=== PATIENT | male | born 1945 | race African-American/Black ===

== ENCOUNTER 2016-08-09 08:12 | Inpatient (IN) | payer OTHER ==
[2016-08-09 09:11] VITALS: BMI 24.3
--- NOTE | 2016-08-09 11:50 | HP ---
CIWA Score - CIWA Score Nausea/Vomitin Muscle Tremors: 3 Anxiety: 3 Agitation: 3 Paroxysmal Sweats: 2 Orientation: 0-Oriented Tacttile Disturbances: 2-Mild Itch/Numbness/Burn Auditory Disturbances: 2-Mild Harshness/Frighten Visual Disturbances: 2-Mild Sensitivity Headache: 2-Mild CIWA-Ar Total Score: 22 Admission ROS BHS - HPI Chief Complaint: i need help to stop drinking alcohol and cocaine Allergies/Adverse Reactions: Allergies Allergy/AdvReac Type Severity Reaction Status Date / Time shellfish derived Allergy Mild Rash Verified 08/09/16 09:30 tomato Allergy Mild Rash Verified 08/09/16 09:30 iodine Allergy Rash Verified 08/09/16 09:30 History of Present Illness: this 70 years old male with alcohol,cocaine dependence,seeking detox,last detox [facility] 09/09/15 to 09/13/15 several admissions in the past longest period of sobriety 6 and half years Exam Limitations: No Limitations - Ebola screening Have you traveled outside of the country in the last 21 days: No Have you had contact with anyone from an Ebola affected area: No Have you been sick,other than usual withdrawal symptoms: No - Review of Systems Constitutional: Malaise, Night Sweats, Changes in sleep, Weakness, Unintentional Wgt. Loss EENT: reports: Nose Congestion Respiratory: reports: No Symptoms reported Cardiac: reports: No Symptoms Reported GI: reports: Diarrhea, Nausea, Vomiting, Abdominal cramping : reports: No Symptoms Reported Musculoskeletal: reports: Back Pain, Muscle Pain Integumentary: reports: Dryness Neuro: reports: Headache, Tremors Endocrine: reports: No Symptoms Reported Hematology: reports: No Symptoms Reported Psychiatric: reports: No Sypmtoms Reported, Judgement Intact, Mood/Affect Appropiate, Orientated x3 Patient History - Patient Medical History Hx Anemia: No Hx Asthma: No Hx Chronic Obstructive Pulmonary Disease (COPD): No Hx Cancer: No Hx Cardiac Disorders: No Hx Congestive Heart Failure: No Hx Hypertension: No Hx Hypercholesterolemia: No Hx Pacemaker: No HX Cerebrovascular Accident: No Hx Seizures: No Hx Dementia: No Hx Diabetes: No Hx Gastrointestinal Disorders: Yes (acid reflux) Hx Liver Disease: No Hx Genitourinary Disorders: No Hx Sexually Transmitted Disorders: No Hx Renal Disease (ESRD): No Hx Thyroid Disease: No Hx Human Immunodeficiency Virus (HIV): No (NEGATIVE HX last 2016 negative) Hx Hepatitis C: No Hx Depression: No Hx Suicide Attempt: No Hx Bipolar Disorder: No Hx Schizophrenia: No Other Medical History: no suicidal,no homicidal - Patient Surgical History Past Surgical History: Yes Hx Neurologic Surgery: No Hx Cataract Extraction: No Hx Cardiac Surgery: No Hx Lung Surgery: No Hx Breast Surgery: No Hx Breast Biopsy: No Hx Abdominal Surgery: No (PANCREATIC PSEUDOCYST 2002) Hx Appendectomy: No Hx Cholecystectomy: No Hx Genitourinary Surgery: No Hx Section: No Hx Orthopedic Surgery: No Anesthesia Reaction: No - PPD History Previous Implant?: Yes Documented Results: Positive w/o proof Results: CXR(-) 12/19/14 PPD to be Administered?: No - Smoking Cessation Smoking history: Current every day smoker Have you smoked in the past 12 months: Yes Aproximately how many cigarettes per day: 10 Hx Chewing Tobacco Use: No Initiated information on smoking cessation: Yes 'Breaking Loose' booklet given: 08/09/16 - Substance & Tx. History Hx Alcohol Use: Yes Hx Substance Use: Yes Substance Use Type: Alcohol, Cocaine Hx Substance Use Treatment: Yes ([facility] 09/09/15 to 09/13/15) - Substances Abused Cocaine Route: Injection Frequency: Daily Amount used: $150 Age of first use: 16 Date of Last Use: 08/08/16 Alcohol-vodka/beer Route: Oral Frequency: Daily Amount used: 1 1/2 pts./1-6 pk. Age of first use: 15 Date of Last Use: 08/08/16 Family Disease History - Family Disease History Family Disease History: Diabetes: Father (ALCOHOL,), Other: Father Admission Physical Exam [facility] - Vital Signs Vital Signs: Vital Signs - 24 hr 08/09/16 09:08 Temperature 96.7 F L Pulse Rate 70 Respiratory 18 Rate Blood Pressure 132/77 - Physical General Appearance: Yes: Moderate Distress, Tremorous, Anxious HEENTM: Yes: Hearing grossly Normal, Normal ENT Inspection, Normocephalic Respiratory: Yes: Lungs Clear, Normal Breath Sounds, No Respiratory Distress Neck: Yes: Within Normal Limits Breast: Yes: Within Normal Limits Cardiology: Yes: Within Normal Limits, Regular Rhythm, Regular Rate, S1, S2 Abdominal: Yes: Within Normal Limits, Normal Bowel Sounds, Non Tender, Flat, Soft, Surgical Scar Genitourinary: Yes: Within Normal Limits Back: Yes: Muscle Spasm Musculoskeletal: Yes: Back pain Extremities: Yes: Within Normal Limits, Tremors Neurological: Yes: bumper and painter II-XII NML intact, Alert, Motor Strength 5/5 Integumentary: Yes: Dry Lymphatic: Yes: Within Normal Limits - Diagnostic (1) Alcohol dependence with uncomplicated withdrawal Current Visit: No Status: Chronic (2) Chronic alcoholic pancreatitis Current Visit: No Status: Chronic (3) Cocaine dependence Current Visit: No Status: Chronic Qualifiers: Substance use status: uncomplicated Qualified Code(s): F14.20 - Cocaine dependence, uncomplicated (4) Nicotine dependence Current Visit: No Status: Chronic Qualifiers: Nicotine product type: cigarettes Substance use status: uncomplicated Qualified Code(s): F17.210 - Nicotine dependence, cigarettes, uncomplicated (5) Pseudocyst of pancreas Current Visit: Yes Status: Acute Cleared for Admission [facility] - Detox or Rehab [facility] Level of Care: Medically Managed Detox Regimen/Protocol: Librium S Breath Alcohol Content Breath Alcohol Content: 0 Urine Drug Screen - Results Drug Screen Negative: No Urine Drug Screen Results: GURDEEP-Cocaine, BZO-Benzodiazepines
[2016-08-09] MEDS ORDERED: MENTHOL/PHENOL 1 EACH UD MM PRN (12:01)
[2016-08-09] MEDS ORDERED: P-EPHED 60MG/TRIPROLIDI 2.5MG TABLET PO PRN (12:01)
[2016-08-09] MEDS ORDERED: MAG HYDROX/AL HYDROX/SIMETH 30 ML UNIT-DOSE CUP PO PRN (12:01)
[2016-08-09] MEDS ORDERED: ACETAMINOPHEN 325 MG TABLET (FP) PO PRN (12:01)
[2016-08-09] MEDS ORDERED: guaiFENesin/D-METHORPHAN HB 10 ML UNIT-DOSE CUPS PO PRN (12:01)
[2016-08-09] MEDS ORDERED: MAGNESIUM HYDROX 2400MG/30ML ORAL SUSPENSION 30 ML CUP PO PRN (12:01)
[2016-08-09] MEDS ORDERED: MAGNESIUM CITRATE 300 ML BOTTLE PO PRN (12:01)
[2016-08-09] MEDS ORDERED: IBUPROFEN 400 MG TABLET (FP) PO PRN (12:01)
[2016-08-09] MEDS ORDERED: hydrOXYzine PAMOATE 50 MG CAPSULE (FP) PO PRN (12:01)
[2016-08-09] MEDS ORDERED: LOPERAMIDE HCL 2 MG CAPSULE PO PRN (12:01)
[2016-08-09] MEDS ORDERED: chlordiazePOXIDE HCL 25 MG CAPSULE PO PRN (12:01)
[2016-08-09] MEDS ORDERED: chlordiazePOXIDE HCL 25 MG CAPSULE PO ONE (12:26)
[2016-08-09] MEDS: NICOTINE 21 MG/24 HOURS TOPICAL PATCH TD SCH (13:06)
[2016-08-09 14:37] LABS: HIV 1 & 2 AB NEGATIVE; HIV 1 AGp24 NEGATIVE
[2016-08-09] MEDS: chlordiazePOXIDE HCL 25 MG CAPSULE PO SCH ×2 (17:34→22:48)
[2016-08-09 18:25] LABS: URINE APPEARANCE CLEAR; URINE BILIRUBIN NEGATIVE (NEGATIVE); URINE COLOR LTYELLOW; URINE GLUCOSE (UA) NEGATIVE (NEGATIVE); URINE KETONE NEGATIVE (NEGATIVE); URINE LEUK ESTERASE NEGATIVE (NEGATIVE); URINE NITRITE NEGATIVE (NEGATIVE); URINE PROTEIN NEGATIVE (NEGATIVE); URINE UROBILINOGEN NEGATIVE E.U./dl (0.2-1.0)
[2016-08-09 18:27] LABS: URINE BLOOD 1+ (NEGATIVE)
[2016-08-09 18:32] LABS: URINE RBC 1 /hpf (0-3); URINE WBC 1 /hpf (3-5)
[2016-08-09] MEDS: THIAMINE HCL 100 MG TABLET (FP) PO SCH (22:48)
[2016-08-09] MEDS: diphenhydrAMINE HCL 50 MG CAPSULE PO PRN (22:48)
[2016-08-10] MEDS: chlordiazePOXIDE HCL 25 MG CAPSULE PO SCH ×4 (05:59→22:20)
[2016-08-10 10:17] LABS: MCH 32.1 pg (25.7-33.7); MCHC 33.1 g/dl (32.0-35.9); MEAN CELL VOLUME 96.9 fl (80-96); MEAN PLT VOLUME 9.7 fl (7.5-11.1); PLATELET COUNT 103 K/MM3 (134-434); RDW 15.5 % (11.9-15.9); WHITE BLOOD COUNT 2.9 K/mm3 (4.0-10.0)
[2016-08-10 11:03] LABS: ALBUMIN 3.1 g/dl (3.4-5.0); ALK PHOS 69 U/L (45-117); ANION GAP 7 (8-16); BILIRUBIN,TOTAL 0.5 mg/dL (0.2-1.0); CALCIUM 8.6 mg/dL (8.5-10.1); CO2 30 mmol/L (21-32); CREATININE 1.4 mg/dL (0.7-1.3); GLUCOSE,RANDOM 107 mg/dL (74-106); SGOT/AST 22 U/L (15-37); SGPT/ALT 19 U/L (12-78); TOT PROT 6.9 g/dl (6.4-8.2)
[2016-08-10] MEDS: PRENATAL VITAMINS W/ FOLIC ACID TABLET (FP) PO SCH ×2 (11:26→15:22)
[2016-08-10] MEDS: NICOTINE 21 MG/24 HOURS TOPICAL PATCH TD SCH ×2 (11:26→15:21)
[2016-08-10] MEDS: PANTOPRAZOLE 40 MG TABLET (FP) PO SCH ×2 (11:27→15:21)
--- NOTE | 2016-08-10 12:59 | PN ---
S CIWA - CIWA Score Nausea/Vomitin Muscle Tremors: 3 Anxiety: 3 Agitation: 3 Paroxysmal Sweats: 1-Minimal Palms Moist Orientation: 0-Oriented Tacttile Disturbances: 1-Very Mild Itch/Numbness Auditory Disturbances: 1-Very Mild Visual Disturbances: 1-Very Mild Sensitivity Headache: 2-Mild CIWA-Ar Total Score: 18 S Progress Note (SOAP) Subjective: ALERT,IRRITABLE,ANXIOUS,INTERRUPTED SLEEP,TREMOR,PAIN IN THE BODY Objective: 08/10/16 12:56 Vital Signs Temperature 97.7 F 08/10/16 09:37 Pulse Rate 78 08/10/16 09:37 Respiratory Rate 16 08/10/16 09:37 Blood Pressure 142/65 08/10/16 09:37 O2 Sat by Pulse Oximetry (%) EKG NSR,INVERTED T IN 3,AVF NO CHEST PAIN,NO SOB,NO DIZZINESS 08/10/16 12:58 Laboratory Results - last 24 hr 08/09/16 08/09/16 08/10/16 11:40 14:00 06:00 WBC 2.9 L D RBC 4.06 Hgb 13.0 Hct 39.4 MCV 96.9 H MCHC 33.1 RDW 15.5 Plt Count 103 L MPV 9.7 D Sodium Potassium Chloride Carbon Dioxide Anion Gap BUN Creatinine Creat Clearance w eGFR Random Glucose Calcium Total Bilirubin AST ALT Alkaline Phosphatase Total Protein Albumin Urine Color Ltyellow Urine Appearance Clear Urine pH 5.0 Ur Specific [place] 1.015 Urine Protein Negative Urine Glucose (UA) Negative Urine Ketones Negative Urine Blood 1+ H Urine Nitrite Negative Urine Bilirubin Negative Urine Urobilinogen Negative Ur Leukocyte Esterase Negative Urine RBC 1 Urine WBC 1 Ur Epithelial Cells Rare RPR Titer HIV 1&2 Antibody Screen Negative HIV P24 Antigen Negative 08/10/16 08/10/16 06:00 06:00 WBC RBC Hgb Hct MCV MCHC RDW Plt Count MPV Sodium 141 Potassium 4.1 Chloride 104 Carbon Dioxide 30 Anion Gap 7 L BUN 13 Creatinine 1.4 H Creat Clearance w eGFR 50.10 Random Glucose 107 H Calcium 8.6 Total Bilirubin 0.5 D AST 22 ALT 19 Alkaline Phosphatase 69 D Total Protein 6.9 D Albumin 3.1 L Urine Color Urine Appearance Urine pH Ur Specific [place] Urine Protein Urine Glucose (UA) Urine Ketones Urine Blood Urine Nitrite Urine Bilirubin Urine Urobilinogen Ur Leukocyte Esterase Urine RBC Urine WBC Ur Epithelial Cells RPR Titer Nonreactive HIV 1&2 Antibody Screen HIV P24 Antigen Assessment: 08/10/16 12:58 WITHDRAWAL SYMPTOM Plan: CONTINUE DETOX,REPEAT CBC,CMP IN AM
--- NOTE | 2016-08-10 15:50 | EKG ---
Test Reason : Blood Pressure : / mmHG Vent. Rate : 064 BPM Atrial Rate : 064 BPM P-R Int : 164 ms QRS Dur : 086 ms QT Int : 402 ms P-R-T Axes : 033 065 040 degrees QTc Int : 414 ms NORMAL SINUS RHYTHM NONSPECIFIC T WAVE ABNORMALITY ABNORMAL ECG NO PREVIOUS ECGS AVAILABLE Confirmed by TYLER CACERES, TODD ([id number]) on 08/10/2016 3:50:03 PM Referred By: Niru Burgos Confirmed By:TODD SCOTT MD
[2016-08-10] MEDS: THIAMINE HCL 100 MG TABLET (FP) PO SCH (22:20)
[2016-08-10] MEDS: diphenhydrAMINE HCL 50 MG CAPSULE PO PRN (22:20)
[2016-08-11] MEDS: chlordiazePOXIDE HCL 25 MG CAPSULE PO SCH ×2 (06:12→10:58)
[2016-08-11] MEDS: PRENATAL VITAMINS W/ FOLIC ACID TABLET (FP) PO SCH (10:58)
[2016-08-11] MEDS: NICOTINE 21 MG/24 HOURS TOPICAL PATCH TD SCH (10:58)
[2016-08-11] MEDS: PANTOPRAZOLE 40 MG TABLET (FP) PO SCH (10:58)
--- NOTE | 2016-08-11 11:32 | PN ---
S CIWA - CIWA Score Nausea/Vomitin Muscle Tremors: 3 Anxiety: 3 Agitation: 2 Paroxysmal Sweats: 1-Minimal Palms Moist Orientation: 0-Oriented Tacttile Disturbances: 1-Very Mild Itch/Numbness Auditory Disturbances: 1-Very Mild Visual Disturbances: 1-Very Mild Sensitivity Headache: 2-Mild CIWA-Ar Total Score: 17 BHS Progress Note (SOAP) Subjective: ALERT,IRRITABLE,ANXIOUS,INTERRUPTED SLEEP,TREMOR Objective: 08/11/16 11:28 Vital Signs Temperature 98.1 F 08/11/16 10:00 Pulse Rate 76 08/11/16 10:00 Respiratory Rate 20 08/11/16 10:00 Blood Pressure 125/64 08/11/16 10:00 O2 Sat by Pulse Oximetry (%) Vital Signs Temperature 98.1 F 08/11/16 10:00 Pulse Rate 76 08/11/16 10:00 Respiratory Rate 20 08/11/16 10:00 Blood Pressure 125/64 08/11/16 10:00 O2 Sat by Pulse Oximetry (%) Laboratory Last Values WBC 2.9 K/mm3 (4.0-10.0) L D 08/10/16 06:00 RBC 4.06 M/mm3 (4.00-5.60) 08/10/16 06:00 Hgb 13.0 GM/dL (11.7-16.9) 08/10/16 06:00 Hct 39.4 % (35.4-49) 08/10/16 06:00 MCV 96.9 fl (80-96) H 08/10/16 06:00 MCHC 33.1 g/dl (32.0-35.9) 08/10/16 06:00 RDW 15.5 % (11.9-15.9) 08/10/16 06:00 Plt Count 103 K/MM3 (134-434) L 08/10/16 06:00 MPV 9.7 fl (7.5-11.1) D 08/10/16 06:00 Sodium 141 mmol/L (136-145) 08/10/16 06:00 Potassium 4.1 mmol/L (3.5-5.1) 08/10/16 06:00 Chloride 104 mmol/L (98-107) 08/10/16 06:00 Carbon Dioxide 30 mmol/L (21-32) 08/10/16 06:00 Anion Gap 7 (8-16) L 08/10/16 06:00 BUN 13 mg/dL (7-18) 08/10/16 06:00 Creatinine 1.4 mg/dL (0.7-1.3) H 08/10/16 06:00 Creat Clearance w eGFR 50.10 (>60) 08/10/16 06:00 Random Glucose 107 mg/dL (74-106) H 08/10/16 06:00 Calcium 8.6 mg/dL (8.5-10.1) 08/10/16 06:00 Total Bilirubin 0.5 mg/dL (0.2-1.0) D 08/10/16 06:00 AST 22 U/L (15-37) 08/10/16 06:00 ALT 19 U/L (12-78) 08/10/16 06:00 Alkaline Phosphatase 69 U/L (45-117) D 08/10/16 06:00 Total Protein 6.9 g/dl (6.4-8.2) D 08/10/16 06:00 Albumin 3.1 g/dl (3.4-5.0) L 08/10/16 06:00 Urine Color Ltyellow 08/09/16 14:00 Urine Appearance Clear 08/09/16 14:00 Urine pH 5.0 (5.0-8.0) 08/09/16 14:00 Ur Specific [place] 1.015 (1.005-1.025) 08/09/16 14:00 Urine Protein Negative (NEGATIVE) 08/09/16 14:00 Urine Glucose (UA) Negative (NEGATIVE) 08/09/16 14:00 Urine Ketones Negative (NEGATIVE) 08/09/16 14:00 Urine Blood 1+ (NEGATIVE) H 08/09/16 14:00 Urine Nitrite Negative (NEGATIVE) 08/09/16 14:00 Urine Bilirubin Negative (NEGATIVE) 08/09/16 14:00 Urine Urobilinogen Negative E.U./dl (0.2-1.0) 08/09/16 14:00 Ur Leukocyte Esterase Negative (NEGATIVE) 08/09/16 14:00 Urine RBC 1 /hpf (0-3) 08/09/16 14:00 Urine WBC 1 /hpf (3-5) 08/09/16 14:00 Ur Epithelial Cells Rare /hpf (FEW) 08/09/16 14:00 RPR Titer Nonreactive (NONREACTIVE) 08/10/16 06:00 HIV 1&2 Antibody Screen Negative 08/09/16 11:40 HIV P24 Antigen Negative 08/09/16 11:40 Assessment: 08/11/16 11:30 WITHDRAWAL SYMPTOM 08/11/16 11:31 Plan: CONTINUE DETOX
[2016-08-11] MEDS: chlordiazePOXIDE 5 MG CAPSULE PO SCH ×2 (17:29→22:05)
[2016-08-11] MEDS: diphenhydrAMINE HCL 50 MG CAPSULE PO PRN (22:04)
[2016-08-11] MEDS: THIAMINE HCL 100 MG TABLET (FP) PO SCH (22:04)
[2016-08-12] MEDS: chlordiazePOXIDE 5 MG CAPSULE PO SCH ×2 (05:54→10:49)
[2016-08-12 10:39] LABS: MCH 31.2 pg (25.7-33.7); MCHC 32.1 g/dl (32.0-35.9); MEAN CELL VOLUME 97.5 fl (80-96); MEAN PLT VOLUME 8.8 fl (7.5-11.1); PLATELET COUNT 97 K/MM3 (134-434); RDW 15.8 % (11.9-15.9); WHITE BLOOD COUNT 2.2 K/mm3 (4.0-10.0)
[2016-08-12] MEDS: PRENATAL VITAMINS W/ FOLIC ACID TABLET (FP) PO SCH (10:49)
[2016-08-12] MEDS: PANTOPRAZOLE 40 MG TABLET (FP) PO SCH (10:49)
[2016-08-12] MEDS: NICOTINE 21 MG/24 HOURS TOPICAL PATCH TD SCH (10:49)
--- NOTE | 2016-08-12 11:02 | PN ---
S Progress Note (SOAP) Subjective: ALERT,IRRITABLE,ANXIOUS,INTERRUPTED SLEEP Objective: 08/12/16 11:00 Vital Signs Temperature 97.3 F L 08/12/16 10:15 Pulse Rate 79 08/12/16 10:15 Respiratory Rate 16 08/12/16 10:15 Blood Pressure 137/73 08/12/16 10:15 O2 Sat by Pulse Oximetry (%) Laboratory Results - last 24 hr 08/12/16 08:00 WBC 2.2 L RBC 3.68 L Hgb 11.5 L D Hct 35.9 MCV 97.5 H MCHC 32.1 RDW 15.8 Plt Count 97 L MPV 8.8 Assessment: 08/12/16 11:01 WITHDRAWAL SYMPTOM Plan: CONTINUE DETOX,LEUKOPENIA,CONTINUE MONITORING
[2016-08-12] MEDS: chlordiazePOXIDE HCL 10 MG CAPSULE PO SCH ×2 (17:50→22:17)
[2016-08-12] MEDS: diphenhydrAMINE HCL 50 MG CAPSULE PO PRN (22:17)
[2016-08-12] MEDS: THIAMINE HCL 100 MG TABLET (FP) PO SCH (22:17)
[2016-08-13] MEDS: chlordiazePOXIDE HCL 10 MG CAPSULE PO SCH ×2 (05:22→10:33)
[2016-08-13] MEDS: PRENATAL VITAMINS W/ FOLIC ACID TABLET (FP) PO SCH (09:38)
[2016-08-13] MEDS: PANTOPRAZOLE 40 MG TABLET (FP) PO SCH (09:38)
[2016-08-13] MEDS: NICOTINE 21 MG/24 HOURS TOPICAL PATCH TD SCH (11:13)
--- NOTE | 2016-08-13 11:27 | DS ---
[facility] Detox Discharge Summary Admission Date: 08/09/16 Discharge Date: 08/13/16 - History Present History: Alcohol Dependence, Cocaine Dependence Additional Comments: ADVISED PATIENT TO FOLLOW-UP WITH [facility] / REHAB MEDICAL PROVIDER AFTER DISCHARGE FROM [facility]. Pertinent Past History: Chronic Alcoholic Pancreatitis, Pseudocyst of Pancreas, GERD. - Physical Exam Results Vital Signs: Vital Signs Temperature 97.3 F L 08/13/16 05:57 Pulse Rate 75 08/13/16 05:57 Respiratory Rate 18 08/13/16 05:57 Blood Pressure 137/74 08/13/16 05:57 O2 Sat by Pulse Oximetry (%) Pertinent Admission Physical Exam Findings: WITHDRAWAL SYMPTOMS. Laboratory Tests 08/09/16 08/09/16 08/10/16 11:40 14:00 06:00 WBC 2.9 L D RBC 4.06 Hgb 13.0 Hct 39.4 MCV 96.9 H MCHC 33.1 RDW 15.5 Plt Count 103 L MPV 9.7 D Sodium Potassium Chloride Carbon Dioxide Anion Gap BUN Creatinine Creat Clearance w eGFR Random Glucose Calcium Total Bilirubin AST ALT Alkaline Phosphatase Total Protein Albumin Urine Color Ltyellow Urine Appearance Clear Urine pH 5.0 Ur Specific [place] 1.015 Urine Protein Negative Urine Glucose (UA) Negative Urine Ketones Negative Urine Blood 1+ H Urine Nitrite Negative Urine Bilirubin Negative Urine Urobilinogen Negative Ur Leukocyte Esterase Negative Urine RBC 1 Urine WBC 1 Ur Epithelial Cells Rare RPR Titer HIV 1&2 Antibody Screen Negative HIV P24 Antigen Negative 08/10/16 08/10/16 08/12/16 06:00 06:00 08:00 WBC 2.2 L RBC 3.68 L Hgb 11.5 L D Hct 35.9 MCV 97.5 H MCHC 32.1 RDW 15.8 Plt Count 97 L MPV 8.8 Sodium 141 Potassium 4.1 Chloride 104 Carbon Dioxide 30 Anion Gap 7 L BUN 13 Creatinine 1.4 H Creat Clearance w eGFR 50.10 Random Glucose 107 H Calcium 8.6 Total Bilirubin 0.5 D AST 22 ALT 19 Alkaline Phosphatase 69 D Total Protein 6.9 D Albumin 3.1 L Urine Color Urine Appearance Urine pH Ur Specific [place] Urine Protein Urine Glucose (UA) Urine Ketones Urine Blood Urine Nitrite Urine Bilirubin Urine Urobilinogen Ur Leukocyte Esterase Urine RBC Urine WBC Ur Epithelial Cells RPR Titer Nonreactive HIV 1&2 Antibody Screen HIV P24 Antigen LABS NOTED. - Treatment Hospital Course: Detox Protocol Followed, Detoxed Safely, Responded well, Discharged Condition Good, Rehab Referral Accepted Patient has Accepted a Rehab Referral to: [facility]. - Medication Discharge Medications: Ambulatory Orders NK [No Known Home Medication] 08/09/16 - Diagnosis (1) Pseudocyst of pancreas Current Visit: Yes Status: Acute (2) Alcohol dependence with uncomplicated withdrawal Current Visit: Yes Status: Acute (3) Chronic alcoholic pancreatitis Current Visit: Yes Status: Chronic (4) Cocaine dependence, uncomplicated Current Visit: Yes Status: Acute (5) Nicotine dependence Current Visit: Yes Status: Chronic Qualifiers: Nicotine product type: cigarettes Substance use status: uncomplicated Qualified Code(s): F17.210 - Nicotine dependence, cigarettes, uncomplicated - AMA Did Patient Leave Against Medical Advice: No
[2016-08-13 12:44] VITALS: BP 113/73; PULSE 78; TEMP 98.3
--- NOTE | 2016-08-13 17:27 | PN ---
[facility] Progress Note Note: PATIENT WAS TRANSFERRED TO [address] [place] [address] FOR CONTINUING OF CARE IN REHAB,SEEN BY COUNSELOR ON THE UNIT,EXPRESSED HIMSELF THAT HE DID NOT WANT TO CONTINUE TREATMENT AND WOULD LIKE TO LEAVE,ALL EFFORTS CARRIED OUT BY MY SELF AND COUNSELOR WITH NO AVAIL, [facility] ACCOUNTING CLERK INFORMED.PATIENT AGREED TO GO TO [facility] FOR CONTINUING OF CARE UPON DISCHARGE, PATIENT SIGNED RELEASE AMA,[employer] NOTIFIED BY NURSE
--- NOTE | 2016-08-15 13:36 | PN ---
S Progress Note Note: patient signed AMA prior to be seen for admission, please see medical staff notes.
== END 2016-08-13 16:55 | disposition left against medical advice (07) | DRG 894 ==
LOC: YASAS 08:12 → Y6N 11:46 → Y5N 08-13 11:39
PROVIDERS: ADMIT Internal Medicine; ATTEND Internal Medicine
PROC: HZ2ZZZZ Detoxification Services for Substance Abuse Treatment (ICD-10-PCS; principal; 2016-08-09)
PROC: HZ42ZZZ Group Counseling for Substance Abuse Treatment, Cognitive-Behavioral (ICD-10-PCS; 2016-08-13)
DX: F14.20 Cocaine dependence, uncomplicated (principal); K86.0 Alcohol-induced chronic pancreatitis; K86.3 Pseudocyst of pancreas; F17.210 Nicotine dependence, cigarettes, uncomplicated; K21.9 Gastro-esophageal reflux disease without esophagitis; D72.819 Decreased white blood cell count, unspecified
CPT/HCPCS: 36415; 71020-TC; 80053; 81003; 81015; 85027; 86593; 87389; 93005; 93010

== ENCOUNTER 2017-03-28 11:22 | Inpatient (IN) | payer OTHER ==
[2017-03-28 13:34] VITALS: BMI 26.6
--- NOTE | 2017-03-28 14:14 | HP ---
CIWA Score - CIWA Score Nausea/Vomitin-Mild Nausea/No Vomiting Muscle Tremors: 4-Moderate,w/Arms Extend Anxiety: 4-Mod. Anxious/Guarded Agitation: 4-Moderately Restless Paroxysmal Sweats: 2 Orientation: 0-Oriented Tacttile Disturbances: 1-Very Mild Itch/Numbness Auditory Disturbances: 0-None Visual Disturbances: 0-None Headache: 2-Mild CIWA-Ar Total Score: 18 Admission ROS S - HPI Chief Complaint: withdrawal sx Allergies/Adverse Reactions: Allergies Allergy/AdvReac Type Severity Reaction Status Date / Time shellfish derived Allergy Mild Rash Verified 01/29/17 20:26 tomato Allergy Mild Rash Verified 01/29/17 20:26 iodine Allergy Rash Verified 01/29/17 20:26 History of Present Illness: 71 years old male with long history of alcohol nicotine dependence has chronic pancreatitis treated with creon 24.000 unit tid ac positive ppd has depression is admitted to detox Exam Limitations: No Limitations - Ebola screening Have you traveled outside of the country in the last 21 days: No Have you had contact with anyone from an Ebola affected area: No Have you been sick,other than usual withdrawal symptoms: No Do you have a fever: No - Review of Systems Constitutional: Changes in sleep, Weight Stable EENT: reports: Dental Problems (multiple teeth missing) Respiratory: reports: No Symptoms reported Cardiac: reports: No Symptoms Reported GI: reports: Nausea, Poor Fluid Intake, Indigestion, Abdominal cramping : reports: No Symptoms Reported Musculoskeletal: reports: No Symptoms Reported Integumentary: reports: No Symptoms Reported Neuro: reports: Tremors Endocrine: reports: No Symptoms Reported Hematology: reports: No Symptoms Reported Psychiatric: reports: Judgement Intact, Orientated x3, Anxious, Depressed Other Systems: Reviewed and Negative Patient History - Patient Medical History Hx Anemia: No Hx Asthma: No Hx Chronic Obstructive Pulmonary Disease (COPD): No Hx Cancer: No Hx Cardiac Disorders: No Hx Congestive Heart Failure: No Hx Hypertension: No Hx Hypercholesterolemia: No Hx Pacemaker: No HX Cerebrovascular Accident: No Hx Seizures: No Hx Dementia: No Hx Diabetes: No Hx Gastrointestinal Disorders: Yes (acid reflux) Hx Liver Disease: No Hx Genitourinary Disorders: No Hx Sexually Transmitted Disorders: No Hx Renal Disease (ESRD): No Hx Thyroid Disease: No Hx Human Immunodeficiency Virus (HIV): No Hx Hepatitis C: No Hx Depression: Yes Hx Suicide Attempt: No Hx Bipolar Disorder: No Hx Schizophrenia: No - Patient Surgical History Past Surgical History: Yes Hx Neurologic Surgery: No Hx Cataract Extraction: No Hx Cardiac Surgery: No Hx Lung Surgery: No Hx Breast Surgery: No Hx Breast Biopsy: No Hx Abdominal Surgery: No (PANCREATIC PSEUDOCYST 2002) Hx Appendectomy: No Hx Cholecystectomy: No Hx Genitourinary Surgery: No Hx Orthopedic Surgery: No - PPD History Previous Implant?: Yes Documented Results: Positive w/o proof Implanted On Prior R Admission?: No Results: CXR(-) 01/2017 PPD to be Administered?: No - Smoking Cessation Smoking history: Current every day smoker Have you smoked in the past 12 months: Yes Aproximately how many cigarettes per day: 10 Cigars Per Day: 0 Hx Chewing Tobacco Use: No Initiated information on smoking cessation: Yes 'Breaking Loose' booklet given: 03/28/17 - Substance & Tx. History Hx Alcohol Use: Yes Hx Substance Use: Yes Substance Use Type: Alcohol, Cocaine Hx Substance Use Treatment: Yes (01/2017 [facility] - Substances Abused Alcohol Route: Oral Frequency: Daily Amount used: 2.5 pint vodka Age of first use: 14 Date of Last Use: 03/27/17 Cocaine Route: Inhalation Frequency: Daily Amount used: 7 G Age of first use: 15 Date of Last Use: 03/27/17 Family Disease History - Family Disease History Family Disease History: Diabetes: Father (ALCOHOL,), Other: Father Admission Physical Exam BHS - Vital Signs Vital Signs: Vital Signs - 24 hr 03/28/17 13:33 Temperature 97.9 F Pulse Rate 70 Respiratory 20 Rate Blood Pressure 141/81 - Physical General Appearance: Yes: Appropriately Dressed, Moderate Distress, Tremorous, Irritable, Sweating, Anxious HEENTM: Yes: Hearing grossly Normal, Normal ENT Inspection, Normocephalic, Normal Voice, Other (multiple teeth missing) Respiratory: Yes: Chest Non-Tender, Lungs Clear, Normal Breath Sounds, No Respiratory Distress, No Accessory Muscle Use Neck: Yes: Supple, Trachea in good position Breast: Yes: Breasts Symetrical Cardiology: Yes: Regular Rhythm, Regular Rate, S1, S2 Abdominal: Yes: Non Tender, Soft, Increased Bowel Sounds Genitourinary: Yes: Within Normal Limits Back: Yes: Normal Inspection Musculoskeletal: Yes: full range of Motion, Gait Steady Extremities: Yes: Normal Inspection, Normal Range of Motion, Non-Tender, Tremors Neurological: Yes: Alert, Motor Strength 5/5, Normal Response, Depressed Affect Integumentary: Yes: Warm Lymphatic: Yes: Within Normal Limits - Diagnostic (1) Alcohol dependence with uncomplicated withdrawal Current Visit: Yes Status: Acute (2) GERD (gastroesophageal reflux disease) Current Visit: Yes Status: Chronic Qualifiers: Esophagitis presence: without esophagitis Qualified Code(s): K21.9 - Gastro -esophageal reflux disease without esophagitis (3) Nicotine dependence Current Visit: Yes Status: Acute Qualifiers: Nicotine product type: cigarettes Substance use status: in withdrawal Qualified Code(s): F17.213 - Nicotine dependence, cigarettes, with withdrawal (4) Positive PPD, treated Current Visit: Yes Status: Acute (5) Leukopenia Current Visit: No Status: Chronic Qualifiers: Leukopenia type: unspecified Qualified Code(s): D72.819 - Decreased white blood cell count, unspecified Cleared for Admission [facility] - Detox or Rehab [facility] Level of Care: Medically Managed Detox Regimen/Protocol: Librium [facility] Breath Alcohol Content Breath Alcohol Content: 0 Urine Drug Screen - Results Drug Screen Negative: No Urine Drug Screen Results: GURDEEP-Cocaine
[2017-03-28] MEDS ORDERED: guaiFENesin/D-METHORPHAN HB 10 ML UNIT-DOSE CUPS PO PRN (14:18)
[2017-03-28] MEDS ORDERED: MAGNESIUM HYDROX 2400MG/30ML ORAL SUSPENSION 30 ML CUP PO PRN (14:18)
[2017-03-28] MEDS ORDERED: P-EPHED 60MG/TRIPROLIDI 2.5MG TABLET PO PRN (14:18)
[2017-03-28] MEDS ORDERED: IBUPROFEN 400 MG TABLET (FP) PO PRN (14:18)
[2017-03-28] MEDS ORDERED: MAGNESIUM CITRATE 300 ML BOTTLE PO PRN (14:18)
[2017-03-28] MEDS ORDERED: ACETAMINOPHEN 325 MG TABLET (FP) PO PRN (14:18)
[2017-03-28] MEDS ORDERED: NICOTINE POLACRILEX 2 MG GUM BUC PRN (14:18)
[2017-03-28] MEDS ORDERED: chlordiazePOXIDE HCL 25 MG CAPSULE PO PRN (14:18)
[2017-03-28] MEDS ORDERED: LOPERAMIDE HCL 2 MG CAPSULE PO PRN (14:18)
[2017-03-28] MEDS ORDERED: MENTHOL/PHENOL 1 EACH UD MM PRN (14:18)
[2017-03-28] MEDS ORDERED: MAG HYDROX/AL HYDROX/SIMETH 30 ML UNIT-DOSE CUP PO PRN (14:18)
[2017-03-28] MEDS ORDERED: PATIENT'S OWN MEDICATION (NON-FORMULARY) (Lipase/Protease/Amylase [Creon Dr 24,000 Units C PO PRN (14:28)
[2017-03-28] MEDS: LIPASE/PROTEASE/AMYLASE 6,000 UNIT CAPSULE PO SCH (22:30)
[2017-03-28] MEDS: THIAMINE HCL 100 MG TABLET (FP) PO SCH (22:30)
[2017-03-28] MEDS: RANITIDINE HCL 150 MG TABLET (FP) PO SCH (22:30)
[2017-03-28] MEDS: chlordiazePOXIDE HCL 25 MG CAPSULE PO SCH (22:56)
[2017-03-28 23:09] LABS: URINE APPEARANCE TURBID; URINE BILIRUBIN NEGATIVE (NEGATIVE); URINE BLOOD 2+ (NEGATIVE); URINE COLOR RED; URINE GLUCOSE (UA) NEGATIVE (NEGATIVE); URINE KETONE NEGATIVE (NEGATIVE); URINE LEUK ESTERASE NEGATIVE (NEGATIVE); URINE NITRITE NEGATIVE (NEGATIVE); URINE PROTEIN NEGATIVE (NEGATIVE); URINE UROBILINOGEN NEGATIVE mg/dL (0.2-1.0)
[2017-03-28 23:16] LABS: EPI CELLS RARE /HPF (FEW)
[2017-03-29] MEDS: chlordiazePOXIDE HCL 25 MG CAPSULE PO SCH ×5 (05:16→22:29)
[2017-03-29] MEDS: LIPASE/PROTEASE/AMYLASE 6,000 UNIT CAPSULE PO SCH (07:11)
[2017-03-29 10:22] LABS: HEMATOCRIT 36.6 % (35.4-49); HEMOGLOBIN 11.8 GM/dL (11.7-16.9); MCH 31.1 pg (25.7-33.7); MCHC 32.3 g/dl (32.0-35.9); MEAN CELL VOLUME 96.4 fl (80-96); MEAN PLT VOLUME 9.4 fl (7.5-11.1); PLATELET COUNT 129 K/MM3 (134-434); RBC 3.79 M/mm3 (4.00-5.60); RDW 15.7 % (11.9-15.9); WHITE BLOOD COUNT 2.3 K/mm3 (4.0-10.0)
[2017-03-29 10:25] LABS: CHLORIDE 103 mmol/L (98-107); SODIUM 138 mmol/L (136-145)
[2017-03-29 10:37] LABS: ALBUMIN 3.3 g/dl (3.4-5.0); ALK PHOS 62 U/L (45-117); ANION GAP 8 (8-16); BILIRUBIN,TOTAL 0.6 mg/dL (0.2-1.0); BLOOD UREA NITROGEN 18 mg/dL (7-18); CO2 27 mmol/L (21-32); CREATININE 1.4 mg/dL (0.7-1.3); GLUCOSE,RANDOM 107 mg/dL (74-106); SGOT/AST 22 U/L (15-37); SGPT/ALT 19 U/L (12-78); TOT PROT 6.6 g/dl (6.4-8.2)
[2017-03-29] MEDS: PRENATAL VITAMINS W/ FOLIC ACID TABLET (FP) PO SCH (10:44)
[2017-03-29] MEDS: NICOTINE 14 MG/24 HOURS TOPICAL PATCH TD SCH (10:45)
[2017-03-29] MEDS: RANITIDINE HCL 150 MG TABLET (FP) PO SCH ×2 (10:45→22:29)
--- NOTE | 2017-03-29 12:15 | EKG ---
Test Reason : Blood Pressure : / mmHG Vent. Rate : 067 BPM Atrial Rate : 067 BPM P-R Int : 166 ms QRS Dur : 088 ms QT Int : 408 ms P-R-T Axes : 068 -05 -01 degrees QTc Int : 431 ms NORMAL SINUS RHYTHM NONSPECIFIC ST AND T WAVE ABNORMALITY ABNORMAL ECG WHEN COMPARED WITH ECG OF 29-JAN-2017 22:45, INVERTED T WAVES HAVE REPLACED NONSPECIFIC T WAVE ABNORMALITY IN INFERIOR LEADS Confirmed by TYLER CACERES, TODD ([id number]) on 03/29/2017 12:14:37 PM Referred By: Confirmed By:TODD SCOTT MD
--- NOTE | 2017-03-29 12:19 | PN ---
[facility] CIWA - CIWA Score Nausea/Vomitin-No Nausea/No Vomiting Muscle Tremors: 3 Anxiety: 5 Agitation: 4-Moderately Restless Paroxysmal Sweats: No Perspiration Orientation: 0-Oriented Tacttile Disturbances: 3-Moderate Itch/Numb/Burn Auditory Disturbances: 2-Mild Harshness/Frighten Visual Disturbances: 0-None Headache: 0-None Present CIWA-Ar Total Score: 17 BHS Progress Note (SOAP) Subjective: Tremors, Interrupted sleep, Anxious, Stomach Cramping. Objective: PT. A & O X 3, OBSERVED AMBULATING ON UNIT. NO ACUTE DISTRESS. 03/29/17 12:15 Vital Signs Temperature 98.0 F 03/29/17 09:19 Pulse Rate 81 03/29/17 09:19 Respiratory Rate 18 03/29/17 09:19 Blood Pressure 146/81 03/29/17 09:19 O2 Sat by Pulse Oximetry (%) Laboratory Tests 03/28/17 03/29/17 03/29/17 23:00 06:00 06:00 WBC 2.3 L RBC 3.79 L Hgb 11.8 Hct 36.6 MCV 96.4 H MCH 31.1 MCHC 32.3 RDW 15.7 Plt Count 129 L MPV 9.4 Sodium 138 Potassium 4.0 Chloride 103 Carbon Dioxide 27 Anion Gap 8 BUN 18 Creatinine 1.4 H Creat Clearance w eGFR 49.96 Random Glucose 107 H Calcium 8.0 L Total Bilirubin 0.6 AST 22 D ALT 19 D Alkaline Phosphatase 62 D Total Protein 6.6 Albumin 3.3 L D Urine Color Red Urine Appearance Turbid Urine pH 5.0 D Ur Specific [place] 1.023 Urine Protein Negative Urine Glucose (UA) Negative Urine Ketones Negative Urine Blood 2+ H Urine Nitrite Negative Urine Bilirubin Negative Urine Urobilinogen Negative Ur Leukocyte Esterase Negative Urine WBC (Auto) 1 Urine RBC (Auto) 6 Ur Epithelial Cells Rare LABS NOTED. RPR RESULT PENDING. 03/29/17 12:18 Assessment: 03/29/17 12:15 WITHDRAWAL SYMPTOMS. Plan: CONTINUE DETOX. D/C MAGNESIUM-CONTAIN MEDS. AND IBUPROFEN FOR ABNORMAL RENAL LAB VALUES. REPEAT UA FOR ADMISSION ABNORMALITIES. PRN FLEXERIL FOR BODY ACHES / MUSCLE SPASMS. INCREASE DAILY PO FLUID INTAKE.
--- NOTE | 2017-03-29 12:46 | CONSULT ---
[facility] Psychiatric Consult - Data Date of interview: 03/29/17 Admission source: [facility] Identifying data: Pt. 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 This is one of multiple admissions for patient. Pt. admitted to for alcohol and cocaine dependence. Substance Abuse History: Following information confirmed with Mr. Baxter: Smoking Cessation. Smoking history: Current every day smoker. Have you smoked in the past 12 months: Yes. Aproximately how many cigarettes per day: 10. Cigars Per Day: 0. Hx Chewing Tobacco Use: No. Initiated information on smoking cessation: Yes. 'Breaking Loose' booklet given: 03/28/17. - Substance & Tx. History. Hx Alcohol Use: Yes. Hx Substance Use: Yes. Substance Use Type : Alcohol, Cocaine. Hx Substance Use Treatment: Yes (01/2017 [facility]). - Substances Abused. Alcohol. Route: Oral. Frequency: Daily. Amount used: 2.5 pint vodka. Age of first use: 14. Date of Last Use: 03/27/17. Cocaine. Route: Inhalation. Frequency: Daily. Amount used: 7 G. Age of first use: 15. Date of Last Use: 03/27/17 Medical History: acid reflux. Psychiatric History: Pt. denies h/o psychiatric hospitalizations, suicide attempts, and outpatient care. Physical/Sexual Abuse/Trauma History: Denies. Mental Status Exam - Mental Status Exam Alert and Oriented to: Time, Place, Person Cognitive Function: Good Patient Appearance: Well Groomed Mood: Euthymic Affect: Mood Congruent Patient Behavior: Cooperative Speech Pattern: Appropriate Voice Loudness: Normal Thought Process: Goal Oriented Thought Disorder: Not Present Hallucinations: Denies Suicidal Ideation: Denies Homicidal Ideation: Denies Insight/Judgement: Poor Sleep: Poorly Appetite: Fair Muscle strength/Tone: Normal Gait/Station: Normal Psychiatric Findings - Problem List ([place] 1, 2,3) (1) Alcohol dependence with uncomplicated withdrawal Current Visit: Yes Status: Acute (2) Nicotine dependence Current Visit: Yes Status: Chronic Qualifiers: Nicotine product type: cigarettes Substance use status: in withdrawal Qualified Code(s): F17.213 - Nicotine dependence, cigarettes, with withdrawal (3) Insomnia Current Visit: Yes Status: Acute - Initial Treatment Plan Initial Treatment Plan: Psychoeducation provided. Detoxification provided. Ambien 5mg qhs prn ordered. Benefits and side effects discussed (sleep walking) . Verbal consent given. Will continue to monitor.
[2017-03-29] MEDS: ZOLPIDEM TARTRATE 5 MG TABLET PO PRN (22:28)
[2017-03-29] MEDS: THIAMINE HCL 100 MG TABLET (FP) PO SCH (22:29)
[2017-03-30] MEDS: chlordiazePOXIDE HCL 25 MG CAPSULE PO SCH ×3 (05:17→17:01)
[2017-03-30] MEDS: PRENATAL VITAMINS W/ FOLIC ACID TABLET (FP) PO SCH (10:28)
[2017-03-30] MEDS: RANITIDINE HCL 150 MG TABLET (FP) PO SCH ×2 (10:29→22:54)
[2017-03-30] MEDS: NICOTINE 14 MG/24 HOURS TOPICAL PATCH TD SCH (10:30)
--- NOTE | 2017-03-30 12:14 | PN ---
[facility] CIWA - CIWA Score Nausea/Vomitin-No Nausea/No Vomiting Muscle Tremors: 2 Anxiety: 3 Agitation: 4-Moderately Restless Paroxysmal Sweats: 3 Orientation: 0-Oriented Tacttile Disturbances: 3-Moderate Itch/Numb/Burn Auditory Disturbances: 0-None Visual Disturbances: 2-Mild Sensitivity Headache: 0-None Present CIWA-Ar Total Score: 17 BHS Progress Note (SOAP) Subjective: Body Aches, Anxious, Interrupted Sleep, Sweating. Objective: PT. A & O X 3, OBSERVED AMBULATING ON UNIT. NO ACUTE DISTRESS. 03/30/17 12:13 Vital Signs Temperature 97.3 F L 03/30/17 09:39 Pulse Rate 79 03/30/17 09:39 Respiratory Rate 18 03/30/17 09:39 Blood Pressure 139/83 03/30/17 09:39 O2 Sat by Pulse Oximetry (%) Laboratory Tests 03/28/17 03/29/17 03/29/17 23:00 06:00 06:00 WBC 2.3 L RBC 3.79 L Hgb 11.8 Hct 36.6 MCV 96.4 H MCH 31.1 MCHC 32.3 RDW 15.7 Plt Count 129 L MPV 9.4 Sodium 138 Potassium 4.0 Chloride 103 Carbon Dioxide 27 Anion Gap 8 BUN 18 Creatinine 1.4 H Creat Clearance w eGFR 49.96 Random Glucose 107 H Calcium 8.0 L Total Bilirubin 0.6 AST 22 D ALT 19 D Alkaline Phosphatase 62 D Total Protein 6.6 Albumin 3.3 L D Urine Color Red Urine Appearance Turbid Urine pH 5.0 D Ur Specific [place] 1.023 Urine Protein Negative Urine Glucose (UA) Negative Urine Ketones Negative Urine Blood 2+ H Urine Nitrite Negative Urine Bilirubin Negative Urine Urobilinogen Negative Ur Leukocyte Esterase Negative Urine WBC (Auto) 1 Urine RBC (Auto) 6 Ur Epithelial Cells Rare RPR Titer 03/29/17 06:00 WBC RBC Hgb Hct MCV MCH MCHC RDW Plt Count MPV Sodium Potassium Chloride Carbon Dioxide Anion Gap BUN Creatinine Creat Clearance w eGFR Random Glucose Calcium Total Bilirubin AST ALT Alkaline Phosphatase Total Protein Albumin Urine Color Urine Appearance Urine pH Ur Specific [place] Urine Protein Urine Glucose (UA) Urine Ketones Urine Blood Urine Nitrite Urine Bilirubin Urine Urobilinogen Ur Leukocyte Esterase Urine WBC (Auto) Urine RBC (Auto) Ur Epithelial Cells RPR Titer Nonreactive LABS NOTED. Assessment: 03/30/17 12:13 WITHDRAWAL SYMPTOMS. Plan: CONTINUE DETOX. INCREASE DAILY PO FLUID INTAKE.
[2017-03-30] MEDS: ZOLPIDEM TARTRATE 5 MG TABLET PO PRN (22:27)
[2017-03-30] MEDS: THIAMINE HCL 100 MG TABLET (FP) PO SCH (22:54)
[2017-03-30] MEDS: chlordiazePOXIDE 5 MG CAPSULE PO SCH (22:54)
[2017-03-30 23:05] LABS: URINE APPEARANCE CLEAR; URINE BILIRUBIN NEGATIVE (NEGATIVE); URINE BLOOD NEGATIVE (NEGATIVE); URINE COLOR LTYELLOW; URINE GLUCOSE (UA) NEGATIVE (NEGATIVE); URINE KETONE NEGATIVE (NEGATIVE); URINE LEUK ESTERASE NEGATIVE (NEGATIVE); URINE NITRITE NEGATIVE (NEGATIVE); URINE PROTEIN NEGATIVE (NEGATIVE); URINE UROBILINOGEN NEGATIVE mg/dL (0.2-1.0)
[2017-03-31] MEDS: chlordiazePOXIDE 5 MG CAPSULE PO SCH ×3 (06:07→17:29)
[2017-03-31] MEDS: NICOTINE 14 MG/24 HOURS TOPICAL PATCH TD SCH (10:32)
[2017-03-31] MEDS: PRENATAL VITAMINS W/ FOLIC ACID TABLET (FP) PO SCH (10:33)
[2017-03-31] MEDS: RANITIDINE HCL 150 MG TABLET (FP) PO SCH ×2 (10:34→22:17)
--- NOTE | 2017-03-31 13:40 | PN ---
BHS Progress Note (SOAP) Subjective: Anxious, restless, irritable Objective: 03/31/17 13:36 Last Vital Signs Temp Pulse Resp BP Pulse Ox 97.0 F L 79 18 146/84 03/31/17 13:17 03/31/17 13:17 03/31/17 13:17 03/31/17 13:17 Laboratory Tests 03/28/17 03/29/17 03/29/17 23:00 06:00 06:00 WBC 2.3 L RBC 3.79 L Hgb 11.8 Hct 36.6 MCV 96.4 H MCH 31.1 MCHC 32.3 RDW 15.7 Plt Count 129 L MPV 9.4 Sodium 138 Potassium 4.0 Chloride 103 Carbon Dioxide 27 Anion Gap 8 BUN 18 Creatinine 1.4 H Creat Clearance w eGFR 49.96 Random Glucose 107 H Calcium 8.0 L Total Bilirubin 0.6 AST 22 D ALT 19 D Alkaline Phosphatase 62 D Total Protein 6.6 Albumin 3.3 L D Urine Color Red Urine Appearance Turbid Urine pH 5.0 D Ur Specific [place] 1.023 Urine Protein Negative Urine Glucose (UA) Negative Urine Ketones Negative Urine Blood 2+ H Urine Nitrite Negative Urine Bilirubin Negative Urine Urobilinogen Negative Ur Leukocyte Esterase Negative Urine WBC (Auto) 1 Urine RBC (Auto) 6 Ur Epithelial Cells Rare RPR Titer 03/29/17 03/30/17 06:00 17:00 WBC RBC Hgb Hct MCV MCH MCHC RDW Plt Count MPV Sodium Potassium Chloride Carbon Dioxide Anion Gap BUN Creatinine Creat Clearance w eGFR Random Glucose Calcium Total Bilirubin AST ALT Alkaline Phosphatase Total Protein Albumin Urine Color Ltyellow Urine Appearance Clear Urine pH 6.0 Ur Specific [place] 1.019 Urine Protein Negative Urine Glucose (UA) Negative Urine Ketones Negative Urine Blood Negative Urine Nitrite Negative Urine Bilirubin Negative Urine Urobilinogen Negative Ur Leukocyte Esterase Negative Urine WBC (Auto) Urine RBC (Auto) Ur Epithelial Cells RPR Titer Nonreactive Labs noted: serum cr 1.4, GFR 49.96 Assessment: 03/31/17 13:39 Withdrawal symptoms Noted with CODY and mild thrombocytopenia Plan: Continue detox CODY:encouraged PO hydration (water), repeat BMP Mild thrombocytopenia: stable, monitor for bruising
[2017-03-31] MEDS: THIAMINE HCL 100 MG TABLET (FP) PO SCH (22:17)
[2017-03-31] MEDS: ZOLPIDEM TARTRATE 5 MG TABLET PO PRN (22:17)
[2017-03-31] MEDS: chlordiazePOXIDE HCL 10 MG CAPSULE PO SCH (22:17)
[2017-03-31] MEDS: CYCLOBENZAPRINE HCL 10 MG TABLET (FP) PO PRN (23:39)
[2017-04-01] MEDS: chlordiazePOXIDE HCL 10 MG CAPSULE PO SCH ×3 (05:46→16:44)
[2017-04-01] MEDS: NICOTINE 14 MG/24 HOURS TOPICAL PATCH TD SCH (10:04)
[2017-04-01] MEDS: RANITIDINE HCL 150 MG TABLET (FP) PO SCH ×2 (10:04→21:19)
[2017-04-01] MEDS: PRENATAL VITAMINS W/ FOLIC ACID TABLET (FP) PO SCH (10:04)
--- NOTE | 2017-04-01 11:22 | PN ---
BHS Progress Note (SOAP) Subjective: shakes sleep disturbance sweats Objective: 04/01/17 11:18 no acute distress noted A & O x 3 Vital Signs Temperature 97.5 F L 04/01/17 09:14 Pulse Rate 85 04/01/17 09:14 Respiratory Rate 18 04/01/17 09:14 Blood Pressure 128/74 04/01/17 09:14 O2 Sat by Pulse Oximetry (%) Pending rehab bed Assessment: 04/01/17 11:18 Vital Signs Temperature 97.5 F L 04/01/17 09:14 Pulse Rate 85 04/01/17 09:14 Respiratory Rate 18 04/01/17 09:14 Blood Pressure 128/74 04/01/17 09:14 O2 Sat by Pulse Oximetry (%) Plan: continue detox D/c for tomorrow
--- NOTE | 2017-04-01 11:45 | DS ---
[facility] Detox Discharge Summary Admission Date: 03/28/17 Discharge Date: 04/01/17 - History Additional Comments: Pt received a bed on Rehab floor Pertinent Past History: GERD Depression - Physical Exam Results Vital Signs: Vital Signs Temperature 97.5 F L 04/01/17 09:14 Pulse Rate 85 04/01/17 09:14 Respiratory Rate 18 04/01/17 09:14 Blood Pressure 128/74 04/01/17 09:14 O2 Sat by Pulse Oximetry (%) Pertinent Admission Physical Exam Findings: withdrawal sx - Treatment Hospital Course: Detox Protocol Followed, Detoxed Safely, Responded well, Discharged Condition Good, Rehab Referral Accepted [facility] - Medication Discharge Medications: Ambulatory Orders Lipase/Protease/Amylase [Creon Dr 24,000 Units Capsule] 1 each PO TID 03/28/17 Ranitidine HCl [Zantac] 150 mg PO BID 03/28/17 - Diagnosis (1) Alcohol dependence with uncomplicated withdrawal Current Visit: Yes Status: Acute (2) Nicotine dependence Current Visit: Yes Status: Chronic Qualifiers: Nicotine product type: cigarettes Substance use status: in withdrawal Qualified Code(s): F17.213 - Nicotine dependence, cigarettes, with withdrawal (3) Depression Current Visit: Yes Status: Chronic (4) GERD (gastroesophageal reflux disease) Current Visit: Yes Status: Chronic Qualifiers: Esophagitis presence: without esophagitis Qualified Code(s): K21.9 - Gastro -esophageal reflux disease without esophagitis - AMA Did Patient Leave Against Medical Advice: No
[2017-04-01] MEDS: THIAMINE HCL 100 MG TABLET (FP) PO SCH (21:18)
[2017-04-01] MEDS: CYCLOBENZAPRINE HCL 10 MG TABLET (FP) PO PRN (21:20)
[2017-04-02] MEDS: NICOTINE 14 MG/24 HOURS TOPICAL PATCH TD SCH (10:15)
[2017-04-02] MEDS: RANITIDINE HCL 150 MG TABLET (FP) PO SCH ×2 (10:15→21:42)
[2017-04-02] MEDS: PRENATAL VITAMINS W/ FOLIC ACID TABLET (FP) PO SCH (10:15)
--- NOTE | 2017-04-02 11:43 | HP ---
Psychiatrist Admission - Data Date of interview: 04/02/17 Identifying data: This is one of the several 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 Medical History: Acid reflux, smokes cigarettes 10 a day. Psychiatric History: Patient denies, reports he has insomnia and was given ambien while in detox. with a good response. Physical/Sexual Abuse/Trauma History: Denies history of sexual, physical and verbal abuse. Vital Signs: Vital Signs - 24 hr 04/01/17 04/02/17 04/02/17 14:29 00:30 03:30 Temperature 98.3 F Pulse Rate 96 H Respiratory 18 18 18 Rate Blood Pressure 132/67 04/02/17 06:48 Temperature 97.9 F Pulse Rate 83 Respiratory 18 Rate Blood Pressure 139/70 Allergies/Adverse Reactions: Allergies Allergy/AdvReac Type Severity Reaction Status Date / Time shellfish derived Allergy Mild Rash Verified 03/28/17 15:28 tomato Allergy Mild Rash Verified 03/28/17 15:28 iodine Allergy Rash Verified 03/28/17 15:28 - Substance Abuse/Tx History Hx Alcohol Use: Yes Hx Substance Use: Yes Substance Use Type: Alcohol (1-2 pints of vodka daily), Cocaine (7 gr daily) Hx Substance Use Treatment: Yes (several [facility]) Mental Status Exam - Mental Status Exam Alert and Oriented to: Time, Place, Person Cognitive Function: Good Patient Appearance: Well Groomed Mood: Hopeful Affect: Appropriate, Mood Congruent Patient Behavior: Appropriate, Cooperative Speech Pattern: Clear, Appropriate Voice Loudness: Normal Thought Process: Intact, Goal Oriented Thought Disorder: Not Present Hallucinations: Denies Suicidal Ideation: Denies Homicidal Ideation: Denies Insight/Judgement: Fair Sleep: Poorly, Difficulty falling asleep Appetite: Fair Muscle strength/Tone: Normal Gait/Station: Normal Psychiatric Findings - Problem List ([place] 1, 2,3) (1) Alcohol dependence Current Visit: Yes Status: Acute (2) Cocaine dependence Current Visit: Yes Status: Acute (3) Nicotine dependence Current Visit: Yes Status: Chronic Qualifiers: Nicotine product type: cigarettes Substance use status: in withdrawal Qualified Code(s): F17.213 - Nicotine dependence, cigarettes, with withdrawal (4) Cocaine-induced sleep disorder Current Visit: No Status: Acute - Initial Treatment Plan Initial Treatment Plan: Will add Belsomra 10 mg po hs, side-effects and benefits discussed, mponitor progress as needed.
[2017-04-02] MEDS: THIAMINE HCL 100 MG TABLET (FP) PO SCH (21:15)
[2017-04-02] MEDS: SUVOREXANT 10 MG TABLET PO SCH (21:17)
[2017-04-02] MEDS: CYCLOBENZAPRINE HCL 10 MG TABLET (FP) PO PRN (21:17)
[2017-04-03] MEDS: CYCLOBENZAPRINE HCL 10 MG TABLET (FP) PO PRN ×3 (07:25→21:15)
[2017-04-03] MEDS: NICOTINE 14 MG/24 HOURS TOPICAL PATCH TD SCH (09:48)
[2017-04-03] MEDS: RANITIDINE HCL 150 MG TABLET (FP) PO SCH ×2 (09:48→21:14)
[2017-04-03] MEDS: PRENATAL VITAMINS W/ FOLIC ACID TABLET (FP) PO SCH (09:48)
[2017-04-03] MEDS: SUVOREXANT 10 MG TABLET PO SCH (21:14)
[2017-04-03] MEDS: THIAMINE HCL 100 MG TABLET (FP) PO SCH (21:14)
[2017-04-04] MEDS: RANITIDINE HCL 150 MG TABLET (FP) PO SCH ×2 (10:22→21:21)
[2017-04-04] MEDS: PRENATAL VITAMINS W/ FOLIC ACID TABLET (FP) PO SCH (10:22)
[2017-04-04] MEDS: NICOTINE 14 MG/24 HOURS TOPICAL PATCH TD SCH (10:22)
[2017-04-04] MEDS: CYCLOBENZAPRINE HCL 10 MG TABLET (FP) PO PRN ×2 (10:24→21:21)
--- NOTE | 2017-04-04 11:54 | PN ---
S Progress Note (SOAP) Subjective: [facility] HAS APT ON SUNDAY TO FOLLOW UP WITH pcp WOULD LIKE TO BE DISCHARGED ON THAT DAY,. Objective: 04/04/17 11:53 Vital Signs - 24 hr 04/04/17 04/04/17 04/04/17 00:30 03:30 06:52 Temperature 98.0 F Pulse Rate 71 Respiratory 18 18 18 Rate Blood Pressure 118/69 Laboratory Tests 03/28/17 03/29/17 03/29/17 23:00 06:00 06:00 WBC 2.3 L RBC 3.79 L Hgb 11.8 Hct 36.6 MCV 96.4 H MCH 31.1 MCHC 32.3 RDW 15.7 Plt Count 129 L MPV 9.4 Sodium 138 Potassium 4.0 Chloride 103 Carbon Dioxide 27 Anion Gap 8 BUN 18 Creatinine 1.4 H Creat Clearance w eGFR 49.96 Random Glucose 107 H Calcium 8.0 L Total Bilirubin 0.6 AST 22 D ALT 19 D Alkaline Phosphatase 62 D Total Protein 6.6 Albumin 3.3 L D Urine Color Red Urine Appearance Turbid Urine pH 5.0 D Ur Specific [place] 1.023 Urine Protein Negative Urine Glucose (UA) Negative Urine Ketones Negative Urine Blood 2+ H Urine Nitrite Negative Urine Bilirubin Negative Urine Urobilinogen Negative Ur Leukocyte Esterase Negative Urine WBC (Auto) 1 Urine RBC (Auto) 6 Ur Epithelial Cells Rare RPR Titer 03/29/17 03/30/17 06:00 17:00 WBC RBC Hgb Hct MCV MCH MCHC RDW Plt Count MPV Sodium Potassium Chloride Carbon Dioxide Anion Gap BUN Creatinine Creat Clearance w eGFR Random Glucose Calcium Total Bilirubin AST ALT Alkaline Phosphatase Total Protein Albumin Urine Color Ltyellow Urine Appearance Clear Urine pH 6.0 Ur Specific [place] 1.019 Urine Protein Negative Urine Glucose (UA) Negative Urine Ketones Negative Urine Blood Negative Urine Nitrite Negative Urine Bilirubin Negative Urine Urobilinogen Negative Ur Leukocyte Esterase Negative Urine WBC (Auto) Urine RBC (Auto) Ur Epithelial Cells RPR Titer Nonreactive Assessment: 04/04/17 11:53 REQUESTING D/C ON SUNDAY MOOSE APPT , WILL DISCUSS WITH COUNSELOR FOR D/ C MED ENTERED.
[2017-04-04] MEDS: THIAMINE HCL 100 MG TABLET (FP) PO SCH (21:21)
[2017-04-04] MEDS: SUVOREXANT 10 MG TABLET PO SCH (21:21)
[2017-04-05] MEDS: RANITIDINE HCL 150 MG TABLET (FP) PO SCH ×2 (10:11→21:23)
[2017-04-05] MEDS: PRENATAL VITAMINS W/ FOLIC ACID TABLET (FP) PO SCH (10:11)
[2017-04-05] MEDS: NICOTINE 14 MG/24 HOURS TOPICAL PATCH TD SCH (10:12)
[2017-04-05] MEDS: CYCLOBENZAPRINE HCL 10 MG TABLET (FP) PO PRN ×2 (10:12→21:24)
[2017-04-05] MEDS: THIAMINE HCL 100 MG TABLET (FP) PO SCH (21:23)
[2017-04-05] MEDS: SUVOREXANT 10 MG TABLET PO SCH (21:23)
[2017-04-06 06:44] VITALS: BP 137/77; PULSE 80; TEMP 97.5
[2017-04-06] MEDS: PRENATAL VITAMINS W/ FOLIC ACID TABLET (FP) PO SCH (09:18)
[2017-04-06] MEDS: NICOTINE 14 MG/24 HOURS TOPICAL PATCH TD SCH (09:18)
[2017-04-06] MEDS: RANITIDINE HCL 150 MG TABLET (FP) PO SCH (09:18)
--- NOTE | 2017-04-06 10:36 | PN ---
Psychiatric Progress Note Vital Signs: Vital Signs Period Temp Pulse Resp BP Sys/Ruano Pulse Ox Last 24 Hr 97.5 F 80 16-18 137/77 Date of Session: 04/06/17 Chief Complaint:: discharge visit HPI: Patient is addressing alcohol, cocaine, nicotine dependence comorbid cocaine induced sleep disorder. ROS: Acid reflux medically managed. Current Side Effect: No Lab tests ordered: No Lab tests reviewed: Yes Provider note:: Patient requested to be discharged today states he has a PCP appointment he needs to follow. He was encouraged to continue maintain abstinence and utilize all supports to prevent relapses. Patient is stable for discharge. Total face to face time:: 10 Mental Status Exam - Mental Status Exam Alert and Oriented to: Time, Place, Person Cognitive Function: Grossly Intact Patient Appearance: Well Groomed Mood: Hopeful Affect: Mood Congruent Patient Behavior: Appropriate, Cooperative Speech Pattern: Clear Voice Loudness: Normal Thought Process: Intact Thought Disorder: Not Present Hallucinations: Denies Suicidal Ideation: Denies Homicidal Ideation: Denies Insight/Judgement: Fair Sleep: Fair Appetite: Fair Muscle strength/Tone: Normal Gait/Station: Normal Psychiatric Treatment Plan - Problem List (3) Nicotine dependence Qualifiers: Nicotine product type: cigarettes Substance use status: in withdrawal Qualified Code(s): F17.213 - Nicotine dependence, cigarettes, with withdrawal
== END 2017-04-06 09:35 | disposition home or self-care (01) | DRG 895 ==
LOC: YASAS 11:22 → Y3N 16:17 → Y5N 04-01 13:59
PROVIDERS: ADMIT Internal Medicine; ATTEND Psychiatry & Neurology Psychiatry
PROC: HZ2ZZZZ Detoxification Services for Substance Abuse Treatment (ICD-10-PCS; principal; 2017-03-28)
PROC: HZ42ZZZ Group Counseling for Substance Abuse Treatment, Cognitive-Behavioral (ICD-10-PCS; 2017-03-28)
DX: F19.20 Other psychoactive substance dependence, uncomplicated (principal); F14.20 Cocaine dependence, uncomplicated; F10.20 Alcohol dependence, uncomplicated; F17.210 Nicotine dependence, cigarettes, uncomplicated; F32.9 Major depressive disorder, single episode, unspecified; G47.00 Insomnia, unspecified; D72.819 Decreased white blood cell count, unspecified; R76.11 Nonspecific reaction to tuberculin skin test without active tuberculosis
CPT/HCPCS: 36415; 80053; 81003; 81015; 85027; 86593; 93005; 93010

== ENCOUNTER 2017-12-08 10:05 | Inpatient (IN) | payer OTHER ==
[2017-12-08 10:59] VITALS: BMI 25.2
--- NOTE | 2017-12-08 11:28 | HP ---
CIWA Score - CIWA Score Nausea/Vomitin Muscle Tremors: 1-None Visible, but [place] Anxiety: 4-Mod. Anxious/Guarded Agitation: 1-Slight > Activity Paroxysmal Sweats: 1-Minimal Palms Moist Orientation: 0-Oriented Tacttile Disturbances: 0-None Auditory Disturbances: 0-None Visual Disturbances: 1-Very Mild Sensitivity Headache: 2-Mild CIWA-Ar Total Score: 12 Admission ROS BHS - HPI Chief Complaint: I need help, I can't stop, I know when the ceiling is cracking and it's time to get help Allergies/Adverse Reactions: Allergies Allergy/AdvReac Type Severity Reaction Status Date / Time shellfish derived Allergy Mild Rash Verified 12/08/17 10:55 tomato Allergy Mild Rash Verified 12/08/17 10:55 iodine Allergy Rash Verified 12/08/17 10:55 History of Present Illness: 72 yo gentleman here for detox from alcohol - also using cocaine. No seizures, does have black outs. Was in [facility] ED last night and got librium to help the shakes but they had no beds so he was brought here ( urine tox + bzo). Patient with chronic alcohol induced pancreatitis. [place] noted to be on percocet 10 q4h gets monthly, last time 12/05/17) but urine tox negative, states she only takes it when/if he needs it for leg pain due to arthritis. Exam Limitations: Clinical Condition - Ebola screening Have you traveled outside of the country in the last 21 days: No (N) Have you had contact with anyone from an Ebola affected area: No Have you been sick,other than usual withdrawal symptoms: No Do you have a fever: No - Review of Systems Constitutional: Loss of Appetite, Malaise, Changes in sleep EENT: reports: Blurred Vision Respiratory: reports: No Symptoms reported Cardiac: reports: No Symptoms Reported GI: reports: Poor Appetite, Indigestion, Abdominal cramping : reports: Frequency Musculoskeletal: reports: Joint Pain, Other (left leg pain) Integumentary: reports: Dryness Neuro: reports: Headache, Tremors (feel shakey inside) Endocrine: reports: No Symptoms Reported Hematology: reports: No Symptoms Reported Psychiatric: reports: Judgement Intact, Mood/Affect Appropiate, Orientated x3, Anxious, other (irritable) Patient History - Patient Medical History Hx Anemia: No Hx Asthma: No Hx Chronic Obstructive Pulmonary Disease (COPD): No Hx Cancer: No Hx Cardiac Disorders: No Hx Congestive Heart Failure: No Hx Hypertension: No Hx Hypercholesterolemia: No Hx Pacemaker: No HX Cerebrovascular Accident: No Hx Seizures: No Hx Dementia: No Hx Diabetes: No Hx Gastrointestinal Disorders: Yes (Hx of GERD,pseudocyst of pancrease, pancreatitis) Hx Liver Disease: No Hx Genitourinary Disorders: No Hx Sexually Transmitted Disorders: No Hx Renal Disease (ESRD): No Hx Thyroid Disease: No Hx Human Immunodeficiency Virus (HIV): No (last 05/06) Hx Hepatitis C: No Hx Depression: No Hx Suicide Attempt: No Hx Bipolar Disorder: No Hx Schizophrenia: No Other Medical History: arthritis - Patient Surgical History Past Surgical History: Yes Hx Neurologic Surgery: No Hx Cataract Extraction: No Hx Cardiac Surgery: No Hx Lung Surgery: No Hx Breast Surgery: No Hx Breast Biopsy: No Hx Abdominal Surgery: Yes (internal bleeding, PANCREATIC PSEUDOCYST 2002) Hx Appendectomy: No Hx Cholecystectomy: No Hx Genitourinary Surgery: No Hx Section: No Hx Orthopedic Surgery: No Anesthesia Reaction: No - PPD History Previous Implant?: Yes (took INH x 6 months about 1998) Documented Results: Positive w/o proof Results: CXR(-)01/30/17 PPD to be Administered?: No - Reproductive History Patient is a Female of Child Bearing Age (11 -55 yrs old): No (male) - Smoking Cessation Smoking history: Current every day smoker Have you smoked in the past 12 months: Yes Aproximately how many cigarettes per day: 20 Cigars Per Day: 0 Hx Chewing Tobacco Use: No Initiated information on smoking cessation: Yes 'Breaking Loose' booklet given: 12/08/17 (give on floor) - Substance & Tx. History Hx Alcohol Use: Yes Hx Substance Use: Yes Substance Use Type: Alcohol, Cocaine Hx Substance Use Treatment: Yes (detox, rehab) - Substances Abused Alcohol Route: Oral Frequency: Daily Amount used: 2 PINTS OF HENNESEY; four 24 oz beers Age of first use: 14 Date of Last Use: 12/08/17 Cocaine Route: Inhalation Frequency: 3-6 times per week Amount used: 3 GRAMS Age of first use: 14 Date of Last Use: 12/07/17 Family Disease History - Family Disease History Family Disease History: Diabetes: Father (ALCOHOL,), Other: Father, Mother (Alive, age 95), Sister (three - living, healthy), Son (one - healthy), Daughter (two - healthy) Admission Physical Exam [facility] - Vital Signs Vital Signs: Vital Signs - 24 hr 12/08/17 10:51 Temperature 97.2 F L Pulse Rate 83 Respiratory 20 Rate Blood Pressure 126/73 - Physical General Appearance: Yes: Nourished, Appropriately Dressed, Moderate Distress, Tremorous (states feels shakey inside), Other (missing many teeth) HEENTM: Yes: EOMI, Hearing grossly Normal, Normocephalic, Normal Voice, Pharynx Normal Respiratory: Yes: Normal Breath Sounds, No Respiratory Distress Neck: Yes: No masses,lesions,Nodules, Supple Breast: Yes: Breast Exam Deferred Cardiology: Yes: Regular Rhythm, Regular Rate Abdominal: Yes: Soft, Surgical Scar Genitourinary: Yes: Frequency Back: Yes: Normal Inspection Musculoskeletal: Yes: full range of Motion, Gait Steady, Other (states left knee /leg pain - normal in appearance - no swelling, no erythema) Extremities: Yes: Normal Inspection, Non-Tender Neurological: Yes: Fully Oriented, Alert, Normal Mood/Affect, Normal Response Integumentary: Yes: Normal Color, Dry, Warm Lymphatic: Yes: Within Normal Limits - Diagnostic (1) Alcohol dependence with uncomplicated withdrawal Current Visit: Yes Status: Acute (2) Chronic alcoholic pancreatitis Current Visit: Yes Status: Suspected (3) Cocaine dependence, uncomplicated Current Visit: No Status: Acute (4) GERD (gastroesophageal reflux disease) Current Visit: No Status: Chronic Qualifiers: Esophagitis presence: without esophagitis Qualified Code(s): K21.9 - Gastro -esophageal reflux disease without esophagitis (5) Nicotine dependence Current Visit: No Status: Chronic Qualifiers: Nicotine product type: cigarettes Substance use status: in withdrawal Qualified Code(s): F17.213 - Nicotine dependence, cigarettes, with withdrawal (6) Leukopenia Current Visit: Yes Status: Chronic Qualifiers: Leukopenia type: unspecified Qualified Code(s): D72.819 - Decreased white blood cell count, unspecified Cleared for Admission BHS - Detox or Rehab S Level of Care: Medically Managed Detox Regimen/Protocol: Librium S Breath Alcohol Content Breath Alcohol Content: 0 Urine Drug Screen - Results Drug Screen Negative: No Urine Drug Screen Results: GURDEEP-Cocaine, BZO-Benzodiazepines
[2017-12-08] MEDS ORDERED: MAG HYDROX/AL HYDROX/SIMETH 30 ML UNIT-DOSE CUP PO PRN (11:37)
[2017-12-08] MEDS ORDERED: MAGNESIUM HYDROX 2400MG/30ML ORAL SUSPENSION 30 ML CUP PO PRN (11:37)
[2017-12-08] MEDS ORDERED: LOPERAMIDE HCL 2 MG CAPSULE PO PRN (11:37)
[2017-12-08] MEDS ORDERED: MENTHOL/PHENOL 1 EACH UD MM PRN (11:37)
[2017-12-08] MEDS ORDERED: P-EPHED 60MG/TRIPROLIDI 2.5MG TABLET PO PRN (11:37)
[2017-12-08] MEDS ORDERED: guaiFENesin/D-METHORPHAN HB 10 ML UNIT-DOSE CUPS PO PRN (11:37)
[2017-12-08] MEDS ORDERED: ACETAMINOPHEN 325 MG TABLET (FP) PO PRN (11:37)
[2017-12-08] MEDS ORDERED: IBUPROFEN 400 MG TABLET (FP) PO PRN (11:37)
[2017-12-08] MEDS ORDERED: MAGNESIUM CITRATE 300 ML BOTTLE PO PRN (11:37)
[2017-12-08] MEDS ORDERED: chlordiazePOXIDE HCL 25 MG CAPSULE PO PRN (11:37)
[2017-12-08] MEDS: NICOTINE 21 MG/24 HOURS TOPICAL PATCH TD SCH (13:42)
[2017-12-08] MEDS: METHYL SALICYLATE/MENTHOL OINT 30 GM TUBE TP SCH ×2 (13:43→22:31)
[2017-12-08] MEDS: chlordiazePOXIDE HCL 25 MG CAPSULE PO SCH ×2 (17:46→22:31)
[2017-12-08 17:54] LABS: URINE APPEARANCE TURBID; URINE BILIRUBIN NEGATIVE (<2.0 mg/dL); URINE GLUCOSE (UA) NEGATIVE (NEGATIVE); URINE KETONE NEGATIVE (NEGATIVE); URINE LEUK ESTERASE NEGATIVE (NEGATIVE); URINE NITRITE NEGATIVE (NEGATIVE); URINE PROTEIN NEGATIVE (NEGATIVE)
[2017-12-08 17:57] LABS: URINE COLOR YELLOW
[2017-12-08 18:01] LABS: CALCIUM OXALATE CRYSTALS RARE /hpf (NONE SEEN); URINE BACTERIA MANY /hpf (NONE SEEN); URINE MUCUS RARE; YEAST MODERATE
--- NOTE | 2017-12-08 18:08 | EKG ---
Test Reason : Blood Pressure : / mmHG Vent. Rate : 074 BPM Atrial Rate : 074 BPM P-R Int : 150 ms QRS Dur : 074 ms QT Int : 370 ms P-R-T Axes : 073 -24 011 degrees QTc Int : 410 ms NORMAL SINUS RHYTHM POSSIBLE LEFT ATRIAL ENLARGEMENT NONSPECIFIC T WAVE ABNORMALITY ABNORMAL ECG WHEN COMPARED WITH ECG OF 29-SEP-2017 19:23, NO SIGNIFICANT CHANGE WAS FOUND Confirmed by TODD SCOTT MD ([id number]) on 12/08/2017 6:08:35 PM Referred By: Confirmed By:TODD SCOTT MD
[2017-12-08] MEDS: THIAMINE HCL 100 MG TABLET (FP) PO SCH (22:31)
[2017-12-08] MEDS: MELATONIN 5 MG TABLETS PO PRN (22:31)
[2017-12-09] MEDS: chlordiazePOXIDE HCL 25 MG CAPSULE PO SCH ×4 (05:53→22:09)
--- NOTE | 2017-12-09 06:55 | CONSULT ---
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 Refer to addiction counselor's summary for further information Medical History: Significant for GERD, arthritis, PPD+, chronic alcoholic pancreatitis and history of surgery for pseudocyst of the pancreas in 2002. 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 He reports that he received psychiatric treatment for depression when he was around [age] years old. He has no recollection of medication he was prescibed but claims he took it for a year. Denies any further psychiatric contact since. Denies psychiatric hospitalization or suicidal attempt. At present, reports feeling depressed, anxious and sleeping poorly Physical/Sexual Abuse/Trauma History: Denies history of emotional, physical or sexual abuse as well as DV relationship Additional Comment: Reports history of multiple previous arrests including 3 felony convictions. Denies being on parole/probation currently Mental Status Exam - Mental Status Exam Alert and Oriented to: Time, Place, Person Cognitive Function: Fair Patient Appearance: Well Groomed Mood: Depressed, Anxious Affect: Appropriate Patient Behavior: Cooperative Speech Pattern: Clear Voice Loudness: Normal Thought Process: Intact, Goal Oriented Hallucinations: Denies Suicidal Ideation: Denies Homicidal Ideation: Denies Insight/Judgement: Fair Sleep: Poorly Appetite: Poor Muscle strength/Tone: Normal Gait/Station: Normal Psychiatric Findings - Problem List ([place] 1, 2,3) (1) Substance induced mood disorder Current Visit: Yes Status: Acute (2) Substance-induced sleep disorder Current Visit: Yes Status: Acute (3) Alcohol dependence with uncomplicated withdrawal Current Visit: Yes Status: Acute (4) Cocaine dependence, uncomplicated Current Visit: No Status: Acute (5) Nicotine dependence Current Visit: Yes Status: Chronic (6) Chronic alcoholic pancreatitis Current Visit: Yes Status: Suspected (7) GERD (gastroesophageal reflux disease) Current Visit: No Status: Chronic Qualifiers: Esophagitis presence: without esophagitis Qualified Code(s): K21.9 - Gastro -esophageal reflux disease without esophagitis (8) Pseudocyst of pancreas Current Visit: No Status: Chronic - Initial Treatment Plan Initial Treatment Plan: 1) Start Ambien 10 mg po HS prn for insomnia. 2) Continue inpatient detoxification
[2017-12-09 09:57] LABS: HEMATOCRIT 35.3 % (35.4-49); HEMOGLOBIN 11.6 GM/dL (11.7-16.9); MCH 31.6 pg (25.7-33.7); MCHC 32.8 g/dl (32.0-35.9); MEAN CELL VOLUME 96.4 fl (80-96); MEAN PLT VOLUME 9.3 fl (7.5-11.1); PLATELET COUNT 127 K/MM3 (134-434); RBC 3.66 M/mm3 (4.00-5.60); RDW 16.1 % (11.9-15.9)
[2017-12-09 10:20] LABS: ALBUMIN 2.6 g/dl (3.4-5.0); ALK PHOS 54 U/L (45-117); ANION GAP 9 MMOL/L (8-16); BILIRUBIN,TOTAL 0.4 mg/dL (0.2-1); BLOOD UREA NITROGEN 14 mg/dL (7-18); CALCIUM 7.8 mg/dL (8.5-10.1); CHLORIDE 106 mmol/L (98-107); CO2 26 mmol/L (21-32); CREATININE 1.3 mg/dL (0.55-1.3); GLUCOSE,RANDOM 115 mg/dL (74-106); POTASSIUM 3.8 mmol/L (3.5-5.1); SGOT/AST 20 U/L (15-37); SGPT/ALT 15 U/L (13-61); SODIUM 141 mmol/L (136-145); TOT PROT 6.2 g/dl (6.4-8.2)
[2017-12-09] MEDS: METHYL SALICYLATE/MENTHOL OINT 30 GM TUBE TP SCH ×2 (10:22→22:09)
[2017-12-09] MEDS: PRENATAL VITAMINS W/ FOLIC ACID TABLET (FP) PO SCH (10:22)
[2017-12-09] MEDS: NICOTINE 21 MG/24 HOURS TOPICAL PATCH TD SCH (10:24)
[2017-12-09 10:47] LABS: WHITE BLOOD COUNT 1.8 K/mm3 (4.0-10.0)
--- NOTE | 2017-12-09 15:37 | PN ---
[facility] CIWA - CIWA Score Nausea/Vomitin Muscle Tremors: 4-Moderate,w/Arms Extend Anxiety: 4-Mod. Anxious/Guarded Agitation: 4-Moderately Restless Paroxysmal Sweats: 3 Orientation: 0-Oriented Tacttile Disturbances: 0-None Auditory Disturbances: 0-None Visual Disturbances: 0-None Headache: 0-None Present CIWA-Ar Total Score: 18 [facility] Progress Note (SOAP) Subjective: Anxious, restless, sweating, interrupted sleep Objective: 12/09/17 15:31 Last Vital Signs Temp Pulse Resp BP Pulse Ox 97 F L 80 20 115/75 12/09/17 14:21 12/09/17 14:21 12/09/17 14:21 12/09/17 14:21 Laboratory Tests 12/08/17 12/09/17 12/09/17 15:53 07:30 07:30 WBC 1.8 L* RBC 3.66 L Hgb 11.6 L Hct 35.3 L MCV 96.4 H MCH 31.6 MCHC 32.8 RDW 16.1 H Plt Count 127 L MPV 9.3 D Sodium 141 Potassium 3.8 Chloride 106 Carbon Dioxide 26 Anion Gap 9 BUN 14 Creatinine 1.3 Creat Clearance w eGFR 54.26 Random Glucose 115 H Calcium 7.8 L Total Bilirubin 0.4 AST 20 ALT 15 Alkaline Phosphatase 54 Total Protein 6.2 L Albumin 2.6 L Urine Color Yellow Urine Appearance Turbid Urine pH 5.0 Ur Specific [place] 1.030 Urine Protein Negative Urine Glucose (UA) Negative Urine Ketones Negative Urine Blood 1+ H Urine Nitrite Negative Urine Bilirubin Negative Urine Urobilinogen 2.0 Ur Leukocyte Esterase Negative Urine WBC (Auto) 90 Urine RBC (Auto) None Calcium Oxalate Crystal Rare Urine Bacteria Many Urine Mucus Rare Urine Yeast Moderate RPR Titer 12/09/17 07:30 WBC RBC Hgb Hct MCV MCH MCHC RDW Plt Count MPV Sodium Potassium Chloride Carbon Dioxide Anion Gap BUN Creatinine Creat Clearance w eGFR Random Glucose Calcium Total Bilirubin AST ALT Alkaline Phosphatase Total Protein Albumin Urine Color Urine Appearance Urine pH Ur Specific [place] Urine Protein Urine Glucose (UA) Urine Ketones Urine Blood Urine Nitrite Urine Bilirubin Urine Urobilinogen Ur Leukocyte Esterase Urine WBC (Auto) Urine RBC (Auto) Calcium Oxalate Crystal Urine Bacteria Urine Mucus Urine Yeast RPR Titer Nonreactive Labs reviewed: wbc 1.8, GFR 54.26, Ca 7.8, abnormal UA Assessment: 12/09/17 15:36 Withdrawal symptoms Noted with prerenal azotemia, pancytopenia, hypocalcemia and abnormal UA Plan: Continue detox Prerenal azotemia: encouraged PO water intake Pancytopenia: encourage good hand washing with soap and water, repeat CBC, follow up with your PCP or Blood Bank Technician for management Hypocalcemia: give calcium 1000mg PO daily, repeat serum calcium level in AM Abnormal UA: encouraged PO water intake, repeat UA
[2017-12-09] MEDS ORDERED: CALCIUM (OYSTER SHELL) 500 MG TABLET (FP) PO ONE (16:00)
[2017-12-09] MEDS: THIAMINE HCL 100 MG TABLET (FP) PO SCH (22:09)
[2017-12-09] MEDS: ZOLPIDEM TARTRATE 5 MG TABLET PO PRN (22:11)
[2017-12-10] MEDS: chlordiazePOXIDE HCL 25 MG CAPSULE PO SCH ×2 (05:43→10:30)
[2017-12-10] MEDS: NICOTINE 21 MG/24 HOURS TOPICAL PATCH TD SCH (10:30)
[2017-12-10] MEDS: PRENATAL VITAMINS W/ FOLIC ACID TABLET (FP) PO SCH (10:30)
[2017-12-10] MEDS: METHYL SALICYLATE/MENTHOL OINT 30 GM TUBE TP SCH ×2 (10:31→22:03)
--- NOTE | 2017-12-10 13:57 | PN ---
[facility] CIWA - CIWA Score Nausea/Vomitin Muscle Tremors: 3 Anxiety: 2 Agitation: 2 Paroxysmal Sweats: 3 Orientation: 0-Oriented Tacttile Disturbances: 0-None Auditory Disturbances: 1-Very Mild Visual Disturbances: 1-Very Mild Sensitivity Headache: 0-None Present CIWA-Ar Total Score: 14 [facility] Progress Note (SOAP) Subjective: Anxious sweats Objective: 12/10/17 14:06 A & O x 3 Ambulating freely on unit in no distress Laboratory Last Values WBC 1.8 K/mm3 (4.0-10.0) L* 12/09/17 07:30 RBC 3.66 M/mm3 (4.00-5.60) L 12/09/17 07:30 Hgb 11.6 GM/dL (11.7-16.9) L 12/09/17 07:30 Hct 35.3 % (35.4-49) L 12/09/17 07:30 MCV 96.4 fl (80-96) H 12/09/17 07:30 MCH 31.6 pg (25.7-33.7) 12/09/17 07:30 MCHC 32.8 g/dl (32.0-35.9) 12/09/17 07:30 RDW 16.1 % (11.9-15.9) H 12/09/17 07:30 Plt Count 127 K/MM3 (134-434) L 12/09/17 07:30 MPV 9.3 fl (7.5-11.1) D 12/09/17 07:30 Sodium 141 mmol/L (136-145) 12/09/17 07:30 Potassium 3.8 mmol/L (3.5-5.1) 12/09/17 07:30 Chloride 106 mmol/L (98-107) 12/09/17 07:30 Carbon Dioxide 26 mmol/L (21-32) 12/09/17 07:30 Anion Gap 9 MMOL/L (8-16) 12/09/17 07:30 BUN 14 mg/dL (7-18) 12/09/17 07:30 Creatinine 1.3 mg/dL (0.55-1.3) 12/09/17 07:30 Creat Clearance w eGFR 54.26 (>60) 12/09/17 07:30 Random Glucose 115 mg/dL (74-106) H 12/09/17 07:30 Calcium 7.8 mg/dL (8.5-10.1) L 12/09/17 07:30 Total Bilirubin 0.4 mg/dL (0.2-1) 12/09/17 07:30 AST 20 U/L (15-37) 12/09/17 07:30 ALT 15 U/L (13-61) 12/09/17 07:30 Alkaline Phosphatase 54 U/L (45-117) 12/09/17 07:30 Total Protein 6.2 g/dl (6.4-8.2) L 12/09/17 07:30 Albumin 2.6 g/dl (3.4-5.0) L 12/09/17 07:30 Urine Color Yellow 12/08/17 15:53 Urine Appearance Turbid 12/08/17 15:53 Urine pH 5.0 (5.0-8.0) 12/08/17 15:53 Ur Specific [place] 1.030 (1.010-1.035) 12/08/17 15:53 Urine Protein Negative (NEGATIVE) 12/08/17 15:53 Urine Glucose (UA) Negative (NEGATIVE) 12/08/17 15:53 Urine Ketones Negative (NEGATIVE) 12/08/17 15:53 Urine Blood 1+ (NEGATIVE) H 12/08/17 15:53 Urine Nitrite Negative (NEGATIVE) 12/08/17 15:53 Urine Bilirubin Negative (<2.0 mg/dL) 12/08/17 15:53 Urine Urobilinogen 2.0 mg/dL (0.2-1.0) 12/08/17 15:53 Ur Leukocyte Esterase Negative (NEGATIVE) 12/08/17 15:53 Urine WBC (Auto) 90 /hpf (3-5) 12/08/17 15:53 Urine RBC (Auto) None /hpf (0-3) 12/08/17 15:53 Calcium Oxalate Crystal Rare /hpf (NONE SEEN) 12/08/17 15:53 Urine Bacteria Many /hpf (NONE SEEN) 12/08/17 15:53 Urine Mucus Rare 12/08/17 15:53 Urine Yeast Moderate 12/08/17 15:53 RPR Titer Nonreactive (NONREACTIVE) 12/09/17 07:30 Re abnormal lab results, pt refused repeat CBC as ordered states "my white blood count is always low, will always be low, I ain't doing s..t" When compared with previous visits, pt's WBC, Hgb/Hct and UA were abnormal. Assessment: 12/10/17 14:16 withdrawal sx Pancytopenia Abnormal urinalysis Plan: Continue detox Continue increased hydration To follow up with PCP upon discharge To wash hands frequently wear mask on unit if tolerable
[2017-12-10] MEDS: chlordiazePOXIDE 5 MG CAPSULE PO SCH ×2 (17:09→22:03)
[2017-12-10] MEDS: THIAMINE HCL 100 MG TABLET (FP) PO SCH (22:03)
[2017-12-10] MEDS: ZOLPIDEM TARTRATE 5 MG TABLET PO PRN (22:03)
[2017-12-11] MEDS: chlordiazePOXIDE 5 MG CAPSULE PO SCH ×2 (05:31→10:41)
[2017-12-11] MEDS: PRENATAL VITAMINS W/ FOLIC ACID TABLET (FP) PO SCH (10:41)
[2017-12-11] MEDS: METHYL SALICYLATE/MENTHOL OINT 30 GM TUBE TP SCH ×2 (10:41→22:05)
[2017-12-11] MEDS: NICOTINE 21 MG/24 HOURS TOPICAL PATCH TD SCH (10:41)
--- NOTE | 2017-12-11 12:53 | PN ---
[facility] Progress Note (SOAP) Subjective: Anxious, sweating, agitation, restless. Patient decided to leave AMA and was loud on the unit then changed his mind and decided to complete detox. Objective: 12/11/17 12:49 Last Vital Signs Temp Pulse Resp BP Pulse Ox 97.5 F L 71 16 129/82 12/11/17 09:41 12/11/17 09:41 12/11/17 09:41 12/11/17 09:41 Laboratory Tests 12/08/17 12/09/17 12/09/17 15:53 07:30 07:30 WBC 1.8 L* RBC 3.66 L Hgb 11.6 L Hct 35.3 L MCV 96.4 H MCH 31.6 MCHC 32.8 RDW 16.1 H Plt Count 127 L MPV 9.3 D Sodium 141 Potassium 3.8 Chloride 106 Carbon Dioxide 26 Anion Gap 9 BUN 14 Creatinine 1.3 Creat Clearance w eGFR 54.26 Random Glucose 115 H Calcium 7.8 L Total Bilirubin 0.4 AST 20 ALT 15 Alkaline Phosphatase 54 Total Protein 6.2 L Albumin 2.6 L Urine Color Yellow Urine Appearance Turbid Urine pH 5.0 Ur Specific [place] 1.030 Urine Protein Negative Urine Glucose (UA) Negative Urine Ketones Negative Urine Blood 1+ H Urine Nitrite Negative Urine Bilirubin Negative Urine Urobilinogen 2.0 Ur Leukocyte Esterase Negative Urine WBC (Auto) 90 Urine RBC (Auto) None Calcium Oxalate Crystal Rare Urine Bacteria Many Urine Mucus Rare Urine Yeast Moderate RPR Titer 12/09/17 07:30 WBC RBC Hgb Hct MCV MCH MCHC RDW Plt Count MPV Sodium Potassium Chloride Carbon Dioxide Anion Gap BUN Creatinine Creat Clearance w eGFR Random Glucose Calcium Total Bilirubin AST ALT Alkaline Phosphatase Total Protein Albumin Urine Color Urine Appearance Urine pH Ur Specific [place] Urine Protein Urine Glucose (UA) Urine Ketones Urine Blood Urine Nitrite Urine Bilirubin Urine Urobilinogen Ur Leukocyte Esterase Urine WBC (Auto) Urine RBC (Auto) Calcium Oxalate Crystal Urine Bacteria Urine Mucus Urine Yeast RPR Titer Nonreactive Labs reviewed: serum calcium 7.8, pancytopenia, GFR 54.26, UA: yeast, 1+ blood Assessment: 12/11/17 12:52 Withdrawal symptoms Noted with hypocalcemia, pancytopenia, azotemia, abnormal UA (microscopic hematuria and yeast) Plan: Continue detox Hypocalcemia: supplemented, patient refused repeated lab Pancytopenia: stable, patient refused repeated CBC, instructed to follow up with his PCP Azotemia: encouraged PO water intake Abnormal UA: (microscopic hematuria and yeast), repeated UA ordered (patient didn't provide urine sample), encouraged PO water intake, diflucan 150mg PO x 1 dose
[2017-12-11] MEDS ORDERED: FLUCONAZOLE 50 MG TABLET PO ONE (14:00)
[2017-12-11] MEDS: chlordiazePOXIDE HCL 10 MG CAPSULE PO SCH ×2 (17:29→22:05)
[2017-12-11 19:20] LABS: URINE APPEARANCE CLEAR; URINE BILIRUBIN NEGATIVE (<2.0 mg/dL); URINE COLOR LTYELLOW; URINE GLUCOSE (UA) NEGATIVE (NEGATIVE); URINE KETONE NEGATIVE (NEGATIVE); URINE LEUK ESTERASE NEGATIVE (NEGATIVE); URINE NITRITE NEGATIVE (NEGATIVE); URINE PROTEIN NEGATIVE (NEGATIVE); URINE UROBILINOGEN NEGATIVE mg/dL (0.2-1.0)
[2017-12-11] MEDS: THIAMINE HCL 100 MG TABLET (FP) PO SCH (22:05)
[2017-12-11] MEDS: ZOLPIDEM TARTRATE 5 MG TABLET PO PRN (22:05)
[2017-12-12] MEDS: chlordiazePOXIDE HCL 10 MG CAPSULE PO SCH ×2 (05:26→10:41)
[2017-12-12] MEDS: PRENATAL VITAMINS W/ FOLIC ACID TABLET (FP) PO SCH (10:40)
[2017-12-12] MEDS: METHYL SALICYLATE/MENTHOL OINT 30 GM TUBE TP SCH ×2 (10:41→21:21)
[2017-12-12] MEDS: NICOTINE 21 MG/24 HOURS TOPICAL PATCH TD SCH (10:42)
[2017-12-12] MEDS: THIAMINE HCL 100 MG TABLET (FP) PO SCH (21:21)
[2017-12-12] MEDS: ZOLPIDEM TARTRATE 5 MG TABLET PO PRN (21:23)
--- NOTE | 2017-12-13 09:34 | HP ---
Psychiatrist Admission - Data Date of interview: 12/13/17 Admission source: 3N Identifying data: This is one of the several [facility] admissions for this 72 year old Black male, father of three, unemployed on SSI, domiciled. Medical History: Significant for GERD, arthritis, PPD+, chronic alcoholic pancreatitis and history of surgery for pseudocyst of the pancreas in 2002. 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 Historical narrative has not changed. He reports that he receives psychiatric treatment for depression when he was around [age] years old. He has no recollection of medication that he was prescibed but claims he took it for a year. Denies any further psychiatric contact since. Denies psychiatric hospitalization or suicidal attempt. At present, reports feeling better but still sleeping poorly despite taking Zolpidem 5 mg po HS Physical/Sexual Abuse/Trauma History: Denies history of emotional, physical or sexual abuse as well as DV relationship Additional Comment: Reports history of multiple previous arrests including 3 felony convictions. Denies being on parole/probation currently Vital Signs: Vital Signs - 24 hr 12/12/17 12/13/17 12/13/17 10:43 00:30 03:30 Temperature 97.4 F L Pulse Rate 76 Respiratory 20 16 16 Rate Blood Pressure 130/74 12/13/17 07:09 Temperature 98 F Pulse Rate 71 Respiratory 18 Rate Blood Pressure 146/82 Allergies/Adverse Reactions: Allergies Allergy/AdvReac Type Severity Reaction Status Date / Time shellfish derived Allergy Mild Rash Verified 12/08/17 10:55 tomato Allergy Mild Rash Verified 12/08/17 10:55 iodine Allergy Rash Verified 12/08/17 10:55 Date of last physical exam: 12/07/17 Concur with the findings of this exam: Yes - Substance Abuse/Tx History Hx Alcohol Use: Yes Hx Substance Use: Yes Substance Use Type: Alcohol (Started drinking alcohol at age 14, consumes 2 pints of blanche & 4x 24oz of beer daily. Last drank on 12/08/17), Cocaine ( Started using cocaine at age 14, consumes 3 gram 3-6 times weekly. Last used on 12/07/17) Hx Substance Use Treatment: Yes (5 previous inpt detox & 7 inpt rehab @ [facility]) Mental Status Exam - Mental Status Exam Alert and Oriented to: Time, Place, Person Cognitive Function: Fair Patient Appearance: Well Groomed Mood: Hopeful, Euthymic Patient Behavior: Cooperative Speech Pattern: Clear Voice Loudness: Normal Thought Process: Intact, Goal Oriented Hallucinations: Denies Suicidal Ideation: Denies Homicidal Ideation: Denies Insight/Judgement: Fair Sleep: Poorly Appetite: Fair Muscle strength/Tone: Normal Gait/Station: Normal Psychiatric Findings - Problem List ([place] 1, 2,3) (1) Substance induced mood disorder Current Visit: Yes Status: Acute (2) Substance-induced sleep disorder Current Visit: Yes Status: Acute (3) Alcohol dependence with uncomplicated withdrawal Current Visit: Yes Status: Acute (4) Cocaine dependence, uncomplicated Current Visit: Yes Status: Chronic (5) Nicotine dependence Current Visit: Yes Status: Chronic (6) Chronic alcoholic pancreatitis Current Visit: Yes Status: Suspected (7) GERD (gastroesophageal reflux disease) Current Visit: Yes Status: Chronic Qualifiers: Esophagitis presence: without esophagitis Qualified Code(s): K21.9 - Gastro -esophageal reflux disease without esophagitis (8) Pseudocyst of pancreas Current Visit: No Status: Chronic - Initial Treatment Plan Initial Treatment Plan: 1) Discontinue Ambien as currently ordered. 2) Start Ambien 10 mg po HS prn for insomnia. 3) Monitor progress
[2017-12-13] MEDS: NICOTINE 21 MG/24 HOURS TOPICAL PATCH TD SCH (10:26)
[2017-12-13] MEDS: METHYL SALICYLATE/MENTHOL OINT 30 GM TUBE TP SCH ×2 (10:26→21:12)
[2017-12-13] MEDS: PRENATAL VITAMINS W/ FOLIC ACID TABLET (FP) PO SCH (10:27)
[2017-12-13] MEDS: LIPASE/PROTEASE/AMYLASE 6,000 UNIT CAPSULE PO SCH (16:30)
[2017-12-13] MEDS ORDERED: PT OWN MED DRAWER 7, Y5N ONE (16:48)
[2017-12-13] MEDS: THIAMINE HCL 100 MG TABLET (FP) PO SCH (21:12)
[2017-12-13] MEDS ORDERED: ZOLPIDEM TARTRATE 5 MG TABLET PO PRN (22:00)
[2017-12-13] MEDS: MELATONIN 5 MG TABLETS PO PRN (22:08)
[2017-12-14] MEDS: LIPASE/PROTEASE/AMYLASE 6,000 UNIT CAPSULE PO SCH ×3 (06:02→16:30)
[2017-12-14] MEDS: PRENATAL VITAMINS W/ FOLIC ACID TABLET (FP) PO SCH (10:23)
[2017-12-14] MEDS: METHYL SALICYLATE/MENTHOL OINT 30 GM TUBE TP SCH ×2 (10:23→21:08)
[2017-12-14] MEDS: NICOTINE 21 MG/24 HOURS TOPICAL PATCH TD SCH (10:23)
[2017-12-14] MEDS: ZOLPIDEM TARTRATE 5 MG TABLET PO PRN (21:07)
[2017-12-15] MEDS: LIPASE/PROTEASE/AMYLASE 6,000 UNIT CAPSULE PO SCH ×3 (06:16→16:39)
[2017-12-15] MEDS: NICOTINE 21 MG/24 HOURS TOPICAL PATCH TD SCH (10:40)
[2017-12-15] MEDS: PRENATAL VITAMINS W/ FOLIC ACID TABLET (FP) PO SCH (10:40)
[2017-12-15] MEDS: METHYL SALICYLATE/MENTHOL OINT 30 GM TUBE TP SCH ×2 (10:41→21:27)
[2017-12-15] MEDS: ZOLPIDEM TARTRATE 5 MG TABLET PO PRN (21:27)
[2017-12-16] MEDS: LIPASE/PROTEASE/AMYLASE 6,000 UNIT CAPSULE PO SCH ×3 (06:28→16:45)
[2017-12-16] MEDS: NICOTINE 21 MG/24 HOURS TOPICAL PATCH TD SCH (10:09)
[2017-12-16] MEDS: PRENATAL VITAMINS W/ FOLIC ACID TABLET (FP) PO SCH (10:09)
[2017-12-16] MEDS: METHYL SALICYLATE/MENTHOL OINT 30 GM TUBE TP SCH ×2 (10:09→21:05)
[2017-12-16] MEDS: MELATONIN 5 MG TABLETS PO PRN (21:04)
[2017-12-17] MEDS: LIPASE/PROTEASE/AMYLASE 6,000 UNIT CAPSULE PO SCH ×3 (06:24→16:20)
[2017-12-17] MEDS: PRENATAL VITAMINS W/ FOLIC ACID TABLET (FP) PO SCH (10:13)
[2017-12-17] MEDS: NICOTINE 21 MG/24 HOURS TOPICAL PATCH TD SCH (10:13)
[2017-12-17] MEDS: METHYL SALICYLATE/MENTHOL OINT 30 GM TUBE TP SCH ×2 (10:14→22:13)
[2017-12-17] MEDS ORDERED: PT OWN MED DRAWER 7, Y5N ONE ×2 (16:19→19:45)
[2017-12-17] MEDS: MELATONIN 5 MG TABLETS PO PRN (21:30)
[2017-12-17] MEDS: hydrOXYzine PAMOATE 25 MG CAPSULE (FP) PO PRN (21:32)
[2017-12-18] MEDS: LIPASE/PROTEASE/AMYLASE 6,000 UNIT CAPSULE PO SCH ×3 (07:33→16:40)
[2017-12-18] MEDS: PRENATAL VITAMINS W/ FOLIC ACID TABLET (FP) PO SCH (10:12)
[2017-12-18] MEDS: NICOTINE 21 MG/24 HOURS TOPICAL PATCH TD SCH (10:12)
[2017-12-18] MEDS: METHYL SALICYLATE/MENTHOL OINT 30 GM TUBE TP SCH ×2 (10:12→21:03)
[2017-12-18] MEDS ORDERED: PT OWN MED DRAWER 7, Y5N ONE (16:33)
[2017-12-18] MEDS: MELATONIN 5 MG TABLETS PO PRN (21:02)
[2017-12-18] MEDS: hydrOXYzine PAMOATE 25 MG CAPSULE (FP) PO PRN (21:03)
[2017-12-19] MEDS ORDERED: PT OWN MED DRAWER 7, Y5N ONE (04:08)
[2017-12-19] MEDS: LIPASE/PROTEASE/AMYLASE 6,000 UNIT CAPSULE PO SCH ×3 (07:03→15:49)
[2017-12-19] MEDS: METHYL SALICYLATE/MENTHOL OINT 30 GM TUBE TP SCH ×2 (10:17→21:13)
[2017-12-19] MEDS: PRENATAL VITAMINS W/ FOLIC ACID TABLET (FP) PO SCH (10:19)
[2017-12-19] MEDS: NICOTINE 21 MG/24 HOURS TOPICAL PATCH TD SCH (10:19)
[2017-12-19] MEDS: MELATONIN 5 MG TABLETS PO PRN (21:14)
[2017-12-19] MEDS: hydrOXYzine PAMOATE 25 MG CAPSULE (FP) PO PRN (21:15)
[2017-12-20] MEDS: LIPASE/PROTEASE/AMYLASE 6,000 UNIT CAPSULE PO SCH ×3 (07:11→16:30)
[2017-12-20] MEDS ORDERED: PT OWN MED DRAWER 7, Y5N ONE (08:37)
[2017-12-20] MEDS: METHYL SALICYLATE/MENTHOL OINT 30 GM TUBE TP SCH ×2 (10:29→21:41)
[2017-12-20] MEDS: PRENATAL VITAMINS W/ FOLIC ACID TABLET (FP) PO SCH (10:29)
[2017-12-20] MEDS: NICOTINE 21 MG/24 HOURS TOPICAL PATCH TD SCH (10:29)
--- NOTE | 2017-12-20 11:55 | PN ---
Psychiatric Progress Note Vital Signs: Vital Signs Period Temp Pulse Resp BP Sys/Ruano Pulse Ox Last 24 Hr 98 F 73 18-18 140/85 Date of Session: 12/20/17 Chief Complaint:: Discharge Note HPI: Patient addressing Alcohol and Cocaine Dependence comorbd with Nicotine Dependence, Substance-Induced Mood Disorder and Substance-Induced Sleep Disorder ROS: GERD, Chronic alcoholic pancreatitis, Pseudocyst of pancreas Current Medications: Active Medications Generic Name Dose Route Start Last Admin Trade Name Freq PRN Reason Stop Dose Admin Acetaminophen 650 mg 12/08/17 11:37 Tylenol - PO Q4H PRN FEVER Al Hydroxide/Mg Hydroxide 30 ml 12/08/17 11:37 Mylanta Oral Suspension - PO Q6H PRN DYSPEPSIA Eucalyptus/Menthol/Phenol/Sorbitol 1 each 12/08/17 11:37 Cepastat Lozenge - MM Q4H PRN SORE THROAT Guaifenesin 10 ml 12/08/17 11:37 Robitussin Dm - PO Q6H PRN COUGH Hydroxyzine Pamoate 25 mg 12/08/17 11:37 12/19/17 21:15 Vistaril - PO 25 mg Q4H PRN Administration AGITATION Ibuprofen 400 mg 12/08/17 11:37 Motrin - PO Q6H PRN PAIN LEVEL 4-6 Loperamide HCl 4 mg 12/08/17 11:37 Imodium - PO Q6H PRN DIARRHEA Magnesium Citrate 300 ml 12/08/17 11:37 Citroma - PO Q48H PRN CONSTIPATION Magnesium Hydroxide 30 ml 12/08/17 11:37 Milk Of Magnesia - PO DAILY PRN CONSTIPATION Melatonin 5 mg 12/08/17 22:00 12/19/17 21:14 Melatonin PO 5 mg HS PRN Administration INSOMNIA Methyl Salicylate 1 applic 12/08/17 11:45 12/20/17 10:29 Yeison-Salgado - TP Not Given BID HARLEY Nicotine 21 mg 12/08/17 11:45 12/20/17 10:29 Nicoderm Patch - TD Not Given DAILY HARLEY Pancrelipase 4 cap 12/13/17 16:30 12/20/17 10:29 Mariana Harmon 6,000 Units Capsule PO Not Given TIDAC HARLEY Multivit/Folic Acid/Iron 1 tab 12/09/17 10:00 12/20/17 10:29 Vitamins (Sjr) - PO Not Given DAILY HARLEY Pseudoephedrine/Triprolidine 1 combo 12/08/17 11:37 Actifed - PO TID PRN NASAL CONGESTION Current Side Effect: No Lab tests ordered: Yes Lab tests reviewed: Yes Provider note:: Patient will complete this program on 12/21/17. He has met his treatment goals but he has refused formal referral. However he was provided with a list of AA meetings in his neighborhood. Told pattern chart writer that from his participation in this program, he has learned the value of making meetings and have a sponsor. He is stable for discharge on 12/21/17 Total face to face time:: 35 Mental Status Exam - Mental Status Exam Alert and Oriented to: Time, Place, Person Cognitive Function: Fair Patient Appearance: Well Groomed Mood: Hopeful, Euthymic Affect: Appropriate Patient Behavior: Cooperative Speech Pattern: Clear Voice Loudness: Normal Thought Process: Intact Hallucinations: Denies Suicidal Ideation: Denies Homicidal Ideation: Denies Insight/Judgement: Fair Sleep: Fair Appetite: Good Muscle strength/Tone: Normal Gait/Station: Normal Psychiatric Treatment Plan - Problem List (1) Substance induced mood disorder Current Visit: Yes (2) Substance-induced sleep disorder Current Visit: Yes (3) Alcohol dependence with uncomplicated withdrawal Current Visit: Yes (4) Cocaine dependence, uncomplicated Current Visit: Yes (5) Nicotine dependence Current Visit: Yes (6) Chronic alcoholic pancreatitis Current Visit: Yes (7) GERD (gastroesophageal reflux disease) Current Visit: Yes Qualifiers: Esophagitis presence: without esophagitis Qualified Code(s): K21.9 - Gastro -esophageal reflux disease without esophagitis (8) Pseudocyst of pancreas Current Visit: No Initial treatment plan: Patient will be discharged tomorrow and will be addressing his issues in attending AA meetings as he has refused formal referral
[2017-12-20] MEDS: hydrOXYzine PAMOATE 25 MG CAPSULE (FP) PO PRN (21:40)
[2017-12-20] MEDS: MELATONIN 5 MG TABLETS PO PRN (21:40)
[2017-12-21] MEDS: hydrOXYzine PAMOATE 25 MG CAPSULE (FP) PO PRN (02:35)
[2017-12-21 07:02] VITALS: BP 129/68; PULSE 75; TEMP 97.9
[2017-12-21] MEDS: LIPASE/PROTEASE/AMYLASE 6,000 UNIT CAPSULE PO SCH (07:02)
[2017-12-21] MEDS: NICOTINE 21 MG/24 HOURS TOPICAL PATCH TD SCH (07:57)
== END 2017-12-21 08:00 | disposition home or self-care (01) | DRG 895 ==
LOC: YASAS 10:05 → Y3N 12:26 → UNDODISIN 12-12 11:16 → Y3W 12-12 11:47
PROVIDERS: ADMIT Psychiatry & Neurology Psychiatry; ATTEND Psychiatry & Neurology Psychiatry
PROC: HZ42ZZZ Group Counseling for Substance Abuse Treatment, Cognitive-Behavioral (ICD-10-PCS; principal; 2017-12-08)
DX: F10.20 Alcohol dependence, uncomplicated (principal); F19.282 Other psychoactive substance dependence with psychoactive substance-induced sleep disorder; D61.818 Other pancytopenia; K86.0 Alcohol-induced chronic pancreatitis; K86.3 Pseudocyst of pancreas; F14.10 Cocaine abuse, uncomplicated; F17.210 Nicotine dependence, cigarettes, uncomplicated; F19.24 Other psychoactive substance dependence with psychoactive substance-induced mood disorder; D72.819 Decreased white blood cell count, unspecified; K21.9 Gastro-esophageal reflux disease without esophagitis; E83.51 Hypocalcemia; R76.11 Nonspecific reaction to tuberculin skin test without active tuberculosis; M12.9 Arthropathy, unspecified; R82.90 Unspecified abnormal findings in urine; Z91.013 Allergy to seafood; Z88.8 Allergy status to other drugs, medicaments and biological substances
CPT/HCPCS: 36415; 80053; 81003; 81015; 85027; 86593; 93005; 93010

== ENCOUNTER 2018-02-03 10:36 | Inpatient (IN) | payer OTHER ==
[2018-02-03 11:28] VITALS: BMI 25.2
--- NOTE | 2018-02-03 13:08 | HP ---
CIWA Score Nausea/Vomitin Muscle Tremors: 3 Anxiety: 2 Agitation: 3 Paroxysmal Sweats: 2 Orientation: 0-Oriented Tacttile Disturbances: 0-None Auditory Disturbances: 0-None Visual Disturbances: 0-None Headache: 1-Very Mild CIWA-Ar Total Score: 13 - Admission Criteria OASAS Guidelines: Admission for Medically Managed Detox: Requires at least one of the followin. CIWA greater than 12 2. Seizures within the past 24 hours 3. Delirium tremens within the past 24 hours 4. Hallucinations within the past 24 hours 5. Acute intervention needed for co occurring medical disorder 6. Acute intervention needed for co occurring psychiatric disorder 7. Severe withdrawal that cannot be handled at a lower level of care (continued vomiting, continued diarrhea, abnormal vital signs) requiring intravenous medication and/or fluids 8. Patient presents the following: CIWA greater than 12 Admission Criteria Met: Admission criteria met Admission [facility] Chief Complaint: "I am an alcoholic. I want to do detox and rehab this time" Allergies/Adverse Reactions: Allergies Allergy/AdvReac Type Severity Reaction Status Date / Time shellfish derived Allergy Mild Rash Verified 02/03/18 11:53 tomato Allergy Mild Rash Verified 02/03/18 11:53 iodine Allergy Rash Verified 02/03/18 11:53 History of Present Illness: 72 y/o man with alcohol and cocaine addiction presents for detox. Pt is known to this proga, last here 12/08 - 12/21/17. Hx of Pancreatitis, acid reflux Denies alcohol related seizures nor blackouts Denies past nor current SI/HI Exam Limitations: No Limitations - Ebola screening Have you traveled outside of the country in the last 21 days: No Have you had contact with anyone from an Ebola affected area: No Have you been sick,other than usual withdrawal symptoms: No Do you have a fever: No - Review of Systems Constitutional: Changes in sleep, Unintentional Wgt. Loss EENT: reports: Dental Problems (missing teeth) Respiratory: reports: No Symptoms reported Cardiac: reports: Chest Pain GI: reports: Nausea, Poor Appetite : reports: Burning Musculoskeletal: reports: Back Pain, Joint Pain, Joint Stiffness (Chronic - bilateral shoulders) Integumentary: reports: No Symptoms Reported Neuro: reports: No Symptoms reported Endocrine: reports: No Symptoms Reported Hematology: reports: No Symptoms Reported Psychiatric: reports: Mood/Affect Appropiate, Orientated x3, Agitated Other Systems: Reviewed and Negative Patient History - Patient Medical History Hx Anemia: No Hx Asthma: No Hx Chronic Obstructive Pulmonary Disease (COPD): No Hx Cancer: No Hx Cardiac Disorders: No Hx Congestive Heart Failure: No Hx Hypertension: No Hx Hypercholesterolemia: No Hx Pacemaker: No HX Cerebrovascular Accident: No Hx Seizures: No Hx Dementia: No Hx Diabetes: No Hx Gastrointestinal Disorders: Yes (Hx of GERD,pseudocyst of pancrease, pancreatitis) Hx Liver Disease: No Hx Genitourinary Disorders: No Hx Sexually Transmitted Disorders: No Hx Renal Disease (ESRD): No Hx Thyroid Disease: No Hx Human Immunodeficiency Virus (HIV): No (last 05/06) Hx Hepatitis C: No Hx Depression: No Hx Suicide Attempt: No Hx Bipolar Disorder: No Hx Schizophrenia: No - Patient Surgical History Past Surgical History: Yes Hx Neurologic Surgery: No Hx Cataract Extraction: No Hx Cardiac Surgery: No Hx Lung Surgery: No Hx Breast Surgery: No Hx Breast Biopsy: No Hx Abdominal Surgery: Yes (internal bleeding, PANCREATIC PSEUDOCYST 2002) Hx Appendectomy: No Hx Cholecystectomy: No Hx Genitourinary Surgery: No Hx Section: No Hx Orthopedic Surgery: No Anesthesia Reaction: No - PPD History Documented Results: Positive w/proof Results: CXR(-)01/30/17 PPD to be Administered?: No - Reproductive History Patient is a Female of Child Bearing Age (11 -55 yrs old): No - Smoking Cessation Smoking history: Current every day smoker Have you smoked in the past 12 months: Yes Aproximately how many cigarettes per day: 20 Cigars Per Day: 0 Hx Chewing Tobacco Use: No Initiated information on smoking cessation: Yes 'Breaking Loose' booklet given: 02/03/18 - Substance & Tx. History Hx Alcohol Use: Yes Hx Substance Use: Yes Substance Use Type: Alcohol, Cocaine Hx Substance Use Treatment: Yes - Substances Abused Alcohol Route: Oral Frequency: Daily Amount used: 2 QUARTS OF VODKA Age of first use: 14 Date of Last Use: 02/03/18 Cocaine Route: Inhalation Frequency: Daily Amount used: 3-6 GRAMS Age of first use: 14 Date of Last Use: 02/03/18 Family Disease History - Family Disease History Family Disease History: Diabetes: Father (ALCOHOL,), Other: Father, Mother (Alive, age 95), Sister (three - living, healthy), Son (one - healthy), Daughter (two - healthy) Admission Physical Exam [facility] - Vital Signs Vital Signs: Vital Signs - 24 hr 02/03/18 11:25 Temperature 98 F Pulse Rate 85 Respiratory 18 Rate Blood Pressure 134/75 - Physical General Appearance: Yes: Mild Distress, Anxious HEENTM: Yes: Hearing grossly Normal, Normal ENT Inspection, Other (missing teeth ) Respiratory: Yes: Lungs Clear, Normal Breath Sounds, No Respiratory Distress, No Accessory Muscle Use Neck: Yes: No masses,lesions,Nodules, Trachea in good position Breast: Yes: Breast Exam Deferred Cardiology: Yes: Within Normal Limits Abdominal: Yes: Non Tender, Surgical Scar (healed, vertical), Other (wrinkles) Genitourinary: Yes: Burning, Hesitency Back: Yes: Normal Inspection Musculoskeletal: Yes: full range of Motion, Gait Steady Extremities: Yes: Normal Capillary Refill, Normal Inspection, Normal Range of Motion Neurological: Yes: Within Normal Limits, Fully Oriented, Alert Integumentary: Yes: Normal Color, Dry, Warm Lymphatic: Yes: Within Normal Limits - Diagnostic (1) Alcohol dependence with uncomplicated withdrawal Current Visit: Yes Status: Acute (2) Substance induced mood disorder Current Visit: Yes Status: Chronic (3) Substance-induced sleep disorder Current Visit: Yes Status: Chronic (4) Cocaine dependence, uncomplicated Current Visit: Yes Status: Chronic (5) GERD (gastroesophageal reflux disease) Current Visit: Yes Status: Chronic Qualifiers: Esophagitis presence: without esophagitis Qualified Code(s): K21.9 - Gastro -esophageal reflux disease without esophagitis (6) Nicotine dependence Current Visit: Yes Status: Chronic (7) PPD positive Current Visit: Yes Status: Chronic (8) Pseudocyst of pancreas Current Visit: Yes Status: Chronic (9) Chronic alcoholic pancreatitis Current Visit: Yes Status: Chronic Cleared for Admission S - Detox or Rehab [facility] Level of Care: Medically Managed Detox Regimen/Protocol: Valium S Breath Alcohol Content Breath Alcohol Content: 0 Urine Drug Screen - Results Drug Screen Negative: No Urine Drug Screen Results: GURDEEP-Cocaine, OXY-Oxycodone
[2018-02-03] MEDS ORDERED: IBUPROFEN 400 MG TABLET (FP) PO PRN (14:11)
[2018-02-03] MEDS ORDERED: MENTHOL/PHENOL 1 EACH UD MM PRN (14:11)
[2018-02-03] MEDS ORDERED: diazePAM 5 MG TABLET PO ONE (14:11)
[2018-02-03] MEDS ORDERED: MAGNESIUM HYDROX 2400MG/30ML ORAL SUSPENSION 30 ML CUP PO PRN (14:11)
[2018-02-03] MEDS ORDERED: ACETAMINOPHEN 325 MG TABLET (FP) PO PRN (14:11)
[2018-02-03] MEDS ORDERED: MAG HYDROX/AL HYDROX/SIMETH 30 ML UNIT-DOSE CUP PO PRN (14:11)
[2018-02-03] MEDS ORDERED: MAGNESIUM CITRATE 300 ML BOTTLE PO PRN (14:11)
[2018-02-03] MEDS ORDERED: LOPERAMIDE HCL 2 MG CAPSULE PO PRN (14:11)
[2018-02-03] MEDS ORDERED: NICOTINE POLACRILEX 2 MG GUM BC PRN (14:11)
[2018-02-03] MEDS ORDERED: P-EPHED 60MG/TRIPROLIDI 2.5MG TABLET PO PRN (14:11)
[2018-02-03] MEDS ORDERED: guaiFENesin/D-METHORPHAN HB 10 ML UNIT-DOSE CUPS PO PRN (14:11)
[2018-02-03] MEDS: NICOTINE 14 MG/24 HOURS TOPICAL PATCH TD SCH (14:55)
[2018-02-03] MEDS: THIAMINE HCL 100 MG TABLET (FP) PO SCH (21:56)
[2018-02-03] MEDS: PANTOPRAZOLE 20 MG TABLET (FP) PO SCH (21:56)
[2018-02-03] MEDS: diazePAM 5 MG TABLET PO PRN (21:56)
[2018-02-03] MEDS ORDERED: MELATONIN 5 MG TABLETS PO PRN (22:00)
[2018-02-03] MEDS: diazePAM 5 MG TABLET PO SCH (23:10)
[2018-02-04] MEDS: diazePAM 5 MG TABLET PO SCH ×3 (05:58→22:31)
--- NOTE | 2018-02-04 09:48 | PN ---
S CIWA - CIWA Score Nausea/Vomitin-No Nausea/No Vomiting Muscle Tremors: 4-Moderate,w/Arms Extend Anxiety: 3 Agitation: 3 Paroxysmal Sweats: 3 Orientation: 0-Oriented Tacttile Disturbances: 0-None Auditory Disturbances: 0-None Visual Disturbances: 0-None Headache: 0-None Present CIWA-Ar Total Score: 13 B[facility] Progress Note (SOAP) Subjective: feet pain sweats interrupted sleep agitation dry itchy feet Objective: 02/04/18 09:47 Vital Signs Temperature 98.1 F 02/04/18 09:00 Pulse Rate 91 H 02/04/18 09:00 Respiratory Rate 18 02/04/18 09:00 Blood Pressure 114/61 02/04/18 09:00 O2 Sat by Pulse Oximetry (%) labs pending aaox3 ambulating no acute distress Assessment: 02/04/18 09:48 withdrawal sx Plan: continue detox increase fluids motrin/tylenol prn tinactin cream
[2018-02-04] MEDS: PRENATAL VITAMINS W/ FOLIC ACID TABLET (FP) PO SCH (10:15)
[2018-02-04] MEDS: TOLNAFTATE 1% CREAM 15 GM TUBE TP SCH ×2 (10:15→22:32)
[2018-02-04] MEDS: PANTOPRAZOLE 20 MG TABLET (FP) PO SCH ×2 (10:20→22:31)
[2018-02-04 10:30] LABS: ALBUMIN 2.9 g/dl (3.4-5.0); ALK PHOS 52 U/L (45-117); ANION GAP 9 MMOL/L (8-16); BILIRUBIN,TOTAL 0.5 mg/dL (0.2-1); BLOOD UREA NITROGEN 19 mg/dL (7-18); CALCIUM 8.2 mg/dL (8.5-10.1); CHLORIDE 106 mmol/L (98-107); CO2 23 mmol/L (21-32); CREATININE 1.6 mg/dL (0.55-1.3); GLUCOSE,RANDOM 131 mg/dL (74-106); POTASSIUM 3.9 mmol/L (3.5-5.1); SGOT/AST 23 U/L (15-37); SGPT/ALT 16 U/L (13-61); SODIUM 138 mmol/L (136-145); TOT PROT 6.8 g/dl (6.4-8.2)
[2018-02-04] MEDS: NICOTINE 14 MG/24 HOURS TOPICAL PATCH TD SCH (10:30)
[2018-02-04 12:03] LABS: HEMATOCRIT 36.7 % (35.4-49); HEMOGLOBIN 12.4 GM/dL (11.7-16.9); MCH 32.6 pg (25.7-33.7); MCHC 33.8 g/dl (32.0-35.9); MEAN CELL VOLUME 96.5 fl (80-96); MEAN PLT VOLUME 9.6 fl (7.5-11.1); PLATELET COUNT 121 K/MM3 (134-434); RDW 16.2 % (11.9-15.9); WHITE BLOOD COUNT 2.1 K/mm3 (4.0-10.0)
[2018-02-04] MEDS: THIAMINE HCL 100 MG TABLET (FP) PO SCH (22:31)
--- NOTE | 2018-02-05 09:50 | PN ---
[facility] CIWA - CIWA Score Nausea/Vomitin-No Nausea/No Vomiting Muscle Tremors: 3 Anxiety: 3 Agitation: 3 Paroxysmal Sweats: 3 Orientation: 0-Oriented Tacttile Disturbances: 0-None Auditory Disturbances: 0-None Visual Disturbances: 0-None Headache: 0-None Present CIWA-Ar Total Score: 12 S Progress Note (SOAP) Subjective: sweats agitation interrupted sleep I need to see psych Objective: 02/05/18 09:49 Vital Signs Temperature 97.9 F 02/05/18 09:17 Pulse Rate 85 02/05/18 09:17 Respiratory Rate 16 02/05/18 09:17 Blood Pressure 147/79 02/05/18 09:17 O2 Sat by Pulse Oximetry (%) Laboratory Tests 02/04/18 02/04/18 02/04/18 07:00 07:00 07:00 WBC 2.1 L RBC 3.80 L Hgb 12.4 Hct 36.7 MCV 96.5 H MCH 32.6 MCHC 33.8 RDW 16.2 H Plt Count 121 L MPV 9.6 Sodium 138 Potassium 3.9 Chloride 106 Carbon Dioxide 23 Anion Gap 9 BUN 19 H Creatinine 1.6 H Creat Clearance w eGFR 42.70 Random Glucose 131 H Calcium 8.2 L Total Bilirubin 0.5 AST 23 ALT 16 Alkaline Phosphatase 52 Total Protein 6.8 Albumin 2.9 L RPR Titer Nonreactive aaox3 ambulating no acute distress Assessment: 02/05/18 09:49 withdrawal sx Plan: continue detox increase fluids psych ordered
[2018-02-05] MEDS: PRENATAL VITAMINS W/ FOLIC ACID TABLET (FP) PO SCH (10:05)
[2018-02-05] MEDS: PANTOPRAZOLE 20 MG TABLET (FP) PO SCH (10:05)
[2018-02-05] MEDS: TOLNAFTATE 1% CREAM 15 GM TUBE TP SCH ×2 (10:05→23:20)
[2018-02-05] MEDS: diazePAM 5 MG TABLET PO SCH ×2 (10:05→22:03)
[2018-02-05] MEDS: NICOTINE 14 MG/24 HOURS TOPICAL PATCH TD SCH (10:06)
[2018-02-05] MEDS: diazePAM 5 MG TABLET PO PRN (14:33)
--- NOTE | 2018-02-05 15:55 | CONSULT ---
[facility] Psychiatric Consult - Data Date of interview: 02/05/18 Admission source: [facility] Identifying data: This is one of multiple admissions to [facility] for this 72 y/ o AA male seeking detoxification treatment, on , for alcohol and cocaine dependence. Patient is , a father of three, domiciled, unemployed and supported on SSI benefits. Substance Abuse History: Confirmed by the patient in this session. Details in current [facility] report : Smoking history: Current every day smoker. Have you smoked in the past 12 months: Yes. Aproximately how many cigarettes per day: 20. Cigars Per Day: 0. Hx Chewing Tobacco Use: No. Initiated information on smoking cessation: Yes. 'Breaking Loose' booklet given: 02/03/18. - Substance & Tx. History. Hx Alcohol Use: Yes. Hx Substance Use: Yes. Substance Use Type : Alcohol, Cocaine. Hx Substance Use Treatment: Yes. - Substances Abused. Alcohol. Route: Oral. Frequency: Daily. Amount used: 2 QUARTS OF VODKA. Age of first use: 14. Date of Last Use: 02/03/18. Cocaine. Route: Inhalation. Frequency: Daily. Amount used: 3-6 GRAMS. Age of first use: 14. Date of Last Use: 02/03/18 Medical History: GERD and history of abdominal surgery for a pancreatic pseudocyst (2002). Psychiatric History: Patient denies history of psychiatric hospitalizations or suicide attempts. No prior experience with OPD care as per self-report. Not on psychotropic medications with the exception of zolpidem (insomnia) and opioid analgesics. Physical/Sexual Abuse/Trauma History: Patient denies. Additional Comment: Urine Drug Screen Results: GURDEEP-Cocaine, OXY-Oxycodone. Noted. Mental Status Exam - Mental Status Exam Alert and Oriented to: Time, Place, Person Cognitive Function: Good Patient Appearance: Well Groomed (several missing teeth) Mood: Hopeful, Euthymic Affect: Appropriate, Normal Range Patient Behavior: Talkative, Cooperative Speech Pattern: Clear, Appropriate Voice Loudness: Normal Thought Process: Intact, Goal Oriented Thought Disorder: Not Present Hallucinations: Denies Suicidal Ideation: Denies Homicidal Ideation: Denies Insight/Judgement: Poor Sleep: Poorly, Difficulty falling asleep Appetite: Fair Muscle strength/Tone: Normal Gait/Station: Normal Psychiatric Findings - Problem List ([place] 1, 2,3) (1) Alcohol dependence with uncomplicated withdrawal Current Visit: Yes Status: Acute (2) Cocaine dependence, uncomplicated Current Visit: Yes Status: Chronic (3) Nicotine dependence Current Visit: Yes Status: Chronic (4) Insomnia Current Visit: Yes Status: Chronic - Initial Treatment Plan Initial Treatment Plan: Psychoeducation. Detoxification in progress. Sleep hygiene. Remeron 7.5 mg po hs. Side effects/benefits discussed with the patient. Mr Baxter is in agreement with this plan of care. Observation.
[2018-02-05] MEDS: MIRTAZAPINE 15 MG TABLET (FP) PO SCH (22:03)
[2018-02-05] MEDS: THIAMINE HCL 100 MG TABLET (FP) PO SCH (22:03)
[2018-02-06] MEDS: diazePAM 5 MG TABLET PO SCH ×2 (10:14→22:10)
[2018-02-06] MEDS: TOLNAFTATE 1% CREAM 15 GM TUBE TP SCH ×2 (10:14→22:11)
[2018-02-06] MEDS: PANTOPRAZOLE 40 MG TABLET (FP) PO SCH (10:14)
[2018-02-06] MEDS: PRENATAL VITAMINS W/ FOLIC ACID TABLET (FP) PO SCH (10:14)
[2018-02-06] MEDS: NICOTINE 14 MG/24 HOURS TOPICAL PATCH TD SCH (10:14)
--- NOTE | 2018-02-06 11:40 | PN ---
[facility] Progress Note (SOAP) Subjective: I'm feeling better Objective: 02/06/18 11:38 Vital Signs Temperature 97.9 F 02/06/18 09:06 Pulse Rate 76 02/06/18 09:06 Respiratory Rate 18 02/06/18 09:06 Blood Pressure 141/76 02/06/18 09:06 O2 Sat by Pulse Oximetry (%) Laboratory Tests 02/04/18 02/04/18 02/04/18 07:00 07:00 07:00 WBC 2.1 L RBC 3.80 L Hgb 12.4 Hct 36.7 MCV 96.5 H MCH 32.6 MCHC 33.8 RDW 16.2 H Plt Count 121 L MPV 9.6 Sodium 138 Potassium 3.9 Chloride 106 Carbon Dioxide 23 Anion Gap 9 BUN 19 H Creatinine 1.6 H Creat Clearance w eGFR 42.70 Random Glucose 131 H Calcium 8.2 L Total Bilirubin 0.5 AST 23 ALT 16 Alkaline Phosphatase 52 Total Protein 6.8 Albumin 2.9 L RPR Titer Nonreactive 02/06/18 11:40 pt aox3 in nad lying in bed Assessment: 02/06/18 11:41 withdrawal sx;s neutropenia Plan: cont. detox increase fluids d/c in am
[2018-02-06] MEDS: THIAMINE HCL 100 MG TABLET (FP) PO SCH (22:11)
[2018-02-06] MEDS: MIRTAZAPINE 15 MG TABLET (FP) PO SCH (22:11)
--- NOTE | 2018-02-07 08:28 | DS ---
[facility] Detox Discharge Summary Admission Date: 02/03/18 Discharge Date: 02/07/18 - History Present History: Alcohol Dependence, Cocaine Dependence - Physical Exam Results Vital Signs: Vital Signs Temperature 97.2 F L 02/07/18 06:09 Pulse Rate 69 02/07/18 06:09 Respiratory Rate 18 02/07/18 06:09 Blood Pressure 124/68 02/07/18 06:09 O2 Sat by Pulse Oximetry (%) - Treatment Hospital Course: Detox Protocol Followed, Detoxed Safely, Responded well, Discharged Condition Good, Rehab Referral Accepted - Medication Discharge Medications: Ambulatory Orders Oxycodone HCl/Acetaminophen [Percocet 10-325 mg Tablet] 1 each PO Q4H 12/08/17 Lipase/Protease/Amylase [Mariana Harmon 24,000 Units Capsule] 1 cap PO TID #90 capsule. 02/06/18 Omeprazole Magnesium [Prilosec Otc] 20 mg PO TID #60 tablet. 02/06/18 - Diagnosis (1) Alcohol dependence with uncomplicated withdrawal Current Visit: Yes Status: Chronic (2) Chronic alcoholic pancreatitis Current Visit: Yes Status: Chronic (3) Cocaine dependence, uncomplicated Current Visit: Yes Status: Chronic (4) GERD (gastroesophageal reflux disease) Current Visit: Yes Status: Chronic Qualifiers: Esophagitis presence: without esophagitis Qualified Code(s): K21.9 - Gastro -esophageal reflux disease without esophagitis (5) Insomnia Current Visit: Yes Status: Chronic (6) Nicotine dependence Current Visit: Yes Status: Chronic Qualifiers: Nicotine product type: cigarettes Substance use status: uncomplicated Qualified Code(s): F17.210 - Nicotine dependence, cigarettes, uncomplicated (7) PPD positive Current Visit: Yes Status: Chronic (8) Pseudocyst of pancreas Current Visit: Yes Status: Chronic (9) Substance induced mood disorder Current Visit: Yes Status: Chronic (10) Substance-induced sleep disorder Current Visit: Yes Status: Chronic (11) Abnormal finding on urinalysis Current Visit: No Status: Acute (12) Acute kidney injury Current Visit: No Status: Acute (13) Cocaine-induced sleep disorder Current Visit: No Status: Acute (14) Hypocalcemia Current Visit: No Status: Acute (15) Pancytopenia Current Visit: No Status: Acute (16) Substance induced mood disorder Current Visit: No Status: Acute (17) Substance-induced sleep disorder Current Visit: No Status: Acute (18) Thrombocytopenia Current Visit: No Status: Acute (19) Arthritis Current Visit: No Status: Chronic (20) Cocaine-induced mood disorder Current Visit: No Status: Chronic (21) Depression Current Visit: No Status: Chronic - AMA Did Patient Leave Against Medical Advice: No (referred to [facility])
[2018-02-07 09:13] VITALS: BP 133/66; PULSE 78; TEMP 97.5
[2018-02-07] MEDS: PANTOPRAZOLE 40 MG TABLET (FP) PO SCH (09:14)
[2018-02-07] MEDS: PRENATAL VITAMINS W/ FOLIC ACID TABLET (FP) PO SCH (09:15)
[2018-02-07] MEDS ORDERED: diazePAM 5 MG TABLET PO SCH (10:00)
== END 2018-02-07 11:37 | disposition other institution (70) | DRG 897 ==
LOC: YASAS 10:36 → Y6N 13:52
PROC: HZ2ZZZZ Detoxification Services for Substance Abuse Treatment (ICD-10-PCS; principal; 2018-02-03)
DX: F10.230 Alcohol dependence with withdrawal, uncomplicated (principal); F14.282 Cocaine dependence with cocaine-induced sleep disorder; F19.282 Other psychoactive substance dependence with psychoactive substance-induced sleep disorder; K86.0 Alcohol-induced chronic pancreatitis; K86.3 Pseudocyst of pancreas; N17.9 Acute kidney failure, unspecified; D61.818 Other pancytopenia; F14.24 Cocaine dependence with cocaine-induced mood disorder; F17.210 Nicotine dependence, cigarettes, uncomplicated; F19.24 Other psychoactive substance dependence with psychoactive substance-induced mood disorder; F32.9 Major depressive disorder, single episode, unspecified; K21.9 Gastro-esophageal reflux disease without esophagitis; G47.00 Insomnia, unspecified; R76.11 Nonspecific reaction to tuberculin skin test without active tuberculosis; R82.90 Unspecified abnormal findings in urine; E83.51 Hypocalcemia; D69.6 Thrombocytopenia, unspecified; D72.819 Decreased white blood cell count, unspecified; D70.9 Neutropenia, unspecified; M19.90 Unspecified osteoarthritis, unspecified site; Z91.013 Allergy to seafood
CPT/HCPCS: 36415; 80053; 85027; 86593

== ENCOUNTER 2018-02-07 13:41 | Inpatient (IN) | payer OTHER ==
[2018-02-07 14:21] VITALS: BMI 27.5
[2018-02-07] MEDS ORDERED: IBUPROFEN 400 MG TABLET (FP) PO PRN (17:11)
[2018-02-07] MEDS ORDERED: MAGNESIUM CITRATE 300 ML BOTTLE PO PRN (17:11)
[2018-02-07] MEDS ORDERED: P-EPHED 60MG/TRIPROLIDI 2.5MG TABLET PO PRN (17:11)
[2018-02-07] MEDS ORDERED: MENTHOL/PHENOL 1 EACH UD MM PRN (17:11)
[2018-02-07] MEDS ORDERED: MAGNESIUM HYDROX 2400MG/30ML ORAL SUSPENSION 30 ML CUP PO PRN (17:11)
[2018-02-07] MEDS ORDERED: MAG HYDROX/AL HYDROX/SIMETH 30 ML UNIT-DOSE CUP PO PRN (17:11)
[2018-02-07] MEDS ORDERED: guaiFENesin/D-METHORPHAN HB 10 ML UNIT-DOSE CUPS PO PRN (17:11)
[2018-02-07] MEDS ORDERED: NICOTINE POLACRILEX 4 MG GUM BUC PRN (17:11)
[2018-02-07] MEDS ORDERED: ACETAMINOPHEN 325 MG TABLET (FP) PO PRN (17:11)
[2018-02-07] MEDS ORDERED: LOPERAMIDE HCL 2 MG CAPSULE PO PRN (17:11)
--- NOTE | 2018-02-07 17:11 | HP ---
[facility] Rehab Assess/Revision - Admission History Admitted to Rehab from: [address] - Vital signs Vital Signs: Vital Signs Period Temp Pulse Resp BP Sys/Ruano Pulse Ox Last 24 Hr 81 F 81 20 132/74 - Findings Detox History & Physical reviewed: Yes Concur with findings: Yes Inpatient Rehab Admission - Initial Determination Are CD services needed?: Yes Free of communicable disease: Yes Not in need of hospitalization: Yes - Rehab Admission Criteria Previous failed treatment: Yes Comorbidities: Yes Lacks judgement: Yes
[2018-02-07] MEDS: MELATONIN 5 MG TABLETS PO PRN (21:09)
[2018-02-07] MEDS: hydrOXYzine PAMOATE 50 MG CAPSULE (FP) PO PRN (21:10)
[2018-02-07] MEDS: THIAMINE HCL 100 MG TABLET (FP) PO SCH (21:10)
[2018-02-07 23:11] LABS: URINE APPEARANCE CLEAR; URINE BILIRUBIN NEGATIVE (<2.0 mg/dL); URINE COLOR LTYELLOW; URINE GLUCOSE (UA) NEGATIVE (NEGATIVE); URINE KETONE NEGATIVE (NEGATIVE); URINE LEUK ESTERASE NEGATIVE (NEGATIVE); URINE NITRITE NEGATIVE (NEGATIVE); URINE PROTEIN NEGATIVE (NEGATIVE); URINE UROBILINOGEN NEGATIVE mg/dL (0.2-1.0)
[2018-02-08] MEDS: PANTOPRAZOLE 40 MG TABLET (FP) PO SCH (10:00)
[2018-02-08] MEDS: PRENATAL VITAMINS W/ FOLIC ACID TABLET (FP) PO SCH (10:00)
[2018-02-08] MEDS: NICOTINE 21 MG/24 HOURS TOPICAL PATCH TD SCH (10:01)
--- NOTE | 2018-02-08 11:06 | HP ---
Psychiatrist Admission - Data Date of interview: 02/08/18 Admission source: [address] [place] [address] Identifying data: This is one of the multiple admissions to [address] [place] [address] inpatient rehsbilitation fro this 72 yo AA father of 3 grown children,resides alone,supporting himself by working. Medical History: Chronic pancreatitis. Psychiatric History: Reports sleeping difficulties on and off.patient reports good response on remeron in the past.No psychiatric hospitalizations,no suicidal attempts reported. Physical/Sexual Abuse/Trauma History: not willing to discuss Vital Signs: Vital Signs - 24 hr 02/07/18 02/08/18 02/08/18 14:18 00:30 03:30 Temperature 81 F L Pulse Rate 81 Respiratory 20 18 18 Rate Blood Pressure 132/74 02/08/18 06:53 Temperature 97.9 F Pulse Rate 82 Respiratory 18 Rate Blood Pressure 138/76 Allergies/Adverse Reactions: Allergies Allergy/AdvReac Type Severity Reaction Status Date / Time shellfish derived Allergy Mild Rash Verified 02/07/18 16:52 tomato Allergy Mild Rash Verified 02/07/18 16:52 iodine Allergy Rash Verified 02/07/18 16:52 Concur with the findings of this exam: Yes - Substance Abuse/Tx History Hx Alcohol Use: Yes (reports drinking since 14 yo,2 pints of [place] daily) Hx Substance Use: Yes (cocaine/crack since 14 yo,4-6 g daily) Substance Use Type: Alcohol, Cocaine Hx Substance Use Treatment: Yes (multiple detox/rehabs ) Mental Status Exam - Mental Status Exam Alert and Oriented to: Time, Place, Person Cognitive Function: Grossly Intact Patient Appearance: Unkempt Mood: Euthymic Affect: Mood Congruent, Normal Range Patient Behavior: Cooperative Speech Pattern: Clear Voice Loudness: Normal Thought Process: Goal Oriented Thought Disorder: Not Present Hallucinations: Denies Suicidal Ideation: Denies Homicidal Ideation: Denies Insight/Judgement: Fair Sleep: Difficulty falling asleep Appetite: Good Muscle strength/Tone: Normal Gait/Station: Normal Psychiatric Findings - Problem List ([place] 1, 2,3) (1) Cocaine-induced sleep disorder Status: Chronic (2) Substance induced mood disorder Status: Chronic (3) Alcohol dependence Status: Chronic Qualifiers: Substance use status: uncomplicated Qualified Code(s): F10.20 - Alcohol dependence, uncomplicated (4) GERD (gastroesophageal reflux disease) Status: Chronic Qualifiers: Esophagitis presence: without esophagitis Qualified Code(s): K21.9 - Gastro -esophageal reflux disease without esophagitis (5) Nicotine dependence Status: Chronic Qualifiers: Nicotine product type: cigarettes Substance use status: uncomplicated Qualified Code(s): F17.210 - Nicotine dependence, cigarettes, uncomplicated (6) Pseudocyst of pancreas Status: Chronic (7) Cocaine dependence Status: Chronic Qualifiers: Complication of substance-induced condition: uncomplicated - Initial Treatment Plan Initial Treatment Plan: Remeron 30 mg po hs. will monitor progress.
[2018-02-08] MEDS: MIRTAZAPINE 30 MG TABLET (FP) PO SCH (21:02)
[2018-02-08] MEDS: THIAMINE HCL 100 MG TABLET (FP) PO SCH (21:03)
[2018-02-09] MEDS: PRENATAL VITAMINS W/ FOLIC ACID TABLET (FP) PO SCH (09:34)
[2018-02-09] MEDS: PANTOPRAZOLE 40 MG TABLET (FP) PO SCH (09:34)
[2018-02-09] MEDS: NICOTINE 21 MG/24 HOURS TOPICAL PATCH TD SCH (09:34)
[2018-02-09] MEDS: THIAMINE HCL 100 MG TABLET (FP) PO SCH (21:00)
[2018-02-09] MEDS: MIRTAZAPINE 30 MG TABLET (FP) PO SCH (21:00)
[2018-02-10] MEDS: PANTOPRAZOLE 40 MG TABLET (FP) PO SCH (09:37)
[2018-02-10] MEDS: NICOTINE 21 MG/24 HOURS TOPICAL PATCH TD SCH (09:37)
[2018-02-10] MEDS: PRENATAL VITAMINS W/ FOLIC ACID TABLET (FP) PO SCH (09:37)
[2018-02-10] MEDS: MIRTAZAPINE 30 MG TABLET (FP) PO SCH (21:02)
[2018-02-10] MEDS: THIAMINE HCL 100 MG TABLET (FP) PO SCH (21:02)
[2018-02-10] MEDS: hydrOXYzine PAMOATE 50 MG CAPSULE (FP) PO PRN (23:38)
[2018-02-11] MEDS: NICOTINE 21 MG/24 HOURS TOPICAL PATCH TD SCH (10:20)
[2018-02-11] MEDS: PANTOPRAZOLE 40 MG TABLET (FP) PO SCH (10:20)
[2018-02-11] MEDS: PRENATAL VITAMINS W/ FOLIC ACID TABLET (FP) PO SCH (10:20)
[2018-02-11] MEDS: hydrOXYzine PAMOATE 50 MG CAPSULE (FP) PO PRN (21:05)
[2018-02-11] MEDS: MIRTAZAPINE 30 MG TABLET (FP) PO SCH (21:05)
[2018-02-11] MEDS: MELATONIN 5 MG TABLETS PO PRN (21:05)
[2018-02-11] MEDS: THIAMINE HCL 100 MG TABLET (FP) PO SCH (21:05)
[2018-02-12] MEDS: PRENATAL VITAMINS W/ FOLIC ACID TABLET (FP) PO SCH (09:47)
[2018-02-12] MEDS: PANTOPRAZOLE 40 MG TABLET (FP) PO SCH (09:48)
[2018-02-12] MEDS: NICOTINE 21 MG/24 HOURS TOPICAL PATCH TD SCH (09:48)
[2018-02-12] MEDS: MIRTAZAPINE 30 MG TABLET (FP) PO SCH (21:02)
[2018-02-12] MEDS: MELATONIN 5 MG TABLETS PO PRN (21:02)
[2018-02-12] MEDS: hydrOXYzine PAMOATE 50 MG CAPSULE (FP) PO PRN (21:02)
[2018-02-12] MEDS: THIAMINE HCL 100 MG TABLET (FP) PO SCH (21:03)
--- NOTE | 2018-02-13 08:59 | PN ---
[facility] Progress Note (SOAP) Subjective: My throat hurt on the left side . Objective: 02/13/18 08:52 Vital Signs Temperature 98.4 F 02/13/18 06:33 Pulse Rate 87 02/13/18 06:33 Respiratory Rate 18 02/13/18 06:33 Blood Pressure 130/89 02/13/18 06:33 O2 Sat by Pulse Oximetry (%) Laboratory Last Values Urine Color Ltyellow 02/07/18 23:00 Urine Appearance Clear 02/07/18 23:00 Urine pH 6.0 (5.0-8.0) 02/07/18 23:00 Ur Specific [place] 1.013 (1.010-1.035) 02/07/18 23:00 Urine Protein Negative (NEGATIVE) 02/07/18 23:00 Urine Glucose (UA) Negative (NEGATIVE) 02/07/18 23:00 Urine Ketones Negative (NEGATIVE) 02/07/18 23:00 Urine Blood Negative (NEGATIVE) 02/07/18 23:00 Urine Nitrite Negative (NEGATIVE) 02/07/18 23:00 Urine Bilirubin Negative (<2.0 mg/dL) 02/07/18 23:00 Urine Urobilinogen Negative mg/dL (0.2-1.0) 02/07/18 23:00 Ur Leukocyte Esterase Negative (NEGATIVE) 02/07/18 23:00 02/04/18- wbc 2.1 gen- pt aox3 in nad ambulating skin clear heent- mild erythema w/o exudate neck - + tenderness left neck by jaw lungs clear to a/p 02/13/18 08:59 Assessment: 02/13/18 09:00 pharyngitis leucopenia 02/13/18 09:00 Plan: increase fluids amoxicillin 500mg tid x 10 d viscous lidocaine qid
[2018-02-13] MEDS ORDERED: LIDOCAINE VISCOUS 2% ORAL/TOP 20 ML UNIT-DOSE CUP MM PRN (09:06)
[2018-02-13] MEDS: PRENATAL VITAMINS W/ FOLIC ACID TABLET (FP) PO SCH (10:15)
[2018-02-13] MEDS: PANTOPRAZOLE 40 MG TABLET (FP) PO SCH (10:15)
[2018-02-13] MEDS: NICOTINE 21 MG/24 HOURS TOPICAL PATCH TD SCH (10:15)
[2018-02-13] MEDS: AMOXICILLIN 500 MG CAPSULE (FP) PO SCH ×2 (13:24→21:05)
[2018-02-13] MEDS: MIRTAZAPINE 30 MG TABLET (FP) PO SCH (21:05)
[2018-02-13] MEDS: MELATONIN 5 MG TABLETS PO PRN (21:05)
[2018-02-13] MEDS: THIAMINE HCL 100 MG TABLET (FP) PO SCH (21:05)
[2018-02-13] MEDS: hydrOXYzine PAMOATE 50 MG CAPSULE (FP) PO PRN (21:05)
[2018-02-14] MEDS: AMOXICILLIN 500 MG CAPSULE (FP) PO SCH ×3 (07:01→21:04)
[2018-02-14] MEDS: PANTOPRAZOLE 40 MG TABLET (FP) PO SCH (09:57)
[2018-02-14] MEDS: PRENATAL VITAMINS W/ FOLIC ACID TABLET (FP) PO SCH (09:57)
[2018-02-14] MEDS: NICOTINE 21 MG/24 HOURS TOPICAL PATCH TD SCH (09:58)
[2018-02-14] MEDS: MIRTAZAPINE 30 MG TABLET (FP) PO SCH (21:04)
[2018-02-14] MEDS: THIAMINE HCL 100 MG TABLET (FP) PO SCH (21:04)
[2018-02-14] MEDS: MELATONIN 5 MG TABLETS PO PRN (21:04)
[2018-02-14] MEDS: hydrOXYzine PAMOATE 50 MG CAPSULE (FP) PO PRN (21:04)
[2018-02-15] MEDS: AMOXICILLIN 500 MG CAPSULE (FP) PO SCH ×3 (06:03→21:04)
[2018-02-15] MEDS: NICOTINE 21 MG/24 HOURS TOPICAL PATCH TD SCH (09:43)
[2018-02-15] MEDS: PRENATAL VITAMINS W/ FOLIC ACID TABLET (FP) PO SCH (09:43)
[2018-02-15] MEDS: PANTOPRAZOLE 40 MG TABLET (FP) PO SCH (09:43)
--- NOTE | 2018-02-15 11:25 | PN ---
[facility] Progress Note Note: Patient reports sleeping poorly despite taking Remeron 30 mg po HS. Requests to be prescribed something stronger. Belsomra 10 mg po HS prn for insomnia will be added to patient regimen
[2018-02-15] MEDS: THIAMINE HCL 100 MG TABLET (FP) PO SCH (21:04)
[2018-02-15] MEDS: MIRTAZAPINE 30 MG TABLET (FP) PO SCH (21:04)
[2018-02-15] MEDS: MELATONIN 5 MG TABLETS PO PRN (21:06)
[2018-02-15] MEDS: SUVOREXANT 10 MG TABLET PO PRN (21:06)
[2018-02-15] MEDS: hydrOXYzine PAMOATE 50 MG CAPSULE (FP) PO PRN (21:07)
[2018-02-16] MEDS: AMOXICILLIN 500 MG CAPSULE (FP) PO SCH ×3 (06:01→21:03)
[2018-02-16] MEDS: PRENATAL VITAMINS W/ FOLIC ACID TABLET (FP) PO SCH (09:29)
[2018-02-16] MEDS: PANTOPRAZOLE 40 MG TABLET (FP) PO SCH (09:29)
[2018-02-16] MEDS: NICOTINE 21 MG/24 HOURS TOPICAL PATCH TD SCH (09:29)
[2018-02-16] MEDS: SUVOREXANT 10 MG TABLET PO PRN (21:03)
[2018-02-16] MEDS: MIRTAZAPINE 30 MG TABLET (FP) PO SCH (21:03)
[2018-02-16] MEDS: hydrOXYzine PAMOATE 50 MG CAPSULE (FP) PO PRN (21:03)
[2018-02-16] MEDS: THIAMINE HCL 100 MG TABLET (FP) PO SCH (21:04)
[2018-02-16] MEDS: MELATONIN 5 MG TABLETS PO PRN (21:04)
[2018-02-17] MEDS: AMOXICILLIN 500 MG CAPSULE (FP) PO SCH ×3 (06:06→21:00)
[2018-02-17] MEDS: PANTOPRAZOLE 40 MG TABLET (FP) PO SCH (09:30)
[2018-02-17] MEDS: PRENATAL VITAMINS W/ FOLIC ACID TABLET (FP) PO SCH (09:30)
[2018-02-17] MEDS: NICOTINE 21 MG/24 HOURS TOPICAL PATCH TD SCH (09:31)
[2018-02-17] MEDS: SUVOREXANT 10 MG TABLET PO PRN (21:00)
[2018-02-17] MEDS: hydrOXYzine PAMOATE 50 MG CAPSULE (FP) PO PRN (21:00)
[2018-02-17] MEDS: MIRTAZAPINE 30 MG TABLET (FP) PO SCH (21:00)
[2018-02-17] MEDS: MELATONIN 5 MG TABLETS PO PRN (21:00)
[2018-02-17] MEDS: THIAMINE HCL 100 MG TABLET (FP) PO SCH (21:01)
[2018-02-18] MEDS: AMOXICILLIN 500 MG CAPSULE (FP) PO SCH ×3 (05:53→21:06)
[2018-02-18] MEDS: PRENATAL VITAMINS W/ FOLIC ACID TABLET (FP) PO SCH (09:42)
[2018-02-18] MEDS: PANTOPRAZOLE 40 MG TABLET (FP) PO SCH (09:42)
[2018-02-18] MEDS: NICOTINE 21 MG/24 HOURS TOPICAL PATCH TD SCH (09:42)
[2018-02-18] MEDS: hydrOXYzine PAMOATE 50 MG CAPSULE (FP) PO PRN (21:06)
[2018-02-18] MEDS: MIRTAZAPINE 30 MG TABLET (FP) PO SCH (21:07)
[2018-02-18] MEDS: SUVOREXANT 10 MG TABLET PO PRN (21:08)
[2018-02-18] MEDS: THIAMINE HCL 100 MG TABLET (FP) PO SCH (21:09)
[2018-02-19] MEDS: AMOXICILLIN 500 MG CAPSULE (FP) PO SCH ×3 (06:11→21:03)
[2018-02-19] MEDS: NICOTINE 21 MG/24 HOURS TOPICAL PATCH TD SCH (09:31)
[2018-02-19] MEDS: PRENATAL VITAMINS W/ FOLIC ACID TABLET (FP) PO SCH (09:31)
[2018-02-19] MEDS: PANTOPRAZOLE 40 MG TABLET (FP) PO SCH (09:31)
[2018-02-19] MEDS: MELATONIN 5 MG TABLETS PO PRN (21:03)
[2018-02-19] MEDS: MIRTAZAPINE 30 MG TABLET (FP) PO SCH (21:03)
[2018-02-19] MEDS: hydrOXYzine PAMOATE 50 MG CAPSULE (FP) PO PRN (21:03)
[2018-02-19] MEDS: THIAMINE HCL 100 MG TABLET (FP) PO SCH (21:04)
[2018-02-20] MEDS: AMOXICILLIN 500 MG CAPSULE (FP) PO SCH (06:03)
[2018-02-20] MEDS: PRENATAL VITAMINS W/ FOLIC ACID TABLET (FP) PO SCH (09:57)
[2018-02-20] MEDS: NICOTINE 21 MG/24 HOURS TOPICAL PATCH TD SCH (09:57)
[2018-02-20] MEDS: PANTOPRAZOLE 40 MG TABLET (FP) PO SCH (09:57)
[2018-02-20] MEDS: hydrOXYzine PAMOATE 50 MG CAPSULE (FP) PO PRN (21:21)
[2018-02-20] MEDS: MIRTAZAPINE 30 MG TABLET (FP) PO SCH (21:21)
[2018-02-20] MEDS: MELATONIN 5 MG TABLETS PO PRN (21:21)
[2018-02-20] MEDS: THIAMINE HCL 100 MG TABLET (FP) PO SCH (21:23)
[2018-02-21 06:59] VITALS: BP 144/87; PULSE 80; TEMP 98.4
[2018-02-21] MEDS: PANTOPRAZOLE 40 MG TABLET (FP) PO SCH (09:45)
[2018-02-21] MEDS: NICOTINE 21 MG/24 HOURS TOPICAL PATCH TD SCH (09:46)
[2018-02-21] MEDS: PRENATAL VITAMINS W/ FOLIC ACID TABLET (FP) PO SCH (09:46)
--- NOTE | 2018-02-21 10:39 | PN ---
Psychiatric Progress Note Vital Signs: Vital Signs Period Temp Pulse Resp BP Sys/Ruano Pulse Ox Last 24 Hr 98.4 F 80 18-18 144/87 Date of Session: 02/21/18 Chief Complaint:: Discharge Note HPI: Patient addressing Alcohol and Cocaine Dependence comorbid with Nicotine Dependence, Substance-Induced Mood Disorder and Substance-Induced Sleep Disorder Current Medications: Active Medications Generic Name Dose Route Start Last Admin Trade Name Freq PRN Reason Stop Dose Admin Acetaminophen 650 mg 02/07/18 17:11 Tylenol - PO Q4H PRN FEVER Al Hydroxide/Mg Hydroxide 30 ml 02/07/18 17:11 Mylanta Oral Suspension - PO Q6H PRN DYSPEPSIA Eucalyptus/Menthol/Phenol/Sorbitol 1 each 02/07/18 17:11 Cepastat Lozenge - MM Q4H PRN SORE THROAT Guaifenesin 10 ml 02/07/18 17:11 Robitussin Dm - PO Q6H PRN COUGH Hydroxyzine Pamoate 50 mg 02/07/18 17:11 02/20/18 21:21 Vistaril - PO 50 mg Q4H PRN Administration AGITATION Ibuprofen 400 mg 02/07/18 17:11 Motrin - PO Q6H PRN Pain level 4-6 Lidocaine HCl 20 ml 02/13/18 09:06 Xylocaine 2% Viscous Oral - MM Q6HPO PRN ORAL PAIN/MOUTH SORES Loperamide HCl 4 mg 02/07/18 17:11 Imodium - PO Q6H PRN DIARRHEA Magnesium Citrate 300 ml 02/07/18 17:11 Citroma - PO Q48H PRN CONSTIPATION Magnesium Hydroxide 30 ml 02/07/18 17:11 Milk Of Magnesia - PO DAILY PRN CONSTIPATION Melatonin 5 mg 02/07/18 22:00 02/20/18 21:21 Melatonin PO 5 mg HS PRN Administration INSOMNIA Mirtazapine 30 mg 02/08/18 22:00 02/20/18 21:21 Remeron - PO 30 mg HS HARLEY Administration Nicotine 21 mg 02/08/18 10:00 02/21/18 09:46 Nicoderm Patch - TD Not Given DAILY HARLEY Nicotine Polacrilex 4 mg 02/07/18 17:11 Nicorette Gum - BUC Q2H PRN NICOTINE REPLACEMENT RX Pantoprazole Sodium 40 mg 02/08/18 10:00 02/21/18 09:45 Protonix - PO 40 mg DAILY HARLEY Administration Multivit/Folic Acid/Iron 1 tab 02/08/18 10:00 02/21/18 09:46 Vitamins (Sjr) - PO Not Given DAILY HARLEY Pseudoephedrine/Triprolidine 1 combo 02/07/18 17:11 Actifed - PO TID PRN NASAL CONGESTION Suvorexant 10 mg 02/21/18 22:00 Belsomra PO 02/24/18 21:59 HS PRN INSOMNIA Thiamine HCl 100 mg 02/07/18 22:00 02/20/18 21:23 Vitamin B1 - PO Not Given HS HARLEY Current Side Effect: No Lab tests ordered: Yes Lab tests reviewed: Yes Provider note:: Patient has completed this program on today. He has met his treatment goals and will continue to address his issues in attending AA/NA. Told ghost writer that from his participation in this program, he has learned the importance of making meetings and get a sponsor. He responded well to Remeron 30 mg po HS. Script for 30 days supply of that medication is electronically transmitted to [facility] at [address] [place] [address]. He is stable for diischarge today Total face to face time:: 35 Mental Status Exam - Mental Status Exam Alert and Oriented to: Time, Place, Person Cognitive Function: Fair Patient Appearance: Well Groomed Mood: Hopeful, Euthymic Affect: Appropriate Patient Behavior: Cooperative Speech Pattern: Clear Voice Loudness: Normal Thought Process: Intact, Goal Oriented Thought Disorder: Not Present Hallucinations: Denies Suicidal Ideation: Denies Homicidal Ideation: Denies Insight/Judgement: Fair Sleep: Fair Appetite: Fair Muscle strength/Tone: Normal Gait/Station: Normal Psychiatric Treatment Plan - Problem List (1) Alcohol dependence Current Visit: Yes Qualifiers: Substance use status: uncomplicated Qualified Code(s): F10.20 - Alcohol dependence, uncomplicated (2) Cocaine dependence Current Visit: Yes Qualifiers: Complication of substance-induced condition: uncomplicated (3) Nicotine dependence Current Visit: Yes Qualifiers: Nicotine product type: cigarettes Substance use status: uncomplicated Qualified Code(s): F17.210 - Nicotine dependence, cigarettes, uncomplicated (4) Substance induced mood disorder Current Visit: Yes (5) Substance-induced sleep disorder Current Visit: No (6) GERD (gastroesophageal reflux disease) Current Visit: Yes Qualifiers: Esophagitis presence: without esophagitis Qualified Code(s): K21.9 - Gastro -esophageal reflux disease without esophagitis (7) Pseudocyst of pancreas Current Visit: Yes (8) PPD positive Current Visit: No Initial treatment plan: Patient is discharged today and will be addressing his issues by attending AA/NA as he refused formal referral to outpatient or inpatient treatment
[2018-02-21] MEDS ORDERED: SUVOREXANT 10 MG TABLET PO PRN (22:00)
== END 2018-02-21 11:00 | disposition home or self-care (01) | DRG 895 ==
LOC: YASAS 13:41 → Y5N 16:30
PROVIDERS: ADMIT Psychiatry & Neurology Psychiatry; ATTEND Psychiatry & Neurology Psychiatry
PROC: HZ42ZZZ Group Counseling for Substance Abuse Treatment, Cognitive-Behavioral (ICD-10-PCS; principal; 2018-02-07)
DX: F10.20 Alcohol dependence, uncomplicated (principal); F14.20 Cocaine dependence, uncomplicated; F19.282 Other psychoactive substance dependence with psychoactive substance-induced sleep disorder; K86.3 Pseudocyst of pancreas; F17.210 Nicotine dependence, cigarettes, uncomplicated; F19.24 Other psychoactive substance dependence with psychoactive substance-induced mood disorder; K21.9 Gastro-esophageal reflux disease without esophagitis; R76.11 Nonspecific reaction to tuberculin skin test without active tuberculosis; J02.9 Acute pharyngitis, unspecified; D72.819 Decreased white blood cell count, unspecified; Z91.013 Allergy to seafood
CPT/HCPCS: 36415; 71046-TC-FY; 80053; 81003; 85027; 86593

== ENCOUNTER 2018-08-07 09:05 | Inpatient (IN) | payer OTHER ==
[2018-08-07 10:40] VITALS: BMI 25.1
--- NOTE | 2018-08-07 11:34 | HP ---
CIWA Score Nausea/Vomitin Muscle Tremors: 2 Anxiety: 2 Agitation: 2 Paroxysmal Sweats: 1-Minimal Palms Moist Orientation: 0-Oriented Tacttile Disturbances: 1-Very Mild Itch/Numbness Auditory Disturbances: 1-Very Mild Visual Disturbances: 0-None Headache: 2-Mild CIWA-Ar Total Score: 13 - Admission Criteria OASAS Guidelines: Admission for Medically Managed Detox: Requires at least one of the followin. CIWA greater than 12 2. Seizures within the past 24 hours 3. Delirium tremens within the past 24 hours 4. Hallucinations within the past 24 hours 5. Acute intervention needed for co occurring medical disorder 6. Acute intervention needed for co occurring psychiatric disorder 7. Severe withdrawal that cannot be handled at a lower level of care (continued vomiting, continued diarrhea, abnormal vital signs) requiring intravenous medication and/or fluids 8. Admission ROS S - HPI Chief Complaint: i am here for alcohol and cocaine detox,need help to stop Allergies/Adverse Reactions: Allergies Allergy/AdvReac Type Severity Reaction Status Date / Time shellfish derived Allergy Mild Rash Verified 02/07/18 16:52 tomato Allergy Mild Rash Verified 02/07/18 16:52 iodine Allergy Rash Verified 02/07/18 16:52 History of Present Illness: this 72 years old male with alcohol and cocaine dependence,seeking detox, withdrawal symptom, multiple admissions in detox,but keep relapsing,last detox 06/07 in [facility] nicotine dependence 1 pack/day,would like nicotine patch weight loss longest sobriety 6 and half years fail out patient program gerd history of pancreatitis ,surgery of pancrease 9 years ago Exam Limitations: No Limitations - Ebola screening Have you traveled outside of the country in the last 21 days: No (N) Have you had contact with anyone from an Ebola affected area: No Do you have a fever: No - Review of Systems Constitutional: Loss of Appetite, Malaise, Night Sweats, Changes in sleep, Weakness, Unintentional Wgt. Loss EENT: reports: Nose Congestion Respiratory: reports: No Symptoms reported Cardiac: reports: No Symptoms Reported GI: reports: Nausea, Poor Appetite, Abdominal cramping : reports: No Symptoms Reported Musculoskeletal: reports: Back Pain, Muscle Pain Integumentary: reports: Dryness Endocrine: reports: No Symptoms Reported Hematology: reports: No Symptoms Reported Psychiatric: reports: No Sypmtoms Reported, Judgement Intact, Mood/Affect Appropiate, Orientated x3, other (insomnia) Other Systems: Reviewed and Negative Patient History - Patient Medical History Hx Anemia: No Hx Asthma: No Hx Chronic Obstructive Pulmonary Disease (COPD): No Hx Cancer: No Hx Cardiac Disorders: No Hx Congestive Heart Failure: No Hx Hypertension: No Hx Hypercholesterolemia: No Hx Pacemaker: No HX Cerebrovascular Accident: No Hx Seizures: No Hx Dementia: No Hx Diabetes: No Hx Gastrointestinal Disorders: Yes (gerd,pancreatitis,pseudocyst of pancreatitis ) Hx Liver Disease: No Hx Genitourinary Disorders: No Hx Sexually Transmitted Disorders: No Hx Renal Disease (ESRD): No Hx Thyroid Disease: No Hx Human Immunodeficiency Virus (HIV): No (last 04/09 negative) Hx Hepatitis C: No Hx Depression: Yes Hx Suicide Attempt: No Hx Bipolar Disorder: No Hx Schizophrenia: No Other Medical History: no suicidal,no homicidal,insomnia - Patient Surgical History Past Surgical History: Yes Hx Neurologic Surgery: No Hx Cataract Extraction: No Hx Cardiac Surgery: No Hx Lung Surgery: No Hx Breast Surgery: No Hx Breast Biopsy: No Hx Abdominal Surgery: Yes (internal bleeding, PANCREATIC PSEUDOCYST 2002) Hx Appendectomy: No Hx Cholecystectomy: No Hx Genitourinary Surgery: No Hx Section: No Hx Orthopedic Surgery: No Anesthesia Reaction: No - PPD History Documented Results: Positive w/proof Results: CXR(-)02/18/18 PPD to be Administered?: No - Smoking Cessation Smoking history: Current every day smoker Have you smoked in the past 12 months: Yes Aproximately how many cigarettes per day: 20 Cigars Per Day: 0 Hx Chewing Tobacco Use: No Initiated information on smoking cessation: Yes 'Breaking Loose' booklet given: 08/07/18 - Substance & Tx. History Hx Alcohol Use: Yes Hx Substance Use: No Substance Use Type: Cocaine Hx Substance Use Treatment: Yes ([facility] in 05/28) - Substances abused Alcohol Substance route: Oral Frequency: Daily Amount used: 2 pints of Gosia/vodka per day Age of first use: 15 Date of last use: 08/06/18 Cocaine Substance route: Inhalation Frequency: Daily Amount used: 150$ Age of first use: 16 Date of last use: 08/06/18 Family Disease History - Family Disease History Family Disease History: Diabetes: Father (ALCOHOL,), Other: Father, Mother (Alive, age 95), Sister (three - living, healthy), Son (one - healthy), Daughter (two - healthy) Admission Physical Exam [facility] - Vital Signs Vital Signs: Vital Signs - 24 hr 08/07/18 10:35 Temperature 97.8 F Pulse Rate 75 Respiratory 20 Rate Blood Pressure 153/83 - Physical General Appearance: Yes: Moderate Distress, Tremorous, Irritable, Sweating, Anxious HEENTM: Yes: Normal ENT Inspection, LEO, Pharynx Normal Respiratory: Yes: Lungs Clear, Normal Breath Sounds, No Respiratory Distress Neck: Yes: Within Normal Limits, Supple, Trachea in good position Breast: Yes: Within Normal Limits Cardiology: Yes: Within Normal Limits, Regular Rhythm, Regular Rate, S1, S2 Abdominal: Yes: Within Normal Limits, Normal Bowel Sounds, Non Tender, Soft, Surgical Scar Genitourinary: Yes: Within Normal Limits Back: Yes: Muscle Spasm Musculoskeletal: Yes: full range of Motion, Back pain, Muscle Pain Extremities: Yes: Within Normal Limits, Normal Range of Motion, Tremors Neurological: Yes: 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 II-XII NML intact, Fully Oriented, Alert, Motor Strength 5/5 Integumentary: Yes: Dry Lymphatic: Yes: Within Normal Limits - Diagnostic (1) Alcohol dependence with uncomplicated withdrawal Current Visit: Yes Status: Chronic (2) Arthritis Current Visit: No Status: Chronic (3) Chronic alcoholic pancreatitis Current Visit: No Status: Chronic (4) Cocaine dependence Current Visit: Yes Status: Chronic Qualifiers: Complication of substance-induced condition: uncomplicated (5) GERD (gastroesophageal reflux disease) Current Visit: No Status: Chronic Qualifiers: Esophagitis presence: without esophagitis Qualified Code(s): K21.9 - Gastro -esophageal reflux disease without esophagitis (6) PPD positive Current Visit: No Status: Chronic (7) Pseudocyst of pancreas Current Visit: No Status: Chronic (8) Calcaneal spur, right foot Current Visit: Yes Status: Acute (9) Weight loss Current Visit: Yes Status: Acute Cleared for Admission [facility] - Detox or Rehab [facility] Level of Care: [facility] Rehab Admission - Rehab Decision to Admit Inpatient rehab admission?: No
[2018-08-07] MEDS ORDERED: ACETAMINOPHEN 325 MG TABLET (FP) PO PRN ×2 (11:50)
[2018-08-07] MEDS ORDERED: MAGNESIUM HYDROX 2400MG/30ML ORAL SUSPENSION 30 ML CUP PO PRN (11:50)
[2018-08-07] MEDS ORDERED: MAG HYDROX/AL HYDROX/SIMETH 30 ML UNIT-DOSE CUP PO PRN (11:50)
[2018-08-07] MEDS ORDERED: BISMUTH SUBSALICYLATE 262 MG/15 ML BTL PO PRN (11:50)
[2018-08-07] MEDS ORDERED: hydrOXYzine PAMOATE 25 MG CAPSULE (FP) PO PRN (11:50)
[2018-08-07] MEDS ORDERED: MENTHOL/PHENOL 1 EACH UD MM PRN (11:50)
[2018-08-07] MEDS ORDERED: LORazepam 1 MG TABLET PO PRN (11:50)
[2018-08-07] MEDS ORDERED: IBUPROFEN 400 MG TABLET (FP) PO PRN (11:50)
[2018-08-07] MEDS ORDERED: MAGNESIUM CITRATE 300 ML BOTTLE PO PRN (11:50)
[2018-08-07] MEDS: LIPASE/PROTEASE/AMYLASE 6,000 UNIT CAPSULE PO SCH ×2 (15:04→17:20)
[2018-08-07] MEDS: NICOTINE 21 MG/24 HOURS TOPICAL PATCH TD SCH (15:04)
[2018-08-07 15:18] LABS: MCH 32.2 pg (25.7-33.7); MCHC 32.6 g/dl (32.0-35.9); MEAN CELL VOLUME 98.7 fl (80-96); MEAN PLT VOLUME 9.3 fl (7.5-11.1); PLATELET COUNT 117 K/MM3 (134-434); RBC 4.05 M/mm3 (4.00-5.60); RDW 15.8 % (11.9-15.9); WHITE BLOOD COUNT 2.7 K/mm3 (4.0-10.0)
[2018-08-07 15:54] LABS: ALBUMIN 3.2 g/dl (3.4-5.0); BILIRUBIN,TOTAL 0.5 mg/dL (0.2-1); BLOOD UREA NITROGEN 15.8 mg/dL (7-18); CALCIUM 8.6 mg/dL (8.5-10.1); CREATININE 1.4 mg/dL (0.55-1.3); POTASSIUM 4.3 mmol/L (3.5-5.1); TOT PROT 7.4 g/dl (6.4-8.2)
--- NOTE | 2018-08-07 16:25 | CONSULT ---
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 This is one of multiple admissions for patient. Patient admitted to for alcohol and cocaine dependence. Substance Abuse History: - Smoking Cessation. Smoking history: Current every day smoker. Have you smoked in the past 12 months: Yes. Aproximately how many cigarettes per day: 20. Cigars Per Day: 0. Hx Chewing Tobacco Use: No. Initiated information on smoking cessation: Yes. 'Breaking Loose' booklet given : 08/07/18. - Substance & Tx. History. Hx Alcohol Use: Yes. Hx Substance Use : No. Substance Use Type: Cocaine. Hx Substance Use Treatment: Yes ([facility] in 05/28). - Substances abused. Alcohol. Substance route: Oral. Frequency: Daily. Amount used: 2 pints of Gosia/vodka per day. Age of first use: 15. Date of last use: 08/06/18. Cocaine. Substance route: Inhalation. Frequency: Daily. Amount used: 150$. Age of first use: 16. Date of last use: 08/06/18 Medical History: gerd,pancreatitis,pseudocyst of pancreatitis Psychiatric History: Patient denies h/o psychiatric hospitalizaton, outpatient care, and suicide attempt. As per Dr. Weldon's note on 12/13/17, patient reported receiving psychiatric treatment at 5-6 years of age to address depression. At present, patient reports stable mood but is experiencing difficulty sleeping. Physical/Sexual Abuse/Trauma History: denies. Mental Status Exam - Mental Status Exam Alert and Oriented to: Time, Place, Person Cognitive Function: Good Patient Appearance: Well Groomed Mood: Euthymic Affect: Appropriate Patient Behavior: Cooperative Speech Pattern: Appropriate Voice Loudness: Normal Thought Process: Goal Oriented Thought Disorder: Not Present Hallucinations: Denies Suicidal Ideation: Denies Homicidal Ideation: Denies Insight/Judgement: Poor Sleep: Poorly Appetite: Fair Muscle strength/Tone: Normal Gait/Station: Normal Psychiatric Findings - Problem List ([place] 1, 2,3) (1) Substance-induced sleep disorder Current Visit: Yes Status: Acute (2) Alcohol dependence with uncomplicated withdrawal Current Visit: Yes Status: Chronic (3) Cocaine dependence Current Visit: Yes Status: Chronic Qualifiers: Complication of substance-induced condition: uncomplicated - Initial Treatment Plan Initial Treatment Plan: Psychoeducation provided. Detoxification in progress. Will order Seroquel 50mg HS. Patient reports favorable effects from accepting seroquel for insomnia. Benefits and side effects discussed. Verbal consent given.
[2018-08-07] MEDS: LORazepam 2 MG TABLET PO SCH ×2 (17:19→22:07)
[2018-08-07 19:36] LABS: EPI CELLS 0.5 /HPF (0-5/HPF); HYALINE CASTS 2 /lpf (0-8); PH,URINE 5.5 (5.0-8.0); URINE APPEARANCE TURBID; URINE BACTERIA 1.9 /hpf (NEGATIVE); URINE BILIRUBIN NEGATIVE (NEGATIVE); URINE COLOR YELLOW; URINE GLUCOSE (UA) NEGATIVE (NEGATIVE); URINE KETONE NEGATIVE (NEGATIVE); URINE LEUK ESTERASE NEGATIVE (NEGATIVE); URINE NITRITE NEGATIVE (NEGATIVE); URINE PROTEIN NEGATIVE (NEGATIVE); URINE RBC 3 /hpf (0-4); URINE WBC 0 /hpf (0-5)
[2018-08-07] MEDS: THIAMINE HCL 100 MG TABLET (FP) PO SCH (21:37)
[2018-08-07] MEDS: QUEtiapine FUMARATE 50 MG TABLET PO SCH (21:37)
[2018-08-08] MEDS: LORazepam 2 MG TABLET PO SCH ×2 (05:42→10:24)
[2018-08-08] MEDS: LIPASE/PROTEASE/AMYLASE 6,000 UNIT CAPSULE PO SCH ×3 (07:24→17:12)
[2018-08-08] MEDS: PRENATAL VITAMINS W/ FOLIC ACID TABLET (FP) PO SCH (10:24)
[2018-08-08] MEDS: NICOTINE 21 MG/24 HOURS TOPICAL PATCH TD SCH (10:25)
--- NOTE | 2018-08-08 15:23 | PN ---
[facility] CIWA - CIWA Score Nausea/Vomitin-No Nausea/No Vomiting Muscle Tremors: 3 Anxiety: 3 Agitation: 4-Moderately Restless Paroxysmal Sweats: No Perspiration Orientation: 0-Oriented Tacttile Disturbances: 2-Mild Itch/Numbness/Burn Auditory Disturbances: 1-Very Mild Visual Disturbances: 3-Moderate Sensitivity Headache: 0-None Present CIWA-Ar Total Score: 16 BHS Progress Note (SOAP) Subjective: Tremors, Anxious, Restless, Interrupted sleep. Objective: PATIENT A & O X 3, OBSERVED AMBULATING ON UNIT UNASSISTED. IN NO ACUTE DISTRESS. 08/08/18 15:28 Vital Signs Temperature 98.5 F 08/08/18 13:54 Pulse Rate 77 08/08/18 13:54 Respiratory Rate 18 08/08/18 13:54 Blood Pressure 136/78 08/08/18 13:54 O2 Sat by Pulse Oximetry (%) Laboratory Tests 08/07/18 08/07/18 08/07/18 12:05 12:05 12:05 WBC 2.7 L RBC 4.05 Hgb 13.0 Hct 40.0 MCV 98.7 H MCH 32.2 MCHC 32.6 RDW 15.8 Plt Count 117 L MPV 9.3 Sodium 141 Potassium 4.3 Chloride 105 Carbon Dioxide 30 Anion Gap 6 L BUN 15.8 Creatinine 1.4 H Est GFR (CKD-EPI)AfAm 57.76 Est GFR (CKD-EPI)NonAf 49.84 Random Glucose 86 Calcium 8.6 Total Bilirubin 0.5 AST 24 ALT 17 Alkaline Phosphatase 69 Total Protein 7.4 Albumin 3.2 L Urine Color Urine Appearance Urine pH Ur Specific [place] Urine Protein Urine Glucose (UA) Urine Ketones Urine Blood Urine Nitrite Urine Bilirubin Urine Urobilinogen Ur Leukocyte Esterase Urine WBC (Auto) Urine RBC (Auto) Urine Casts (Auto) U Epithel Cells (Auto) Urine Crystals (Auto) Urine Bacteria (Auto) RPR Titer Nonreactive 08/07/18 15:45 WBC RBC Hgb Hct MCV MCH MCHC RDW Plt Count MPV Sodium Potassium Chloride Carbon Dioxide Anion Gap BUN Creatinine Est GFR (CKD-EPI)AfAm Est GFR (CKD-EPI)NonAf Random Glucose Calcium Total Bilirubin AST ALT Alkaline Phosphatase Total Protein Albumin Urine Color Yellow Urine Appearance Turbid Urine pH 5.5 Ur Specific [place] 1.025 Urine Protein Negative Urine Glucose (UA) Negative Urine Ketones Negative Urine Blood 1+ H Urine Nitrite Negative Urine Bilirubin Negative Urine Urobilinogen 1.0 Ur Leukocyte Esterase Negative Urine WBC (Auto) 0 Urine RBC (Auto) 3 Urine Casts (Auto) 2 U Epithel Cells (Auto) 0.5 Urine Crystals (Auto) See comment Urine Bacteria (Auto) 1.9 RPR Titer LABS NOTED. PATIENT HAS HAD LOW WBC AND PLATELET LEVELS ON SEVERAL PREVIOUS ADMISSIONS. ELEVATED BLOOD PRESSURE. (NO HISTORY OF HYPERTENSION REPORTED BY PATIENT ON DETOX ADMISSION. 08/08/18 15:30 Assessment: 08/08/18 15:30 WITHDRAWAL SYMPTOMS. LEUKOPENIA. THROMBOCYTOPENIA. ELEVATED BLOOD PRESSURE. ELEVATED CREATININE LEVEL. 08/08/18 15:31 Plan: CONTINUE DETOX. INCREASE DAILY PO WATER INTAKE. CONTINUE TO MONITOR BLOOD PRESSURE.
[2018-08-08] MEDS: LORazepam 1 MG TABLET PO SCH ×2 (17:12→22:17)
[2018-08-08] MEDS: QUEtiapine FUMARATE 50 MG TABLET PO SCH (21:48)
[2018-08-08] MEDS: THIAMINE HCL 100 MG TABLET (FP) PO SCH (21:48)
[2018-08-09] MEDS: LORazepam 1 MG TABLET PO SCH ×2 (06:24→10:40)
[2018-08-09] MEDS: LIPASE/PROTEASE/AMYLASE 6,000 UNIT CAPSULE PO SCH ×3 (08:28→16:45)
[2018-08-09] MEDS ORDERED: ONDANSETRON *ODT* 4 MG TABLET SL PRN (09:59)
[2018-08-09] MEDS: NICOTINE 21 MG/24 HOURS TOPICAL PATCH TD SCH (10:40)
[2018-08-09] MEDS: PRENATAL VITAMINS W/ FOLIC ACID TABLET (FP) PO SCH (10:40)
--- NOTE | 2018-08-09 13:20 | PN ---
S CIWA - CIWA Score Nausea/Vomitin Muscle Tremors: 3 Anxiety: 2 Agitation: 1-Slight > Activity Paroxysmal Sweats: 3 Orientation: 0-Oriented Tacttile Disturbances: 0-None Auditory Disturbances: 0-None Visual Disturbances: 1-Very Mild Sensitivity Headache: 0-None Present CIWA-Ar Total Score: 15 BHS Progress Note (SOAP) Subjective: Tremors, Sweating, Vomiting (X 1 earlier today), Anxious. Objective: PATIENT A & O X 3, OBSERVED AMBULATING ON UNIT UNASSISTED. IN NO ACUTE DISTRESS. 08/09/18 13:22 Vital Signs Temperature 97.6 F 08/09/18 09:34 Pulse Rate 89 08/09/18 09:34 Respiratory Rate 20 08/09/18 09:34 Blood Pressure 149/75 08/09/18 09:34 O2 Sat by Pulse Oximetry (%) Laboratory Tests 08/07/18 08/07/18 08/07/18 12:05 12:05 12:05 WBC 2.7 L RBC 4.05 Hgb 13.0 Hct 40.0 MCV 98.7 H MCH 32.2 MCHC 32.6 RDW 15.8 Plt Count 117 L MPV 9.3 Sodium 141 Potassium 4.3 Chloride 105 Carbon Dioxide 30 Anion Gap 6 L BUN 15.8 Creatinine 1.4 H Est GFR (CKD-EPI)AfAm 57.76 Est GFR (CKD-EPI)NonAf 49.84 Random Glucose 86 Calcium 8.6 Total Bilirubin 0.5 AST 24 ALT 17 Alkaline Phosphatase 69 Total Protein 7.4 Albumin 3.2 L Urine Color Urine Appearance Urine pH Ur Specific [place] Urine Protein Urine Glucose (UA) Urine Ketones Urine Blood Urine Nitrite Urine Bilirubin Urine Urobilinogen Ur Leukocyte Esterase Urine WBC (Auto) Urine RBC (Auto) Urine Casts (Auto) U Epithel Cells (Auto) Urine Crystals (Auto) Urine Bacteria (Auto) RPR Titer Nonreactive 08/07/18 15:45 WBC RBC Hgb Hct MCV MCH MCHC RDW Plt Count MPV Sodium Potassium Chloride Carbon Dioxide Anion Gap BUN Creatinine Est GFR (CKD-EPI)AfAm Est GFR (CKD-EPI)NonAf Random Glucose Calcium Total Bilirubin AST ALT Alkaline Phosphatase Total Protein Albumin Urine Color Yellow Urine Appearance Turbid Urine pH 5.5 Ur Specific [place] 1.025 Urine Protein Negative Urine Glucose (UA) Negative Urine Ketones Negative Urine Blood 1+ H Urine Nitrite Negative Urine Bilirubin Negative Urine Urobilinogen 1.0 Ur Leukocyte Esterase Negative Urine WBC (Auto) 0 Urine RBC (Auto) 3 Urine Casts (Auto) 2 U Epithel Cells (Auto) 0.5 Urine Crystals (Auto) See comment Urine Bacteria (Auto) 1.9 RPR Titer LABS NOTED. PATIENT HAS HAD LOW WBC AND PLATELET LEVELS AND ELEVATED CREATININE LEVELS ON PREVIOUS ADMISSIONS. 08/09/18 13:29 Assessment: 08/09/18 13:24 WITHDRAWAL SYMPTOMS. LEUKOPENIA. THROMBOCYTOPENIA. ELEVATED CREATININE LEVEL. ELEVATED BLOOD PRESSURE READING (INTERMITTENT). PATIENT DENEIS HISTORY OF HYPERTENSION ON DETOX ADMISSION ASSESSMENT. 08/09/18 13:27 Plan: WITHDRAWAL SYMPTOMS. CONTINUE TO MONITOR BLOOD PRESSURE.
[2018-08-09] MEDS ORDERED: LORazepam 0.5 MG TABLET PO PRN (17:00)
[2018-08-09] MEDS: METHOCARBAMOL 500 MG TABLET PO PRN (17:43)
[2018-08-09] MEDS: LORazepam 0.5 MG TABLET PO SCH ×2 (17:43→22:01)
[2018-08-09] MEDS: THIAMINE HCL 100 MG TABLET (FP) PO SCH (21:58)
[2018-08-09] MEDS: QUEtiapine FUMARATE 50 MG TABLET PO SCH (21:58)
[2018-08-10] MEDS: LORazepam 0.5 MG TABLET PO SCH ×3 (05:57→18:24)
[2018-08-10] MEDS: LIPASE/PROTEASE/AMYLASE 6,000 UNIT CAPSULE PO SCH ×3 (07:24→16:45)
[2018-08-10] MEDS: NICOTINE 21 MG/24 HOURS TOPICAL PATCH TD SCH (10:21)
[2018-08-10] MEDS: PRENATAL VITAMINS W/ FOLIC ACID TABLET (FP) PO SCH (10:21)
--- NOTE | 2018-08-10 10:47 | PN ---
S CIWA - CIWA Score Nausea/Vomitin-No Nausea/No Vomiting Muscle Tremors: 2 Anxiety: 3 Agitation: 0-Normal Activity Paroxysmal Sweats: 3 Orientation: 0-Oriented Tacttile Disturbances: 0-None Auditory Disturbances: 0-None Visual Disturbances: 0-None Headache: 2-Mild CIWA-Ar Total Score: 10 S Progress Note (SOAP) Subjective: c/o headache, sweats, and anxiety. Objective: 08/10/18 10:46 Vital Signs 08/10/18 08/10/18 08/10/18 03:30 06:36 09:53 Temperature 97.9 F 97.9 F Pulse Rate 90 74 Respiratory 18 16 18 Rate Blood Pressure 129/71 141/86 Lab Results WBC 2.7 K/mm3 (4.0-10.0) L 08/07/18 12:05 RBC 4.05 M/mm3 (4.00-5.60) 08/07/18 12:05 Hgb 13.0 GM/dL (11.7-16.9) 08/07/18 12:05 Hct 40.0 % (35.4-49) 08/07/18 12:05 MCV 98.7 fl (80-96) H 08/07/18 12:05 MCHC 32.6 g/dl (32.0-35.9) 08/07/18 12:05 RDW 15.8 % (11.9-15.9) 08/07/18 12:05 Plt Count 117 K/MM3 (134-434) L 08/07/18 12:05 Sodium 141 mmol/L (136-145) 08/07/18 12:05 Potassium 4.3 mmol/L (3.5-5.1) 08/07/18 12:05 Chloride 105 mmol/L (98-107) 08/07/18 12:05 Carbon Dioxide 30 mmol/L (21-32) 08/07/18 12:05 Anion Gap 6 MMOL/L (8-16) L 08/07/18 12:05 BUN 15.8 mg/dL (7-18) 08/07/18 12:05 Creatinine 1.4 mg/dL (0.55-1.3) H 08/07/18 12:05 Random Glucose 86 mg/dL (74-106) 08/07/18 12:05 Calcium 8.6 mg/dL (8.5-10.1) 08/07/18 12:05 Labs noted. Assessment: 08/10/18 10:47 AOX3, in no acute distress. Full rom, ambulates in the unit. withdrawal signs Plan: continue detox.
[2018-08-10] MEDS: METHOCARBAMOL 500 MG TABLET PO PRN ×2 (12:29→21:19)
--- NOTE | 2018-08-10 14:49 | DS ---
[facility] Detox Discharge Summary Admission Date: 08/07/18 Discharge Date: 08/10/18 - History Present History: Alcohol Dependence, Cocaine Dependence Additional Comments: Pt is discharged to [facility] for continued management. Pt is alert and oriented x3 and in no respiratory distress. Pertinent Past History: H/O alcohol and cocaine use disorder. - Physical Exam Results Vital Signs: Vital Signs Temperature 97.4 F L 08/10/18 14:03 Pulse Rate 74 08/10/18 14:03 Respiratory Rate 18 08/10/18 14:03 Blood Pressure 153/76 08/10/18 14:03 O2 Sat by Pulse Oximetry (%) Lab Results WBC 2.7 K/mm3 (4.0-10.0) L 08/07/18 12:05 RBC 4.05 M/mm3 (4.00-5.60) 08/07/18 12:05 Hgb 13.0 GM/dL (11.7-16.9) 08/07/18 12:05 Hct 40.0 % (35.4-49) 08/07/18 12:05 MCV 98.7 fl (80-96) H 08/07/18 12:05 MCHC 32.6 g/dl (32.0-35.9) 08/07/18 12:05 RDW 15.8 % (11.9-15.9) 08/07/18 12:05 Plt Count 117 K/MM3 (134-434) L 08/07/18 12:05 Sodium 141 mmol/L (136-145) 08/07/18 12:05 Potassium 4.3 mmol/L (3.5-5.1) 08/07/18 12:05 Chloride 105 mmol/L (98-107) 08/07/18 12:05 Carbon Dioxide 30 mmol/L (21-32) 08/07/18 12:05 Anion Gap 6 MMOL/L (8-16) L 08/07/18 12:05 BUN 15.8 mg/dL (7-18) 08/07/18 12:05 Creatinine 1.4 mg/dL (0.55-1.3) H 08/07/18 12:05 Random Glucose 86 mg/dL (74-106) 08/07/18 12:05 Calcium 8.6 mg/dL (8.5-10.1) 08/07/18 12:05 Labs noted. Pertinent Admission Physical Exam Findings: withdrawal symptoms. - Treatment Hospital Course: Detox Protocol Followed, Detoxed Safely, Responded well, Discharged Condition Good, Rehab Referral Accepted Patient has Accepted a Rehab Referral to: the [facility] - Medication Discharge Medications: Ambulatory Orders Mirtazapine [Remeron -] 15 mg PO DAILY 02/07/18 Mirtazapine [Remeron -] 30 mg PO HS #30 tablet 02/21/18 - Diagnosis (1) Alcohol dependence with uncomplicated withdrawal Current Visit: Yes Status: Chronic (2) Cocaine dependence Current Visit: Yes Status: Chronic Qualifiers: Complication of substance-induced condition: uncomplicated (3) Acute kidney injury Current Visit: No Status: Acute (4) Hypocalcemia Current Visit: No Status: Acute (5) Arthritis Current Visit: No Status: Chronic (6) Chronic alcoholic pancreatitis Current Visit: No Status: Chronic (7) Cocaine dependence, uncomplicated Current Visit: No Status: Chronic (8) GERD (gastroesophageal reflux disease) Current Visit: No Status: Chronic Qualifiers: Esophagitis presence: without esophagitis Qualified Code(s): K21.9 - Gastro -esophageal reflux disease without esophagitis (9) Nicotine dependence Current Visit: No Status: Chronic Qualifiers: Nicotine product type: cigarettes Substance use status: uncomplicated Qualified Code(s): F17.210 - Nicotine dependence, cigarettes, uncomplicated - AMA Did Patient Leave Against Medical Advice: No
--- NOTE | 2018-08-10 18:08 | HP ---
[facility] Rehab Assess/Revision - Admission History Admitted to Rehab from: [facility] Date of Admission to Rehab: 08/10/18 - Vital signs Vital Signs: Vital Signs Period Temp Pulse Resp BP Sys/Ruano Pulse Ox Last 24 Hr 97.4 F-98.9 F 74-96 16-20 122-153/68-88 - Findings Detox History & Physical reviewed: Yes Concur with findings: Yes Comments/Additional Findings: tnansfer to rehab for further level of care Inpatient Rehab Admission - Rehab Decision to Admit Inpatient rehab admission?: Yes - Initial Determination Are CD services needed?: Yes Free of communicable disease: Yes Not in need of hospitalization: Yes - Rehab Admission Criteria Previous failed treatment: Yes Poor recovery environment: Yes Comorbidities: Yes Lacks judgement: No Patient is meeting Inpatient Rehab admission criteria:: Yes
[2018-08-10] MEDS: QUEtiapine FUMARATE 50 MG TABLET PO SCH (21:18)
[2018-08-10] MEDS: THIAMINE HCL 100 MG TABLET (FP) PO SCH (21:18)
[2018-08-10] MEDS: MELATONIN 5 MG TABLETS PO PRN (21:18)
[2018-08-10] MEDS: MIRTAZAPINE 30 MG TABLET (FP) PO SCH (21:19)
[2018-08-11] MEDS: LIPASE/PROTEASE/AMYLASE 6,000 UNIT CAPSULE PO SCH ×3 (07:30→16:40)
[2018-08-11] MEDS ORDERED: MIRTAZAPINE 15 MG TABLET (FP) PO SCH ×2 (10:00)
[2018-08-11] MEDS: PRENATAL VITAMINS W/ FOLIC ACID TABLET (FP) PO SCH (10:12)
[2018-08-11] MEDS: NICOTINE 21 MG/24 HOURS TOPICAL PATCH TD SCH (10:12)
[2018-08-11] MEDS: QUEtiapine FUMARATE 50 MG TABLET PO SCH (21:12)
[2018-08-11] MEDS: MIRTAZAPINE 30 MG TABLET (FP) PO SCH (21:12)
[2018-08-11] MEDS: THIAMINE HCL 100 MG TABLET (FP) PO SCH (21:13)
[2018-08-11] MEDS: MELATONIN 5 MG TABLETS PO PRN (21:13)
[2018-08-11] MEDS: METHOCARBAMOL 500 MG TABLET PO PRN (21:13)
[2018-08-12] MEDS: LIPASE/PROTEASE/AMYLASE 6,000 UNIT CAPSULE PO SCH ×4 (07:33→16:59)
[2018-08-12] MEDS: PRENATAL VITAMINS W/ FOLIC ACID TABLET (FP) PO SCH (10:07)
[2018-08-12] MEDS: NICOTINE 21 MG/24 HOURS TOPICAL PATCH TD SCH (10:07)
[2018-08-12] MEDS: MELATONIN 5 MG TABLETS PO PRN (21:10)
[2018-08-12] MEDS: THIAMINE HCL 100 MG TABLET (FP) PO SCH (21:10)
[2018-08-12] MEDS: MIRTAZAPINE 30 MG TABLET (FP) PO SCH (21:10)
[2018-08-12] MEDS: QUEtiapine FUMARATE 50 MG TABLET PO SCH (21:10)
[2018-08-13] MEDS: LIPASE/PROTEASE/AMYLASE 6,000 UNIT CAPSULE PO SCH ×3 (07:26→15:47)
[2018-08-13] MEDS: PRENATAL VITAMINS W/ FOLIC ACID TABLET (FP) PO SCH (10:00)
[2018-08-13] MEDS: NICOTINE 21 MG/24 HOURS TOPICAL PATCH TD SCH (10:00)
[2018-08-13] MEDS: MIRTAZAPINE 30 MG TABLET (FP) PO SCH (21:15)
[2018-08-13] MEDS: QUEtiapine FUMARATE 50 MG TABLET PO SCH (21:15)
[2018-08-13] MEDS: THIAMINE HCL 100 MG TABLET (FP) PO SCH (21:15)
[2018-08-13] MEDS: MELATONIN 5 MG TABLETS PO PRN (21:15)
[2018-08-14] MEDS: LIPASE/PROTEASE/AMYLASE 6,000 UNIT CAPSULE PO SCH ×3 (07:43→15:21)
[2018-08-14] MEDS: NICOTINE 21 MG/24 HOURS TOPICAL PATCH TD SCH (09:34)
[2018-08-14] MEDS: PRENATAL VITAMINS W/ FOLIC ACID TABLET (FP) PO SCH (09:34)
[2018-08-14] MEDS: MIRTAZAPINE 30 MG TABLET (FP) PO SCH (21:11)
[2018-08-14] MEDS: QUEtiapine FUMARATE 50 MG TABLET PO SCH (21:11)
[2018-08-14] MEDS: MELATONIN 5 MG TABLETS PO PRN (21:11)
[2018-08-14] MEDS: THIAMINE HCL 100 MG TABLET (FP) PO SCH (21:12)
[2018-08-15] MEDS: LIPASE/PROTEASE/AMYLASE 6,000 UNIT CAPSULE PO SCH ×3 (06:43→16:42)
[2018-08-15] MEDS: PRENATAL VITAMINS W/ FOLIC ACID TABLET (FP) PO SCH (10:15)
[2018-08-15] MEDS: NICOTINE 21 MG/24 HOURS TOPICAL PATCH TD SCH (10:15)
[2018-08-15] MEDS: MIRTAZAPINE 30 MG TABLET (FP) PO SCH (21:17)
[2018-08-15] MEDS: MELATONIN 5 MG TABLETS PO PRN (21:17)
[2018-08-15] MEDS: QUEtiapine FUMARATE 50 MG TABLET PO SCH (21:17)
[2018-08-15] MEDS: THIAMINE HCL 100 MG TABLET (FP) PO SCH (21:18)
[2018-08-16] MEDS: LIPASE/PROTEASE/AMYLASE 6,000 UNIT CAPSULE PO SCH ×3 (07:05→15:39)
[2018-08-16] MEDS: PRENATAL VITAMINS W/ FOLIC ACID TABLET (FP) PO SCH (09:33)
[2018-08-16] MEDS: NICOTINE 21 MG/24 HOURS TOPICAL PATCH TD SCH (09:33)
--- NOTE | 2018-08-16 12:39 | PN ---
[facility] Progress Note Note: Patient reports sleeping poorly despite taking Seroquel 50 mg, Remeron 30 mg and Melatonin 10 mg at bedtime. Requests that Seroquel dosage be increase to 100 m/hs.
[2018-08-16] MEDS: MELATONIN 5 MG TABLETS PO PRN (21:19)
[2018-08-16] MEDS: MIRTAZAPINE 30 MG TABLET (FP) PO SCH (21:19)
[2018-08-16] MEDS: QUEtiapine FUMARATE 100 MG TABLET (FP) PO SCH (21:19)
[2018-08-16] MEDS: THIAMINE HCL 100 MG TABLET (FP) PO SCH (21:20)
[2018-08-17] MEDS: LIPASE/PROTEASE/AMYLASE 6,000 UNIT CAPSULE PO SCH ×3 (07:42→15:53)
[2018-08-17] MEDS: PRENATAL VITAMINS W/ FOLIC ACID TABLET (FP) PO SCH (09:47)
[2018-08-17] MEDS: NICOTINE 21 MG/24 HOURS TOPICAL PATCH TD SCH (09:47)
[2018-08-17] MEDS: MIRTAZAPINE 30 MG TABLET (FP) PO SCH (21:18)
[2018-08-17] MEDS: MELATONIN 5 MG TABLETS PO PRN (21:18)
[2018-08-17] MEDS: QUEtiapine FUMARATE 100 MG TABLET (FP) PO SCH (21:18)
[2018-08-17] MEDS: THIAMINE HCL 100 MG TABLET (FP) PO SCH (21:19)
[2018-08-18] MEDS: LIPASE/PROTEASE/AMYLASE 6,000 UNIT CAPSULE PO SCH ×3 (07:47→15:49)
[2018-08-18] MEDS: PRENATAL VITAMINS W/ FOLIC ACID TABLET (FP) PO SCH (09:57)
[2018-08-18] MEDS: NICOTINE 21 MG/24 HOURS TOPICAL PATCH TD SCH (09:57)
[2018-08-18] MEDS: MELATONIN 5 MG TABLETS PO PRN (21:10)
[2018-08-18] MEDS: QUEtiapine FUMARATE 100 MG TABLET (FP) PO SCH (21:10)
[2018-08-18] MEDS: MIRTAZAPINE 30 MG TABLET (FP) PO SCH (21:10)
[2018-08-18] MEDS: THIAMINE HCL 100 MG TABLET (FP) PO SCH (21:11)
[2018-08-19] MEDS: LIPASE/PROTEASE/AMYLASE 6,000 UNIT CAPSULE PO SCH ×3 (06:39→15:51)
[2018-08-19] MEDS: NICOTINE 21 MG/24 HOURS TOPICAL PATCH TD SCH (10:08)
[2018-08-19] MEDS: PRENATAL VITAMINS W/ FOLIC ACID TABLET (FP) PO SCH (10:08)
[2018-08-19] MEDS: MIRTAZAPINE 30 MG TABLET (FP) PO SCH (21:25)
[2018-08-19] MEDS: MELATONIN 5 MG TABLETS PO PRN (21:25)
[2018-08-19] MEDS: QUEtiapine FUMARATE 100 MG TABLET (FP) PO SCH (21:25)
[2018-08-19] MEDS: THIAMINE HCL 100 MG TABLET (FP) PO SCH (21:26)
[2018-08-20 06:49] VITALS: BP 141/73; PULSE 98; TEMP 97.9
[2018-08-20] MEDS: LIPASE/PROTEASE/AMYLASE 6,000 UNIT CAPSULE PO SCH ×2 (07:06→11:50)
[2018-08-20] MEDS: PRENATAL VITAMINS W/ FOLIC ACID TABLET (FP) PO SCH (10:07)
[2018-08-20] MEDS: NICOTINE 21 MG/24 HOURS TOPICAL PATCH TD SCH (10:07)
--- NOTE | 2018-08-20 10:09 | PN ---
Psychiatric Progress Note Vital Signs: Vital Signs Period Temp Pulse Resp BP Sys/Ruano Pulse Ox Last 24 Hr 97.9 F 98 18-18 141/73 Date of Session: 08/20/18 Chief Complaint:: " i'm not sleeping." HPI: Patient continues to report poor sleep. State he is sleeping 2-3 hours per night. ROS: Patient coheret, alert and oriented X3. Current Medications: Active Medications Generic Name Dose Route Start Last Admin Trade Name Freq PRN Reason Stop Dose Admin Acetaminophen 650 mg 08/07/18 11:50 Tylenol - PO Q6H PRN PAIN LEVEL 4 - 6 Acetaminophen 650 mg 08/07/18 11:50 Tylenol - PO Q6H PRN FEVER Al Hydroxide/Mg Hydroxide 30 ml 08/07/18 11:50 08/16/18 16:32 Mylanta Oral Suspension - PO 30 ml Q6H PRN Administration DYSPEPSIA Bismuth Subsalicylate 30 ml 08/07/18 11:50 08/16/18 19:41 Pepto-Bismol Liquid - PO 30 ml Q1H PRN Administration DIARRHEA Ibuprofen 400 mg 08/07/18 11:50 Motrin - PO Q6H PRN PAIN LEVEL 1 - 3 Magnesium Citrate 300 ml 08/07/18 11:50 Citroma - PO Q48H PRN CONSTIPATION Magnesium Hydroxide 30 ml 08/07/18 11:50 Milk Of Magnesia - PO PRN PRN CONSTIPATION Melatonin 10 mg 08/15/18 11:06 08/19/18 21:25 Melatonin PO 10 mg HS PRN Administration INSOMNIA Mirtazapine 30 mg 08/10/18 22:00 08/19/18 21:25 Remeron - PO 30 mg HS HARLEY Administration Nicotine 21 mg 08/07/18 12:00 08/20/18 10:07 Nicoderm Patch - TD 21 mg DAILY HARLEY Administration Ondansetron HCl 4 mg 08/09/18 09:59 08/09/18 10:41 Zofran Odt - SL 4 mg Q6H PRN Administration NAUSEA AND/OR VOMITING Pancrelipase 1 cap 08/13/18 11:00 08/20/18 07:06 Mariana Harmon 6,000 Units Capsule PO 1 cap TID@0700,1100,1600 HARLEY Administration Multivit/Folic Acid/Iron 1 tab 08/08/18 10:00 08/20/18 10:07 Vitamins (Sjr) - PO 1 tab DAILY HARLEY Administration Quetiapine Fumarate 100 mg 08/16/18 22:00 08/19/18 21:25 Seroquel - PO 100 mg HS HARLEY Administration Thiamine HCl 100 mg 08/07/18 22:00 08/19/18 21:26 Vitamin B1 - PO Not Given HS HARLEY Medication(s) Change(s): Yes. Current Side Effect: No Lab tests ordered: No Lab tests reviewed: Yes Provider note:: Patient contines to report poor sleep despite accepting seroquel 100mg + Remeron 30mg + Melatonin 10mg. Will order trazodone 50mg HS. Benefits and side effects discussed. Verbal consent given. Patient educated on the importance of proper sleep hygiene. Patient satisified and receptive to feedback. Total face to face time:: 25 Mental Status Exam - Mental Status Exam Alert and Oriented to: Time, Place, Person Cognitive Function: Good Patient Appearance: Well Groomed Mood: Euthymic Affect: Appropriate Patient Behavior: Cooperative Speech Pattern: Appropriate Voice Loudness: Normal Thought Process: Goal Oriented Thought Disorder: Not Present Hallucinations: Denies Suicidal Ideation: Denies Homicidal Ideation: Denies Insight/Judgement: Poor Sleep: Poorly Appetite: Fair Muscle strength/Tone: Normal Gait/Station: Normal Psychiatric Treatment Plan - Problem List (1) Substance-induced sleep disorder Current Visit: Yes (2) Alcohol dependence with uncomplicated withdrawal Current Visit: Yes (3) Cocaine dependence Current Visit: Yes Qualifiers: Complication of substance-induced condition: uncomplicated
--- NOTE | 2018-08-20 11:38 | PN ---
[facility] Progress Note (SOAP) Subjective: PT REQUESTS EARLY DISCHARGE TODAY TO FOLLOW UP WITH HIS ELDERLY MOTHER. PT HAS BEEN REFERRED TO [facility] [place] [facility] [place] [id number] [place] [address]. PT REPORTS HE HAS PCP DR. SERGEY HUNTER ON [address] [place], [place] FOR MEDICAL MANAGEMENT. REPORTS HE HAS OWN [facility] AT HOME. OOB AMBULATING WITH STEADY GAIT. ALERT O X 3. DENIES S/H/I. Objective: 08/20/18 11:38 Vital Signs - 24 hr 08/20/18 08/20/18 08/20/18 00:30 03:30 06:48 Temperature 97.9 F Pulse Rate 98 H Respiratory 18 18 18 Rate Blood Pressure 141/73 Laboratory Tests 08/07/18 08/07/18 08/07/18 12:05 12:05 12:05 WBC 2.7 L RBC 4.05 Hgb 13.0 Hct 40.0 MCV 98.7 H MCH 32.2 MCHC 32.6 RDW 15.8 Plt Count 117 L MPV 9.3 Sodium 141 Potassium 4.3 Chloride 105 Carbon Dioxide 30 Anion Gap 6 L BUN 15.8 Creatinine 1.4 H Est GFR (CKD-EPI)AfAm 57.76 Est GFR (CKD-EPI)NonAf 49.84 Random Glucose 86 Calcium 8.6 Total Bilirubin 0.5 AST 24 ALT 17 Alkaline Phosphatase 69 Total Protein 7.4 Albumin 3.2 L Urine Color Urine Appearance Urine pH Ur Specific [place] Urine Protein Urine Glucose (UA) Urine Ketones Urine Blood Urine Nitrite Urine Bilirubin Urine Urobilinogen Ur Leukocyte Esterase Urine WBC (Auto) Urine RBC (Auto) Urine Casts (Auto) U Epithel Cells (Auto) Urine Crystals (Auto) Urine Bacteria (Auto) RPR Titer Nonreactive 08/07/18 15:45 WBC RBC Hgb Hct MCV MCH MCHC RDW Plt Count MPV Sodium Potassium Chloride Carbon Dioxide Anion Gap BUN Creatinine Est GFR (CKD-EPI)AfAm Est GFR (CKD-EPI)NonAf Random Glucose Calcium Total Bilirubin AST ALT Alkaline Phosphatase Total Protein Albumin Urine Color Yellow Urine Appearance Turbid Urine pH 5.5 Ur Specific [place] 1.025 Urine Protein Negative Urine Glucose (UA) Negative Urine Ketones Negative Urine Blood 1+ H Urine Nitrite Negative Urine Bilirubin Negative Urine Urobilinogen 1.0 Ur Leukocyte Esterase Negative Urine WBC (Auto) 0 Urine RBC (Auto) 3 Urine Casts (Auto) 2 U Epithel Cells (Auto) 0.5 Urine Crystals (Auto) See comment Urine Bacteria (Auto) 1.9 RPR Titer Home Medications Medication Instructions Recorded Mirtazapine [Remeron -] 15 mg PO DAILY 02/07/18 Lipase/Protease/Amylase [Mariana Dr 1 cap PO TID 08/20/18 24,000 Units Capsule] Mirtazapine [Remeron -] 30 mg PO HS #30 tablet 08/20/18 Quetiapine Fumarate [Seroquel] 100 mg PO HS #30 tablet 08/20/18 traZODone HCL [Desyrel -] 50 mg PO HS #30 tablet 08/20/18 Assessment: 08/20/18 11:39 NAD MEDICALLY STABLE DX:[facility]C DEP. COCAINE DEP. CHRONIC NICOTINE DEP. GERD ARTHRITIS HX PSEUDOCYST PANCREASE Plan: D/C TODAY FOLLOW UP WITH CD AFTERCARE RECOMMENDATION. FOLLOW UP WITH PCP ABOVE WITHIN 1-2 WEEKS AFTER DISCHARGE.
--- NOTE | 2018-08-20 11:41 | PN ---
[facility] Progress Note Note: Patient is discharged today. Scripts for 30 days supply of medications(Trazdone 50 mg/hs, Remeron 30 mg/hs, Seroquel 100 mg/hs) are electronically transmitted to [facility] Pharmacy at [address] [place] [address]
[2018-08-20] MEDS ORDERED: traZODone HCL 50 MG TABLET (FP) PO SCH (22:00)
== END 2018-08-20 12:05 | disposition home or self-care (01) | DRG 895 ==
LOC: YASAS 09:05 → Y3N 11:37 → Y5N 08-10 18:07
PROVIDERS: ADMIT Surgery; ATTEND Neuromusculoskeletal Medicine & OMM
PROC: HZ2ZZZZ Detoxification Services for Substance Abuse Treatment (ICD-10-PCS; principal; 2018-08-07)
PROC: HZ42ZZZ Group Counseling for Substance Abuse Treatment, Cognitive-Behavioral (ICD-10-PCS; 2018-08-10)
DX: F10.230 Alcohol dependence with withdrawal, uncomplicated (principal); F14.20 Cocaine dependence, uncomplicated; F19.282 Other psychoactive substance dependence with psychoactive substance-induced sleep disorder; K86.3 Pseudocyst of pancreas; K86.0 Alcohol-induced chronic pancreatitis; N17.9 Acute kidney failure, unspecified; F17.210 Nicotine dependence, cigarettes, uncomplicated; K21.9 Gastro-esophageal reflux disease without esophagitis; M19.90 Unspecified osteoarthritis, unspecified site; E83.51 Hypocalcemia; D69.6 Thrombocytopenia, unspecified; R79.89 Other specified abnormal findings of blood chemistry; R63.4 Abnormal weight loss; R03.0 Elevated blood-pressure reading, without diagnosis of hypertension; R76.11 Nonspecific reaction to tuberculin skin test without active tuberculosis; Z91.013 Allergy to seafood
CPT/HCPCS: 36415; 80053; 81003; 85027; 86593; Q0162

== ENCOUNTER 2018-09-25 08:49 | Inpatient (IN) | payer OTHER ==
[2018-09-25 09:16] VITALS: BMI 26.9
--- NOTE | 2018-09-25 09:56 | HP ---
CIWA Score Nausea/Vomitin-Mild Nausea/No Vomiting Muscle Tremors: None Anxiety: 1-Mildly Anxious Agitation: 0-Normal Activity Paroxysmal Sweats: No Perspiration Orientation: 0-Oriented Tacttile Disturbances: 0-None Auditory Disturbances: 0-None Visual Disturbances: 0-None Headache: 1-Very Mild (does not meet criteria for detox.) CIWA-Ar Total Score: 3 - Admission Criteria OASAS Guidelines: Admission for Medically Managed Detox: Requires at least one of the followin. CIWA greater than 12 2. Seizures within the past 24 hours 3. Delirium tremens within the past 24 hours 4. Hallucinations within the past 24 hours 5. Acute intervention needed for co occurring medical disorder 6. Acute intervention needed for co occurring psychiatric disorder 7. Severe withdrawal that cannot be handled at a lower level of care (continued vomiting, continued diarrhea, abnormal vital signs) requiring intravenous medication and/or fluids 8. Admission ROS [facility] Chief Complaint: "I want to be admitted because I relapsed" Allergies/Adverse Reactions: Allergies Allergy/AdvReac Type Severity Reaction Status Date / Time shellfish derived Allergy Mild Rash Verified 09/25/18 09:09 tomato Allergy Mild Rash Verified 09/25/18 09:09 iodine Allergy Rash Verified 09/25/18 09:09 History of Present Illness: Patient is a 72 year old black male with history of alcohol dependence. He was last here in 07/2018 for detox and then his mother got very sick at the end of August and when he went down to [place], he relapsed and started drinking heavily again and using other drugs like cocaine. Patient has a history of blackout from alcohol binging. Patient is drinking 1 pint of vodka almost ever 3 days, last drink early this morning. Started drinking at the age of 15 Patient has a blackout a few days ago. Patient smokes 1/2-1 ppd, started smoking at age of 15 Patient started using cocaine use at 18 years of age, last used yesterday. PMHx: Pseudocyst in pancreas removed, Insomnia. Psurgical Hx: Removal of pseudocyst 10 year ago Exam Limitations: No Limitations - Ebola screening Have you traveled outside of the country in the last 21 days: No Have you had contact with anyone from an Ebola affected area: No Have you been sick,other than usual withdrawal symptoms: No Do you have a fever: No - Review of Systems Constitutional: Chills, Weakness EENT: reports: No Symptoms Reported Respiratory: reports: No Symptoms reported Cardiac: reports: No Symptoms Reported GI: reports: Nausea : reports: Burning Musculoskeletal: reports: No Symptoms Reported Integumentary: reports: No Symptoms Reported Neuro: reports: No Symptoms reported Endocrine: reports: No Symptoms Reported Hematology: reports: No Symptoms Reported Psychiatric: reports: Judgement Intact, Mood/Affect Appropiate, Orientated x3 Other Systems: Reviewed and Negative Patient History - Patient Medical History Hx Anemia: No Hx Asthma: No Hx Chronic Obstructive Pulmonary Disease (COPD): No Hx Cancer: No Hx Cardiac Disorders: No Hx Congestive Heart Failure: No Hx Hypertension: No Hx Hypercholesterolemia: No Hx Pacemaker: No HX Cerebrovascular Accident: No Hx Seizures: No Hx Dementia: No Hx Diabetes: No Hx Gastrointestinal Disorders: Yes (gerd,pancreatitis,pseudocyst of pancreatitis ) Hx Liver Disease: No Hx Genitourinary Disorders: No Hx Sexually Transmitted Disorders: No Hx Renal Disease (ESRD): No Hx Thyroid Disease: No Hx Human Immunodeficiency Virus (HIV): No (last 04/09 negative) Hx Hepatitis C: No Hx Depression: Yes Hx Suicide Attempt: No Hx Bipolar Disorder: No Hx Schizophrenia: No - Patient Surgical History Past Surgical History: Yes Hx Neurologic Surgery: No Hx Cataract Extraction: No Hx Cardiac Surgery: No Hx Lung Surgery: No Hx Breast Surgery: No Hx Breast Biopsy: No Hx Abdominal Surgery: Yes (internal bleeding, PANCREATIC PSEUDOCYST 2002) Hx Appendectomy: No Hx Cholecystectomy: No Hx Genitourinary Surgery: No Hx Section: No Hx Orthopedic Surgery: No Anesthesia Reaction: No - PPD History Previous Implant?: No (+ PPD) Implanted On Prior [facility] Admission?: No Date: 02/15/18 Results: CXR(-)02/18/18 PPD to be Administered?: No - Smoking Cessation Smoking history: Current every day smoker Have you smoked in the past 12 months: Yes Aproximately how many cigarettes per day: 20 Cigars Per Day: 0 Hx Chewing Tobacco Use: No Initiated information on smoking cessation: Yes 'Breaking Loose' booklet given: 09/25/18 - Substances abused Alcohol Substance route: Oral Frequency: 3-6 times per week Amount used: 1 pint vodka & 6 cans of beers Age of first use: 15 Date of last use: 09/24/18 Cocaine Substance route: Inhalation Frequency: Daily Amount used: 3-6grams Age of first use: 16 Date of last use: 09/24/18 Family Disease History - Family Disease History Family Disease History: Diabetes: Father (ALCOHOL,), Other: Father, Mother (Alive, age 95), Sister (three - living, healthy), Son (one - healthy), Daughter (two - healthy) Admission Physical Exam [facility] - Vital Signs Vital Signs: Vital Signs - 24 hr 09/25/18 09:11 Temperature 97.4 F L Pulse Rate 81 Respiratory 18 Rate Blood Pressure 169/82 - Physical General Appearance: Yes: Within Normal Limits, No Apparent Distress, Nourished HEENTM: Yes: EOMI, Hearing grossly Normal, Normal ENT Inspection, Normocephalic , LEO, Pharynx Normal Respiratory: Yes: Chest Non-Tender, Lungs Clear, Normal Breath Sounds, No Respiratory Distress, No Accessory Muscle Use Neck: Yes: No masses,lesions,Nodules, Trachea in good position Breast: Yes: Within Normal Limits Cardiology: Yes: Regular Rhythm, Regular Rate, S1, S2 Abdominal: Yes: Normal Bowel Sounds, Flat, Surgical Scar Genitourinary: Yes: Within Normal Limits Back: Yes: Normal Inspection Musculoskeletal: Yes: full range of Motion, Gait Steady Extremities: Yes: Within Normal Limits, Normal Capillary Refill, Normal Inspection, Normal Range of Motion, Non-Tender Neurological: Yes: masticator II-XII NML intact, Fully Oriented, Alert, Motor Strength 5/5, Normal Mood/Affect, Normal Response Integumentary: Yes: Within Normal Limits, Normal Color, Dry, Warm Lymphatic: Yes: Within Normal Limits - Diagnostic (1) Alcohol dependence Current Visit: Yes Status: Chronic Qualifiers: Substance use status: uncomplicated Qualified Code(s): F10.20 - Alcohol dependence, uncomplicated (2) Cocaine dependence Current Visit: Yes Status: Chronic Qualifiers: Complication of substance-induced condition: uncomplicated (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 Cleared for Admission [facility] - Detox or Rehab [facility] Level of Care: Medically Managed Screened but not Admitted - Documentation of Visit Screened but not Admitted: No Breathalyzer - Breathalyzer Breathalyzer: 0 Urine Drug Screen - Test Device Lot number: [id number] Expiration date: 06/18/20 - Control Is test valid?: Yes - Results Drug screen NEGATIVE: No Urine drug screen results: GURDEEP-Cocaine Inpatient Rehab Admission - Rehab Decision to Admit Inpatient rehab admission?: Yes - Initial Determination Are CD services needed?: Yes Free of communicable disease: Yes Not in need of hospitalization: Yes - Rehab Admission Criteria Previous failed treatment: Yes Poor recovery environment: Yes Comorbidities: Yes Lacks judgement: Yes Patient is meeting Inpatient Rehab admission criteria:: Yes (patient relapsed due to mother's illness)
[2018-09-25] MEDS ORDERED: IBUPROFEN 400 MG TABLET (FP) PO PRN (10:04)
[2018-09-25] MEDS ORDERED: LOPERAMIDE HCL 2 MG CAPSULE PO PRN (10:04)
[2018-09-25] MEDS ORDERED: MAGNESIUM HYDROX 2400MG/30ML ORAL SUSPENSION 30 ML CUP PO PRN (10:04)
[2018-09-25] MEDS ORDERED: ACETAMINOPHEN 325 MG TABLET (FP) PO PRN (10:04)
[2018-09-25] MEDS ORDERED: guaiFENesin 200 MG/10 ML 10 ML UNIT-DOSE CUPS PO PRN (10:04)
[2018-09-25] MEDS ORDERED: MAGNESIUM CITRATE 300 ML BOTTLE PO PRN (10:04)
[2018-09-25] MEDS ORDERED: MENTHOL/PHENOL 1 EACH UD MM PRN (10:04)
[2018-09-25] MEDS ORDERED: P-EPHED 60MG/TRIPROLIDI 2.5MG TABLET PO PRN (10:04)
[2018-09-25] MEDS: NICOTINE 14 MG/24 HOURS TOPICAL PATCH TD SCH (11:39)
[2018-09-25 12:52] LABS: HEMATOCRIT 36.7 % (35.4-49); HEMOGLOBIN 12.1 GM/dL (11.7-16.9); MCH 32.2 pg (25.7-33.7); MEAN CELL VOLUME 97.5 fl (80-96); MEAN PLT VOLUME 8.7 fl (7.5-11.1); PLATELET COUNT 133 K/MM3 (134-434); RBC 3.76 M/mm3 (4.00-5.60); RDW 15.5 % (11.9-15.9)
[2018-09-25 13:01] LABS: ALBUMIN 3.1 g/dl (3.4-5.0); BILIRUBIN,TOTAL 1.3 mg/dL (0.2-1); BLOOD UREA NITROGEN 15.3 mg/dL (7-18); CALCIUM 8.5 mg/dL (8.5-10.1); CREATININE 1.4 mg/dL (0.55-1.3); POTASSIUM 3.9 mmol/L (3.5-5.1); TOT PROT 7.2 g/dl (6.4-8.2)
[2018-09-25 16:12] LABS: EPI CELLS 0.5 /HPF (0-5/HPF); HYALINE CASTS 0 /lpf (0-8); URINE APPEARANCE CLEAR; URINE BACTERIA 3.5 /hpf (NEGATIVE); URINE BILIRUBIN NEGATIVE (NEGATIVE); URINE COLOR YELLOW; URINE GLUCOSE (UA) NEGATIVE (NEGATIVE); URINE KETONE TRACE (NEGATIVE); URINE LEUK ESTERASE NEGATIVE (NEGATIVE); URINE NITRITE NEGATIVE (NEGATIVE); URINE PROTEIN NEGATIVE (NEGATIVE); URINE RBC 3 /hpf (0-4); URINE UROBILINOGEN 0.2 mg/dL (0.2-1.0); URINE WBC 0 /hpf (0-5)
[2018-09-25] MEDS: QUEtiapine FUMARATE 100 MG TABLET (FP) PO SCH (21:14)
[2018-09-25] MEDS: THIAMINE HCL 100 MG TABLET (FP) PO SCH (21:14)
[2018-09-25] MEDS ORDERED: MELATONIN 5 MG TABLETS PO PRN (22:00)
[2018-09-26] MEDS: NICOTINE 14 MG/24 HOURS TOPICAL PATCH TD SCH (09:58)
[2018-09-26] MEDS: PRENATAL VITAMINS W/ FOLIC ACID TABLET (FP) PO SCH (09:58)
--- NOTE | 2018-09-26 14:05 | CONSULT ---
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 Refer to addiction counselor's summary for further information Medical History: Significant for GERD, arthritis, PPD+, chronic alcoholic pancreatitis and history of surgery for pseudocyst of the pancreas in 2002. Smokes cigarettes 1 ppd daily Psychiatric History: Patient is known well known to bid writer from previous admission in this facility. He reports that he received psychiatric treatment for depression when he was around 5 or 6 years old. He has no recollection of medication he was prescibed but claims he took it for a year. Denies any further psychiatric treatment since, except receiving medication for insomnia during admission to substance abuse inpatient. Denies psychiatric hospitalization or suicidal attempt. At present, reports sleeping poorly Physical/Sexual Abuse/Trauma History: Denies history of emotional, physical or sexual abuse as well as DV relationship Additional Comment: Reports history of multiple previous arrests including 3 felony convictions. Denies being on parole/probation currently Mental Status Exam - Mental Status Exam Alert and Oriented to: Time, Place, Person Cognitive Function: Fair Patient Appearance: Well Groomed Mood: Hopeful, Euthymic Patient Behavior: Cooperative Speech Pattern: Clear Voice Loudness: Normal Thought Process: Intact, Goal Oriented Thought Disorder: Not Present Hallucinations: Denies Suicidal Ideation: Denies Homicidal Ideation: Denies Insight/Judgement: Fair Sleep: Poorly Appetite: Good Muscle strength/Tone: Normal Gait/Station: Normal Psychiatric Findings - Problem List ([place] 1, 2,3) (1) Alcohol-induced sleep disorder Current Visit: Yes Status: Acute (2) Alcohol dependence Current Visit: Yes Status: Acute Qualifiers: Substance use status: uncomplicated Qualified Code(s): F10.20 - Alcohol dependence, uncomplicated (3) Cocaine dependence Current Visit: Yes Status: Acute Qualifiers: Complication of substance-induced condition: uncomplicated (4) Nicotine dependence Current Visit: No Status: Chronic Qualifiers: Nicotine product type: cigarettes Substance use status: uncomplicated Qualified Code(s): F17.210 - Nicotine dependence, cigarettes, uncomplicated (5) Insomnia Current Visit: No Status: Chronic (6) PPD positive Current Visit: No Status: Chronic (7) Pseudocyst of pancreas Current Visit: No Status: Resolved - Initial Treatment Plan Initial Treatment Plan: 1) Continue Seroquel 100 mg po HS and Melatonin 10 mg po HS prn for insomnia. 2) Continue inpatient rehabilitation
[2018-09-26] MEDS: MAG HYDROX/AL HYDROX/SIMETH 30 ML UNIT-DOSE CUP PO PRN (20:50)
[2018-09-26] MEDS: THIAMINE HCL 100 MG TABLET (FP) PO SCH (21:14)
[2018-09-26] MEDS: QUEtiapine FUMARATE 100 MG TABLET (FP) PO SCH (21:14)
[2018-09-26] MEDS: MELATONIN 5 MG TABLETS PO PRN (21:16)
[2018-09-27] MEDS: NICOTINE 14 MG/24 HOURS TOPICAL PATCH TD SCH (10:34)
[2018-09-27] MEDS: PRENATAL VITAMINS W/ FOLIC ACID TABLET (FP) PO SCH (10:34)
[2018-09-27] MEDS: MAG HYDROX/AL HYDROX/SIMETH 30 ML UNIT-DOSE CUP PO PRN (20:40)
[2018-09-27] MEDS: THIAMINE HCL 100 MG TABLET (FP) PO SCH (21:17)
[2018-09-27] MEDS: QUEtiapine FUMARATE 100 MG TABLET (FP) PO SCH (21:17)
[2018-09-27] MEDS: MELATONIN 5 MG TABLETS PO PRN (21:17)
[2018-09-28] MEDS: NICOTINE 14 MG/24 HOURS TOPICAL PATCH TD SCH (09:59)
[2018-09-28] MEDS: PRENATAL VITAMINS W/ FOLIC ACID TABLET (FP) PO SCH (09:59)
[2018-09-28] MEDS: THIAMINE HCL 100 MG TABLET (FP) PO SCH (22:01)
[2018-09-28] MEDS: MELATONIN 5 MG TABLETS PO PRN (22:01)
[2018-09-28] MEDS: QUEtiapine FUMARATE 100 MG TABLET (FP) PO SCH (22:01)
[2018-09-29] MEDS: PRENATAL VITAMINS W/ FOLIC ACID TABLET (FP) PO SCH (10:47)
[2018-09-29] MEDS: NICOTINE 14 MG/24 HOURS TOPICAL PATCH TD SCH (10:47)
[2018-09-29] MEDS: MELATONIN 5 MG TABLETS PO PRN (21:06)
[2018-09-29] MEDS: THIAMINE HCL 100 MG TABLET (FP) PO SCH (21:06)
[2018-09-29] MEDS: QUEtiapine FUMARATE 100 MG TABLET (FP) PO SCH (21:06)
[2018-09-30] MEDS: NICOTINE 14 MG/24 HOURS TOPICAL PATCH TD SCH (10:34)
[2018-09-30] MEDS: PRENATAL VITAMINS W/ FOLIC ACID TABLET (FP) PO SCH (10:34)
[2018-09-30] MEDS: QUEtiapine FUMARATE 100 MG TABLET (FP) PO SCH (21:54)
[2018-09-30] MEDS: THIAMINE HCL 100 MG TABLET (FP) PO SCH (21:54)
[2018-09-30] MEDS: MELATONIN 5 MG TABLETS PO PRN (21:54)
[2018-10-01] MEDS: PRENATAL VITAMINS W/ FOLIC ACID TABLET (FP) PO SCH (10:29)
[2018-10-01] MEDS: NICOTINE 14 MG/24 HOURS TOPICAL PATCH TD SCH (10:34)
[2018-10-01] MEDS: MELATONIN 5 MG TABLETS PO PRN (21:16)
[2018-10-01] MEDS: THIAMINE HCL 100 MG TABLET (FP) PO SCH (21:17)
[2018-10-01] MEDS: QUEtiapine FUMARATE 100 MG TABLET (FP) PO SCH (21:17)
[2018-10-02] MEDS: PRENATAL VITAMINS W/ FOLIC ACID TABLET (FP) PO SCH (09:36)
[2018-10-02] MEDS: NICOTINE 14 MG/24 HOURS TOPICAL PATCH TD SCH (09:37)
[2018-10-02] MEDS: MELATONIN 5 MG TABLETS PO PRN (21:14)
[2018-10-02] MEDS: THIAMINE HCL 100 MG TABLET (FP) PO SCH (21:14)
[2018-10-02] MEDS: QUEtiapine FUMARATE 100 MG TABLET (FP) PO SCH (21:14)
[2018-10-03 06:45] VITALS: TEMP 97.8
[2018-10-03] MEDS: NICOTINE 14 MG/24 HOURS TOPICAL PATCH TD SCH (09:54)
[2018-10-03] MEDS: PRENATAL VITAMINS W/ FOLIC ACID TABLET (FP) PO SCH (09:54)
--- NOTE | 2018-10-03 14:57 | PN ---
[facility] Progress Note (SOAP) Subjective: Pt is a 72 y/o male admitted to rehab for kennedy,completed treatment and discharging tomorrow. Pt met with counselor while here in rehab but pt reports he is going to 12 steps meetings. Pt refused aftercare stating "I have a sponsor , I've gone to treatment all over the country. Not going to any of those residential programs and outpatient programs anymore. Done those. I go to rooms now". Pt reports he has a long time primary care provider, Dr. Rasheed Gore at [facility] on 06/03 [place], [place]. Pt denies s/h/i. Objective: 10/03/18 15:05 Vital Signs - 24 hr 10/03/18 10/03/18 03:30 06:44 Temperature 97.8 F Pulse Rate 69 Respiratory 18 18 Rate Blood Pressure 113/67 Laboratory Tests 09/25/18 09/25/18 09/25/18 07:00 10:00 10:00 WBC 3.0 L RBC 3.76 L Hgb 12.1 Hct 36.7 MCV 97.5 H MCH 32.2 MCHC 33.0 RDW 15.5 Plt Count 133 L MPV 8.7 Sodium 141 Potassium 3.9 Chloride 105 Carbon Dioxide 30 Anion Gap 6 L BUN 15.3 Creatinine 1.4 H Est GFR (CKD-EPI)AfAm 57.76 Est GFR (CKD-EPI)NonAf 49.84 POC Glucometer Random Glucose 132 H Hemoglobin A1c % Calcium 8.5 Total Bilirubin 1.3 H AST 28 ALT 24 Alkaline Phosphatase 63 Total Protein 7.2 Albumin 3.1 L Urine Color Urine Appearance Urine pH Ur Specific [place] Urine Protein Urine Glucose (UA) Urine Ketones Urine Blood Urine Nitrite Urine Bilirubin Urine Urobilinogen Ur Leukocyte Esterase Urine WBC (Auto) Urine RBC (Auto) Urine Casts (Auto) U Epithel Cells (Auto) Urine Bacteria (Auto) RPR Titer HIV 1&2 Ag/Ab, 4th Gen Non reactive HIV 1&2 Antibody Screen HIV P24 Antigen 09/25/18 09/25/18 09/25/18 10:00 10:00 13:00 WBC RBC Hgb Hct MCV MCH MCHC RDW Plt Count MPV Sodium Potassium Chloride Carbon Dioxide Anion Gap BUN Creatinine Est GFR (CKD-EPI)AfAm Est GFR (CKD-EPI)NonAf POC Glucometer Random Glucose Hemoglobin A1c % Calcium Total Bilirubin AST ALT Alkaline Phosphatase Total Protein Albumin Urine Color Yellow Urine Appearance Clear Urine pH 5.0 Ur Specific [place] 1.034 Urine Protein Negative Urine Glucose (UA) Negative Urine Ketones Trace H Urine Blood 2+ H Urine Nitrite Negative Urine Bilirubin Negative Urine Urobilinogen 0.2 Ur Leukocyte Esterase Negative Urine WBC (Auto) 0 Urine RBC (Auto) 3 Urine Casts (Auto) 0 U Epithel Cells (Auto) 0.5 Urine Bacteria (Auto) 3.5 RPR Titer Nonreactive HIV 1&2 Ag/Ab, 4th Gen HIV 1&2 Antibody Screen Cancelled HIV P24 Antigen Cancelled 10/01/18 10/02/18 10/02/18 06:37 05:49 08:42 WBC RBC Hgb Hct MCV MCH MCHC RDW Plt Count MPV Sodium Potassium Chloride Carbon Dioxide Anion Gap BUN Creatinine Est GFR (CKD-EPI)AfAm Est GFR (CKD-EPI)NonAf POC Glucometer 113 96 Random Glucose Hemoglobin A1c % 5.9 Calcium Total Bilirubin AST ALT Alkaline Phosphatase Total Protein Albumin Urine Color Urine Appearance Urine pH Ur Specific [place] Urine Protein Urine Glucose (UA) Urine Ketones Urine Blood Urine Nitrite Urine Bilirubin Urine Urobilinogen Ur Leukocyte Esterase Urine WBC (Auto) Urine RBC (Auto) Urine Casts (Auto) U Epithel Cells (Auto) Urine Bacteria (Auto) RPR Titer HIV 1&2 Ag/Ab, 4th Gen HIV 1&2 Antibody Screen HIV P24 Antigen 10/03/18 06:58 WBC RBC Hgb Hct MCV MCH MCHC RDW Plt Count MPV Sodium Potassium Chloride Carbon Dioxide Anion Gap BUN Creatinine Est GFR (CKD-EPI)AfAm Est GFR (CKD-EPI)NonAf POC Glucometer 154 Random Glucose Hemoglobin A1c % Calcium Total Bilirubin AST ALT Alkaline Phosphatase Total Protein Albumin Urine Color Urine Appearance Urine pH Ur Specific [place] Urine Protein Urine Glucose (UA) Urine Ketones Urine Blood Urine Nitrite Urine Bilirubin Urine Urobilinogen Ur Leukocyte Esterase Urine WBC (Auto) Urine RBC (Auto) Urine Casts (Auto) U Epithel Cells (Auto) Urine Bacteria (Auto) RPR Titer HIV 1&2 Ag/Ab, 4th Gen HIV 1&2 Antibody Screen HIV P24 Antigen Home Medications Medication Instructions Recorded Mirtazapine [Remeron -] 15 mg PO DAILY 02/07/18 Lipase/Protease/Amylase [Creon Dr 1 cap PO TID PRN 08/20/18 24,000 Units Capsule] Mirtazapine [Remeron -] 30 mg PO HS #30 tablet 08/20/18 Quetiapine Fumarate [Seroquel] 100 mg PO HS #30 tablet 08/20/18 traZODone HCL [Desyrel -] 50 mg PO HS #30 tablet 08/20/18 General:Alert o x 3. appropriate presentation. Cardiac:s1 s2, rrr Lungs:cta,tyrone. Abdomen:soft,+bs, nt,nd Extremities/Skin:wnl Assessment: 10/03/18 14:58 Medically stable [facility] Inpatient Services Medical - Diagnosis (1) Alcohol dependence Qualifiers: Substance use status: uncomplicated Qualified Code(s): F10.20 - Alcohol dependence, uncomplicated Current Visit: Yes Status: Chronic (2) Cocaine dependence Qualifiers: Complication of substance-induced condition: uncomplicated Current Visit: Yes Status: Chronic (3) Arthritis Current Visit: No Status: Chronic (4) GERD (gastroesophageal reflux disease) Qualifiers: Esophagitis presence: without esophagitis Qualified Code(s): K21.9 - Gastro -esophageal reflux disease without esophagitis Current Visit: No Status: Chronic (5) Nicotine dependence Qualifiers: Nicotine product type: cigarettes Substance use status: uncomplicated Qualified Code(s): F17.210 - Nicotine dependence, cigarettes, uncomplicated Current Visit: Yes Status: Chronic Initialized on 10/03/18 14:57 - END OF NOTE Plan: D/C pt tomorrow Encouraged to Follow up with CD aftercare Follow up with Primary Care provider within 1-2 weeks after discharge.
[2018-10-03] MEDS: THIAMINE HCL 100 MG TABLET (FP) PO SCH (21:36)
[2018-10-03] MEDS: QUEtiapine FUMARATE 100 MG TABLET (FP) PO SCH (21:36)
[2018-10-03] MEDS: MELATONIN 5 MG TABLETS PO PRN (21:36)
--- NOTE | 2018-10-04 06:13 | PN ---
S Progress Note Note: Patient is scheduled for discharge today. Script for 30 days of Seroquel 100 mg/ hs is electronically transmitted to [facility] Pharm[facility] at [address] [place] [address]
[2018-10-04 07:24] VITALS: BP 156/84; PULSE 74
== END 2018-10-04 07:00 | disposition home or self-care (01) | DRG 895 ==
LOC: YASAS 08:49 → Y3W 10:25
PROVIDERS: ADMIT Neuromusculoskeletal Medicine & OMM; ATTEND Neuromusculoskeletal Medicine & OMM
PROC: HZ42ZZZ Group Counseling for Substance Abuse Treatment, Cognitive-Behavioral (ICD-10-PCS; principal; 2018-09-25)
DX: F19.20 Other psychoactive substance dependence, uncomplicated (principal); F14.20 Cocaine dependence, uncomplicated; F10.20 Alcohol dependence, uncomplicated; F10.282 Alcohol dependence with alcohol-induced sleep disorder; F17.210 Nicotine dependence, cigarettes, uncomplicated; M19.90 Unspecified osteoarthritis, unspecified site; K21.9 Gastro-esophageal reflux disease without esophagitis; G47.00 Insomnia, unspecified; R76.11 Nonspecific reaction to tuberculin skin test without active tuberculosis; Z91.013 Allergy to seafood
CPT/HCPCS: 36415; 80053; 81003; 82962; 83036; 85027; 86593; 87389

== ENCOUNTER 2018-11-15 08:25 | Inpatient (IN) | payer OTHER ==
[2018-11-15 08:50] VITALS: BMI 26.6
--- NOTE | 2018-11-15 09:23 | HP ---
CIWA Score Nausea/Vomitin-No Nausea/No Vomiting Muscle Tremors: 1-None Visible, but [place] Anxiety: 1-Mildly Anxious Agitation: 1-Slight > Activity Paroxysmal Sweats: No Perspiration Orientation: 0-Oriented Tacttile Disturbances: 0-None Auditory Disturbances: 0-None Visual Disturbances: 0-None Headache: 0-None Present CIWA-Ar Total Score: 3 - Admission Criteria OASAS Guidelines: Admission for Medically Managed Detox: Requires at least one of the followin. CIWA greater than 12 2. Seizures within the past 24 hours 3. Delirium tremens within the past 24 hours 4. Hallucinations within the past 24 hours 5. Acute intervention needed for co occurring medical disorder 6. Acute intervention needed for co occurring psychiatric disorder 7. Severe withdrawal that cannot be handled at a lower level of care (continued vomiting, continued diarrhea, abnormal vital signs) requiring intravenous medication and/or fluids 8. Admission ROS S - [facility] Chief Complaint: ki am here for rehab from alcohol and cocaine Allergies/Adverse Reactions: Allergies Allergy/AdvReac Type Severity Reaction Status Date / Time shellfish derived Allergy Mild Rash Verified 11/15/18 08:43 tomato Allergy Mild Rash Verified 11/15/18 08:43 iodine Allergy Rash Verified 11/15/18 08:43 History of Present Illness: this 73 years old male with alcohol and cocaine dependence,multiple admissions in detox,and rehab,but keep relapsin,last rehab [facility] 09/25/18 to 10/04/18 denied seizure denied syncope nicotine dependence 1 pack/day weight loss pseudocyst of pancrease surgery,no med longest period of sobriety 6 and a half year gerd plan for out patient,aa meeting after rehab history of depression Exam Limitations: No Limitations - Ebola screening Have you traveled outside of the country in the last 21 days: No Have you had contact with anyone from an Ebola affected area: No Do you have a fever: No - Review of Systems Constitutional: No Symptoms Reported EENT: reports: No Symptoms Reported Respiratory: reports: No Symptoms reported Cardiac: reports: No Symptoms Reported GI: reports: No Symptoms Reported, Other (history of pseudocyst of pancrease) : reports: No Symptoms Reported Musculoskeletal: reports: No Symptoms Reported Integumentary: reports: No Symptoms Reported Neuro: reports: No Symptoms reported Endocrine: reports: No Symptoms Reported Hematology: reports: No Symptoms Reported Psychiatric: reports: No Sypmtoms Reported, Judgement Intact, Mood/Affect Appropiate, Orientated x3 Other Systems: Reviewed and Negative Patient History - Patient Medical History Hx Anemia: No Hx Asthma: No Hx Chronic Obstructive Pulmonary Disease (COPD): No Hx Cancer: No Hx Cardiac Disorders: No Hx Congestive Heart Failure: No Hx Hypertension: No Hx Hypercholesterolemia: No Hx Pacemaker: No HX Cerebrovascular Accident: No Hx Seizures: No Hx Dementia: No Hx Diabetes: No Hx Gastrointestinal Disorders: Yes (gerd,pseudocyst pof pancrease) Hx Liver Disease: No Hx Genitourinary Disorders: No Hx Sexually Transmitted Disorders: No Hx Renal Disease (ESRD): No Hx Thyroid Disease: No Hx Human Immunodeficiency Virus (HIV): No (last 04/09 negative) Hx Hepatitis C: No Hx Depression: No Hx Suicide Attempt: No Hx Bipolar Disorder: No Hx Schizophrenia: No Other Medical History: no suicidal,no homicidal - Patient Surgical History Past Surgical History: Yes Hx Neurologic Surgery: No Hx Cataract Extraction: No Hx Cardiac Surgery: No Hx Lung Surgery: No Hx Breast Surgery: No Hx Breast Biopsy: No Hx Abdominal Surgery: Yes (internal bleeding, PANCREATIC PSEUDOCYST 2002) Hx Appendectomy: No Hx Cholecystectomy: No Hx Genitourinary Surgery: No Hx Section: No Hx Orthopedic Surgery: No Anesthesia Reaction: No - PPD History Previous Implant?: Yes Documented Results: Positive w/proof Implanted On Prior R Admission?: No Date: 02/15/18 Results: CXR(-)02/18/18 PPD to be Administered?: No - Smoking Cessation Smoking history: Current every day smoker Have you smoked in the past 12 months: Yes Aproximately how many cigarettes per day: 20 Cigars Per Day: 0 Hx Chewing Tobacco Use: No Initiated information on smoking cessation: Yes 'Breaking Loose' booklet given: 11/15/18 - Substance & Tx. History Hx Alcohol Use: Yes Hx Substance Use: Yes Substance Use Type: Alcohol, Cocaine Hx Substance Use Treatment: Yes ([facility] rehab 09/25/18 to 10/04/18) - Substances abused Alcohol Substance route: Oral Frequency: 3-6 times per week Amount used: 1- 1/2pint vodka & 6 cans of beers Age of first use: 15 Date of last use: 11/14/18 Cocaine Substance route: Inhalation Frequency: Daily Amount used: 3-6grams Age of first use: 16 Date of last use: 11/14/18 Admission Physical Exam [facility] - Vital Signs Vital Signs: Vital Signs - 24 hr 11/15/18 08:42 Temperature 97.3 F L Pulse Rate 76 Respiratory 20 Rate Blood Pressure 170/83 - Physical General Appearance: Yes: No Apparent Distress HEENTM: Yes: Normal ENT Inspection, LEO, Pharynx Normal, Other (no teeth) Respiratory: Yes: Lungs Clear, Normal Breath Sounds, No Respiratory Distress Neck: Yes: Within Normal Limits, Supple, Trachea in good position Breast: Yes: Within Normal Limits Cardiology: Yes: Within Normal Limits, Regular Rhythm, Regular Rate, S1, S2 Abdominal: Yes: Within Normal Limits, Normal Bowel Sounds, Non Tender, Soft, Surgical Scar (s/p surgery for pseudocystr of pancrease) Genitourinary: Yes: Within Normal Limits Back: Yes: Within Normal Limits Musculoskeletal: Yes: Within Normal Limits Extremities: Yes: Within Normal Limits, Normal Capillary Refill, Normal Inspection, Normal Range of Motion Neurological: Yes: neonatal pediatric nurse II-XII NML intact, Fully Oriented, Alert, Motor Strength 5/5 Integumentary: Yes: Within Normal Limits Lymphatic: Yes: Within Normal Limits - Diagnostic (1) Weight loss Current Visit: No Status: Acute (2) Alcohol dependence Current Visit: No Status: Chronic Qualifiers: (3) Cocaine dependence Current Visit: No Status: Chronic (4) GERD (gastroesophageal reflux disease) Current Visit: No Status: Chronic Qualifiers: (5) Nicotine dependence Current Visit: No Status: Chronic Qualifiers: (6) PPD positive Current Visit: No Status: Chronic (7) Pseudocyst of pancreas Current Visit: No Status: Resolved (8) Depression Current Visit: Yes Status: Acute Cleared for Admission [facility] - Detox or Rehab Claeared for Rehab Admission: Yes Breathalyzer - Breathalyzer Breathalyzer: 0 Urine Drug Screen - Test Device Lot number: [id number] Expiration date: 06/18/20 - Control Is test valid?: Yes - Results Drug screen NEGATIVE: No Urine drug screen results: GURDEEP-Cocaine Inpatient Rehab Admission - Rehab Decision to Admit Inpatient rehab admission?: Yes - Initial Determination Are CD services needed?: Yes Free of communicable disease: Yes Not in need of hospitalization: Yes - Rehab Admission Criteria Previous failed treatment: Yes Poor recovery environment: Yes Comorbidities: Yes Lacks judgement: No Patient is meeting Inpatient Rehab admission criteria:: Yes
[2018-11-15] MEDS ORDERED: MAGNESIUM HYDROX 2400MG/30ML ORAL SUSPENSION 30 ML CUP PO PRN (09:32)
[2018-11-15] MEDS ORDERED: LOPERAMIDE HCL 2 MG CAPSULE PO PRN (09:32)
[2018-11-15] MEDS ORDERED: MAG HYDROX/AL HYDROX/SIMETH 30 ML UNIT-DOSE CUP PO PRN (09:32)
[2018-11-15] MEDS ORDERED: MENTHOL/PHENOL 1 EACH UD MM PRN (09:32)
[2018-11-15] MEDS ORDERED: hydrOXYzine PAMOATE 50 MG CAPSULE (FP) PO PRN (09:32)
[2018-11-15] MEDS ORDERED: guaiFENesin 200 MG/10 ML 10 ML UNIT-DOSE CUPS PO PRN (09:32)
[2018-11-15] MEDS ORDERED: MAGNESIUM CITRATE 300 ML BOTTLE PO PRN (09:32)
[2018-11-15] MEDS ORDERED: P-EPHED 60MG/TRIPROLIDI 2.5MG TABLET PO PRN (09:32)
[2018-11-15] MEDS ORDERED: ACETAMINOPHEN 325 MG TABLET (FP) PO PRN (09:32)
[2018-11-15] MEDS ORDERED: IBUPROFEN 400 MG TABLET (FP) PO PRN (09:32)
[2018-11-15] MEDS ORDERED: PT OWN MED DRAWER 7, Y5N ONE (10:36)
[2018-11-15] MEDS: PRENATAL VITAMINS W/ FOLIC ACID TABLET (FP) PO SCH (11:44)
[2018-11-15] MEDS: NICOTINE 21 MG/24 HOURS TOPICAL PATCH TD SCH (11:44)
[2018-11-15] MEDS: PANTOPRAZOLE 40 MG TABLET (FP) PO SCH (11:44)
[2018-11-15 12:11] LABS: HEMATOCRIT 37.1 % (35.4-49); HEMOGLOBIN 12.1 GM/dL (11.7-16.9); MCH 31.9 pg (25.7-33.7); MCHC 32.7 g/dl (32.0-35.9); MEAN CELL VOLUME 97.7 fl (80-96); PLATELET COUNT 135 K/MM3 (134-434); RDW 16.6 % (11.9-15.9); WHITE BLOOD COUNT 3.2 K/mm3 (4.0-10.0)
[2018-11-15 12:22] LABS: ALBUMIN 3.2 g/dl (3.4-5.0); BILIRUBIN,TOTAL 0.4 mg/dL (0.2-1); BLOOD UREA NITROGEN 17.9 mg/dL (7-18); CALCIUM 8.6 mg/dL (8.5-10.1); CREATININE 1.3 mg/dL (0.55-1.3); POTASSIUM 4.1 mmol/L (3.5-5.1); TOT PROT 7.3 g/dl (6.4-8.2)
--- NOTE | 2018-11-15 13:58 | CONSULT ---
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 Refer to addiction counselor's summary for further information Medical History: Significant for GERD, arthritis, PPD+, history of chronic alcoholic pancreatitis, surgery for pseudocyst of the pancreas in 2002 and removal of calcaneal spur right foot. Smokes cigarettes 1 ppd daily Psychiatric History: Patient is known well known to specification writer from previous admission in this facility. Historical narrative remains consistent. He reports that he received psychiatric treatment for depression when he was around [age] years old. He has no recollection of medication he was prescibed but claims he took it for a year. Denies any further psychiatric treatment since, except receiving medication for insomnia during admission to substance abuse inpatient. During his most recent admission to this facility, he was seen by specification writer on 09/26/18 and he was prescribed Seroquel 100 mg/hs and Melatonin 10 mg/ hs. Denies psychiatric hospitalization or suicidal attempt. At present, reports feeling mildly depressed and sleeping poorly. Requests to be ordered Seroquel and Remeron for insomnia Physical/Sexual Abuse/Trauma History: Denies history of emotional, physical or sexual abuse as well as DV relationship Additional Comment: Reports history of multiple previous arrests including 3 felony convictions. Denies being on parole/probation currently Mental Status Exam - Mental Status Exam Alert and Oriented to: Time, Place, Person Cognitive Function: Fair Patient Appearance: Well Groomed Mood: Depressed Affect: Appropriate Patient Behavior: Cooperative Speech Pattern: Clear Voice Loudness: Normal Thought Process: Intact, Goal Oriented Thought Disorder: Not Present Hallucinations: Denies Suicidal Ideation: Denies Homicidal Ideation: Denies Insight/Judgement: Fair Sleep: Poorly Appetite: Good Muscle strength/Tone: Rigidity Gait/Station: Normal Psychiatric Findings - Problem List ([place] 1, 2,3) (1) Substance induced mood disorder Current Visit: Yes Status: Acute (2) Substance-induced sleep disorder Current Visit: No Status: Acute (3) Alcohol dependence Current Visit: No Status: Acute Qualifiers: (4) Cocaine dependence Current Visit: No Status: Acute (5) Nicotine dependence Current Visit: No Status: Chronic Qualifiers: (6) Arthritis Current Visit: No Status: Chronic (7) GERD (gastroesophageal reflux disease) Current Visit: No Status: Chronic Qualifiers: (8) Pseudocyst of pancreas Current Visit: No Status: Resolved (9) Calcaneal spur, right foot Current Visit: No Status: Resolved - Initial Treatment Plan Initial Treatment Plan: 1) Start Seroquel 100 mg po HS and Remeron 30 mg po HS. 2) Continue inpatient rehabilitation
[2018-11-15 18:38] LABS: PH,URINE 5.5 (5.0-8.0); URINE APPEARANCE CLEAR; URINE BILIRUBIN NEGATIVE (NEGATIVE); URINE COLOR YELLOW; URINE GLUCOSE (UA) NEGATIVE (NEGATIVE); URINE KETONE NEGATIVE (NEGATIVE); URINE NITRITE NEGATIVE (NEGATIVE); URINE PROTEIN NEGATIVE (NEGATIVE)
[2018-11-15 18:39] LABS: EPI CELLS 0.4 /HPF (0-5/HPF)
[2018-11-15 18:45] LABS: HYALINE CASTS 0 /lpf (0-8); URINE BACTERIA 0.5 /hpf (NEGATIVE); URINE LEUK ESTERASE NEGATIVE (NEGATIVE); URINE RBC 3 /hpf (0-4); URINE UROBILINOGEN 0.2 mg/dL (0.2-1.0); URINE WBC 0 /hpf (0-5)
[2018-11-15] MEDS: THIAMINE HCL 100 MG TABLET (FP) PO SCH (21:01)
[2018-11-15] MEDS: MIRTAZAPINE 30 MG TABLET (FP) PO SCH (21:02)
[2018-11-15] MEDS: QUEtiapine FUMARATE 100 MG TABLET (FP) PO SCH (21:02)
[2018-11-15] MEDS: MELATONIN 5 MG TABLETS PO PRN (21:02)
[2018-11-16] MEDS: PRENATAL VITAMINS W/ FOLIC ACID TABLET (FP) PO SCH (09:54)
[2018-11-16] MEDS: PANTOPRAZOLE 40 MG TABLET (FP) PO SCH (09:54)
[2018-11-16] MEDS: NICOTINE 21 MG/24 HOURS TOPICAL PATCH TD SCH (09:54)
[2018-11-16] MEDS: THIAMINE HCL 100 MG TABLET (FP) PO SCH (21:49)
[2018-11-16] MEDS: QUEtiapine FUMARATE 100 MG TABLET (FP) PO SCH (21:49)
[2018-11-16] MEDS: MIRTAZAPINE 30 MG TABLET (FP) PO SCH (21:49)
[2018-11-16] MEDS: MELATONIN 5 MG TABLETS PO PRN (21:50)
[2018-11-17] MEDS: PANTOPRAZOLE 40 MG TABLET (FP) PO SCH (09:59)
[2018-11-17] MEDS: PRENATAL VITAMINS W/ FOLIC ACID TABLET (FP) PO SCH (09:59)
[2018-11-17] MEDS: NICOTINE 21 MG/24 HOURS TOPICAL PATCH TD SCH (09:59)
[2018-11-17] MEDS: QUEtiapine FUMARATE 100 MG TABLET (FP) PO SCH (21:10)
[2018-11-17] MEDS: THIAMINE HCL 100 MG TABLET (FP) PO SCH (21:10)
[2018-11-17] MEDS: MIRTAZAPINE 30 MG TABLET (FP) PO SCH (21:10)
[2018-11-17] MEDS: MELATONIN 5 MG TABLETS PO PRN (21:10)
[2018-11-18] MEDS ORDERED: SIMETHICONE 80 MG TAB.CHEW (FP) PO PRN (08:14)
--- NOTE | 2018-11-18 08:17 | PN ---
S Progress Note Note: Patient c/o indigestion and "gas". States Protonix not helping to relieve symptoms all day. ROS: denies abdominal pain, N/V/D and constipation PE alert and oriented x 3 skin warm and dry +perrla,eoms intact bl GI NT, ND Ext full rom, amb ad sachi A/P Indigestion Will order simethicone 80mg every 4 hr prn continue protonix as ordered monitor clinically
[2018-11-18] MEDS: NICOTINE 21 MG/24 HOURS TOPICAL PATCH TD SCH (10:03)
[2018-11-18] MEDS: PRENATAL VITAMINS W/ FOLIC ACID TABLET (FP) PO SCH (10:03)
[2018-11-18] MEDS: PANTOPRAZOLE 40 MG TABLET (FP) PO SCH (10:03)
[2018-11-18] MEDS: MELATONIN 5 MG TABLETS PO PRN (21:36)
[2018-11-18] MEDS: THIAMINE HCL 100 MG TABLET (FP) PO SCH (21:36)
[2018-11-18] MEDS: MIRTAZAPINE 30 MG TABLET (FP) PO SCH (21:36)
[2018-11-18] MEDS: QUEtiapine FUMARATE 100 MG TABLET (FP) PO SCH (21:36)
[2018-11-19] MEDS: PANTOPRAZOLE 40 MG TABLET (FP) PO SCH (09:59)
[2018-11-19] MEDS: PRENATAL VITAMINS W/ FOLIC ACID TABLET (FP) PO SCH (09:59)
[2018-11-19] MEDS: NICOTINE 21 MG/24 HOURS TOPICAL PATCH TD SCH (10:00)
[2018-11-19] MEDS: MIRTAZAPINE 30 MG TABLET (FP) PO SCH (21:00)
[2018-11-19] MEDS: QUEtiapine FUMARATE 100 MG TABLET (FP) PO SCH (21:00)
[2018-11-19] MEDS: MELATONIN 5 MG TABLETS PO PRN (21:00)
[2018-11-19] MEDS: THIAMINE HCL 100 MG TABLET (FP) PO SCH (21:00)
[2018-11-20] MEDS: NICOTINE 21 MG/24 HOURS TOPICAL PATCH TD SCH (10:12)
[2018-11-20] MEDS: PRENATAL VITAMINS W/ FOLIC ACID TABLET (FP) PO SCH (10:12)
[2018-11-20] MEDS: PANTOPRAZOLE 40 MG TABLET (FP) PO SCH (10:12)
[2018-11-20] MEDS: THIAMINE HCL 100 MG TABLET (FP) PO SCH (21:33)
[2018-11-20] MEDS: MELATONIN 5 MG TABLETS PO PRN (21:33)
[2018-11-20] MEDS: MIRTAZAPINE 30 MG TABLET (FP) PO SCH (21:33)
[2018-11-20] MEDS: QUEtiapine FUMARATE 100 MG TABLET (FP) PO SCH (21:34)
[2018-11-21] MEDS: PRENATAL VITAMINS W/ FOLIC ACID TABLET (FP) PO SCH (10:03)
[2018-11-21] MEDS: NICOTINE 21 MG/24 HOURS TOPICAL PATCH TD SCH (10:03)
[2018-11-21] MEDS: PANTOPRAZOLE 40 MG TABLET (FP) PO SCH (10:03)
--- NOTE | 2018-11-21 10:18 | PN ---
[facility] Progress Note Note: Pt states he takes pancreatic enzymes due to pancreatic surgery in the past from pseudocyst. Ordered enzymes with each meal.
[2018-11-21] MEDS ORDERED: PT OWN MED DRAWER 7, Y5N ONE (11:25)
[2018-11-21] MEDS: LIPASE/PROTEASE/AMYLASE 36,000 UNIT CAPSULE PO SCH ×2 (12:58→17:40)
[2018-11-21] MEDS: MELATONIN 5 MG TABLETS PO PRN (21:01)
[2018-11-21] MEDS: QUEtiapine FUMARATE 100 MG TABLET (FP) PO SCH (21:01)
[2018-11-21] MEDS: MIRTAZAPINE 30 MG TABLET (FP) PO SCH (21:01)
[2018-11-21] MEDS: THIAMINE HCL 100 MG TABLET (FP) PO SCH (21:02)
[2018-11-22] MEDS: LIPASE/PROTEASE/AMYLASE 36,000 UNIT CAPSULE PO SCH ×3 (07:27→18:01)
--- NOTE | 2018-11-22 07:35 | PN ---
[facility] Progress Note Note: Patient continues to report sleeping poorly despite taking Seroquel 100 mg/hs, Remeron 30 mg/hs and Melatonin 5 mg/hs. Discussed increasing Melatonin dose to 10 mg/hs and he agreed to try it
[2018-11-22] MEDS: PANTOPRAZOLE 40 MG TABLET (FP) PO SCH (10:17)
[2018-11-22] MEDS: PRENATAL VITAMINS W/ FOLIC ACID TABLET (FP) PO SCH (10:17)
[2018-11-22] MEDS: NICOTINE 21 MG/24 HOURS TOPICAL PATCH TD SCH (10:17)
[2018-11-22] MEDS: THIAMINE HCL 100 MG TABLET (FP) PO SCH (21:36)
[2018-11-22] MEDS: MIRTAZAPINE 30 MG TABLET (FP) PO SCH (21:36)
[2018-11-22] MEDS: QUEtiapine FUMARATE 100 MG TABLET (FP) PO SCH (21:36)
[2018-11-22] MEDS: MELATONIN 5 MG TABLETS PO PRN (21:36)
[2018-11-23] MEDS: LIPASE/PROTEASE/AMYLASE 36,000 UNIT CAPSULE PO SCH ×3 (07:44→18:06)
[2018-11-23] MEDS: PRENATAL VITAMINS W/ FOLIC ACID TABLET (FP) PO SCH (09:55)
[2018-11-23] MEDS: PANTOPRAZOLE 40 MG TABLET (FP) PO SCH (09:55)
[2018-11-23] MEDS: NICOTINE 21 MG/24 HOURS TOPICAL PATCH TD SCH (09:55)
[2018-11-23] MEDS: MIRTAZAPINE 30 MG TABLET (FP) PO SCH (21:00)
[2018-11-23] MEDS: QUEtiapine FUMARATE 100 MG TABLET (FP) PO SCH (21:00)
[2018-11-23] MEDS: MELATONIN 5 MG TABLETS PO PRN (21:00)
[2018-11-23] MEDS: THIAMINE HCL 100 MG TABLET (FP) PO SCH (21:00)
[2018-11-24] MEDS: LIPASE/PROTEASE/AMYLASE 36,000 UNIT CAPSULE PO SCH ×3 (07:03→16:52)
[2018-11-24] MEDS: PRENATAL VITAMINS W/ FOLIC ACID TABLET (FP) PO SCH (09:13)
[2018-11-24] MEDS: NICOTINE 21 MG/24 HOURS TOPICAL PATCH TD SCH (09:13)
[2018-11-24] MEDS: PANTOPRAZOLE 40 MG TABLET (FP) PO SCH (09:13)
[2018-11-24] MEDS: MELATONIN 5 MG TABLETS PO PRN (21:28)
[2018-11-24] MEDS: THIAMINE HCL 100 MG TABLET (FP) PO SCH (21:28)
[2018-11-24] MEDS: QUEtiapine FUMARATE 100 MG TABLET (FP) PO SCH (21:29)
[2018-11-24] MEDS: MIRTAZAPINE 30 MG TABLET (FP) PO SCH (21:29)
[2018-11-25] MEDS: LIPASE/PROTEASE/AMYLASE 36,000 UNIT CAPSULE PO SCH ×3 (07:02→17:30)
[2018-11-25] MEDS: PRENATAL VITAMINS W/ FOLIC ACID TABLET (FP) PO SCH (10:13)
[2018-11-25] MEDS: NICOTINE 21 MG/24 HOURS TOPICAL PATCH TD SCH (10:13)
[2018-11-25] MEDS: PANTOPRAZOLE 40 MG TABLET (FP) PO SCH (10:13)
[2018-11-25] MEDS: QUEtiapine FUMARATE 100 MG TABLET (FP) PO SCH (20:59)
[2018-11-25] MEDS: MIRTAZAPINE 30 MG TABLET (FP) PO SCH (20:59)
[2018-11-25] MEDS: THIAMINE HCL 100 MG TABLET (FP) PO SCH (20:59)
[2018-11-25] MEDS: MELATONIN 5 MG TABLETS PO PRN (21:00)
[2018-11-26] MEDS: LIPASE/PROTEASE/AMYLASE 36,000 UNIT CAPSULE PO SCH ×4 (07:32→16:41)
[2018-11-26] MEDS: PRENATAL VITAMINS W/ FOLIC ACID TABLET (FP) PO SCH (09:58)
[2018-11-26] MEDS: PANTOPRAZOLE 40 MG TABLET (FP) PO SCH (09:58)
[2018-11-26] MEDS: NICOTINE 21 MG/24 HOURS TOPICAL PATCH TD SCH (09:58)
[2018-11-26] MEDS: QUEtiapine FUMARATE 100 MG TABLET (FP) PO SCH (21:31)
[2018-11-26] MEDS: THIAMINE HCL 100 MG TABLET (FP) PO SCH (21:32)
[2018-11-26] MEDS: MELATONIN 5 MG TABLETS PO PRN (21:32)
[2018-11-26] MEDS: MIRTAZAPINE 30 MG TABLET (FP) PO SCH (21:32)
[2018-11-27] MEDS ORDERED: PT OWN MED DRAWER 7, Y5N ONE (05:54)
[2018-11-27] MEDS: LIPASE/PROTEASE/AMYLASE 36,000 UNIT CAPSULE PO SCH ×3 (07:37→17:35)
[2018-11-27] MEDS: PRENATAL VITAMINS W/ FOLIC ACID TABLET (FP) PO SCH (10:38)
[2018-11-27] MEDS: PANTOPRAZOLE 40 MG TABLET (FP) PO SCH (10:38)
[2018-11-27] MEDS: NICOTINE 21 MG/24 HOURS TOPICAL PATCH TD SCH (10:38)
--- NOTE | 2018-11-27 17:48 | PN ---
Psychiatric Progress Note Vital Signs: Vital Signs Period Temp Pulse Resp BP Sys/Ruano Pulse Ox Last 24 Hr 98.2 F 85 18-18 151/69 Date of Session: 11/27/18 Chief Complaint:: " I'm not sleeping." HPI: Patient admitted to [facility] for alcohol and cocaine dependence. Patient reports difficulty sleeping. ROS: Patient is coherent, alert + oriented x3. Current Medications: Active Medications Generic Name Dose Route Start Last Admin Trade Name Freq PRN Reason Stop Dose Admin Acetaminophen 650 mg 11/15/18 09:32 Tylenol - PO Q4H PRN FEVER Al Hydroxide/Mg Hydroxide 30 ml 11/15/18 09:32 11/16/18 13:58 Mylanta Oral Suspension - PO 30 ml Q6H PRN Administration DYSPEPSIA Eucalyptus/Menthol/Phenol/Sorbitol 1 each 11/15/18 09:32 Cepastat Lozenge - MM Q4H PRN SORE THROAT Guaifenesin 10 ml 11/15/18 09:32 Robitussin - PO Q6H PRN COUGH Hydroxyzine Pamoate 50 mg 11/15/18 09:32 Vistaril - PO Q4H PRN AGITATION Ibuprofen 400 mg 11/15/18 09:32 Motrin - PO Q6H PRN Pain level 4-6 Loperamide HCl 4 mg 11/15/18 09:32 Imodium - PO Q6H PRN DIARRHEA Magnesium Citrate 300 ml 11/15/18 09:32 Citroma - PO Q48H PRN CONSTIPATION Magnesium Hydroxide 30 ml 11/15/18 09:32 11/23/18 02:53 Milk Of Magnesia - PO 30 ml DAILY PRN Administration CONSTIPATION Melatonin 10 mg 11/22/18 07:32 11/26/18 21:32 Melatonin PO 10 mg HS PRN Administration INSOMNIA Mirtazapine 30 mg 11/15/18 22:00 11/26/18 21:32 Remeron - PO 30 mg HS HARLEY Administration Nicotine 21 mg 11/15/18 10:00 11/27/18 10:38 Nicoderm Patch - TD 21 mg DAILY HARLEY Administration Pancrelipase 1 cap 11/21/18 12:00 11/27/18 12:[address] 36,000 Units Capsule PO Not Given TIDCM HARLEY Pantoprazole Sodium 40 mg 11/15/18 10:00 11/27/18 10:38 Protonix - PO 40 mg DAILY HARLEY Administration Multivit/Folic Acid/Iron 1 tab 11/15/18 10:00 11/27/18 10:38 Vitamins (Sjr) - PO 1 tab DAILY HARLEY Administration Pseudoephedrine/Triprolidine 1 combo 11/15/18 09:32 Actifed - PO TID PRN NASAL CONGESTION Quetiapine Fumarate 100 mg 11/15/18 22:00 11/26/18 21:31 Seroquel - PO 100 mg HS HARLEY Administration Simethicone 80 mg 11/18/18 08:14 Mylicon - PO Q4H PRN INDIGESTION Thiamine HCl 100 mg 11/15/18 22:00 11/26/18 21:32 Vitamin B1 - PO 100 mg HS HARLEY Administration Medication(s) Change(s): Yes. Current Side Effect: No Lab tests ordered: No Lab tests reviewed: Yes Provider note:: Patient reports difficulty sleeping despite accepting seroquel 100mg + Remeron 30mg + Melatonin 10mg. Mr. Baxter reports awakening at 1-2 am and having difficulty returning to sleep. Will d/c melatonin 10mg and will order Belsomra 10mg HS. Patient also educated on the importance of proper sleep hygiene. Benefits and side effects discussed. Verbal consent given. Total face to face time:: 20 Mental Status Exam - Mental Status Exam Alert and Oriented to: Time, Place, Person Cognitive Function: Good Patient Appearance: Well Groomed Mood: Euthymic Affect: Mood Congruent Patient Behavior: Cooperative Speech Pattern: Appropriate Voice Loudness: Normal Thought Process: Goal Oriented Thought Disorder: Not Present Hallucinations: Denies Suicidal Ideation: Denies Homicidal Ideation: Denies Insight/Judgement: Poor Sleep: Poorly Appetite: Fair Muscle strength/Tone: Normal Gait/Station: Normal Psychiatric Treatment Plan - Problem List (1) Substance induced mood disorder Current Visit: No (2) Cocaine dependence Current Visit: Yes (3) Substance-induced sleep disorder Current Visit: Yes (4) Alcohol dependence Current Visit: Yes Qualifiers: (5) Substance-induced sleep disorder Current Visit: Yes
[2018-11-27] MEDS: MIRTAZAPINE 30 MG TABLET (FP) PO SCH (21:00)
[2018-11-27] MEDS: QUEtiapine FUMARATE 100 MG TABLET (FP) PO SCH (21:00)
[2018-11-27] MEDS: THIAMINE HCL 100 MG TABLET (FP) PO SCH (21:00)
[2018-11-27] MEDS: SUVOREXANT 10 MG TABLET PO PRN (21:01)
[2018-11-28] MEDS: LIPASE/PROTEASE/AMYLASE 36,000 UNIT CAPSULE PO SCH ×4 (07:47→18:09)
[2018-11-28] MEDS: PRENATAL VITAMINS W/ FOLIC ACID TABLET (FP) PO SCH (10:04)
[2018-11-28] MEDS: PANTOPRAZOLE 40 MG TABLET (FP) PO SCH (10:04)
[2018-11-28] MEDS: NICOTINE 21 MG/24 HOURS TOPICAL PATCH TD SCH (10:04)
[2018-11-28] MEDS ORDERED: PT OWN MED DRAWER 7, Y5N ONE ×3 (10:54→12:37)
[2018-11-28] MEDS: MIRTAZAPINE 30 MG TABLET (FP) PO SCH (21:21)
[2018-11-28] MEDS: THIAMINE HCL 100 MG TABLET (FP) PO SCH (21:21)
[2018-11-28] MEDS: QUEtiapine FUMARATE 100 MG TABLET (FP) PO SCH (21:22)
[2018-11-28] MEDS: SUVOREXANT 10 MG TABLET PO PRN (21:23)
[2018-11-29] MEDS: LIPASE/PROTEASE/AMYLASE 36,000 UNIT CAPSULE PO SCH ×3 (08:29→16:31)
[2018-11-29] MEDS: PRENATAL VITAMINS W/ FOLIC ACID TABLET (FP) PO SCH (10:04)
[2018-11-29] MEDS: NICOTINE 21 MG/24 HOURS TOPICAL PATCH TD SCH (10:04)
[2018-11-29] MEDS: PANTOPRAZOLE 40 MG TABLET (FP) PO SCH (10:04)
[2018-11-29] MEDS: QUEtiapine FUMARATE 100 MG TABLET (FP) PO SCH (21:05)
[2018-11-29] MEDS: MIRTAZAPINE 30 MG TABLET (FP) PO SCH (21:05)
[2018-11-29] MEDS: THIAMINE HCL 100 MG TABLET (FP) PO SCH (21:05)
[2018-11-29] MEDS: SUVOREXANT 10 MG TABLET PO PRN (21:06)
[2018-11-30] MEDS: LIPASE/PROTEASE/AMYLASE 36,000 UNIT CAPSULE PO SCH ×3 (08:51→16:30)
[2018-11-30] MEDS: NICOTINE 21 MG/24 HOURS TOPICAL PATCH TD SCH (10:04)
[2018-11-30] MEDS: PANTOPRAZOLE 40 MG TABLET (FP) PO SCH (10:04)
[2018-11-30] MEDS: PRENATAL VITAMINS W/ FOLIC ACID TABLET (FP) PO SCH (10:04)
[2018-11-30] MEDS: THIAMINE HCL 100 MG TABLET (FP) PO SCH (21:37)
[2018-11-30] MEDS: MIRTAZAPINE 30 MG TABLET (FP) PO SCH (21:37)
[2018-11-30] MEDS: QUEtiapine FUMARATE 100 MG TABLET (FP) PO SCH (21:37)
[2018-11-30] MEDS: SUVOREXANT 10 MG TABLET PO PRN (21:38)
[2018-12-01] MEDS: LIPASE/PROTEASE/AMYLASE 36,000 UNIT CAPSULE PO SCH ×3 (08:16→17:04)
[2018-12-01] MEDS: NICOTINE 21 MG/24 HOURS TOPICAL PATCH TD SCH (10:16)
[2018-12-01] MEDS: PANTOPRAZOLE 40 MG TABLET (FP) PO SCH (10:16)
[2018-12-01] MEDS: PRENATAL VITAMINS W/ FOLIC ACID TABLET (FP) PO SCH (10:16)
[2018-12-01] MEDS ORDERED: PT OWN MED DRAWER 7, Y5N ONE ×2 (16:52→17:17)
[2018-12-01] MEDS: THIAMINE HCL 100 MG TABLET (FP) PO SCH (21:05)
[2018-12-01] MEDS: QUEtiapine FUMARATE 100 MG TABLET (FP) PO SCH (21:05)
[2018-12-01] MEDS: MIRTAZAPINE 30 MG TABLET (FP) PO SCH (21:05)
[2018-12-01] MEDS: SUVOREXANT 10 MG TABLET PO PRN (21:06)
[2018-12-02] MEDS: LIPASE/PROTEASE/AMYLASE 36,000 UNIT CAPSULE PO SCH ×3 (07:46→18:09)
[2018-12-02] MEDS: PRENATAL VITAMINS W/ FOLIC ACID TABLET (FP) PO SCH (09:48)
[2018-12-02] MEDS: NICOTINE 21 MG/24 HOURS TOPICAL PATCH TD SCH (09:48)
[2018-12-02] MEDS: PANTOPRAZOLE 40 MG TABLET (FP) PO SCH (09:48)
[2018-12-02] MEDS: THIAMINE HCL 100 MG TABLET (FP) PO SCH (21:00)
[2018-12-02] MEDS: QUEtiapine FUMARATE 100 MG TABLET (FP) PO SCH (21:00)
[2018-12-02] MEDS: MIRTAZAPINE 30 MG TABLET (FP) PO SCH (21:00)
[2018-12-02] MEDS: SUVOREXANT 10 MG TABLET PO PRN (21:02)
[2018-12-03] MEDS ORDERED: PT OWN MED DRAWER 7, Y5N ONE (05:53)
[2018-12-03] MEDS: LIPASE/PROTEASE/AMYLASE 36,000 UNIT CAPSULE PO SCH ×3 (08:20→17:20)
[2018-12-03] MEDS: PRENATAL VITAMINS W/ FOLIC ACID TABLET (FP) PO SCH (09:51)
[2018-12-03] MEDS: PANTOPRAZOLE 40 MG TABLET (FP) PO SCH (09:52)
[2018-12-03] MEDS: NICOTINE 21 MG/24 HOURS TOPICAL PATCH TD SCH (09:52)
--- NOTE | 2018-12-03 10:47 | DS ---
[facility] Rehab Discharge Summary - [facility] Rehab Discharge Summary Admission Date: 11/15/18 Discharge Date: 12/04/18 - History Present History: Alcohol dependence, Cocaine dependence Pertinent Past History: this 73 years old male with alcohol and cocaine dependence,multiple admissions in detox,and rehab for relapses,last rehab [facility] 09/25/18 to 10/04/18 denied seizure denied syncope nicotine dependence 1 pack/day weight loss pseudocyst of pancrease surgery,no med longest period of sobriety 6 and a half year gerd history of depression - Discharge Physical Exam Vital Signs: Vital Signs Temperature 98.2 F 12/03/18 06:46 Pulse Rate 93 H 12/03/18 06:46 Respiratory Rate 20 12/03/18 06:46 Blood Pressure 138/74 12/03/18 06:46 O2 Sat by Pulse Oximetry (%) Pertinent Admission Physical Exam Findings: - Physical General Appearance: No Apparent Distress HEENTM: LEO, normocephalic, edentulous Respiratory: Lungs Clear, Neck:Supple, Trachea in good position Cardiology: Regular Rhythm & Rate, S1, S2 Abdominal: +Bowel Sounds, Non Tender, Soft, Musculoskeletal: Full ROM, Full weight bearing, steady gait Neurological: tooth clerk II-XII NML intact,Motor Strength 5/5 Integumentary: skin color consistent throughout trunk and extremities - Treatment Discharge Condition: Outpatient referral accepted (medically stable for discharge.Patient has not accepted a referral to aftercare. 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 Plans to see his sponsor today and attend a meeting.) Hospital Course: Patient attended meetings, was seen by psychiatric provider, was adherent to medication and treatment plan. He had no acute or urgent medical problems during his time in rehab. - Medication Discharge Medications: Ambulatory Orders Lipase/Protease/Amylase [Mariana Harmon 24,000 Units Capsule] 1 cap PO TID PRN Mirtazapine [Remeron -] 30 mg PO HS #30 tablet 08/20/18 traZODone HCL [Desyrel -] 50 mg PO HS #30 tablet 08/20/18 Quetiapine Fumarate [Seroquel] 100 mg PO HS #30 tablet 10/04/18 - Medication-Assisted Treatment (MAT) Medication-Assisted Treatment (MAT): No - Discharge Instructions Diet, activity, other medical instructions: Diet: as tolerated Activity: as tolerated Other medical instructions: Please continue with plan to attend AA meetings. Please see PCP within 2 weeks of discharge. - Diagnosis (1) Alcohol dependence Current Visit: Yes Status: Chronic Qualifiers: Substance use status: uncomplicated Qualified Code(s): F10.20 - Alcohol dependence, uncomplicated (2) Cocaine dependence Current Visit: Yes Status: Chronic Qualifiers: Substance use status: uncomplicated Qualified Code(s): F14.20 - Cocaine dependence, uncomplicated - Follow-up Referral Minutes to complete discharge: 20 - AMA Did Patient Leave Against Medical Advice: No Additional Comments: patient refused prescriptions for Creon. Stated he had a sufficient supply at home. Also refused psychiatric medications and stated that he only takes them when in rehab in order to sleep.
[2018-12-03] MEDS: QUEtiapine FUMARATE 100 MG TABLET (FP) PO SCH (21:51)
[2018-12-03] MEDS: SUVOREXANT 10 MG TABLET PO PRN (21:51)
[2018-12-03] MEDS: THIAMINE HCL 100 MG TABLET (FP) PO SCH (21:51)
[2018-12-03] MEDS: MIRTAZAPINE 30 MG TABLET (FP) PO SCH (21:51)
[2018-12-04 06:57] VITALS: BP 154/74; PULSE 87; TEMP 97.8
== END 2018-12-04 08:15 | disposition home or self-care (01) | DRG 895 ==
LOC: YASAS 08:25 → Y3W 09:24
PROVIDERS: ADMIT Neuromusculoskeletal Medicine & OMM; ATTEND Neuromusculoskeletal Medicine & OMM
PROC: HZ42ZZZ Group Counseling for Substance Abuse Treatment, Cognitive-Behavioral (ICD-10-PCS; principal; 2018-11-15)
DX: F10.20 Alcohol dependence, uncomplicated (principal); F14.20 Cocaine dependence, uncomplicated; F19.282 Other psychoactive substance dependence with psychoactive substance-induced sleep disorder; F17.210 Nicotine dependence, cigarettes, uncomplicated; F19.24 Other psychoactive substance dependence with psychoactive substance-induced mood disorder; F32.9 Major depressive disorder, single episode, unspecified; K21.9 Gastro-esophageal reflux disease without esophagitis; M19.90 Unspecified osteoarthritis, unspecified site; R63.4 Abnormal weight loss; R12 Heartburn; R76.11 Nonspecific reaction to tuberculin skin test without active tuberculosis; Z91.013 Allergy to seafood; Z91.018 Allergy to other foods; Z91.048 Other nonmedicinal substance allergy status
CPT/HCPCS: 36415; 80053; 81003; 85027; 86593

== ENCOUNTER 2018-12-25 10:04 | Inpatient (IN) | payer OTHER ==
[2018-12-25 10:33] VITALS: BMI 26.6
--- NOTE | 2018-12-25 11:40 | HP ---
CIWA Score Nausea/Vomitin Muscle Tremors: 2 Anxiety: 3 Agitation: 1-Slight > Activity Paroxysmal Sweats: 3 Orientation: 0-Oriented Tacttile Disturbances: 0-None Auditory Disturbances: 0-None Visual Disturbances: 1-Very Mild Sensitivity Headache: 2-Mild CIWA-Ar Total Score: 15 - Admission Criteria OASAS Guidelines: Admission for Medically Managed Detox: Requires at least one of the followin. CIWA greater than 12 2. Seizures within the past 24 hours 3. Delirium tremens within the past 24 hours 4. Hallucinations within the past 24 hours 5. Acute intervention needed for co occurring medical disorder 6. Acute intervention needed for co occurring psychiatric disorder 7. Severe withdrawal that cannot be handled at a lower level of care (continued vomiting, continued diarrhea, abnormal vital signs) requiring intravenous medication and/or fluids 8. Admitting History and Physical - Admission Chief Complaint: " I want to go to detox and then follow up with rehab." History of Present Illness: 73 year old black male with alcohol dependence with withdrawal and cocaine use disorder. He is drinking 2 pints per day, last drank this morning. He has withdrawal seizures one year ago. He wants to complete detox and follow up with rehab this time. He is using cocaine using 3-6 gm per daily. PMH: History of Pancreatitism GERD Psurg: None History Source: Patient Limitations to Obtaining History: No Limitations - Past Medical History Gastrointestinal: Yes: GERD, Pancreatitis - Smoking History Smoking history: Current every day smoker Have you smoked in the past 12 months: Yes Aproximately how many cigarettes per day: 20 - Alcohol/Substance Use Hx Alcohol Use: Yes Admission [facility] Allergies/Adverse Reactions: Allergies Allergy/AdvReac Type Severity Reaction Status Date / Time shellfish derived Allergy Mild Rash Verified 12/25/18 10:29 tomato Allergy Mild Rash Verified 12/25/18 10:29 iodine Allergy Rash Verified 12/25/18 10:29 Exam Limitations: No Limitations - Ebola screening Have you traveled outside of the country in the last 21 days: No Have you had contact with anyone from an Ebola affected area: No Have you been sick,other than usual withdrawal symptoms: No Do you have a fever: No - Review of Systems Constitutional: Chills, Diaphoresis EENT: reports: No Symptoms Reported Respiratory: reports: No Symptoms reported Cardiac: reports: No Symptoms Reported GI: reports: No Symptoms Reported : reports: No Symptoms Reported Musculoskeletal: reports: Back Pain, Muscle Pain Integumentary: reports: No Symptoms Reported Neuro: reports: Headache Endocrine: reports: No Symptoms Reported Hematology: reports: No Symptoms Reported Psychiatric: reports: Judgement Intact, Mood/Affect Appropiate, Orientated x3 Other Systems: Reviewed and Negative Patient History - Patient Medical History Hx Anemia: No Hx Asthma: No Hx Chronic Obstructive Pulmonary Disease (COPD): No Hx Cancer: No Hx Cardiac Disorders: No Hx Congestive Heart Failure: No Hx Hypertension: No Hx Hypercholesterolemia: No Hx Pacemaker: No HX Cerebrovascular Accident: No Hx Seizures: No Hx Dementia: No Hx Diabetes: No Hx Gastrointestinal Disorders: Yes (gerd,pseudocyst pof pancrease) Hx Liver Disease: No Hx Genitourinary Disorders: No Hx Sexually Transmitted Disorders: No Hx Renal Disease (ESRD): No Hx Thyroid Disease: No Hx Human Immunodeficiency Virus (HIV): No (last 04/09 negative) Hx Hepatitis C: No Hx Depression: No Hx Suicide Attempt: No Hx Bipolar Disorder: No Hx Schizophrenia: No - Patient Surgical History Past Surgical History: Yes Hx Neurologic Surgery: No Hx Cataract Extraction: No Hx Cardiac Surgery: No Hx Lung Surgery: No Hx Breast Surgery: No Hx Breast Biopsy: No Hx Abdominal Surgery: Yes (internal bleeding, PANCREATIC PSEUDOCYST 2002) Hx Appendectomy: No Hx Cholecystectomy: No Hx Genitourinary Surgery: No Hx Section: No Hx Orthopedic Surgery: No Anesthesia Reaction: No - PPD History Previous Implant?: No Documented Results: Positive w/proof Implanted On Prior R Admission?: No Date: 02/15/18 Results: CXR(-)02/18/18 PPD to be Administered?: No - Smoking Cessation Smoking history: Current every day smoker Have you smoked in the past 12 months: Yes Aproximately how many cigarettes per day: 20 Cigars Per Day: 0 Hx Chewing Tobacco Use: No Initiated information on smoking cessation: Yes 'Breaking Loose' booklet given: 12/25/18 - Substances abused Alcohol Substance route: Oral Frequency: 3-6 times per week Amount used: 1- 1/2pint vodka & 6 cans of beers Age of first use: 15 Date of last use: 12/25/18 Cocaine Substance route: Inhalation Frequency: Daily Amount used: 3-6grams Age of first use: 16 Date of last use: 12/24/18 Admission Physical Exam [facility] - Vital Signs Vital Signs: Vital Signs - 24 hr 12/25/18 10:28 Temperature 97.0 F L Pulse Rate 85 Respiratory 20 Rate Blood Pressure 129/78 - Physical General Appearance: Yes: Moderate Distress HEENTM: Yes: EOMI, Hearing grossly Normal, Normal ENT Inspection, Normocephalic , Normal Voice, LEO, Pharynx Normal, Tm's normal Respiratory: Yes: Chest Non-Tender, Lungs Clear, Normal Breath Sounds, No Respiratory Distress, No Accessory Muscle Use Neck: Yes: No masses,lesions,Nodules, Supple, Trachea in good position Breast: Yes: Within Normal Limits Cardiology: Yes: Regular Rhythm, Regular Rate, S1, S2 Abdominal: Yes: Increased Bowel Sounds Genitourinary: Yes: Within Normal Limits Back: Yes: Normal Inspection Musculoskeletal: Yes: full range of Motion, Gait Steady, Pelvis Stable Extremities: Yes: Normal Capillary Refill, Normal Inspection, Normal Range of Motion, Non-Tender Neurological: Yes: it support technician II-XII NML intact, Fully Oriented, Alert, Motor Strength 5/5, Normal Mood/Affect, Normal Response Integumentary: Yes: Normal Color, Warm Lymphatic: Yes: Within Normal Limits - Diagnostic (1) Alcohol-induced sleep disorder Current Visit: Yes Status: Acute (2) Alcohol dependence with uncomplicated withdrawal Current Visit: Yes Status: Chronic (3) Arthritis Current Visit: Yes Status: Chronic (4) Cocaine dependence, uncomplicated Current Visit: Yes Status: Chronic (5) GERD (gastroesophageal reflux disease) Current Visit: Yes Status: Chronic Qualifiers: (6) Insomnia Current Visit: Yes Status: Chronic (7) Nicotine dependence Current Visit: Yes Status: Chronic Qualifiers: Cleared for Admission [facility] - Detox or Rehab [facility] Level of Care: Medically Managed Detox Regimen/Protocol: Librium Claeared for Rehab Admission: No Screened but not Admitted - Documentation of Visit Screened but not Admitted: No Breathalyzer - Breathalyzer Breathalyzer: 0.024 Urine Drug Screen - Test Device Lot number: [id number] Expiration date: 08/18/20 - Control Is test valid?: Yes - Results Drug screen NEGATIVE: No Urine drug screen results: GURDEEP-Cocaine, BZO-Benzodiazepines Inpatient Rehab Admission - Rehab Decision to Admit Inpatient rehab admission?: No
[2018-12-25] MEDS ORDERED: METHOCARBAMOL 500 MG TABLET PO PRN (11:44)
[2018-12-25] MEDS ORDERED: IBUPROFEN 400 MG TABLET (FP) PO PRN (11:44)
[2018-12-25] MEDS ORDERED: BISMUTH SUBSALICYLATE 524 MG/30 ML UD PO PRN (11:44)
[2018-12-25] MEDS ORDERED: ACETAMINOPHEN 325 MG TABLET (FP) PO PRN ×2 (11:44)
[2018-12-25] MEDS ORDERED: MELATONIN 5 MG TABLETS PO PRN (11:44)
[2018-12-25] MEDS ORDERED: MAGNESIUM HYDROX 2400MG/30ML ORAL SUSPENSION 30 ML CUP PO PRN (11:44)
[2018-12-25] MEDS ORDERED: chlordiazePOXIDE HCL 10 MG CAPSULE PO PRN (11:44)
[2018-12-25] MEDS ORDERED: MAG HYDROX/AL HYDROX/SIMETH 30 ML UNIT-DOSE CUP PO PRN (11:44)
[2018-12-25] MEDS ORDERED: MAGNESIUM CITRATE 300 ML BOTTLE PO PRN (11:44)
[2018-12-25] MEDS ORDERED: MENTHOL/PHENOL 1 EACH UD MM PRN (11:44)
[2018-12-25] MEDS ORDERED: hydrOXYzine PAMOATE 25 MG CAPSULE (FP) PO PRN (11:44)
[2018-12-25] MEDS: chlordiazePOXIDE HCL 25 MG CAPSULE PO SCH ×2 (12:53→22:26)
[2018-12-25 15:44] LABS: HEMATOCRIT 38.9 % (35.4-49); HEMOGLOBIN 12.9 GM/dL (11.7-16.9); MCH 32.8 pg (25.7-33.7); MCHC 33.2 g/dl (32.0-35.9); MEAN CELL VOLUME 98.9 fl (80-96); MEAN PLT VOLUME 9.2 fl (7.5-11.1); PLATELET COUNT 124 K/MM3 (134-434); RBC 3.93 M/mm3 (4.00-5.60); RDW 16.9 % (11.9-15.9); WHITE BLOOD COUNT 2.8 K/mm3 (4.0-10.0)
[2018-12-25 16:01] LABS: ALBUMIN 3.3 g/dl (3.4-5.0); BILIRUBIN,TOTAL 0.3 mg/dL (0.2-1); BLOOD UREA NITROGEN 11.5 mg/dL (7-18); CALCIUM 9.2 mg/dL (8.5-10.1); CREATININE 1.5 mg/dL (0.55-1.3); TOT PROT 7.5 g/dl (6.4-8.2)
[2018-12-25] MEDS: MIRTAZAPINE 30 MG TABLET (FP) PO SCH (22:26)
[2018-12-25] MEDS: THIAMINE HCL 100 MG TABLET (FP) PO SCH (22:26)
[2018-12-25] MEDS: SUVOREXANT 10 MG TABLET PO PRN (22:27)
[2018-12-26] MEDS: chlordiazePOXIDE HCL 25 MG CAPSULE PO SCH ×3 (06:23→22:13)
[2018-12-26] MEDS: NICOTINE 14 MG/24 HOURS TOPICAL PATCH TD SCH (10:58)
[2018-12-26] MEDS: PRENATAL VITAMINS W/ FOLIC ACID TABLET (FP) PO SCH (10:58)
--- NOTE | 2018-12-26 11:06 | CONSULT ---
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 Refer to addiction counselor's summary for further information Medical History: Significant for GERD, arthritis, PPD+, history of chronic alcoholic pancreatitis, surgery for pseudocyst of the pancreas in 2002 and removal of calcaneal spur right foot. Smokes cigarettes 1 ppd daily Psychiatric History: Patient is known well known to medical writer from previous admission in this facility. Historical narrative remains consistent. He reports that he received psychiatric treatment for depression when he was around 5 or 6 years old. He has no recollection of medication he was prescibed but claims he took it for a year. Denies any further psychiatric treatment since, except receiving medication for insomnia during admission to substance abuse inpatient. During his most recent admission to this facility, he was seen by medical writer on 11/15/18 and he was prescribed Seroquel 100 mg/hs and Remeron 30 mg/ hs. Told medical writer that he has been off medications since discharge from this facility on 12/04/18. Denies psychiatric hospitalization or suicidal attempt. At present, reports feeling mildly depressed and sleeping poorly. Requests to be ordered Seroquel and Remeron for insomnia Physical/Sexual Abuse/Trauma History: Denies history of emotional, physical or sexual abuse as well as DV relationship Additional Comment: Reports history of multiple previous arrests including 3 felony convictions. Denies being on parole/probation currently Mental Status Exam - Mental Status Exam Alert and Oriented to: Time, Place, Person Cognitive Function: Fair Patient Appearance: Well Groomed Mood: Depressed Affect: Appropriate Speech Pattern: Clear Voice Loudness: Normal Thought Process: Intact, Goal Oriented Hallucinations: Denies Suicidal Ideation: Denies Homicidal Ideation: Denies Insight/Judgement: Poor Sleep: Poorly Appetite: Good Muscle strength/Tone: Normal Gait/Station: Normal Psychiatric Findings - Problem List ([place] 1, 2,3) (1) Substance induced mood disorder Current Visit: No Status: Acute (2) Substance-induced sleep disorder Current Visit: No Status: Acute (3) Alcohol dependence with uncomplicated withdrawal Current Visit: Yes Status: Acute (4) Cocaine dependence, uncomplicated Current Visit: Yes Status: Acute (5) Nicotine dependence Current Visit: Yes Status: Chronic Qualifiers: (6) Arthritis Current Visit: Yes Status: Chronic (7) GERD (gastroesophageal reflux disease) Current Visit: Yes Status: Chronic Qualifiers: (8) Chronic alcoholic pancreatitis Current Visit: No Status: Chronic (9) PPD positive Current Visit: No Status: Chronic (10) Pseudocyst of pancreas Current Visit: No Status: Resolved - Initial Treatment Plan Initial Treatment Plan: 1) Resume Seroquel 100 mg po HS and Remeron 30 mg po HS. 2) Continue inpatient detoxification
--- NOTE | 2018-12-26 11:15 | PN ---
[facility] CIWA - CIWA Score Nausea/Vomitin-Mild Nausea/No Vomiting Muscle Tremors: 2 Anxiety: 2 Agitation: 2 Paroxysmal Sweats: No Perspiration Orientation: 0-Oriented Tacttile Disturbances: 1-Very Mild Itch/Numbness Auditory Disturbances: 0-None Visual Disturbances: 0-None Headache: 1-Very Mild CIWA-Ar Total Score: 9 S Progress Note (SOAP) Subjective: alert,irritable,anxious,interrupted sleep,tremor Objective: 12/26/18 11:12 Vital Signs Temperature 98.1 F 12/26/18 10:24 Pulse Rate 77 12/26/18 10:24 Respiratory Rate 18 12/26/18 10:24 Blood Pressure 116/75 12/26/18 10:24 O2 Sat by Pulse Oximetry (%) 12/26/18 11:12 Laboratory Last Values WBC 2.8 K/mm3 (4.0-10.0) L 12/25/18 12:20 RBC 3.93 M/mm3 (4.00-5.60) L 12/25/18 12:20 Hgb 12.9 GM/dL (11.7-16.9) 12/25/18 12:20 Hct 38.9 % (35.4-49) 12/25/18 12:20 MCV 98.9 fl (80-96) H 12/25/18 12:20 MCH 32.8 pg (25.7-33.7) 12/25/18 12:20 MCHC 33.2 g/dl (32.0-35.9) 12/25/18 12:20 RDW 16.9 % (11.9-15.9) H 12/25/18 12:20 Plt Count 124 K/MM3 (134-434) L 12/25/18 12:20 MPV 9.2 fl (7.5-11.1) 12/25/18 12:20 Sodium 139 mmol/L (136-145) 12/25/18 12:20 Potassium 4.0 mmol/L (3.5-5.1) 12/25/18 12:20 Chloride 106 mmol/L (98-107) 12/25/18 12:20 Carbon Dioxide 29 mmol/L (21-32) 12/25/18 12:20 Anion Gap 5 MMOL/L (8-16) L 12/25/18 12:20 BUN 11.5 mg/dL (7-18) 12/25/18 12:20 Creatinine 1.5 mg/dL (0.55-1.3) H 12/25/18 12:20 Est GFR (CKD-EPI)AfAm 52.77 12/25/18 12:20 Est GFR (CKD-EPI)NonAf 45.53 12/25/18 12:20 Random Glucose 107 mg/dL (74-106) H 12/25/18 12:20 Calcium 9.2 mg/dL (8.5-10.1) 12/25/18 12:20 Total Bilirubin 0.3 mg/dL (0.2-1) 12/25/18 12:20 AST 22 U/L (15-37) 12/25/18 12:20 ALT 18 U/L (13-61) 12/25/18 12:20 Alkaline Phosphatase 64 U/L (45-117) 12/25/18 12:20 Total Protein 7.5 g/dl (6.4-8.2) 12/25/18 12:20 Albumin 3.3 g/dl (3.4-5.0) L 12/25/18 12:20 RPR Titer Nonreactive (NONREACTIVE) 12/25/18 12:20 Assessment: 12/26/18 11:14 withdrawal symptom Plan: continue detox,encourage oral fluid,poor appetite,ensure plus 120 mls po bid
[2018-12-26] MEDS: SUVOREXANT 10 MG TABLET PO PRN (22:12)
[2018-12-26] MEDS: QUEtiapine FUMARATE 100 MG TABLET (FP) PO SCH (22:12)
[2018-12-26] MEDS: MIRTAZAPINE 30 MG TABLET (FP) PO SCH (22:13)
[2018-12-26] MEDS: THIAMINE HCL 100 MG TABLET (FP) PO SCH (22:13)
[2018-12-27] MEDS: chlordiazePOXIDE 5 MG CAPSULE PO SCH ×3 (05:54→22:26)
[2018-12-27] MEDS: NICOTINE 14 MG/24 HOURS TOPICAL PATCH TD SCH (10:15)
[2018-12-27] MEDS: PRENATAL VITAMINS W/ FOLIC ACID TABLET (FP) PO SCH (10:15)
--- NOTE | 2018-12-27 13:40 | PN ---
S CIWA - CIWA Score Nausea/Vomitin-No Nausea/No Vomiting Muscle Tremors: 3 Anxiety: 2 Agitation: 2 Paroxysmal Sweats: 2 Orientation: 0-Oriented Tacttile Disturbances: 0-None Auditory Disturbances: 0-None Visual Disturbances: 0-None Headache: 0-None Present CIWA-Ar Total Score: 9 S Progress Note (SOAP) Subjective: irritable agitation sweats body aches Objective: 12/27/18 13:40 Vital Signs Temperature 98.2 F 12/26/18 21:13 Pulse Rate 99 H 12/26/18 21:13 Respiratory Rate 18 12/27/18 03:30 Blood Pressure 122/65 12/26/18 21:13 O2 Sat by Pulse Oximetry (%) Laboratory Tests 12/25/18 12/25/18 12/25/18 12:20 12:20 12:20 WBC 2.8 L RBC 3.93 L Hgb 12.9 Hct 38.9 MCV 98.9 H MCH 32.8 MCHC 33.2 RDW 16.9 H Plt Count 124 L MPV 9.2 Sodium 139 Potassium 4.0 Chloride 106 Carbon Dioxide 29 Anion Gap 5 L BUN 11.5 Creatinine 1.5 H Est GFR (CKD-EPI)AfAm 52.77 Est GFR (CKD-EPI)NonAf 45.53 Random Glucose 107 H Calcium 9.2 Total Bilirubin 0.3 AST 22 ALT 18 Alkaline Phosphatase 64 Total Protein 7.5 Albumin 3.3 L RPR Titer Nonreactive labs noted aaox3 ambulating no acute distress Assessment: 12/27/18 13:41 withdrawals sx Plan: continue detox increase fluids
[2018-12-27] MEDS: THIAMINE HCL 100 MG TABLET (FP) PO SCH (22:26)
[2018-12-27] MEDS: QUEtiapine FUMARATE 100 MG TABLET (FP) PO SCH (22:26)
[2018-12-27] MEDS: MIRTAZAPINE 30 MG TABLET (FP) PO SCH (22:26)
[2018-12-27] MEDS: SUVOREXANT 10 MG TABLET PO PRN (22:27)
[2018-12-28] MEDS ORDERED: chlordiazePOXIDE HCL 10 MG CAPSULE PO PRN
[2018-12-28] MEDS: chlordiazePOXIDE HCL 10 MG CAPSULE PO SCH ×3 (06:46→22:48)
[2018-12-28] MEDS: PRENATAL VITAMINS W/ FOLIC ACID TABLET (FP) PO SCH (11:04)
[2018-12-28] MEDS: NICOTINE 14 MG/24 HOURS TOPICAL PATCH TD SCH (11:05)
--- NOTE | 2018-12-28 12:21 | PN ---
S CIWA - CIWA Score Nausea/Vomitin-No Nausea/No Vomiting Muscle Tremors: 2 Anxiety: 1-Mildly Anxious Agitation: 1-Slight > Activity Paroxysmal Sweats: No Perspiration Orientation: 0-Oriented Tacttile Disturbances: 0-None Auditory Disturbances: 0-None Visual Disturbances: 0-None Headache: 0-None Present CIWA-Ar Total Score: 4 BHS Progress Note (SOAP) Subjective: feeling better little anxiety Objective: 12/28/18 12:20 Vital Signs Temperature 97.7 F 12/28/18 09:48 Pulse Rate 79 12/28/18 09:48 Respiratory Rate 16 12/28/18 09:48 Blood Pressure 135/66 12/28/18 09:48 O2 Sat by Pulse Oximetry (%) aaox3 ambulating no acute distress Assessment: 12/28/18 12:21 mild withdrawal sx Plan: continue detox increase fluids d/c in am
[2018-12-28] MEDS: THIAMINE HCL 100 MG TABLET (FP) PO SCH (22:48)
[2018-12-28] MEDS: QUEtiapine FUMARATE 100 MG TABLET (FP) PO SCH (22:48)
[2018-12-28] MEDS: MIRTAZAPINE 30 MG TABLET (FP) PO SCH (22:48)
[2018-12-29] MEDS ORDERED: chlordiazePOXIDE HCL 10 MG CAPSULE PO ONE (05:00)
[2018-12-29 09:46] VITALS: BP 150/71; PULSE 91; TEMP 98.1
--- NOTE | 2018-12-29 18:01 | DS ---
[facility] Detox Discharge Summary Admission Date: 12/25/18 Discharge Date: 12/29/18 - History Present History: Alcohol Dependence Additional Comments: Pt completed detox completely and discharged safely. Pt requesting inpatient rehab but no beds available. Pt instructed to call tomorrow to see if any bed available. Pt discharged in stable condition. Pt instructed to follow up with PCP within one week. Pertinent Past History: GERD Pancreatitis History of positive PPD - Physical Exam Results Vital Signs: Vital Signs Temperature 98.1 F 12/29/18 09:45 Pulse Rate 91 H 12/29/18 09:45 Respiratory Rate 16 12/29/18 09:45 Blood Pressure 150/71 12/29/18 09:45 O2 Sat by Pulse Oximetry (%) Elevated b/p: denies htn, could be r/t anxiety, follow up with PCP for monitoring Pertinent Admission Physical Exam Findings: Withdrawal sxs Laboratory Tests 12/25/18 12/25/18 12/25/18 12:20 12:20 12:20 WBC 2.8 L RBC 3.93 L Hgb 12.9 Hct 38.9 MCV 98.9 H MCH 32.8 MCHC 33.2 RDW 16.9 H Plt Count 124 L MPV 9.2 Sodium 139 Potassium 4.0 Chloride 106 Carbon Dioxide 29 Anion Gap 5 L BUN 11.5 Creatinine 1.5 H Est GFR (CKD-EPI)AfAm 52.77 Est GFR (CKD-EPI)NonAf 45.53 Random Glucose 107 H Calcium 9.2 Total Bilirubin 0.3 AST 22 ALT 18 Alkaline Phosphatase 64 Total Protein 7.5 Albumin 3.3 L RPR Titer Nonreactive Labs reviewed: plt 124, serum creat 1.5, GFR < 60 (CODY), encouraged PO water intake - Treatment Hospital Course: Detox Protocol Followed, Detoxed Safely, Responded well, Discharged Condition Good, Rehab Referral Accepted - Medication Discharge Medications: Ambulatory Orders Mirtazapine [Remeron -] 30 mg PO HS #30 tablet 08/20/18 traZODone HCL [Desyrel -] 50 mg PO HS #30 tablet 08/20/18 Quetiapine Fumarate [Seroquel] 100 mg PO HS #30 tablet 10/04/18 - Diagnosis (1) Withdrawal seizures Status: Chronic (2) Acute kidney injury Status: Acute (3) Alcohol dependence with uncomplicated withdrawal Status: Chronic (4) Thrombocytopenia Status: Acute (5) GERD (gastroesophageal reflux disease) Status: Chronic Qualifiers: (6) Nicotine dependence Status: Chronic Qualifiers: (7) PPD positive Status: Chronic (8) Pseudocyst of pancreas Status: Resolved (9) Elevated blood-pressure reading, without diagnosis of hypertension Status: Acute - AMA Did Patient Leave Against Medical Advice: No (Instructed to follow up with PCP within one week)
== END 2018-12-29 09:55 | disposition home or self-care (01) | DRG 897 ==
LOC: YASAS 10:04 → Y6N 12:21
PROVIDERS: ADMIT Allergy & Immunology; ATTEND Allergy & Immunology
PROC: HZ2ZZZZ Detoxification Services for Substance Abuse Treatment (ICD-10-PCS; principal; 2018-12-25)
DX: F10.230 Alcohol dependence with withdrawal, uncomplicated (principal); F14.20 Cocaine dependence, uncomplicated; G40.509 Epileptic seizures related to external causes, not intractable, without status epilepticus; N17.9 Acute kidney failure, unspecified; F17.210 Nicotine dependence, cigarettes, uncomplicated; F10.282 Alcohol dependence with alcohol-induced sleep disorder; F32.9 Major depressive disorder, single episode, unspecified; D69.6 Thrombocytopenia, unspecified; K21.9 Gastro-esophageal reflux disease without esophagitis; R03.0 Elevated blood-pressure reading, without diagnosis of hypertension; R76.11 Nonspecific reaction to tuberculin skin test without active tuberculosis; Z91.013 Allergy to seafood; Z88.8 Allergy status to other drugs, medicaments and biological substances
CPT/HCPCS: 36415; 80053; 85027; 86593

== ENCOUNTER 2019-01-17 12:02 | Inpatient (IN) | payer OTHER ==
[2019-01-17 12:42] VITALS: BMI 26.2
--- NOTE | 2019-01-17 13:08 | HP ---
CIWA Score Nausea/Vomitin-No Nausea/No Vomiting Muscle Tremors: 1-None Visible, but [place] Anxiety: 1-Mildly Anxious Agitation: 1-Slight > Activity Paroxysmal Sweats: No Perspiration Orientation: 0-Oriented Tacttile Disturbances: 0-None Auditory Disturbances: 0-None Visual Disturbances: 0-None Headache: 1-Very Mild CIWA-Ar Total Score: 4 - Admission Criteria OASAS Guidelines: Admission for Medically Managed Detox: Requires at least one of the followin. CIWA greater than 12 2. Seizures within the past 24 hours 3. Delirium tremens within the past 24 hours 4. Hallucinations within the past 24 hours 5. Acute intervention needed for co occurring medical disorder 6. Acute intervention needed for co occurring psychiatric disorder 7. Severe withdrawal that cannot be handled at a lower level of care (continued vomiting, continued diarrhea, abnormal vital signs) requiring intravenous medication and/or fluids 8. Admitting History and Physical - Admission Chief Complaint: i need help to go to rehab from cociane and alcohol History Source: Patient Limitations to Obtaining History: No Limitations - Past Medical History Gastrointestinal: Yes: GERD, Pancreatitis - Past Surgical History Additional Past Surgical History: surgery for pseudocyst of pancrease in 1998 - Smoking History Smoking history: Current every day smoker Have you smoked in the past 12 months: Yes Aproximately how many cigarettes per day: 20 - Alcohol/Substance Use Hx Alcohol Use: Yes History of Substance Use: reports: Cocaine - Social History Usual Living Arrangement: Yes: Alone History of Recent Travel: No Other Social History: emplyed,has own residence,nicotine dependence, Admission ROS S - HPI Chief Complaint: i need help to come in for rehab from alcohol,cocaine Allergies/Adverse Reactions: Allergies Allergy/AdvReac Type Severity Reaction Status Date / Time shellfish derived Allergy Mild Rash Verified 01/17/19 12:34 tomato Allergy Mild Rash Verified 01/17/19 12:34 iodine Allergy Rash Verified 01/17/19 12:34 History of Present Illness: this 73 years old male with alcohol, and cocaine dependence,seeking rehab, multiple admissions in detox and rehab no seizure no syncope nicotine dependence poor dental,only one lower tooth history of pancreatitis history of surgery for pseudocyst of pancrease in 1998 no significant period of sobriety nicotine dependence 20 cigarette/day poor appetite Exam Limitations: No Limitations - Ebola screening Have you traveled outside of the country in the last 21 days: No Have you had contact with anyone from an Ebola affected area: No Do you have a fever: No - Review of Systems Constitutional: No Symptoms Reported EENT: reports: Other (poor dental only one lower tooth) Respiratory: reports: No Symptoms reported Cardiac: reports: No Symptoms Reported GI: reports: Other (surgical scar in midline wtih scar left lower abdomen from previous surgery) : reports: No Symptoms Reported Musculoskeletal: reports: No Symptoms Reported Integumentary: reports: No Symptoms Reported Neuro: reports: No Symptoms reported Endocrine: reports: No Symptoms Reported Hematology: reports: No Symptoms Reported Psychiatric: reports: No Sypmtoms Reported Other Systems: Reviewed and Negative Patient History - Patient Medical History Hx Anemia: No Hx Asthma: No Hx Chronic Obstructive Pulmonary Disease (COPD): No Hx Cancer: No Hx Cardiac Disorders: No Hx Congestive Heart Failure: No Hx Hypertension: No Hx Hypercholesterolemia: No Hx Pacemaker: No HX Cerebrovascular Accident: No Hx Seizures: No Hx Dementia: No Hx Diabetes: No Hx Gastrointestinal Disorders: Yes (pancreatitis,psudocyst of pancrease) Hx Liver Disease: No Hx Genitourinary Disorders: No Hx Sexually Transmitted Disorders: No Hx Renal Disease (ESRD): No Hx Thyroid Disease: No Hx Human Immunodeficiency Virus (HIV): No (last 04/09 negative) Hx Hepatitis C: No Hx Depression: No Hx Suicide Attempt: No Hx Bipolar Disorder: No Hx Schizophrenia: No Other Medical History: no suicidal,no homicidal - Patient Surgical History Past Surgical History: Yes Hx Neurologic Surgery: No Hx Cataract Extraction: No Hx Cardiac Surgery: No Hx Lung Surgery: No Hx Breast Surgery: No Hx Breast Biopsy: No Hx Abdominal Surgery: Yes (pseudocyst of pancrease in 2008) Hx Appendectomy: No Hx Cholecystectomy: No Hx Genitourinary Surgery: No Hx Section: No Hx Orthopedic Surgery: No Anesthesia Reaction: No - PPD History Documented Results: Positive w/proof Implanted On Prior [facility] Admission?: No Date: 02/15/18 Results: CXR(-)02/18/18 PPD to be Administered?: No - Smoking Cessation Smoking history: Current every day smoker Have you smoked in the past 12 months: Yes Aproximately how many cigarettes per day: 20 Cigars Per Day: 0 Hx Chewing Tobacco Use: No Initiated information on smoking cessation: Yes 'Breaking Loose' booklet given: 01/17/19 - Substance & Tx. History Hx Alcohol Use: Yes Hx Substance Use: Yes Substance Use Type: Alcohol, Cocaine Hx Substance Use Treatment: Yes (alcohol,cocaine) - Substances abused Alcohol Substance route: Oral Frequency: 3-6 times per week Amount used: 1- 1/2pint vodka & 6 cans of beers Age of first use: 15 Date of last use: 01/10/19 Cocaine Substance route: Inhalation Frequency: Daily Amount used: 3-6grams Age of first use: 16 Date of last use: 01/10/19 Admission Physical Exam S - Vital Signs Vital Signs: Vital Signs - 24 hr 01/17/19 12:37 Temperature 98.4 F Pulse Rate 76 Respiratory 20 Rate Blood Pressure 118/77 - Physical General Appearance: Yes: Within Normal Limits HEENTM: Yes: Within Normal Limits, Normal ENT Inspection, LEO Respiratory: Yes: Within Normal Limits, Lungs Clear, Normal Breath Sounds Neck: Yes: Supple, Trachea in good position Breast: Yes: Within Normal Limits Cardiology: Yes: Within Normal Limits, Regular Rhythm, Regular Rate, S1, S2 Abdominal: Yes: Within Normal Limits, Normal Bowel Sounds, Non Tender, Soft, Surgical Scar (in midline and left lower abdomen) Genitourinary: Yes: Within Normal Limits Back: Yes: Within Normal Limits Musculoskeletal: Yes: Within Normal Limits Extremities: Yes: Within Normal Limits Neurological: Yes: 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 II-XII NML intact, Fully Oriented, Alert, Motor Strength 5/5 Integumentary: Yes: Within Normal Limits Lymphatic: Yes: Within Normal Limits - Diagnostic (1) Alcohol dependence Current Visit: Yes Status: Acute (2) Weight loss Current Visit: No Status: Acute (3) Cocaine dependence Current Visit: No Status: Chronic Qualifiers: Substance use status: uncomplicated Qualified Code(s): F14.20 - Cocaine dependence, uncomplicated (4) GERD (gastroesophageal reflux disease) Current Visit: No Status: Chronic Qualifiers: (5) Nicotine dependence Current Visit: No Status: Chronic Qualifiers: (6) PPD positive Current Visit: No Status: Chronic (7) History of pancreatitis Current Visit: Yes Status: Acute (8) Pseudocyst of pancreas Current Visit: No Status: Resolved Cleared for Admission [facility] - Detox or Rehab Claeared for Rehab Admission: Yes Breathalyzer - Breathalyzer Breathalyzer: 0.024 Urine Drug Screen - Test Device Lot number: [id number] Expiration date: 08/18/20 - Control Is test valid?: Yes - Results Drug screen NEGATIVE: No Urine drug screen results: GURDEEP-Cocaine, BZO-Benzodiazepines Inpatient Rehab Admission - Rehab Decision to Admit Inpatient rehab admission?: Yes - Initial Determination Are CD services needed?: Yes Free of communicable disease: Yes Not in need of hospitalization: Yes - Rehab Admission Criteria Previous failed treatment: Yes Poor recovery environment: Yes Comorbidities: Yes Lacks judgement: No Patient is meeting Inpatient Rehab admission criteria:: Yes
[2019-01-17] MEDS ORDERED: MENTHOL/PHENOL 1 EACH UD MM PRN (13:31)
[2019-01-17] MEDS ORDERED: ACETAMINOPHEN 325 MG TABLET (FP) PO PRN (13:31)
[2019-01-17] MEDS ORDERED: MAG HYDROX/AL HYDROX/SIMETH 30 ML UNIT-DOSE CUP PO PRN (13:31)
[2019-01-17] MEDS ORDERED: guaiFENesin 200 MG/10 ML 10 ML UNIT-DOSE CUPS PO PRN (13:31)
[2019-01-17] MEDS ORDERED: LOPERAMIDE HCL 2 MG CAPSULE PO PRN (13:31)
[2019-01-17] MEDS ORDERED: IBUPROFEN 400 MG TABLET (FP) PO PRN (13:31)
[2019-01-17] MEDS ORDERED: P-EPHED 60MG/TRIPROLIDI 2.5MG TABLET PO PRN (13:31)
[2019-01-17] MEDS ORDERED: MAGNESIUM HYDROX 2400MG/30ML ORAL SUSPENSION 30 ML CUP PO PRN (13:31)
[2019-01-17] MEDS ORDERED: MAGNESIUM CITRATE 300 ML BOTTLE PO PRN (13:31)
[2019-01-17 14:20] LABS: HEMATOCRIT 37.6 % (35.4-49); HEMOGLOBIN 12.3 GM/dL (11.7-16.9); MCH 32.2 pg (25.7-33.7); MCHC 32.6 g/dl (32.0-35.9); MEAN CELL VOLUME 98.6 fl (80-96); MEAN PLT VOLUME 8.7 fl (7.5-11.1); PLATELET COUNT 123 K/MM3 (134-434); RBC 3.81 M/mm3 (4.00-5.60); RDW 16.4 % (11.9-15.9); WHITE BLOOD COUNT 2.7 K/mm3 (4.0-10.0)
[2019-01-17 14:28] LABS: ALBUMIN 3.2 g/dl (3.4-5.0); BILIRUBIN,TOTAL 0.2 mg/dL (0.2-1); BLOOD UREA NITROGEN 15.9 mg/dL (7-18); CALCIUM 8.6 mg/dL (8.5-10.1); CREATININE 1.3 mg/dL (0.55-1.3); POTASSIUM 4.2 mmol/L (3.5-5.1); TOT PROT 7.3 g/dl (6.4-8.2)
[2019-01-17] MEDS: NICOTINE 21 MG/24 HOURS TOPICAL PATCH TD SCH (15:41)
[2019-01-17] MEDS ORDERED: METHOCARBAMOL 500 MG TABLET PO PRN (15:50)
[2019-01-17] MEDS: THIAMINE HCL 100 MG TABLET (FP) PO SCH (21:54)
[2019-01-17] MEDS: hydrOXYzine PAMOATE 50 MG CAPSULE (FP) PO PRN (21:54)
[2019-01-18] MEDS: PRENATAL VITAMINS W/ FOLIC ACID TABLET (FP) PO SCH (10:23)
[2019-01-18] MEDS: hydrOXYzine PAMOATE 50 MG CAPSULE (FP) PO PRN (10:24)
[2019-01-18] MEDS: NICOTINE 21 MG/24 HOURS TOPICAL PATCH TD SCH (10:25)
--- NOTE | 2019-01-18 14:59 | PN ---
[facility] Progress Note Note: Patient requested creon for pancreatitis. Verified with his pharmacy at [facility] located on [facility], phone number [phone]. Same confirmed with pharmacist.
[2019-01-18] MEDS: LIPASE/PROTEASE/AMYLASE 6,000 UNIT CAPSULE PO SCH (17:07)
[2019-01-18] MEDS ORDERED: LIPASE/PROTEASE/AMYLASE 36,000 UNIT CAPSULE PO SCH (17:30)
[2019-01-18] MEDS: THIAMINE HCL 100 MG TABLET (FP) PO SCH (21:49)
[2019-01-19] MEDS: hydrOXYzine PAMOATE 50 MG CAPSULE (FP) PO PRN (02:26)
[2019-01-19] MEDS: LIPASE/PROTEASE/AMYLASE 6,000 UNIT CAPSULE PO SCH ×3 (07:01→16:39)
--- NOTE | 2019-01-19 09:36 | CONSULT ---
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 This is one of multiple admissions for patient. Patient admitted to rehab for alcohol and cocaine dependence Substance Abuse History: - Smoking Cessation. Smoking history: Current every day smoker. Have you smoked in the past 12 months: Yes. Aproximately how many cigarettes per day: 20. Cigars Per Day: 0. Hx Chewing Tobacco Use: No. Initiated information on smoking cessation: Yes. 'Breaking Loose' booklet given : 01/17/19. - Substance & Tx. History. Hx Alcohol Use: Yes. Hx Substance Use : Yes. Substance Use Type: Alcohol, Cocaine. Hx Substance Use Treatment: Yes ( alcohol,cocaine). - Substances abused. Alcohol. Substance route: Oral. Frequency: 3-6 times per week. Amount used: 1- 1/2pint vodka & 6 cans of beers. Age of first use: 15. Date of last use: 01/10/19. Cocaine. Substance route: Inhalation. Frequency: Daily. Amount used: 3-6grams. Age of first use: 16. Date of last use: 01/10/19 Medical History: Significant for GERD, arthritis, PPD+, history of chronic alcoholic pancreatitis, surgery for pseudocyst of the pancreas in 2002 and removal of calcaneal spur right foot. Psychiatric History: Patient denies h/o psychiatric hospitalization, outpatient care, and suicide attempt. Patient's first psychiatric contact occured at 5-6 years of age to address depression although has no recollection of medications prescribed. Patient denies receiving psychiatric treatment since then, except receiving medication for insomnia when admitted to detox/rehab facilities. Patient has accepted seroquel, trazodone, remeron and belsomra for insomnia. At present, patient reports stable mood but is experiencing difficulty sleeping. Physical/Sexual Abuse/Trauma History: denies Mental Status Exam - Mental Status Exam Alert and Oriented to: Time, Place, Person Cognitive Function: Good Patient Appearance: Well Groomed Mood: Euthymic Affect: Mood Congruent Patient Behavior: Appropriate, Cooperative Speech Pattern: Appropriate Voice Loudness: Normal Thought Process: Goal Oriented Thought Disorder: Not Present Hallucinations: Denies Suicidal Ideation: Denies Homicidal Ideation: Denies Insight/Judgement: Poor Sleep: Poorly Appetite: Fair Muscle strength/Tone: Normal Gait/Station: Normal Psychiatric Findings - Problem List ([place] 1, 2,3) (1) Alcohol dependence Current Visit: Yes Status: Acute (2) Cocaine dependence, uncomplicated Current Visit: Yes Status: Acute (3) Substance-induced sleep disorder Current Visit: Yes Status: Acute - Initial Treatment Plan Initial Treatment Plan: Psychoeducation provided. Rehab in progress. Will order Seroquel 100mg + Belsomra 10mg HS (patient's request). Benefits and side effects discussed. Verbal consent given.
[2019-01-19] MEDS: PRENATAL VITAMINS W/ FOLIC ACID TABLET (FP) PO SCH (10:43)
[2019-01-19] MEDS: NICOTINE 21 MG/24 HOURS TOPICAL PATCH TD SCH (10:44)
[2019-01-19 13:15] LABS: URINE APPEARANCE CLEAR; URINE BILIRUBIN NEGATIVE (NEGATIVE); URINE COLOR YELLOW; URINE GLUCOSE (UA) NEGATIVE (NEGATIVE); URINE KETONE NEGATIVE (NEGATIVE); URINE LEUK ESTERASE NEGATIVE (NEGATIVE); URINE NITRITE NEGATIVE (NEGATIVE); URINE PROTEIN NEGATIVE (NEGATIVE); URINE UROBILINOGEN 0.2 mg/dL (0.2-1.0)
[2019-01-19] MEDS: QUEtiapine FUMARATE 100 MG TABLET (FP) PO SCH (21:42)
[2019-01-19] MEDS: SUVOREXANT 10 MG TABLET PO PRN (21:42)
[2019-01-19] MEDS: THIAMINE HCL 100 MG TABLET (FP) PO SCH (21:42)
[2019-01-20] MEDS: LIPASE/PROTEASE/AMYLASE 6,000 UNIT CAPSULE PO SCH ×3 (08:30→16:34)
[2019-01-20] MEDS: PRENATAL VITAMINS W/ FOLIC ACID TABLET (FP) PO SCH (10:31)
[2019-01-20] MEDS: NICOTINE 21 MG/24 HOURS TOPICAL PATCH TD SCH (10:31)
--- NOTE | 2019-01-20 11:10 | PN ---
[facility] Progress Note Note: Pt is a 73 y/o male with a hx of MANOHAR admitted to rehab and known to this facility with multiple admissions,last here on 12/25/18 to 12/29/[address] Pt has a hx of chronic Pancreatitis(on med),pseudo cyst of pancrease, GERD(takes Nexium or Prilosec), arthritis,seisures r/t withdrawal sx, and Depression. Pt reports he has a primary care provider, dr. Delmar Gaspar at [address] [place] [address]. Pt reports he has an appointment with his doctor on and wants to be discharged on that day. Requesting Protonix while in rehab. Laboratory Tests 01/17/19 01/17/19 01/18/19 13:25 13:25 10:20 WBC 2.7 L RBC 3.81 L Hgb 12.3 Hct 37.6 MCV 98.6 H MCH 32.2 MCHC 32.6 RDW 16.4 H Plt Count 123 L MPV 8.7 Sodium 137 Potassium 4.2 Chloride 105 Carbon Dioxide 28 Anion Gap 4 L BUN 15.9 Creatinine 1.3 Est GFR (CKD-EPI)AfAm 62.74 Est GFR (CKD-EPI)NonAf 54.13 Random Glucose 127 H Calcium 8.6 Total Bilirubin 0.2 AST 30 ALT 19 Alkaline Phosphatase 63 Total Protein 7.3 Albumin 3.2 L Urine Color Urine Appearance Urine pH Ur Specific [place] Urine Protein Urine Glucose (UA) Urine Ketones Urine Blood Urine Nitrite Urine Bilirubin Urine Urobilinogen Ur Leukocyte Esterase HIV 1&2 Antibody Screen Negative HIV P24 Antigen Negative 01/19/19 08:25 WBC RBC Hgb Hct MCV MCH MCHC RDW Plt Count MPV Sodium Potassium Chloride Carbon Dioxide Anion Gap BUN Creatinine Est GFR (CKD-EPI)AfAm Est GFR (CKD-EPI)NonAf Random Glucose Calcium Total Bilirubin AST ALT Alkaline Phosphatase Total Protein Albumin Urine Color Yellow Urine Appearance Clear Urine pH 6.0 Ur Specific [place] 1.015 Urine Protein Negative Urine Glucose (UA) Negative Urine Ketones Negative Urine Blood Negative Urine Nitrite Negative Urine Bilirubin Negative Urine Urobilinogen 0.2 Ur Leukocyte Esterase Negative HIV 1&2 Antibody Screen HIV P24 Antigen Labs noted A/P New pt to rehab Maintain safety Protonix 40 mg po daily Continue rehab treatment
[2019-01-20] MEDS: QUEtiapine FUMARATE 100 MG TABLET (FP) PO SCH (22:01)
[2019-01-20] MEDS: MELATONIN 5 MG TABLETS PO PRN (22:02)
[2019-01-20] MEDS: SUVOREXANT 10 MG TABLET PO PRN (22:02)
[2019-01-20] MEDS: THIAMINE HCL 100 MG TABLET (FP) PO SCH (22:03)
[2019-01-21] MEDS: LIPASE/PROTEASE/AMYLASE 6,000 UNIT CAPSULE PO SCH ×3 (07:27→16:45)
--- NOTE | 2019-01-21 09:57 | PN ---
S Progress Note Note: Patient reports sleeping poorly despite taking Seroquel 100 mg/hs and Belsomra 10 mg/hs prn. Requests that Seroquel dosage be increased to 150 mg/hs
[2019-01-21] MEDS: PANTOPRAZOLE 40 MG TABLET (FP) PO SCH (11:06)
[2019-01-21] MEDS: NICOTINE 21 MG/24 HOURS TOPICAL PATCH TD SCH (11:06)
[2019-01-21] MEDS: hydrOXYzine PAMOATE 50 MG CAPSULE (FP) PO PRN (11:06)
[2019-01-21] MEDS: PRENATAL VITAMINS W/ FOLIC ACID TABLET (FP) PO SCH (11:06)
[2019-01-21] MEDS: MELATONIN 5 MG TABLETS PO PRN (21:02)
[2019-01-21] MEDS: QUEtiapine FUMARATE 50 MG TABLET PO SCH (21:02)
[2019-01-21] MEDS: SUVOREXANT 10 MG TABLET PO PRN (21:03)
[2019-01-21] MEDS: THIAMINE HCL 100 MG TABLET (FP) PO SCH (21:04)
[2019-01-22] MEDS: LIPASE/PROTEASE/AMYLASE 6,000 UNIT CAPSULE PO SCH ×3 (07:33→16:54)
[2019-01-22] MEDS: PANTOPRAZOLE 40 MG TABLET (FP) PO SCH (11:20)
[2019-01-22] MEDS: NICOTINE 21 MG/24 HOURS TOPICAL PATCH TD SCH (11:20)
[2019-01-22] MEDS: PRENATAL VITAMINS W/ FOLIC ACID TABLET (FP) PO SCH (11:20)
[2019-01-22] MEDS: MELATONIN 5 MG TABLETS PO PRN (21:59)
[2019-01-22] MEDS: QUEtiapine FUMARATE 50 MG TABLET PO SCH (21:59)
[2019-01-22] MEDS: THIAMINE HCL 100 MG TABLET (FP) PO SCH (22:00)
[2019-01-22] MEDS: SUVOREXANT 10 MG TABLET PO PRN (22:01)
[2019-01-23] MEDS: LIPASE/PROTEASE/AMYLASE 6,000 UNIT CAPSULE PO SCH ×3 (07:38→16:41)
[2019-01-23] MEDS: NICOTINE 21 MG/24 HOURS TOPICAL PATCH TD SCH (10:53)
[2019-01-23] MEDS: PRENATAL VITAMINS W/ FOLIC ACID TABLET (FP) PO SCH (10:54)
[2019-01-23] MEDS: PANTOPRAZOLE 40 MG TABLET (FP) PO SCH (10:54)
[2019-01-23] MEDS: SUVOREXANT 10 MG TABLET PO PRN (22:07)
[2019-01-23] MEDS: QUEtiapine FUMARATE 50 MG TABLET PO SCH (22:08)
[2019-01-23] MEDS: MELATONIN 5 MG TABLETS PO PRN (22:08)
[2019-01-23] MEDS: THIAMINE HCL 100 MG TABLET (FP) PO SCH (22:09)
--- NOTE | 2019-01-24 06:15 | PN ---
S Progress Note Note: Patient is scheduled for discharge today. Script for 30 days supply of Seroquel 150 mg/hs is electronically transmitted to [facility] at [address] [place] [address]
[2019-01-24 07:17] VITALS: BP 163/83; PULSE 85; TEMP 97.7
[2019-01-24] MEDS: LIPASE/PROTEASE/AMYLASE 6,000 UNIT CAPSULE PO SCH (07:41)
--- NOTE | 2019-01-24 09:22 | DS ---
[facility] Rehab Discharge Summary - [facility] Rehab Discharge Summary Admission Date: 01/17/19 Discharge Date: 01/24/19 - History Present History: Alcohol dependence, Cocaine dependence Additional Comments: Pt is a 73 y/o male with a hx of MANOHAR admitted to rehab and discharging today to follow up at [facility] for CD aftercare treatment. Pt has a primary care provider, Dr. Flavio Das on [address] [place], [place]. Pertinent Past History: Chronic Pancreatitis Pseudo Cyst of Pancrease GERD Arthritis Seizures r/t withdrawal sx Depression - Discharge Physical Exam Vital Signs: Vital Signs Temperature 97.7 F 01/24/19 07:15 Pulse Rate 85 01/24/19 07:15 Respiratory Rate 18 01/24/19 07:15 Blood Pressure 163/83 01/24/19 07:15 O2 Sat by Pulse Oximetry (%) Alert o x 3 nad oob ambulating with steady gait cardiac:s1 s2 rrr lungs:cta,tyrone. abdomen:soft,+bs,nt,nd extremities/skin:no edema,full ROM/weight bearing,skin intact Pertinent Admission Physical Exam Findings: Laboratory Tests 01/17/19 01/17/19 01/17/19 13:25 13:25 13:25 WBC 2.7 L RBC 3.81 L Hgb 12.3 Hct 37.6 MCV 98.6 H MCH 32.2 MCHC 32.6 RDW 16.4 H Plt Count 123 L MPV 8.7 Sodium 137 Potassium 4.2 Chloride 105 Carbon Dioxide 28 Anion Gap 4 L BUN 15.9 Creatinine 1.3 Est GFR (CKD-EPI)AfAm 62.74 Est GFR (CKD-EPI)NonAf 54.13 Random Glucose 127 H Calcium 8.6 Total Bilirubin 0.2 AST 30 ALT 19 Alkaline Phosphatase 63 Total Protein 7.3 Albumin 3.2 L Urine Color Urine Appearance Urine pH Ur Specific [place] Urine Protein Urine Glucose (UA) Urine Ketones Urine Blood Urine Nitrite Urine Bilirubin Urine Urobilinogen Ur Leukocyte Esterase RPR Titer Nonreactive HIV 1&2 Antibody Screen HIV P24 Antigen 01/18/19 01/19/19 10:20 08:25 WBC RBC Hgb Hct MCV MCH MCHC RDW Plt Count MPV Sodium Potassium Chloride Carbon Dioxide Anion Gap BUN Creatinine Est GFR (CKD-EPI)AfAm Est GFR (CKD-EPI)NonAf Random Glucose Calcium Total Bilirubin AST ALT Alkaline Phosphatase Total Protein Albumin Urine Color Yellow Urine Appearance Clear Urine pH 6.0 Ur Specific [place] 1.015 Urine Protein Negative Urine Glucose (UA) Negative Urine Ketones Negative Urine Blood Negative Urine Nitrite Negative Urine Bilirubin Negative Urine Urobilinogen 0.2 Ur Leukocyte Esterase Negative RPR Titer HIV 1&2 Antibody Screen Negative HIV P24 Antigen Negative - Treatment Discharge Condition: Discharge condition good Hospital Course: Rehabilitated safely CD aftercare referral accepted - Medication Discharge Medications: Ambulatory Orders Mirtazapine [Remeron -] 30 mg PO HS #30 tablet 08/20/18 traZODone HCL [Desyrel -] 50 mg PO HS #30 tablet 08/20/18 Quetiapine Fumarate [Seroquel] 100 mg PO HS #30 tablet 10/04/18 Lipase/Protease/Amylase [Mariana Harmon 6,000 Units Capsule] 2 cap PO TIDCM #180 capsule. 01/24/19 Pantoprazole Sodium [Protonix -] 40 mg PO DAILY #15 tablet.ec 01/24/19 Quetiapine Fumarate [Seroquel -] 150 mg PO HS #90 tablet 01/24/19 - Medication-Assisted Treatment (MAT) Medication-Assisted Treatment (MAT): No - Discharge Instructions Diet, activity, other medical instructions: Diet:Regular Activity: oolb ad sachi Other medical instructions:follow up with CD aftercare as scheduled with Ramesh GRANDA. Follow up with your primary care provider Dr. Flavio Das within 1-2 weeks after discharged. - Diagnosis (1) Cocaine dependence, uncomplicated Status: Chronic (2) Arthritis Status: Chronic (3) Chronic alcoholic pancreatitis Status: Chronic (4) Cocaine dependence Status: Chronic Qualifiers: Substance use status: uncomplicated Qualified Code(s): F14.20 - Cocaine dependence, uncomplicated (5) GERD (gastroesophageal reflux disease) Status: Chronic Qualifiers: Esophagitis presence: esophagitis presence not specified Qualified Code(s) : K21.9 - Gastro-esophageal reflux disease without esophagitis (6) Nicotine dependence Status: Chronic Qualifiers: Nicotine product type: cigarettes Substance use status: uncomplicated Qualified Code(s): F17.210 - Nicotine dependence, cigarettes, uncomplicated (7) Withdrawal seizures Status: Suspected Qualifiers: Complication of substance-induced condition: with unspecified complication Qualified Code(s): F19.239 - Other psychoactive substance dependence with withdrawal, unspecified; R56.9 - Unspecified convulsions - Follow-up Referral Minutes to complete discharge: 20 - AMA Did Patient Leave Against Medical Advice: No
== END 2019-01-24 09:50 | disposition home or self-care (01) | DRG 895 ==
LOC: YASAS 12:02 → Y5N 13:28
PROVIDERS: ADMIT Neuromusculoskeletal Medicine & OMM; ATTEND Neuromusculoskeletal Medicine & OMM
PROC: HZ42ZZZ Group Counseling for Substance Abuse Treatment, Cognitive-Behavioral (ICD-10-PCS; principal; 2019-01-17)
DX: F14.20 Cocaine dependence, uncomplicated (principal); F19.282 Other psychoactive substance dependence with psychoactive substance-induced sleep disorder; G40.509 Epileptic seizures related to external causes, not intractable, without status epilepticus; K86.0 Alcohol-induced chronic pancreatitis; F17.210 Nicotine dependence, cigarettes, uncomplicated; F32.9 Major depressive disorder, single episode, unspecified; K21.9 Gastro-esophageal reflux disease without esophagitis; M12.9 Arthropathy, unspecified; R76.11 Nonspecific reaction to tuberculin skin test without active tuberculosis; Z87.19 Personal history of other diseases of the digestive system; Z91.018 Allergy to other foods; Z91.013 Allergy to seafood; Z91.048 Other nonmedicinal substance allergy status
CPT/HCPCS: 36415; 80053; 81003; 85027; 86593; 87389

== ENCOUNTER 2019-09-09 09:10 | Inpatient (IN) | payer OTHER ==
--- NOTE | 2019-09-09 09:25 | BHS.RME ---
Substance Use & Tx History - Substance Use History Alcohol Substance amount: 1-1.5 pints [place] or Vodka Frequency of use: Daily Substance route: Oral Date of Last Use: 09/09/19 (First drink age 15 y. No seizures or blackouts. 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) Cocaine- Powder Substance amount: 3-6 grams Frequency of use: More than 3 times per week Substance route: Inhalation (ex: sniffing or snorting) Date of Last Use: 09/09/19 (First use age 16 y) Nicotine Substance amount: 1-1.5 packs Frequency of use: Daily Substance route: Smoking Date of Last Use: 09/09/19 (First use age 16y) Physical/Psych/Mental Status - Behavior General Behavior: Increased activity (restlessness, agitation) Eye Contact: Normal - Cooperativeness Cooperativeness: Cooperative - Thinking Thought Processes: Tight Thought content: Future oriented - Physical Health Problems Is patient presently having any pain?: No Does patient presently have any injuries (include location): No Does patient currently have a fever: No CIWA Nausea/Vomitin-No Nausea/No Vomiting Muscle Tremors: 2 Anxiety: 4-Mod. Anxious/Guarded Agitation: 3 Paroxysmal Sweats: 3 Orientation: 0-Oriented Tacttile Disturbances: 0-None Auditory Disturbances: 0-None Visual Disturbances: 0-None Headache: 0-None Present CIWA-Ar Total Score: 12
[2019-09-09 09:58] VITALS: BMI 23.6
--- NOTE | 2019-09-09 10:13 | HP ---
CIWA Score Nausea/Vomitin-No Nausea/No Vomiting Muscle Tremors: 2 Anxiety: 4-Mod. Anxious/Guarded Agitation: 3 Paroxysmal Sweats: 3 Orientation: 0-Oriented Tacttile Disturbances: 0-None Auditory Disturbances: 0-None Visual Disturbances: 0-None Headache: 0-None Present CIWA-Ar Total Score: 12 - Admission Criteria OASAS Guidelines: Admission for Medically Managed Detox: Requires at least one of the followin. CIWA greater than 12 2. Seizures within the past 24 hours 3. Delirium tremens within the past 24 hours 4. Hallucinations within the past 24 hours 5. Acute intervention needed for co occurring medical disorder 6. Acute intervention needed for co occurring psychiatric disorder 7. Severe withdrawal that cannot be handled at a lower level of care (continued vomiting, continued diarrhea, abnormal vital signs) requiring intravenous medication and/or fluids 8. Admitting History and Physical - Admission Chief Complaint: Mr. Baxter is a 73 yo man who presents to [facility] stating he needs detox for alcohol and cocaine use. History of Present Illness: Mr. Baxter is a 73 yo man who presents to [facility] stating he needs detox for alcohol and cocaine use. He was last here between July 11 and July 16, 2019. PMH: no PSH: pancreatic pseudocyst Psych: none SoC: private house Legal: none Substance Use History Alcohol Substance amount: 1-1.5 pints Hen[place] or Vodka Frequency of use: Daily Substance route: Oral Date of Last Use: 09/09/19 (First drink age 15 y. No seizures or blackouts. 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) Cocaine- Powder Substance amount: 3-6 grams Frequency of use: More than 3 times per week Substance route: Inhalation (ex: sniffing or snorting) Date of Last Use: 09/09/19 (First use age 16 y) Nicotine Substance amount: 1-1.5 packs Frequency of use: Daily Substance route: Smoking Date of Last Use: 09/09/19 (First use age 16y) History Source: Patient Limitations to Obtaining History: No Limitations - Past Medical History Gastrointestinal: Yes: GERD, Pancreatitis, Other (psudocyst of pancrease) - Smoking History Smoking history: Current every day smoker Have you smoked in the past 12 months: Yes Aproximately how many cigarettes per day: 20 - Alcohol/Substance Use Hx Alcohol Use: Yes History of Substance Use: reports: Cocaine Date of Last Use: 07/12/19 - Social History 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 History of Recent Travel: No Admission [facility] Allergies/Adverse Reactions: Allergies Allergy/AdvReac Type Severity Reaction Status Date / Time shellfish derived Allergy Mild Rash Verified 09/09/19 09:52 tomato Allergy Mild Rash Verified 09/09/19 09:52 iodine Allergy Rash Verified 09/09/19 09:52 Exam Limitations: No Limitations - Ebola screening Have you traveled outside of the country in the last 21 days: No Have you had contact with anyone from an Ebola affected area: No Have you been sick,other than usual withdrawal symptoms: No - Review of Systems Constitutional: Unintentional Wgt. Loss (10 lb weight loss in the past one month) EENT: reports: No Symptoms Reported Respiratory: reports: No Symptoms reported Cardiac: reports: No Symptoms Reported GI: reports: Nausea : reports: No Symptoms Reported Musculoskeletal: reports: No Symptoms Reported Integumentary: reports: No Symptoms Reported Neuro: reports: No Symptoms reported Endocrine: reports: No Symptoms Reported Hematology: reports: No Symptoms Reported Psychiatric: reports: Anxious, Depressed (no SI) Patient History - Patient Medical History Hx Anemia: No Hx Asthma: No Hx Chronic Obstructive Pulmonary Disease (COPD): No Hx Cancer: No Hx Cardiac Disorders: No Hx Congestive Heart Failure: No Hx Hypertension: No Hx Hypercholesterolemia: No Hx Pacemaker: No HX Cerebrovascular Accident: No Hx Seizures: No Hx Dementia: No Hx Diabetes: No Hx Gastrointestinal Disorders: Yes (pancreatitis,psudocyst of pancrease) Hx Liver Disease: No Hx Genitourinary Disorders: No Hx Sexually Transmitted Disorders: No Hx Renal Disease (ESRD): No Hx Thyroid Disease: No Hx Human Immunodeficiency Virus (HIV): No (last 03/2019 negative) Hx Hepatitis C: No Hx Depression: No Hx Suicide Attempt: No Hx Bipolar Disorder: No Hx Schizophrenia: No - Patient Surgical History Past Surgical History: Yes Hx Neurologic Surgery: No Hx Cataract Extraction: No Hx Cardiac Surgery: No Hx Lung Surgery: No Hx Breast Surgery: No Hx Breast Biopsy: No Hx Abdominal Surgery: Yes (pseudocyst of pancrease in 2008) Hx Appendectomy: No Hx Cholecystectomy: No Hx Genitourinary Surgery: No Hx Section: No Hx Orthopedic Surgery: No Anesthesia Reaction: No - PPD History Date: 02/15/18 Results: CXR(-)02/18/18 - Smoking Cessation Smoking history: Current every day smoker Have you smoked in the past 12 months: Yes Aproximately how many cigarettes per day: 20 Cigars Per Day: 0 Hx Chewing Tobacco Use: No Initiated information on smoking cessation: Yes 'Breaking Loose' booklet given: 09/09/19 - Substances abused Alcohol Substance route: Oral Frequency: Daily Amount used: 5th of vodka Age of first use: 15 Date of last use: 09/09/19 Cocaine Substance route: Smoking Frequency: 3-6 times per week Amount used: 3-6 grams Age of first use: 15 Date of last use: 09/09/19 Admission Physical Exam [facility] - Vital Signs Vital Signs: Vital Signs - 24 hr 09/09/19 09:52 Temperature 97.6 F Pulse Rate 74 Respiratory 18 Rate Blood Pressure 146/80 - Physical General Appearance: Yes: Within Normal Limits, No Apparent Distress, Appropriately Dressed, Thin HEENTM: Yes: EOMI, Hearing grossly Normal, Normocephalic, Normal Voice Respiratory: Yes: Lungs Clear, Normal Breath Sounds, No Accessory Muscle Use Neck: Yes: Within Normal Limits, Supple Breast: Yes: Breast Exam Deferred Cardiology: Yes: Regular Rhythm, Regular Rate, S1, S2 Abdominal: Yes: Normal Bowel Sounds, Non Tender, Flat, Soft Back: Yes: Normal Inspection Extremities: Yes: Normal Inspection, Non-Tender Neurological: Yes: Alert, Normal Response Integumentary: Yes: Normal Color, Dry, Warm - Diagnostic (1) Alcohol dependence with uncomplicated withdrawal Current Visit: Yes Status: Acute (2) Cocaine dependence Current Visit: Yes Status: Acute Qualifiers: Substance use status: uncomplicated Qualified Code(s): F14.20 - Cocaine dependence, uncomplicated (3) Nicotine dependence Current Visit: Yes Status: Acute Qualifiers: Nicotine product type: cigarettes Substance use status: uncomplicated Qualified Code(s): F17.210 - Nicotine dependence, cigarettes, uncomplicated (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
[2019-09-09] MEDS ORDERED: ACETAMINOPHEN 325 MG TABLET (FP) PO PRN (10:21)
[2019-09-09] MEDS ORDERED: METHOCARBAMOL 500 MG TABLET PO PRN (10:21)
[2019-09-09] MEDS ORDERED: MAGNESIUM HYDROX 2400MG/30ML ORAL SUSPENSION 30 ML CUP PO PRN (10:21)
[2019-09-09] MEDS ORDERED: NICOTINE POLACRILEX 2 MG GUM BUC PRN (10:21)
[2019-09-09] MEDS ORDERED: MAGNESIUM CITRATE 300 ML BOTTLE PO PRN (10:21)
[2019-09-09] MEDS ORDERED: chlordiazePOXIDE HCL 25 MG CAPSULE PO PRN (10:21)
[2019-09-09] MEDS ORDERED: MAG HYDROX/AL HYDROX/SIMETH 30 ML UNIT-DOSE CUP PO PRN (10:21)
[2019-09-09] MEDS ORDERED: MENTHOL/PHENOL 1 EACH UD MM PRN (10:21)
[2019-09-09] MEDS ORDERED: IBUPROFEN 400 MG TABLET (FP) PO PRN (10:21)
[2019-09-09] MEDS ORDERED: ONDANSETRON *ODT* 4 MG TABLET SL PRN (10:21)
[2019-09-09] MEDS ORDERED: BISMUTH SUBSALICYLATE 262 MG/15 ML BTL PO PRN (10:21)
[2019-09-09] MEDS: chlordiazePOXIDE HCL 25 MG CAPSULE PO SCH ×3 (12:33→22:05)
[2019-09-09] MEDS: NICOTINE 21 MG/24 HOURS TOPICAL PATCH TD SCH (12:33)
[2019-09-09] MEDS: hydrOXYzine PAMOATE 25 MG CAPSULE (FP) PO SCH ×3 (14:17→22:05)
[2019-09-09 14:59] LABS: HEMATOCRIT 43.7 % (35.4-49); HEMOGLOBIN 14.1 GM/dL (11.7-16.9); MCHC 32.2 g/dl (32.0-35.9); MEAN CELL VOLUME 102.5 fl (80-96); MEAN PLT VOLUME 9.6 fl (7.5-11.1); PLATELET COUNT 116 K/MM3 (134-434); RBC 4.27 M/mm3 (4.00-5.60); RDW 16.7 % (11.9-15.9); WHITE BLOOD COUNT 2.9 K/mm3 (4.0-10.0)
[2019-09-09 15:16] LABS: ALBUMIN 3.5 g/dl (3.4-5.0); BILIRUBIN,TOTAL 1.1 mg/dL (0.2-1); BLOOD UREA NITROGEN 13.2 mg/dL (7-18); CALCIUM 9.2 mg/dL (8.5-10.1); CREATININE 1.4 mg/dL (0.55-1.3); TOT PROT 7.8 g/dl (6.4-8.2)
[2019-09-09] MEDS: THIAMINE HCL 100 MG TABLET (FP) PO SCH (22:05)
[2019-09-09] MEDS: MELATONIN 5 MG TABLETS PO SCH (22:54)
[2019-09-10] MEDS: chlordiazePOXIDE HCL 25 MG CAPSULE PO SCH (05:26)
[2019-09-10] MEDS: hydrOXYzine PAMOATE 25 MG CAPSULE (FP) PO SCH ×5 (05:26→21:59)
[2019-09-10] MEDS ORDERED: LORazepam 1 MG TABLET PO PRN (09:00)
--- NOTE | 2019-09-10 09:04 | PN ---
S CIWA - CIWA Score Nausea/Vomitin-No Nausea/No Vomiting Muscle Tremors: 2 Anxiety: 2 Agitation: 1-Slight > Activity Paroxysmal Sweats: 2 Orientation: 0-Oriented Tacttile Disturbances: 0-None Auditory Disturbances: 0-None Visual Disturbances: 0-None Headache: 0-None Present CIWA-Ar Total Score: 7 B[facility] Progress Note (SOAP) Subjective: 73 years old male admitted on 09/09/19 for alcohol withdrawal sx management treating with librium detox regiment mr bolivar prefers ativan for alcohol detox regiment discontinue librium begin ativan ate breakfast in room showered bmi 23.6 begin ensure 120ml po tid with meals Objective: 09/10/19 09:04 Vital Signs - 24 hr 09/09/19 09/09/19 09/09/19 09:52 10:41 12:18 Temperature 97.6 F 97.3 F L Pulse Rate 74 86 Respiratory 18 18 Rate Blood Pressure 146/80 139/76 O2 Sat by Pulse 100 100 Oximetry (%) 09/09/19 09/09/19 09/10/19 16:50 20:38 06:13 Temperature 97.8 F 97.8 F 97.7 F Pulse Rate 64 75 63 Respiratory 16 18 18 Rate Blood Pressure 157/77 169/86 134/86 O2 Sat by Pulse 100 100 98 Oximetry (%) Laboratory Tests 09/09/19 09/09/19 09/09/19 10:00 10:00 10:00 WBC 2.9 L RBC 4.27 Hgb 14.1 Hct 43.7 D MCV 102.5 H MCH 33.0 MCHC 32.2 RDW 16.7 H Plt Count 116 L MPV 9.6 Sodium 139 Potassium 4.0 Chloride 100 Carbon Dioxide 33 H Anion Gap 6 L BUN 13.2 Creatinine 1.4 H Est GFR (CKD-EPI)AfAm 57.36 Est GFR (CKD-EPI)NonAf 49.49 Random Glucose 172 H Calcium 9.2 Total Bilirubin 1.1 H AST 34 ALT 17 Alkaline Phosphatase 67 Total Protein 7.8 Albumin 3.5 Syphilis Serology HIV Ag/Ab Combo Qual Negative 09/09/19 10:00 WBC RBC Hgb Hct MCV MCH MCHC RDW Plt Count MPV Sodium Potassium Chloride Carbon Dioxide Anion Gap BUN Creatinine Est GFR (CKD-EPI)AfAm Est GFR (CKD-EPI)NonAf Random Glucose Calcium Total Bilirubin AST ALT Alkaline Phosphatase Total Protein Albumin Syphilis Serology Non-reactive HIV Ag/Ab Combo Qual wbc 2,9 chronic leukocytopenia related to chronic alcoholism glucose 172 history of hgba1c 5.9 fasting pending 09/10/19 09:10 Assessment: 09/10/19 09:11 alcohol withdrawal Plan: ativan regiment chronic alcoholism with wbc depletion and hyperglycemia + history of gI bleeding discontinue motrin begin pepcid 20mg po bid carafate 2 g po x 1 today around 2 pm
[2019-09-10] MEDS ORDERED: FAMOTIDINE 20 MG TABLET PO SCH (10:00)
[2019-09-10] MEDS: PRENATAL VITAMINS W/ FOLIC ACID TABLET (FP) PO SCH (10:12)
[2019-09-10] MEDS: LORazepam 2 MG TABLET PO SCH ×3 (10:12→22:00)
[2019-09-10] MEDS: NICOTINE 21 MG/24 HOURS TOPICAL PATCH TD SCH (10:13)
[2019-09-10] MEDS ORDERED: cloNIDine HCL 0.1 MG TABLET PO PRN (12:59)
[2019-09-10] MEDS ORDERED: SUCRALFATE 1 GM TABLET (FP) PO ONE ×2 (14:00)
--- NOTE | 2019-09-10 19:54 | PN ---
[facility] Progress Note Note: Psychiatry Attending's note (delayed) : Met with patient this morning. Came spontaneously to office. Complaint : insomnia. Mr Vee requested seroquel at HS. Side effects/benefits discussed with patient. Chart was reviewed. Patient is already known to contract writer from past visits. See my note of 07/12/19 (more available in [facility] records). Intervention : Seroquel 50 mg po hs Ordered with patient's informed consent.
[2019-09-10] MEDS: THIAMINE HCL 100 MG TABLET (FP) PO SCH (22:00)
[2019-09-10] MEDS: QUEtiapine FUMARATE 50 MG TABLET PO SCH (22:00)
[2019-09-10] MEDS: MELATONIN 5 MG TABLETS PO SCH (22:00)
[2019-09-11] MEDS ORDERED: chlordiazePOXIDE HCL 25 MG CAPSULE PO SCH (05:00)
[2019-09-11] MEDS: LORazepam 2 MG TABLET PO SCH ×4 (06:04→22:02)
[2019-09-11] MEDS: hydrOXYzine PAMOATE 25 MG CAPSULE (FP) PO SCH ×5 (06:04→22:02)
[2019-09-11] MEDS: FAMOTIDINE 20 MG TABLET PO SCH (10:10)
[2019-09-11] MEDS: PRENATAL VITAMINS W/ FOLIC ACID TABLET (FP) PO SCH (10:10)
[2019-09-11] MEDS: NICOTINE 21 MG/24 HOURS TOPICAL PATCH TD SCH (10:10)
--- NOTE | 2019-09-11 10:24 | PN ---
S CIWA - CIWA Score Nausea/Vomitin-Mild Nausea/No Vomiting Muscle Tremors: 1-None Visible, but [place] Anxiety: 1-Mildly Anxious Agitation: 1-Slight > Activity Paroxysmal Sweats: No Perspiration Orientation: 0-Oriented Tacttile Disturbances: 0-None Auditory Disturbances: 0-None Visual Disturbances: 2-Mild Sensitivity Headache: 0-None Present CIWA-Ar Total Score: 6 BHS Progress Note (SOAP) Subjective: 73 years old male admitted on 09/09/19 for alcohol withdrawal sx management treating with ativan detox regiment low renal function pepcid 20 mg po daily chronic leukocytopenia asymptomatic at this time ate breakfast tolerated food well resting in bed comfortably Objective: 09/11/19 10:25 Vital Signs - 24 hr 09/10/19 09/10/19 09/10/19 12:52 16:38 21:13 Temperature 97.7 F 97.7 F 97.8 F Pulse Rate 90 92 H 94 H Respiratory 16 18 18 Rate Blood Pressure 116/73 128/81 161/87 O2 Sat by Pulse 100 99 Oximetry (%) 09/11/19 09/11/19 06:10 09:12 Temperature 97.5 F L 97.3 F L Pulse Rate 70 59 L Respiratory 18 18 Rate Blood Pressure 132/89 142/85 O2 Sat by Pulse 97 Oximetry (%) Laboratory Tests 09/09/19 09/09/19 09/09/19 10:00 10:00 10:00 WBC 2.9 L RBC 4.27 Hgb 14.1 Hct 43.7 D MCV 102.5 H MCH 33.0 MCHC 32.2 RDW 16.7 H Plt Count 116 L MPV 9.6 Sodium 139 Potassium 4.0 Chloride 100 Carbon Dioxide 33 H Anion Gap 6 L BUN 13.2 Creatinine 1.4 H Est GFR (CKD-EPI)AfAm 57.36 Est GFR (CKD-EPI)NonAf 49.49 Random Glucose 172 H Calcium 9.2 Total Bilirubin 1.1 H AST 34 ALT 17 Alkaline Phosphatase 67 Total Protein 7.8 Albumin 3.5 Syphilis Serology COVID-19 ([facility]) HIV Ag/Ab Combo Qual Negative 09/09/19 09/09/19 10:00 10:00 WBC RBC Hgb Hct MCV MCH MCHC RDW Plt Count MPV Sodium Potassium Chloride Carbon Dioxide Anion Gap BUN Creatinine Est GFR (CKD-EPI)AfAm Est GFR (CKD-EPI)NonAf Random Glucose Calcium Total Bilirubin AST ALT Alkaline Phosphatase Total Protein Albumin Syphilis Serology Non-reactive COVID-19 ([facility]) Not detected HIV Ag/Ab Combo Qual fasting glucose pending Assessment: 09/11/19 10:26 alcohol withdrawal Plan: ativan regiment
[2019-09-11] MEDS: QUEtiapine FUMARATE 50 MG TABLET PO SCH (22:02)
[2019-09-11] MEDS: MELATONIN 5 MG TABLETS PO SCH (22:02)
[2019-09-11] MEDS: THIAMINE HCL 100 MG TABLET (FP) PO SCH (22:02)
[2019-09-12] MEDS ORDERED: chlordiazePOXIDE HCL 10 MG CAPSULE PO PRN
[2019-09-12] MEDS ORDERED: chlordiazePOXIDE HCL 10 MG CAPSULE PO SCH (05:00)
[2019-09-12] MEDS: hydrOXYzine PAMOATE 25 MG CAPSULE (FP) PO SCH ×5 (05:22→22:12)
[2019-09-12] MEDS: LORazepam 1 MG TABLET PO SCH ×4 (05:22→22:12)
--- NOTE | 2019-09-12 10:16 | PN ---
S CIWA - CIWA Score Nausea/Vomitin-No Nausea/No Vomiting Muscle Tremors: 2 Anxiety: 2 Agitation: 1-Slight > Activity Paroxysmal Sweats: 1-Minimal Palms Moist Orientation: 1-Uncertain about Date Tacttile Disturbances: 0-None Auditory Disturbances: 0-None Visual Disturbances: 0-None Headache: 0-None Present CIWA-Ar Total Score: 7 BHS Progress Note (SOAP) Subjective: Patient had no complaint. Objective: 09/12/19 10:17 Patient is a 73yo male being managed for alcohol, cocaine and nicotine abuse. He is being treated with ativan. He was a little agitated at time of review this morning but was otherwise cooperative. Had no complaint at time of review. 09/12/19 10:21 09/12/19 10:22 Assessment: 09/12/19 10:24 Patient is being managed for alcohol withdrawal. He is cooperative, calmly eating breakfast but would rather not be asked many questions. His vital signs as of 8:30am are BP: 144/76mmHG Pulse: 86/min Resp: 18/min Temp: 97.9F 09/12/19 10:29 Plan: Continue ativan and supporting medications as recommended. Repeat fasting blood sugar on 09/13/19.
[2019-09-12] MEDS: PRENATAL VITAMINS W/ FOLIC ACID TABLET (FP) PO SCH (10:46)
[2019-09-12] MEDS: FAMOTIDINE 20 MG TABLET PO SCH (10:47)
[2019-09-12] MEDS: NICOTINE 21 MG/24 HOURS TOPICAL PATCH TD SCH (10:47)
[2019-09-12] MEDS: THIAMINE HCL 100 MG TABLET (FP) PO SCH (22:12)
[2019-09-12] MEDS: MELATONIN 5 MG TABLETS PO SCH (22:12)
[2019-09-12] MEDS: QUEtiapine FUMARATE 50 MG TABLET PO SCH (22:12)
[2019-09-13] MEDS ORDERED: LORazepam 0.5 MG TABLET PO PRN
[2019-09-13] MEDS ORDERED: chlordiazePOXIDE HCL 10 MG CAPSULE PO SCH (05:00)
[2019-09-13] MEDS: LORazepam 0.5 MG TABLET PO SCH ×4 (05:37→22:00)
[2019-09-13] MEDS: hydrOXYzine PAMOATE 25 MG CAPSULE (FP) PO SCH ×5 (05:37→21:27)
[2019-09-13] MEDS: FAMOTIDINE 20 MG TABLET PO SCH (10:00)
[2019-09-13] MEDS: PRENATAL VITAMINS W/ FOLIC ACID TABLET (FP) PO SCH (10:00)
[2019-09-13] MEDS: NICOTINE 21 MG/24 HOURS TOPICAL PATCH TD SCH (10:00)
--- NOTE | 2019-09-13 15:27 | PN ---
S CIWA - CIWA Score Nausea/Vomitin-No Nausea/No Vomiting Muscle Tremors: None Anxiety: 3 Agitation: 2 Paroxysmal Sweats: No Perspiration Orientation: 0-Oriented Tacttile Disturbances: 0-None Auditory Disturbances: 0-None Visual Disturbances: 1-Very Mild Sensitivity Headache: 0-None Present CIWA-Ar Total Score: 6 BHS Progress Note (SOAP) Subjective: Anxious, Restless, Body Aches, Stomach Cramping. Objective: Patient A & O X 3, Observed Ambulating on Detox Unit Unassisted. In No Acute Distress. 09/13/19 15:23 Vital Signs Temperature 97.7 F 09/13/19 12:22 Pulse Rate 88 09/13/19 12:22 Respiratory Rate 18 09/13/19 12:22 Blood Pressure 143/86 09/13/19 12:22 O2 Sat by Pulse Oximetry (%) 100 09/13/19 12:22 Laboratory Tests 09/09/19 09/09/19 09/09/19 10:00 10:00 10:00 WBC 2.9 L RBC 4.27 Hgb 14.1 Hct 43.7 D MCV 102.5 H MCH 33.0 MCHC 32.2 RDW 16.7 H Plt Count 116 L MPV 9.6 Sodium 139 Potassium 4.0 Chloride 100 Carbon Dioxide 33 H Anion Gap 6 L BUN 13.2 Creatinine 1.4 H Est GFR (CKD-EPI)AfAm 57.36 Est GFR (CKD-EPI)NonAf 49.49 Random Glucose 172 H Calcium 9.2 Total Bilirubin 1.1 H AST 34 ALT 17 Alkaline Phosphatase 67 Total Protein 7.8 Albumin 3.5 Syphilis Serology COVID-19 ([facility]) HIV Ag/Ab Combo Qual Negative 09/09/19 09/09/19 10:00 10:00 WBC RBC Hgb Hct MCV MCH MCHC RDW Plt Count MPV Sodium Potassium Chloride Carbon Dioxide Anion Gap BUN Creatinine Est GFR (CKD-EPI)AfAm Est GFR (CKD-EPI)NonAf Random Glucose Calcium Total Bilirubin AST ALT Alkaline Phosphatase Total Protein Albumin Syphilis Serology Non-reactive COVID-19 ([facility]) Not detected HIV Ag/Ab Combo Qual Lab Results noted. Assessment: 09/13/19 15:23 WITHDRAWAL SYMPTOMS. LEUKOPENIA. THROMBOCYTOPENA. HYPERGLYCEMIA (Patient denies known history of DM). AZOTEMIA 09/13/19 15:24 Plan: Continue Detox. Increase Daily oral water intake. Patient advised to follow-up with [facility] after Discharge from Detox for elevated random Glucose level and for abnormal Renal Lab values noted on detox admission laboratory assessment. Patient verbalized understanding of recommendation. Copies of results of all labs drawn while admitted for detox given to patient at time of discharge from detox unit.
[2019-09-13] MEDS: QUEtiapine FUMARATE 50 MG TABLET PO SCH (21:27)
[2019-09-13] MEDS: MELATONIN 5 MG TABLETS PO SCH (21:27)
[2019-09-13] MEDS: THIAMINE HCL 100 MG TABLET (FP) PO SCH (21:27)
[2019-09-14] MEDS ORDERED: chlordiazePOXIDE HCL 10 MG CAPSULE PO ONE (05:00)
[2019-09-14] MEDS ORDERED: LORazepam 0.5 MG TABLET PO ONE (05:00)
[2019-09-14] MEDS: hydrOXYzine PAMOATE 25 MG CAPSULE (FP) PO SCH ×2 (06:04→09:20)
[2019-09-14] MEDS: FAMOTIDINE 20 MG TABLET PO SCH (09:20)
[2019-09-14] MEDS: PRENATAL VITAMINS W/ FOLIC ACID TABLET (FP) PO SCH (09:20)
[2019-09-14] MEDS: NICOTINE 21 MG/24 HOURS TOPICAL PATCH TD SCH (09:20)
--- NOTE | 2019-09-14 09:21 | DS ---
[facility] Detox Discharge Summary Admission Date: 09/09/19 Discharge Date: 09/14/19 - History Present History: Alcohol Dependence Additional Comments: 73 years old male admitted on 09/09/19 for alcohol withdrawal sx management treated with ativan detox regiment seen by psychiatrist on 09/10/19 for insomnia resume seroquel mr bolivar has completed the ativan detox regiment and is tolerated well - Physical Exam Results Vital Signs: Vital Signs Temperature 97.7 F 09/14/19 06:55 Pulse Rate 80 09/14/19 06:55 Respiratory Rate 18 09/14/19 06:55 Blood Pressure 150/85 09/14/19 06:55 O2 Sat by Pulse Oximetry (%) 99 09/14/19 06:55 - Treatment Hospital Course: Detox Protocol Followed, Detoxed Safely, Responded well, Discharged Condition Good, Rehab Referral Accepted - Medication Discharge Medications: Ambulatory Orders Amlodipine Besylate [Norvasc -] 5 mg PO DAILY #30 tablet 09/14/19 - Diagnosis (1) Hypertension Current Visit: Yes Status: Acute (2) Alcohol dependence with uncomplicated withdrawal Current Visit: Yes Status: Acute (3) Nicotine dependence Current Visit: Yes Status: Acute Qualifiers: Nicotine product type: cigarettes Substance use status: uncomplicated Qualified Code(s): F17.210 - Nicotine dependence, cigarettes, uncomplicated (4) Substance induced mood disorder Current Visit: No Status: Acute (5) Weight loss Current Visit: No Status: Acute (6) PPD positive Current Visit: No Status: Chronic (7) Substance induced mood disorder Current Visit: No Status: Chronic (8) Substance induced mood disorder Current Visit: No Status: Chronic - AMA Did Patient Leave Against Medical Advice: No CIWA Score - CIWA Score Nausea/Vomitin-No Nausea/No Vomiting Muscle Tremors: None Anxiety: 2 Agitation: 1-Slight > Activity Paroxysmal Sweats: No Perspiration Orientation: 0-Oriented Tacttile Disturbances: 0-None Auditory Disturbances: 0-None Visual Disturbances: 0-None Headache: 0-None Present CIWA-Ar Total Score: 3
--- NOTE | 2019-09-14 09:32 | HP ---
[facility] Rehab Assess/Revision - Admission History Admitted to Rehab from: [facility] Date of Admission to Rehab: 09/15/19 - Vital signs Vital Signs: Vital Signs Period Temp Pulse Resp BP Sys/Ruano Pulse Ox Last 24 Hr 96.7 F-97.7 F 80-93 18-18 132-150/73-86 99-100 - Findings Detox History & Physical reviewed: Yes Concur with findings: Yes Comments/Additional Findings: transferred from detox to rehab admission as per protocol Inpatient Rehab Admission - Rehab Decision to Admit Inpatient rehab admission?: Yes - Initial Determination Are CD services needed?: Yes Free of communicable disease: Yes Not in need of hospitalization: Yes - Rehab Admission Criteria Previous failed treatment: Yes Poor recovery environment: Yes Comorbidities: Yes Lacks judgement: Yes Patient is meeting Inpatient Rehab admission criteria:: Yes
[2019-09-14] MEDS: amLODIPine BESYLATE 5 MG TABLET (FP) PO SCH (09:46)
[2019-09-14] MEDS ORDERED: hydrOXYzine PAMOATE 25 MG CAPSULE (FP) PO PRN (11:51)
[2019-09-14] MEDS: THIAMINE HCL 100 MG TABLET (FP) PO SCH (21:21)
[2019-09-14] MEDS: MELATONIN 5 MG TABLETS PO SCH (21:21)
[2019-09-14] MEDS: QUEtiapine FUMARATE 50 MG TABLET PO SCH (21:21)
--- NOTE | 2019-09-15 07:54 | CONSULT ---
[facility] Psychiatric Consult - Data Date of interview: 09/15/19 Admission source: 3N Identifying data: Mr Baxter is a 73 years old Black male, father of 3 children, unemployed receiving SSI, domiciled admitted from detox on 09/14/19 for inpatient rehabilitation treatment for alcohol and cocaine Substance Abuse History: Reports history of alcohol and cocaine use. Refer to addiction counselor's summary for further information Medical History: Significant for GERD, arthritis, PPD+, history of chronic alcoholic pancreatitis, surgery for pseudocyst of the pancreas in 2002 and removal of calcaneal spur right foot. Smokes cigarettes 1 ppd daily Psychiatric History: Patient is known well known to marketing copywriter from previous admission in this facility. Historical narrative remains consistent. He reports that he received psychiatric treatment for depression when he was around [age] years old. He has no recollection of medication he was prescibed but claims he took it for a year. Denies any further psychiatric treatment since, except receiving medication for insomnia during admission to substance abuse inpatient. During his most recent admission to detox in this facility, he saw Dr Bassett on 09/10/19 and he was prescribed Seroquel 50 mg/hs. Denies psychiatric hospitalization or suicidal attempt. At present, reports feeling mildly depressed and sleeping poorly. Requests to have Seroquel dosage increased to 100 mg/hs Physical/Sexual Abuse/Trauma History: Denies history of emotional, physical or sexual abuse as well as DV relationship Additional Comment: Reports history of multiple previous arrests including 3 felony convictions. Denies being on parole/probation currently Mental Status Exam - Mental Status Exam Alert and Oriented to: Time, Place, Person Cognitive Function: Fair Patient Appearance: Well Groomed Mood: Depressed Affect: Appropriate Patient Behavior: Cooperative Speech Pattern: Clear Voice Loudness: Normal Thought Process: Intact, Goal Oriented Hallucinations: Denies Suicidal Ideation: Denies Homicidal Ideation: Denies Insight/Judgement: Fair Sleep: Poorly Appetite: Fair Muscle strength/Tone: Normal Gait/Station: Normal Psychiatric Findings - Problem List ([place] 1, 2,3) (1) Substance induced mood disorder Current Visit: No Status: Acute (2) Substance-induced sleep disorder Current Visit: No Status: Acute (3) Alcohol dependence with uncomplicated withdrawal Current Visit: Yes Status: Acute (4) Cocaine dependence Current Visit: Yes Status: Acute Qualifiers: Substance use status: uncomplicated Qualified Code(s): F14.20 - Cocaine dependence, uncomplicated (5) Nicotine dependence Current Visit: Yes Status: Chronic Qualifiers: Nicotine product type: cigarettes Substance use status: uncomplicated Qualified Code(s): F17.210 - Nicotine dependence, cigarettes, uncomplicated (6) GERD (gastroesophageal reflux disease) Current Visit: No Status: Chronic Qualifiers: Esophagitis presence: without esophagitis Qualified Code(s): K21.9 - Gastro-esophageal reflux disease without esophagitis (7) PPD positive Current Visit: No Status: Chronic (8) Chronic alcoholic pancreatitis Current Visit: No Status: Chronic (9) Pseudocyst of pancreas Current Visit: No Status: Resolved (10) Arthritis Current Visit: No Status: Chronic - Initial Treatment Plan Initial Treatment Plan: 1) Start Seroquel 100 mg po HS. 2) Continue inpatient detoxification
--- NOTE | 2019-09-15 10:23 | CONSULT ---
[facility] Psychiatric Consult - Data Date of interview: 09/15/19
[2019-09-15] MEDS: PRENATAL VITAMINS W/ FOLIC ACID TABLET (FP) PO SCH (10:25)
[2019-09-15] MEDS: NICOTINE 21 MG/24 HOURS TOPICAL PATCH TD SCH (10:25)
[2019-09-15] MEDS: amLODIPine BESYLATE 5 MG TABLET (FP) PO SCH (10:25)
[2019-09-15] MEDS: FAMOTIDINE 20 MG TABLET PO SCH (10:25)
[2019-09-15] MEDS: THIAMINE HCL 100 MG TABLET (FP) PO SCH (21:04)
[2019-09-15] MEDS: MELATONIN 5 MG TABLETS PO SCH (21:04)
[2019-09-15] MEDS: QUEtiapine FUMARATE 100 MG TABLET (FP) PO SCH (21:04)
[2019-09-15] MEDS: QUEtiapine FUMARATE 50 MG TABLET PO SCH (21:05)
[2019-09-16] MEDS: PRENATAL VITAMINS W/ FOLIC ACID TABLET (FP) PO SCH (09:35)
[2019-09-16] MEDS: amLODIPine BESYLATE 5 MG TABLET (FP) PO SCH (09:36)
[2019-09-16] MEDS: FAMOTIDINE 20 MG TABLET PO SCH (09:36)
[2019-09-16] MEDS: NICOTINE 21 MG/24 HOURS TOPICAL PATCH TD SCH (09:36)
[2019-09-16] MEDS: MELATONIN 5 MG TABLETS PO SCH (21:02)
[2019-09-16] MEDS: QUEtiapine FUMARATE 50 MG TABLET PO SCH (21:02)
[2019-09-16] MEDS: THIAMINE HCL 100 MG TABLET (FP) PO SCH (21:02)
[2019-09-16] MEDS: QUEtiapine FUMARATE 100 MG TABLET (FP) PO SCH (21:02)
[2019-09-17] MEDS: FAMOTIDINE 20 MG TABLET PO SCH (10:12)
[2019-09-17] MEDS: NICOTINE 21 MG/24 HOURS TOPICAL PATCH TD SCH (10:12)
[2019-09-17] MEDS: PRENATAL VITAMINS W/ FOLIC ACID TABLET (FP) PO SCH (10:12)
[2019-09-17] MEDS: amLODIPine BESYLATE 5 MG TABLET (FP) PO SCH (10:13)
[2019-09-17] MEDS: ACETAMINOPHEN 325 MG TABLET (FP) PO PRN ×2 (13:50→21:02)
--- NOTE | 2019-09-17 16:45 | PN ---
S Progress Note Note: Psychiatry Attending's note : Discontinue order for seroquel 50 mg po hs.
[2019-09-17] MEDS: MELATONIN 5 MG TABLETS PO SCH (21:00)
[2019-09-17] MEDS: THIAMINE HCL 100 MG TABLET (FP) PO SCH (21:00)
[2019-09-17] MEDS: QUEtiapine FUMARATE 100 MG TABLET (FP) PO SCH (21:00)
[2019-09-17] MEDS ORDERED: PT OWN MED DRAWER 7, Y5N ONE (21:02)
[2019-09-17] MEDS: AMOXICILLIN 500 MG CAPSULE (FP) PO SCH (21:48)
[2019-09-18] MEDS ORDERED: PT OWN MED DRAWER 7, Y5N ONE ×2 (09:00→17:14)
[2019-09-18] MEDS: PRENATAL VITAMINS W/ FOLIC ACID TABLET (FP) PO SCH (09:45)
[2019-09-18] MEDS: amLODIPine BESYLATE 5 MG TABLET (FP) PO SCH (09:45)
[2019-09-18] MEDS: NICOTINE 21 MG/24 HOURS TOPICAL PATCH TD SCH (09:45)
[2019-09-18] MEDS: FAMOTIDINE 20 MG TABLET PO SCH (09:46)
[2019-09-18] MEDS: AMOXICILLIN 500 MG CAPSULE (FP) PO SCH ×2 (09:46→21:05)
[2019-09-18 18:01] LABS: PH,URINE 6.5 (5.0-8.0); URINE APPEARANCE CLEAR; URINE BILIRUBIN NEGATIVE (NEGATIVE); URINE COLOR YELLOW; URINE GLUCOSE (UA) NEGATIVE (NEGATIVE); URINE KETONE NEGATIVE (NEGATIVE); URINE LEUK ESTERASE NEGATIVE (NEGATIVE); URINE NITRITE NEGATIVE (NEGATIVE); URINE PROTEIN NEGATIVE (NEGATIVE); URINE UROBILINOGEN 0.2 mg/dL (0.2-1.0)
[2019-09-18] MEDS: MELATONIN 5 MG TABLETS PO SCH (21:05)
[2019-09-18] MEDS: QUEtiapine FUMARATE 100 MG TABLET (FP) PO SCH (21:05)
[2019-09-18] MEDS: THIAMINE HCL 100 MG TABLET (FP) PO SCH (21:05)
[2019-09-19] MEDS ORDERED: PT OWN MED DRAWER 7, Y5N ONE ×2 (08:32→20:18)
[2019-09-19] MEDS: amLODIPine BESYLATE 5 MG TABLET (FP) PO SCH (09:41)
[2019-09-19] MEDS: AMOXICILLIN 500 MG CAPSULE (FP) PO SCH ×2 (09:41→21:14)
[2019-09-19] MEDS: PRENATAL VITAMINS W/ FOLIC ACID TABLET (FP) PO SCH (09:41)
[2019-09-19] MEDS: NICOTINE 21 MG/24 HOURS TOPICAL PATCH TD SCH (09:41)
[2019-09-19] MEDS: FAMOTIDINE 20 MG TABLET PO SCH (09:42)
[2019-09-19] MEDS: ACETAMINOPHEN 325 MG TABLET (FP) PO PRN (09:44)
--- NOTE | 2019-09-19 13:43 | PN ---
[facility] Progress Note Note: Psychiatry Attending's note : Approached by patient. Complaint : insomnia. Mr Baxter is requesting belsomra. Did well on that medication in the past. As per self-report. Side effects/benefits discussed. Intervention : belsomra 5 mg po hs prn. Ordered. With the patient's consent.
[2019-09-19] MEDS: MELATONIN 5 MG TABLETS PO SCH (21:14)
[2019-09-19] MEDS: QUEtiapine FUMARATE 100 MG TABLET (FP) PO SCH (21:14)
[2019-09-19] MEDS: THIAMINE HCL 100 MG TABLET (FP) PO SCH (21:14)
[2019-09-19] MEDS: SUVOREXANT 5 MG TABLET PO PRN (21:16)
[2019-09-20] MEDS ORDERED: PT OWN MED DRAWER 7, Y5N ONE (08:52)
[2019-09-20] MEDS: NICOTINE 21 MG/24 HOURS TOPICAL PATCH TD SCH (10:02)
[2019-09-20] MEDS: PRENATAL VITAMINS W/ FOLIC ACID TABLET (FP) PO SCH (10:03)
[2019-09-20] MEDS: amLODIPine BESYLATE 5 MG TABLET (FP) PO SCH (10:03)
[2019-09-20] MEDS: AMOXICILLIN 500 MG CAPSULE (FP) PO SCH ×2 (10:03→21:03)
[2019-09-20] MEDS: FAMOTIDINE 20 MG TABLET PO SCH (10:03)
[2019-09-20] MEDS: QUEtiapine FUMARATE 100 MG TABLET (FP) PO SCH (21:03)
[2019-09-20] MEDS: THIAMINE HCL 100 MG TABLET (FP) PO SCH (21:03)
[2019-09-20] MEDS: MELATONIN 5 MG TABLETS PO SCH (21:03)
[2019-09-20] MEDS: SUVOREXANT 5 MG TABLET PO PRN (21:04)
[2019-09-21] MEDS: AMOXICILLIN 500 MG CAPSULE (FP) PO SCH ×2 (09:44→21:01)
[2019-09-21] MEDS: PRENATAL VITAMINS W/ FOLIC ACID TABLET (FP) PO SCH (09:45)
[2019-09-21] MEDS: FAMOTIDINE 20 MG TABLET PO SCH (09:45)
[2019-09-21] MEDS: NICOTINE 21 MG/24 HOURS TOPICAL PATCH TD SCH (09:45)
[2019-09-21] MEDS: amLODIPine BESYLATE 5 MG TABLET (FP) PO SCH (09:45)
[2019-09-21] MEDS: ACETAMINOPHEN 325 MG TABLET (FP) PO PRN (17:06)
[2019-09-21] MEDS: QUEtiapine FUMARATE 100 MG TABLET (FP) PO SCH (21:00)
[2019-09-21] MEDS: MELATONIN 5 MG TABLETS PO SCH (21:00)
[2019-09-21] MEDS: THIAMINE HCL 100 MG TABLET (FP) PO SCH (21:00)
[2019-09-21] MEDS: SUVOREXANT 5 MG TABLET PO PRN (21:01)
--- NOTE | 2019-09-22 09:22 | PN ---
S Progress Note Note: Patient is scheduled for discharge today. Script for 30 days supply of Seroquel 100 mg/hs is electronically transmitted to Pharmacy, [address] [place] [id number]
[2019-09-22] MEDS: NICOTINE 21 MG/24 HOURS TOPICAL PATCH TD SCH (09:49)
[2019-09-22] MEDS: AMOXICILLIN 500 MG CAPSULE (FP) PO SCH ×2 (09:49→21:04)
[2019-09-22] MEDS: FAMOTIDINE 20 MG TABLET PO SCH (09:50)
[2019-09-22] MEDS: PRENATAL VITAMINS W/ FOLIC ACID TABLET (FP) PO SCH (09:50)
[2019-09-22] MEDS: amLODIPine BESYLATE 5 MG TABLET (FP) PO SCH (09:50)
[2019-09-22] MEDS: MELATONIN 5 MG TABLETS PO SCH (21:04)
[2019-09-22] MEDS: THIAMINE HCL 100 MG TABLET (FP) PO SCH (21:04)
[2019-09-22] MEDS: QUEtiapine FUMARATE 100 MG TABLET (FP) PO SCH (21:04)
[2019-09-22] MEDS: SUVOREXANT 5 MG TABLET PO PRN (21:05)
[2019-09-23] MEDS: AMOXICILLIN 500 MG CAPSULE (FP) PO SCH ×2 (09:19→21:16)
[2019-09-23] MEDS: PRENATAL VITAMINS W/ FOLIC ACID TABLET (FP) PO SCH (09:19)
[2019-09-23] MEDS: NICOTINE 21 MG/24 HOURS TOPICAL PATCH TD SCH (09:19)
[2019-09-23] MEDS: amLODIPine BESYLATE 5 MG TABLET (FP) PO SCH (09:19)
[2019-09-23] MEDS: FAMOTIDINE 20 MG TABLET PO SCH (09:20)
[2019-09-23] MEDS: MELATONIN 5 MG TABLETS PO SCH (21:16)
[2019-09-23] MEDS: QUEtiapine FUMARATE 100 MG TABLET (FP) PO SCH (21:16)
[2019-09-23] MEDS: THIAMINE HCL 100 MG TABLET (FP) PO SCH (21:16)
[2019-09-23] MEDS: SUVOREXANT 5 MG TABLET PO PRN (21:17)
--- NOTE | 2019-09-23 23:25 | PN ---
S Progress Note Note: SEEN FOR C/O RASH. CLIENT REPORTS RUBBING HIS SHOULDER AND FEELING SOME BUMBS ON HIS R SHOULDER. HE ALSO NOTES RASH IS ALOS ON HIS CHEST. DENIES ITCHING, SOB, PAIN. DENIES RASH TO ANY OTHER PARTS OF BODY CLIENT IS A/O X3 NAD HEAD- NCAT- NO RASH SKIN-R SHOULDER AND CHEST NOTED NON PRURITIC ERYTHEMATOUS VESICULAR RASH. SKIN IS INTACT A- DERMATITIS/ ALLERGIC RXN P- HYDROCORTISONE 1% CREAM ADIR CONTINUE TO MONITOR CLOSELY
[2019-09-23] MEDS: HYDROCORTISONE 1% TOPICAL CREAM 30 GM TUBE TP PRN (23:30)
[2019-09-24] MEDS ORDERED: PT OWN MED DRAWER 7, Y5N ONE (08:40)
[2019-09-24] MEDS: HYDROCORTISONE 1% TOPICAL CREAM 30 GM TUBE TP PRN (08:41)
[2019-09-24] MEDS: PRENATAL VITAMINS W/ FOLIC ACID TABLET (FP) PO SCH (10:25)
[2019-09-24] MEDS: FAMOTIDINE 20 MG TABLET PO SCH (10:25)
[2019-09-24] MEDS: NICOTINE 21 MG/24 HOURS TOPICAL PATCH TD SCH (10:25)
[2019-09-24] MEDS: AMOXICILLIN 500 MG CAPSULE (FP) PO SCH (10:25)
[2019-09-24] MEDS: amLODIPine BESYLATE 5 MG TABLET (FP) PO SCH (10:25)
[2019-09-24] MEDS: ACETAMINOPHEN 325 MG TABLET (FP) PO PRN (16:58)
[2019-09-24] MEDS: THIAMINE HCL 100 MG TABLET (FP) PO SCH (21:05)
[2019-09-24] MEDS: QUEtiapine FUMARATE 100 MG TABLET (FP) PO SCH (21:06)
[2019-09-24] MEDS: SUVOREXANT 5 MG TABLET PO PRN (21:06)
[2019-09-24] MEDS: MELATONIN 5 MG TABLETS PO SCH (21:06)
[2019-09-25 06:56] VITALS: TEMP 97.8
[2019-09-25] MEDS: NICOTINE 21 MG/24 HOURS TOPICAL PATCH TD SCH (09:57)
[2019-09-25] MEDS: PRENATAL VITAMINS W/ FOLIC ACID TABLET (FP) PO SCH (09:58)
[2019-09-25] MEDS: amLODIPine BESYLATE 5 MG TABLET (FP) PO SCH (09:58)
[2019-09-25] MEDS: FAMOTIDINE 20 MG TABLET PO SCH (09:58)
[2019-09-25 10:10] VITALS: BP 119/61; PULSE 81
--- NOTE | 2019-09-25 15:29 | DS ---
[facility] Rehab Discharge Summary - [facility] Rehab Discharge Summary Admission Date: 09/09/19 Discharge Date: 09/25/19 - History Present History: Alcohol dependence, Cocaine dependence Pertinent Past History: this 73 years old male with alcohol dependence multiple admissions in detox and rehab but keep relapsing denied seizure denied syncope insomnia longest period of sobriety 6 and a half years nicotine dependence 20 cigarettes/day - Discharge Physical Exam Vital Signs: Vital Signs Temperature 97.8 F 09/25/19 06:55 Pulse Rate 81 09/25/19 10:00 Respiratory Rate 18 09/25/19 06:55 Blood Pressure 119/61 09/25/19 10:00 O2 Sat by Pulse Oximetry (%) 96 09/25/19 06:55 Pertinent Admission Physical Exam Findings: Physical General Appearance: Irritable, HEENTM: LEO,[id number] Respiratory: +Breath Sounds, No Respiratory Distress Neck: Supple, Trachea in good position Abdominal: +BS Musculoskeletal: Full weight bearing, steady gait Neurological: Yes: wet sander II-XII NML intact, - Treatment Discharge Condition: Outpatient referral accepted (Patient was discharged to home. Medically stable for discharge.) Hospital Course: Patient attended groups, had 1:1 with counselor, was seen by the psychiatric service. - Medication Discharge Medications: Ambulatory Orders Amlodipine Besylate [Norvasc -] 5 mg PO DAILY #30 tablet 09/14/19 Quetiapine Fumarate [Seroquel -] 100 mg PO HS #30 tablet 09/22/19 - Medication-Assisted Treatment (MAT) Medication-Assisted Treatment (MAT): No - Discharge Instructions Diet, activity, other medical instructions: Diet: as tolerated Activity: as tolerated Other medical instructions: Please attend AA meetings. - Diagnosis (1) Alcohol dependence with uncomplicated withdrawal Current Visit: Yes Status: Chronic (2) Cocaine dependence Current Visit: Yes Status: Chronic Qualifiers: Substance use status: uncomplicated Qualified Code(s): F14.20 - Cocaine dependence, uncomplicated - Follow-up Referral Minutes to complete discharge: 15 - AMA Did Patient Leave Against Medical Advice: No
== END 2019-09-25 14:10 | disposition home or self-care (01) | DRG 895 ==
LOC: YASAS 09:10 → Y3N 11:45 → Y3E 09-14 11:12
PROVIDERS: ADMIT Allergy & Immunology; ATTEND Allergy & Immunology
PROC: HZ2ZZZZ Detoxification Services for Substance Abuse Treatment (ICD-10-PCS; principal; 2019-09-09)
PROC: HZ42ZZZ Group Counseling for Substance Abuse Treatment, Cognitive-Behavioral (ICD-10-PCS; 2019-09-14)
DX: F10.230 Alcohol dependence with withdrawal, uncomplicated (principal); F14.20 Cocaine dependence, uncomplicated; F19.282 Other psychoactive substance dependence with psychoactive substance-induced sleep disorder; F17.210 Nicotine dependence, cigarettes, uncomplicated; F19.24 Other psychoactive substance dependence with psychoactive substance-induced mood disorder; K21.9 Gastro-esophageal reflux disease without esophagitis; R76.11 Nonspecific reaction to tuberculin skin test without active tuberculosis; L23.9 Allergic contact dermatitis, unspecified cause; G47.00 Insomnia, unspecified; M19.90 Unspecified osteoarthritis, unspecified site; D72.819 Decreased white blood cell count, unspecified; D69.6 Thrombocytopenia, unspecified; R73.9 Hyperglycemia, unspecified; R79.89 Other specified abnormal findings of blood chemistry; Z87.19 Personal history of other diseases of the digestive system; Z91.013 Allergy to seafood; Z91.018 Allergy to other foods; Z91.048 Other nonmedicinal substance allergy status
CPT/HCPCS: 36415; 71046-TC-FY; 80053; 81003; 82962; 85027; 86780; 87389; J0735; U0003

== ENCOUNTER 2019-10-20 12:40 | Inpatient (IN) | payer OTHER ==
--- NOTE | 2019-10-20 12:57 | BHS.RME ---
Substance Use & Tx History - Substance Use History Alcohol Substance amount: 1-1.5 Charity or Vodka Frequency of use: Daily Substance route: Oral Date of Last Use: 09/25/19 Cocaine- Powder Substance amount: 3-6 grams Frequency of use: Less than 3 times per week Substance route: Inhalation (ex: sniffing or snorting) Date of Last Use: 09/25/19 Nicotine Substance amount: 20 ciggs Frequency of use: Daily Substance route: Smoking - Last Treatment Date of last treatment: 09/09-09/25/19 Treatment type: Substance Use Disorder (MANOHAR) Where was last treatment: Detox Physical/Psych/Mental Status - Behavior General Behavior: Increased activity (restlessness, agitation) Eye Contact: Normal - Cooperativeness Cooperativeness: Cooperative - Thinking Thought Processes: Tight, Logical, Goal Directed - Physical Health Problems Is patient presently having any pain?: No Does patient presently have any injuries (include location): No Does patient currently have a fever: No Is patient : No CIWA Nausea/Vomitin-No Nausea/No Vomiting Muscle Tremors: None Anxiety: 0-No Anxiety, at Ease Agitation: 0-Normal Activity Paroxysmal Sweats: No Perspiration Orientation: 0-Oriented Tacttile Disturbances: 0-None Auditory Disturbances: 0-None Visual Disturbances: 0-None Headache: 0-None Present CIWA-Ar Total Score: 0
--- NOTE | 2019-10-20 13:42 | HP ---
CIWA Score Nausea/Vomitin-No Nausea/No Vomiting Muscle Tremors: None Anxiety: 0-No Anxiety, at Ease Agitation: 0-Normal Activity Paroxysmal Sweats: No Perspiration Orientation: 0-Oriented Tacttile Disturbances: 0-None Auditory Disturbances: 0-None Visual Disturbances: 0-None Headache: 0-None Present CIWA-Ar Total Score: 0 - Admission Criteria OASAS Guidelines: Admission for Medically Managed Detox: Requires at least one of the followin. CIWA greater than 12 2. Seizures within the past 24 hours 3. Delirium tremens within the past 24 hours 4. Hallucinations within the past 24 hours 5. Acute intervention needed for co occurring medical disorder 6. Acute intervention needed for co occurring psychiatric disorder 7. Severe withdrawal that cannot be handled at a lower level of care (continued vomiting, continued diarrhea, abnormal vital signs) requiring intravenous medication and/or fluids 8. Admitting History and Physical - Admission Chief Complaint: rehab for alcohol and cocaine History of Present Illness: Patient is a 74 y/o male with no past medical history who is presenting for rehab for alcohol and cocaine. Patient started drinking alcohol at age 15. Patient was sober for 6.5 years during [id number]. Patient drinks 2.5-3 pints of hennesy or charles walker black a day. Patient has never had seizures form drinking. Patient denies ever blacking out from drinking. Denies current eyeopeners. Last drink was in August. Last used cocaine in August, Started at 15. uses 3-6 grams a day. Substance Use & Tx History - Substance Use History Alcohol Substance amount: 1-1.5 Charity or Vodka Frequency of use: Daily Substance route: Oral Date of Last Use: 09/25/19 Cocaine- Powder Substance amount: 3-6 grams Frequency of use: Less than 3 times per week Substance route: Inhalation (ex: sniffing or snorting) Date of Last Use: 09/25/19 Nicotine Substance amount: 20 ciggs Frequency of use: Daily Substance route: Smoking - Last Treatment Date of last treatment: 09/09-09/25/19 Treatment type: Substance Use Disorder (MANOHAR) Where was last treatment: Detox SGHX: pseudocyst remover Patient meets criteria for rehab admission. 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 History of Recent Travel: No Admission ROS S - HPI Allergies/Adverse Reactions: Allergies Allergy/AdvReac Type Severity Reaction Status Date / Time shellfish derived Allergy Mild Rash Verified 10/20/19 13:59 tomato Allergy Mild Rash Verified 10/20/19 13:59 iodine Allergy Rash Verified 10/20/19 13:59 Exam Limitations: No Limitations - Ebola screening Have you traveled outside of the country in the last 21 days: No Have you had contact with anyone from an Ebola affected area: No Have you been sick,other than usual withdrawal symptoms: No Do you have a fever: No - Review of Systems Constitutional: No Symptoms Reported Respiratory: reports: No Symptoms reported Cardiac: reports: No Symptoms Reported GI: reports: No Symptoms Reported Musculoskeletal: reports: No Symptoms Reported Patient History - Patient Medical History Hx Anemia: No Hx Asthma: No Hx Chronic Obstructive Pulmonary Disease (COPD): No Hx Cancer: No Hx Cardiac Disorders: No Hx Congestive Heart Failure: No Hx Hypertension: Yes (On detox 09/14/19 B/P 144/84 started on Norvasc) Hx Hypercholesterolemia: No Hx Pacemaker: No HX Cerebrovascular Accident: No Hx Seizures: No Hx Dementia: No Hx Diabetes: No Hx Gastrointestinal Disorders: Yes (pancreatitis,psudocyst of pancrease) Hx Liver Disease: No Hx Genitourinary Disorders: No Hx Sexually Transmitted Disorders: No Hx Renal Disease (ESRD): No Hx Thyroid Disease: No Hx Human Immunodeficiency Virus (HIV): No (last 03/2019 negative) Hx Hepatitis C: No Hx Depression: No Hx Suicide Attempt: No Hx Bipolar Disorder: No Hx Schizophrenia: No - Patient Surgical History Past Surgical History: Yes Hx Neurologic Surgery: No Hx Cataract Extraction: No Hx Cardiac Surgery: No Hx Lung Surgery: No Hx Breast Surgery: No Hx Breast Biopsy: No Hx Abdominal Surgery: Yes (pseudocyst of pancrease in 2008) Hx Appendectomy: No Hx Cholecystectomy: No Hx Genitourinary Surgery: No Hx Section: No Hx Orthopedic Surgery: No Anesthesia Reaction: No - PPD History Date: 02/15/18 Results: CXR(-)02/18/18 - Smoking Cessation Smoking history: Current every day smoker Have you smoked in the past 12 months: Yes Aproximately how many cigarettes per day: 20 Cigars Per Day: 0 Hx Chewing Tobacco Use: No Initiated information on smoking cessation: No - Substances abused Alcohol Substance route: Oral Frequency: Daily Amount used: 1-1 1/2 PINT VODKA Age of first use: 15 Date of last use: 09/25/19 Cocaine Substance route: Inhalation Frequency: 3-6 times per week Amount used: 3-6 GRAMS Age of first use: 16 Date of last use: 09/25/19 Admission Physical Exam [facility]HS - Physical General Appearance: Yes: No Apparent Distress HEENTM: Yes: Hearing grossly Normal Respiratory: Yes: Within Normal Limits, Normal Breath Sounds, No Respiratory Distress Cardiology: Yes: Regular Rhythm, Regular Rate Abdominal: Yes: Normal Bowel Sounds, Non Tender, Soft Musculoskeletal: Yes: full range of Motion Extremities: No: Pedal Edema - Diagnostic (1) Alcohol dependence with uncomplicated withdrawal Current Visit: Yes Status: Chronic (2) Cocaine dependence Current Visit: Yes Status: Chronic Qualifiers: Substance use status: uncomplicated Qualified Code(s): F14.20 - Cocaine dependence, uncomplicated Breathalyzer - Breathalyzer Breathalyzer: 0 Vital Signs - Vital Signs Vital signs refused: No Temperature: 98.6 F Temperature source: Oral Pulse Rate: 76 Respiratory Rate: 12 Blood Pressure: 154/74 - Height Height: 5 ft 9 in - Weight Weight: 179 kg - BMI Body Mass Index (BMI): 58.2 Urine Drug Screen - Test Device Lot number: [id number] Expiration date: 05/27/21 - Control Is test valid?: Yes - Results Drug screen NEGATIVE: Yes Urine drug screen results: GURDEEP-Cocaine Inpatient Rehab Admission - Rehab Decision to Admit Inpatient rehab admission?: Yes - Initial Determination Are CD services needed?: No Free of communicable disease: Yes Not in need of hospitalization: Yes - Rehab Admission Criteria Previous failed treatment: Yes Poor recovery environment: No Comorbidities: Yes Lacks judgement: Yes Patient is meeting Inpatient Rehab admission criteria:: Yes
[2019-10-20 13:53] VITALS: BMI 58.2
[2019-10-20] MEDS ORDERED: NICOTINE POLACRILEX 2 MG GUM BUC PRN (13:55)
[2019-10-20] MEDS ORDERED: IBUPROFEN 400 MG TABLET (FP) PO PRN (13:55)
[2019-10-20] MEDS ORDERED: P-EPHED 60MG/TRIPROLIDI 2.5MG TABLET PO PRN (13:55)
[2019-10-20] MEDS: PRENATAL VITAMINS W/ FOLIC ACID TABLET (FP) PO SCH (15:07)
[2019-10-20] MEDS: NICOTINE 7 MG/24 HOURS TOPICAL PATCH TD SCH (15:07)
[2019-10-20 17:37] LABS: HEMOGLOBIN 12.2 GM/dL (11.7-16.9); MCH 32.9 pg (25.7-33.7); MEAN CELL VOLUME 99.7 fl (80-96); MEAN PLT VOLUME 9.2 fl (7.5-11.1); PLATELET COUNT 141 K/MM3 (134-434); RBC 3.71 M/mm3 (4.00-5.60); RDW 15.8 % (11.9-15.9); WHITE BLOOD COUNT 2.9 K/mm3 (4.0-10.0)
[2019-10-20 17:43] LABS: SICKLE CELL SCREEN NEGATIVE (NEGATIVE)
[2019-10-20 17:44] LABS: ALBUMIN 3.2 g/dl (3.4-5.0); BILIRUBIN,TOTAL 0.7 mg/dL (0.2-1); BLOOD UREA NITROGEN 14.8 mg/dL (7-18); CALCIUM 8.8 mg/dL (8.5-10.1); CREATININE 1.3 mg/dL (0.55-1.3); POTASSIUM 4.5 mmol/L (3.5-5.1); TOT PROT 7.2 g/dl (6.4-8.2)
[2019-10-20] MEDS: QUEtiapine FUMARATE 100 MG TABLET (FP) PO SCH (21:10)
[2019-10-20] MEDS: MELATONIN 5 MG TABLETS PO SCH (21:10)
[2019-10-20] MEDS: THIAMINE HCL 100 MG TABLET (FP) PO SCH (21:10)
[2019-10-21] MEDS: NICOTINE 7 MG/24 HOURS TOPICAL PATCH TD SCH (10:23)
[2019-10-21] MEDS: PRENATAL VITAMINS W/ FOLIC ACID TABLET (FP) PO SCH (10:23)
[2019-10-21] MEDS ORDERED: NICOTINE POLACRILEX 4 MG GUM BUC PRN (10:24)
--- NOTE | 2019-10-21 10:26 | PN ---
[facility] Progress Note Note: Pt is a 74 y/o male admitted to rehab. Pt is known to this facility and reports completed detox outside befor presenting here for rehab. PMHx:GERD, HTN, Pancreatitis(pseudocyst pancrease) Laboratory Tests 10/20/19 10/20/19 10/20/19 13:50 13:50 13:50 WBC 2.9 L RBC 3.71 L Hgb 12.2 Hct 37.0 D MCV 99.7 H MCH 32.9 MCHC 33.0 RDW 15.8 Plt Count 141 D MPV 9.2 Sickle Cell Screen Negative Sodium 137 Potassium 4.5 Chloride 103 Carbon Dioxide 31 Anion Gap 3 L BUN 14.8 Creatinine 1.3 Est GFR (CKD-EPI)AfAm 62.30 Est GFR (CKD-EPI)NonAf 53.75 Random Glucose 113 H Calcium 8.8 Total Bilirubin 0.7 AST 24 ALT 18 Alkaline Phosphatase 58 Total Protein 7.2 Albumin 3.2 L Syphilis Serology Non-reactive covid-19 negative of 10/11/19 through [facility]
[2019-10-21] MEDS: NICOTINE 21 MG/24 HOURS TOPICAL PATCH TD SCH (11:06)
[2019-10-21] MEDS: MELATONIN 5 MG TABLETS PO SCH (21:04)
[2019-10-21] MEDS: THIAMINE HCL 100 MG TABLET (FP) PO SCH (21:04)
[2019-10-21] MEDS: QUEtiapine FUMARATE 100 MG TABLET (FP) PO SCH (21:04)
--- NOTE | 2019-10-22 08:22 | PN ---
Teaching Attending Note Name of Resident: Megan Tamez ATTENDING PHYSICIAN STATEMENT I saw and evaluated the patient. I reviewed the resident's note and discussed the case with the resident. I agree with the resident's findings and plan as documented. SUBJECTIVE: OBJECTIVE: ASSESSMENT AND PLAN: Agree with resident's findings and plan for detox.
[2019-10-22] MEDS: PRENATAL VITAMINS W/ FOLIC ACID TABLET (FP) PO SCH (09:51)
[2019-10-22] MEDS: NICOTINE 21 MG/24 HOURS TOPICAL PATCH TD SCH (09:51)
[2019-10-22] MEDS: MELATONIN 5 MG TABLETS PO SCH (21:10)
[2019-10-22] MEDS: QUEtiapine FUMARATE 100 MG TABLET (FP) PO SCH (21:10)
[2019-10-22] MEDS: THIAMINE HCL 100 MG TABLET (FP) PO SCH (21:10)
[2019-10-23] MEDS: PRENATAL VITAMINS W/ FOLIC ACID TABLET (FP) PO SCH (09:10)
[2019-10-23] MEDS: NICOTINE 21 MG/24 HOURS TOPICAL PATCH TD SCH (09:10)
[2019-10-23] MEDS: QUEtiapine FUMARATE 100 MG TABLET (FP) PO SCH (21:00)
[2019-10-23] MEDS: MELATONIN 5 MG TABLETS PO SCH (21:00)
[2019-10-23] MEDS: THIAMINE HCL 100 MG TABLET (FP) PO SCH (21:00)
[2019-10-24] MEDS: NICOTINE 21 MG/24 HOURS TOPICAL PATCH TD SCH (09:06)
[2019-10-24] MEDS: PRENATAL VITAMINS W/ FOLIC ACID TABLET (FP) PO SCH (09:06)
--- NOTE | 2019-10-24 11:19 | CONSULT ---
[facility] Psychiatric Consult - Data Date of interview: 10/24/19 Admission source: [facility] Identifying data: Patient is a 73 year old single male, father of three, unemployed, domiciled, and is financially supported with [facility]. This is one of multiple admissions for patient. Patient admitted to rehab for alcohol and cocaine dependence Substance Abuse History: Smoking Cessation. Smoking history: Current every day smoker. Have you smoked in the past 12 months: Yes. Aproximately how many cigarettes per day: 20. Cigars Per Day: 0. Hx Chewing Tobacco Use: No. Initiated information on smoking cessation: No. - Substances abused. Alcohol. Substance route: Oral. Frequency: Daily. Amount used: 1-1 1/2 PINT VODKA. Age of first use: 15. Date of last use: 09/25/19. Cocaine. Substance route: Inhalation. Frequency: 3-6 times per week. Amount used: 3-6 GRAMS. Age of first use: 16. Date of last use: 09/25/19 Medical History: Significant for GERD, arthritis, PPD+, history of chronic alcoholic pancreatitis, surgery for pseudocyst of the pancreas in 2002 and removal of calcaneal spur right foot. Psychiatric History: Patient denies h/o psychiatric hospitalization, outpatient care, and suicide attempt. Mr. Baxter first psychiatric contact occured at 5-6 years of age due to depression. Patient denies additional outpatient psychiatric since, except when admitted to detox/rehab facilites. Mr. Baxter reports history of accepting seroquel, trazodone, remeron and belsomra for insomnia. At present, patient reports stable mood but is experiencing difficulty sleeping. Physical/Sexual Abuse/Trauma History: denies. Mental Status Exam - Mental Status Exam Alert and Oriented to: Time, Place, Person Cognitive Function: Good Patient Appearance: Well Groomed Mood: Hopeful Affect: Appropriate Patient Behavior: Appropriate, Cooperative Speech Pattern: Appropriate Voice Loudness: Normal Thought Process: Intact, Goal Oriented Thought Disorder: Not Present Hallucinations: Denies Suicidal Ideation: Denies Homicidal Ideation: Denies Insight/Judgement: Poor Sleep: Poorly Appetite: Fair Muscle strength/Tone: Normal Gait/Station: Normal Psychiatric Findings - Problem List ([place] 1, 2,3) (1) Alcohol use disorder Current Visit: Yes Status: Acute (2) Cocaine dependence Current Visit: Yes Status: Chronic Qualifiers: Substance use status: uncomplicated Qualified Code(s): F14.20 - Cocaine dependence, uncomplicated (3) Substance-induced sleep disorder Current Visit: Yes Status: Acute - Initial Treatment Plan Initial Treatment Plan: Psychoeducation provided. Detoxification in progress. Will continue Seroquel 100mg HS. Will order Belsomrsa 10mg HS (patients request). Benefits and side effects discussed. Verbal consent given.
[2019-10-24 15:45] LABS: PH,URINE 6.5 (5.0-8.0); URINE APPEARANCE CLEAR; URINE BILIRUBIN NEGATIVE (NEGATIVE); URINE COLOR YELLOW; URINE GLUCOSE (UA) NEGATIVE (NEGATIVE); URINE KETONE NEGATIVE (NEGATIVE); URINE LEUK ESTERASE NEGATIVE (NEGATIVE); URINE NITRITE NEGATIVE (NEGATIVE); URINE PROTEIN NEGATIVE (NEGATIVE); URINE UROBILINOGEN 0.2 mg/dL (0.2-1.0)
[2019-10-24] MEDS: QUEtiapine FUMARATE 100 MG TABLET (FP) PO SCH (21:04)
[2019-10-24] MEDS: THIAMINE HCL 100 MG TABLET (FP) PO SCH (21:04)
[2019-10-24] MEDS: MELATONIN 5 MG TABLETS PO SCH (21:05)
[2019-10-24] MEDS: SUVOREXANT 10 MG TABLET PO PRN (21:06)
[2019-10-25] MEDS: PRENATAL VITAMINS W/ FOLIC ACID TABLET (FP) PO SCH (09:52)
[2019-10-25] MEDS: NICOTINE 21 MG/24 HOURS TOPICAL PATCH TD SCH (09:52)
[2019-10-25] MEDS: QUEtiapine FUMARATE 100 MG TABLET (FP) PO SCH (21:04)
[2019-10-25] MEDS: MELATONIN 5 MG TABLETS PO SCH (21:04)
[2019-10-25] MEDS: THIAMINE HCL 100 MG TABLET (FP) PO SCH (21:04)
[2019-10-25] MEDS: SUVOREXANT 10 MG TABLET PO PRN (21:05)
[2019-10-26] MEDS: NICOTINE 21 MG/24 HOURS TOPICAL PATCH TD SCH (09:13)
[2019-10-26] MEDS: PRENATAL VITAMINS W/ FOLIC ACID TABLET (FP) PO SCH (09:13)
[2019-10-26] MEDS: MAG HYDROX/AL HYDROX/SIMETH 30 ML UNIT-DOSE CUP PO PRN (11:54)
[2019-10-26] MEDS: SUVOREXANT 10 MG TABLET PO PRN (21:19)
[2019-10-26] MEDS: QUEtiapine FUMARATE 100 MG TABLET (FP) PO SCH (21:19)
[2019-10-26] MEDS: THIAMINE HCL 100 MG TABLET (FP) PO SCH (21:20)
[2019-10-26] MEDS: MELATONIN 5 MG TABLETS PO SCH (21:20)
[2019-10-27] MEDS: PRENATAL VITAMINS W/ FOLIC ACID TABLET (FP) PO SCH (09:43)
[2019-10-27] MEDS: NICOTINE 21 MG/24 HOURS TOPICAL PATCH TD SCH (09:44)
[2019-10-27] MEDS: QUEtiapine FUMARATE 100 MG TABLET (FP) PO SCH (21:02)
[2019-10-27] MEDS: hydrOXYzine PAMOATE 25 MG CAPSULE (FP) PO PRN (21:02)
[2019-10-27] MEDS: THIAMINE HCL 100 MG TABLET (FP) PO SCH (21:02)
[2019-10-27] MEDS: SUVOREXANT 10 MG TABLET PO PRN (21:02)
[2019-10-27] MEDS: MELATONIN 5 MG TABLETS PO SCH (21:03)
[2019-10-28] MEDS: NICOTINE 21 MG/24 HOURS TOPICAL PATCH TD SCH (09:38)
[2019-10-28] MEDS: PRENATAL VITAMINS W/ FOLIC ACID TABLET (FP) PO SCH (09:38)
[2019-10-28] MEDS: MAG HYDROX/AL HYDROX/SIMETH 30 ML UNIT-DOSE CUP PO PRN (09:40)
--- NOTE | 2019-10-28 15:01 | PN ---
[facility] Progress Note Note: Patient reports sleeping poorly despite taking Belsomra 10 mg/hs prn. Requests that medication dosage be increased to 15 mg/hs prn. Request agreed to
[2019-10-28] MEDS: THIAMINE HCL 100 MG TABLET (FP) PO SCH (21:03)
[2019-10-28] MEDS: hydrOXYzine PAMOATE 25 MG CAPSULE (FP) PO PRN (21:04)
[2019-10-28] MEDS: SUVOREXANT 15 MG TABLET PO PRN (21:04)
[2019-10-28] MEDS: MELATONIN 5 MG TABLETS PO SCH (21:04)
[2019-10-29] MEDS: MAG HYDROX/AL HYDROX/SIMETH 30 ML UNIT-DOSE CUP PO PRN (06:50)
[2019-10-29] MEDS: NICOTINE 21 MG/24 HOURS TOPICAL PATCH TD SCH (10:11)
[2019-10-29] MEDS: PRENATAL VITAMINS W/ FOLIC ACID TABLET (FP) PO SCH (10:11)
--- NOTE | 2019-10-29 14:25 | PN ---
[facility] Progress Note Note: Pt reports to the nurse today that he takes Creon 36,000 units daily for pancreatic insufficiency due to chronic pancreatitis. This quality analyst/technical writer called his home [facility] who verified pt is on Creon 24,000 units po TID by pharmacist . Last Rx on 09/04/19. Pharmacist at another current [facility] location confirmed dose and reports pt has refill for September, but did not come to pick remover. Asked to inform pt to pick remover Rx waiting for him after discharge from this facility. Vital Signs - 24 hr 10/28/19 10/29/19 20:43 05:57 Temperature 98.7 F Pulse Rate 81 Respiratory 18 Rate Blood Pressure 128/72 O2 Sat by Pulse 95 97 Oximetry (%) Alert o x 3 nad oob ambulating with steady gait. Chronic Pancreatitis Restart Creon 24,000 units po TID Informed pt to pick remover his future Rx waiting for pick remover from his home [facility] after discharge.
[2019-10-29] MEDS: LIPASE/PROTEASE/AMYLASE 6,000 UNIT CAPSULE PO SCH (17:01)
[2019-10-29] MEDS: THIAMINE HCL 100 MG TABLET (FP) PO SCH (21:08)
[2019-10-29] MEDS: hydrOXYzine PAMOATE 25 MG CAPSULE (FP) PO PRN (21:08)
[2019-10-29] MEDS: MELATONIN 5 MG TABLETS PO SCH (21:09)
[2019-10-29] MEDS: SUVOREXANT 10 MG TABLET PO PRN (21:09)
[2019-10-30] MEDS: LIPASE/PROTEASE/AMYLASE 6,000 UNIT CAPSULE PO SCH ×3 (07:52→16:50)
[2019-10-30] MEDS: PRENATAL VITAMINS W/ FOLIC ACID TABLET (FP) PO SCH (09:50)
[2019-10-30] MEDS: NICOTINE 21 MG/24 HOURS TOPICAL PATCH TD SCH (09:50)
[2019-10-30] MEDS: THIAMINE HCL 100 MG TABLET (FP) PO SCH (21:05)
[2019-10-30] MEDS: hydrOXYzine PAMOATE 25 MG CAPSULE (FP) PO PRN (21:05)
[2019-10-30] MEDS: MELATONIN 5 MG TABLETS PO SCH (21:05)
[2019-10-30] MEDS: SUVOREXANT 15 MG TABLET PO PRN (21:05)
[2019-10-31] MEDS: LIPASE/PROTEASE/AMYLASE 6,000 UNIT CAPSULE PO SCH ×4 (07:09→17:26)
[2019-10-31] MEDS: MAG HYDROX/AL HYDROX/SIMETH 30 ML UNIT-DOSE CUP PO PRN (07:10)
[2019-10-31] MEDS: PRENATAL VITAMINS W/ FOLIC ACID TABLET (FP) PO SCH (10:06)
[2019-10-31] MEDS: NICOTINE 21 MG/24 HOURS TOPICAL PATCH TD SCH (10:06)
--- NOTE | 2019-10-31 10:24 | PN ---
[facility] Progress Note Note: Psychiatric nurse practitioner note: Belsomra 15mg HS renewed X3 days. Verbal consent given.
[2019-10-31] MEDS: THIAMINE HCL 100 MG TABLET (FP) PO SCH (22:13)
[2019-10-31] MEDS: QUEtiapine FUMARATE 100 MG TABLET (FP) PO SCH (22:13)
[2019-10-31] MEDS: MELATONIN 5 MG TABLETS PO SCH (22:13)
[2019-10-31] MEDS: SUVOREXANT 15 MG TABLET PO PRN (22:13)
[2019-10-31] MEDS: hydrOXYzine PAMOATE 25 MG CAPSULE (FP) PO PRN (22:20)
[2019-11-01] MEDS: LIPASE/PROTEASE/AMYLASE 6,000 UNIT CAPSULE PO SCH ×3 (08:00→18:11)
[2019-11-01] MEDS: NICOTINE 21 MG/24 HOURS TOPICAL PATCH TD SCH (09:09)
[2019-11-01] MEDS: PRENATAL VITAMINS W/ FOLIC ACID TABLET (FP) PO SCH (09:09)
[2019-11-01] MEDS: THIAMINE HCL 100 MG TABLET (FP) PO SCH (21:04)
[2019-11-01] MEDS: hydrOXYzine PAMOATE 25 MG CAPSULE (FP) PO PRN (21:04)
[2019-11-01] MEDS: SUVOREXANT 15 MG TABLET PO PRN (21:04)
[2019-11-01] MEDS: QUEtiapine FUMARATE 100 MG TABLET (FP) PO SCH (21:05)
[2019-11-01] MEDS: MELATONIN 5 MG TABLETS PO SCH (21:05)
[2019-11-02] MEDS: LIPASE/PROTEASE/AMYLASE 6,000 UNIT CAPSULE PO SCH ×4 (07:50→16:34)
[2019-11-02] MEDS: PRENATAL VITAMINS W/ FOLIC ACID TABLET (FP) PO SCH (09:40)
[2019-11-02] MEDS: NICOTINE 21 MG/24 HOURS TOPICAL PATCH TD SCH (09:43)
[2019-11-02] MEDS: QUEtiapine FUMARATE 100 MG TABLET (FP) PO SCH (21:06)
[2019-11-02] MEDS: hydrOXYzine PAMOATE 25 MG CAPSULE (FP) PO PRN (21:06)
[2019-11-02] MEDS: MELATONIN 5 MG TABLETS PO SCH (21:07)
[2019-11-02] MEDS: SUVOREXANT 15 MG TABLET PO PRN (21:07)
[2019-11-02] MEDS: THIAMINE HCL 100 MG TABLET (FP) PO SCH (21:07)
[2019-11-03 07:12] VITALS: BP 128/80; PULSE 79; TEMP 97.7
[2019-11-03] MEDS: LIPASE/PROTEASE/AMYLASE 6,000 UNIT CAPSULE PO SCH (07:24)
--- NOTE | 2019-11-03 09:30 | DS ---
[facility] Rehab Discharge Summary - [facility] Rehab Discharge Summary Admission Date: 10/20/19 Discharge Date: 11/03/19 - History Present History: Alcohol dependence, Cocaine dependence Pertinent Past History: Arthritis HTN- no med Chronic pancreatitis-Hx pseudocyst of pancreas GERD Depression/Insomnia - Discharge Physical Exam Vital Signs: Vital Signs Temperature 97.7 F 11/03/19 07:11 Pulse Rate 79 11/03/19 07:11 Respiratory Rate 18 11/03/19 07:11 Blood Pressure 128/80 11/03/19 07:11 O2 Sat by Pulse Oximetry (%) 97 11/03/19 07:11 General:WDWN male; Alert o x 3 Cardiac; s1 s2, rrr lungs:ctab MSK:Active FROM, all limbs; oob ambulating with steady gait, no edema Skin:turgor wnl, intact Pertinent Admission Physical Exam Findings: unremarkable on admission. - Treatment Discharge Condition: Discharge condition good, Rehabilitated safely, Responded well, Outpatient referral accepted Hospital Course: Accepted CD aftercare to [facility] IOP - Medication Discharge Medications: Ambulatory Orders Lipase/Protease/Amylase [Mariana Harmon 24,000 Units Capsule] 1 cap PO TID 10/29/19 Quetiapine Fumarate [Seroquel -] 100 mg PO HS #30 tablet 11/03/19 - Medication-Assisted Treatment (MAT) Medication-Assisted Treatment (MAT): No - Discharge Instructions Diet, activity, other medical instructions: Diet:CAS Activity: oob ad sachi Other medical instructions:follow up with CD aftercare as scheduled. follow up with primary care provider [facility] for medical management as needed. - Diagnosis (1) Alcohol use disorder Status: Chronic (2) History of pancreatitis Status: Chronic (3) Cocaine dependence Status: Chronic Qualifiers: Substance use status: uncomplicated Qualified Code(s): F14.20 - Cocaine dependence, uncomplicated (4) GERD (gastroesophageal reflux disease) Status: Chronic Qualifiers: Esophagitis presence: esophagitis presence not specified Qualified Code(s): K21.9 - Gastro-esophageal reflux disease without esophagitis (5) Nicotine dependence Status: Chronic Qualifiers: Nicotine product type: cigarettes Substance use status: uncomplicated Qualified Code(s): F17.210 - Nicotine dependence, cigarettes, uncomplicated (6) Pseudocyst of pancreas Status: Resolved (7) Arthritis Status: Chronic - Follow-up Referral Minutes to complete discharge: 25 - AMA Did Patient Leave Against Medical Advice: No Additional Comments: Informed pt to warehouse order picker his future Rx waiting for warehouse order picker from [facility] after discharge.
[2019-11-03] MEDS: PRENATAL VITAMINS W/ FOLIC ACID TABLET (FP) PO SCH (09:41)
[2019-11-03] MEDS: NICOTINE 21 MG/24 HOURS TOPICAL PATCH TD SCH (09:41)
--- NOTE | 2019-11-03 09:41 | PN ---
[facility] Progress Note Note: Patient is discharged today. Script for 30days supply of Seroquel 100 mg/hs is electronically transmited to [facility], [address], [place] [address]
== END 2019-11-03 09:45 | disposition home or self-care (01) | DRG 895 ==
LOC: YASAS 12:40 → Y5N 13:50
PROVIDERS: ADMIT Allergy & Immunology; ATTEND Allergy & Immunology
PROC: HZ42ZZZ Group Counseling for Substance Abuse Treatment, Cognitive-Behavioral (ICD-10-PCS; principal; 2019-10-20)
DX: F10.20 Alcohol dependence, uncomplicated (principal); K86.0 Alcohol-induced chronic pancreatitis; F14.10 Cocaine abuse, uncomplicated; F17.210 Nicotine dependence, cigarettes, uncomplicated; F32.9 Major depressive disorder, single episode, unspecified; I10 Essential (primary) hypertension; K86.81 Exocrine pancreatic insufficiency; K21.9 Gastro-esophageal reflux disease without esophagitis; M19.90 Unspecified osteoarthritis, unspecified site; Z98.890 Other specified postprocedural states; Z91.013 Allergy to seafood; Z91.018 Allergy to other foods
CPT/HCPCS: 36415; 80053; 81003; 85027; 85660; 86780

== ENCOUNTER 2020-01-03 08:22 | Inpatient (IN) | payer OTHER ==
[2020-01-03 08:57] VITALS: BMI 26.6
[2020-01-03] MEDS ORDERED: LORazepam 1 MG TABLET PO PRN (09:15)
[2020-01-03] MEDS ORDERED: ACETAMINOPHEN 325 MG TABLET (FP) PO PRN (09:15)
[2020-01-03] MEDS ORDERED: ONDANSETRON *ODT* 4 MG TABLET SL PRN (09:15)
[2020-01-03] MEDS ORDERED: NICOTINE POLACRILEX 2 MG GUM BUC PRN (09:15)
[2020-01-03] MEDS ORDERED: MAG HYDROX/AL HYDROX/SIMETH 30 ML UNIT-DOSE CUP PO PRN (09:15)
[2020-01-03] MEDS ORDERED: MAGNESIUM HYDROX 2400MG/30ML ORAL SUSPENSION 30 ML CUP PO PRN (09:15)
[2020-01-03] MEDS ORDERED: BISMUTH SUBSALICYLATE 524 MG/30 ML UD PO PRN (09:15)
[2020-01-03] MEDS ORDERED: MAGNESIUM CITRATE 300 ML BOTTLE PO PRN (09:15)
[2020-01-03] MEDS ORDERED: MENTHOL/PHENOL 1 EACH UD MM PRN (09:15)
[2020-01-03] MEDS ORDERED: NICOTINE 7 MG/24 HOURS TOPICAL PATCH TD SCH (10:00)
[2020-01-03] MEDS: LORazepam 2 MG TABLET PO SCH ×3 (11:15→22:11)
[2020-01-03] MEDS: hydrOXYzine PAMOATE 25 MG CAPSULE (FP) PO SCH ×4 (11:17→22:11)
[2020-01-03] MEDS: PRENATAL VITAMINS W/ FOLIC ACID TABLET (FP) PO SCH (11:17)
[2020-01-03 11:52] LABS: HEMATOCRIT 37.5 % (35.4-49); HEMOGLOBIN 12.5 GM/dL (11.7-16.9); MCH 32.1 pg (25.7-33.7); MCHC 33.2 g/dl (32.0-35.9); MEAN CELL VOLUME 96.5 fl (80-96); MEAN PLT VOLUME 9.4 fl (7.5-11.1); PLATELET COUNT 106 K/MM3 (134-434); RBC 3.88 M/mm3 (4.00-5.60); RDW 16.8 % (11.9-15.9); WHITE BLOOD COUNT 3.4 K/mm3 (4.0-10.0)
[2020-01-03 11:57] LABS: CALCIUM 8.5 mg/dL (8.5-10.1)
[2020-01-03 11:58] LABS: ALBUMIN 3.2 g/dl (3.4-5.0); BLOOD UREA NITROGEN 15.2 mg/dL (7-18)
[2020-01-03 12:01] LABS: CREATININE 1.4 mg/dL (0.55-1.3)
[2020-01-03 12:03] LABS: BILIRUBIN,TOTAL 1.5 mg/dL (0.2-1); TOT PROT 7.4 g/dl (6.4-8.2)
[2020-01-03] MEDS: LIPASE/PROTEASE/AMYLASE 6,000 UNIT CAPSULE PO SCH ×2 (12:35→17:36)
[2020-01-03] MEDS ORDERED: PATIENT'S OWN MEDICATION (NON-FORMULARY) (Lipase/Protease/Amylase [Creon Dr 24,000 Units C PO SCH (14:00)
[2020-01-03] MEDS: MELATONIN 5 MG TABLETS PO SCH (22:02)
[2020-01-03] MEDS: QUEtiapine FUMARATE 100 MG TABLET (FP) PO SCH (22:11)
[2020-01-03] MEDS: THIAMINE HCL 100 MG TABLET (FP) PO SCH (22:11)
[2020-01-04] MEDS: hydrOXYzine PAMOATE 25 MG CAPSULE (FP) PO SCH ×5 (05:56→22:30)
[2020-01-04] MEDS: LORazepam 2 MG TABLET PO SCH ×4 (05:56→22:30)
[2020-01-04] MEDS: LIPASE/PROTEASE/AMYLASE 6,000 UNIT CAPSULE PO SCH ×3 (07:55→17:15)
[2020-01-04] MEDS: PRENATAL VITAMINS W/ FOLIC ACID TABLET (FP) PO SCH (10:29)
[2020-01-04] MEDS: NICOTINE 7 MG/24 HOURS TOPICAL PATCH TD SCH (10:29)
[2020-01-04] MEDS: MELATONIN 5 MG TABLETS PO SCH (22:29)
[2020-01-04] MEDS: THIAMINE HCL 100 MG TABLET (FP) PO SCH (22:29)
[2020-01-04] MEDS: QUEtiapine FUMARATE 100 MG TABLET (FP) PO SCH (22:29)
[2020-01-05] MEDS: LORazepam 1 MG TABLET PO SCH ×4 (05:45→22:03)
[2020-01-05] MEDS: hydrOXYzine PAMOATE 25 MG CAPSULE (FP) PO SCH ×2 (05:45→10:00)
[2020-01-05] MEDS: PRENATAL VITAMINS W/ FOLIC ACID TABLET (FP) PO SCH (09:59)
[2020-01-05] MEDS: LIPASE/PROTEASE/AMYLASE 6,000 UNIT CAPSULE PO SCH ×3 (10:00→17:30)
[2020-01-05] MEDS: NICOTINE 7 MG/24 HOURS TOPICAL PATCH TD SCH (10:03)
[2020-01-05] MEDS: hydrOXYzine PAMOATE 25 MG CAPSULE (FP) PO PRN ×2 (17:30→22:03)
[2020-01-05] MEDS: ACETAMINOPHEN 325 MG TABLET (FP) PO PRN (19:19)
[2020-01-05] MEDS: QUEtiapine FUMARATE 200 MG TABLET PO SCH (22:03)
[2020-01-05] MEDS: THIAMINE HCL 100 MG TABLET (FP) PO SCH (22:03)
[2020-01-05] MEDS: MELATONIN 5 MG TABLETS PO SCH (23:58)
[2020-01-06] MEDS ORDERED: LORazepam 0.5 MG TABLET PO PRN
[2020-01-06] MEDS: LORazepam 0.5 MG TABLET PO SCH ×4 (05:51→22:14)
[2020-01-06 09:05] LABS: BASO % 0.8 % (0-2.0); EOS % 3.9 % (0-4.5); HEMATOCRIT 34.3 % (35.4-49); HEMOGLOBIN 11.2 GM/dL (11.7-16.9); LYMPH % 30.9 % (8-40); MCH 31.2 pg (25.7-33.7); MCHC 32.6 g/dl (32.0-35.9); MEAN CELL VOLUME 95.9 fl (80-96); MEAN PLT VOLUME 8.6 fl (7.5-11.1); MONO % 13.6 % (3.8-10.2); NEUT % 50.8 % (42.8-82.8); PLATELET COUNT 97 K/MM3 (134-434); RBC 3.58 M/mm3 (4.00-5.60); RDW 16.7 % (11.9-15.9)
[2020-01-06 09:08] LABS: POTASSIUM 4.1 mmol/L (3.5-5.1)
[2020-01-06 09:18] LABS: ALBUMIN 2.7 g/dl (3.4-5.0); BILIRUBIN,TOTAL 0.3 mg/dL (0.2-1); BLOOD UREA NITROGEN 19.6 mg/dL (7-18); CALCIUM 8.4 mg/dL (8.5-10.1); TOT PROT 6.4 g/dl (6.4-8.2)
[2020-01-06 09:21] LABS: CREATININE 1.4 mg/dL (0.55-1.3)
[2020-01-06] MEDS: LIPASE/PROTEASE/AMYLASE 6,000 UNIT CAPSULE PO SCH ×3 (10:11→17:49)
[2020-01-06] MEDS: NICOTINE 7 MG/24 HOURS TOPICAL PATCH TD SCH (10:11)
[2020-01-06] MEDS: PRENATAL VITAMINS W/ FOLIC ACID TABLET (FP) PO SCH (10:11)
[2020-01-06] MEDS: FERROUS SO4 325 MG TABLET (FP) PO SCH ×2 (13:41→17:49)
[2020-01-06] MEDS: MELATONIN 5 MG TABLETS PO SCH (22:14)
[2020-01-06] MEDS: THIAMINE HCL 100 MG TABLET (FP) PO SCH (22:14)
[2020-01-06] MEDS: QUEtiapine FUMARATE 200 MG TABLET PO SCH (22:14)
[2020-01-07] MEDS ORDERED: LORazepam 0.5 MG TABLET PO ONE (05:00)
[2020-01-07] MEDS: FERROUS SO4 325 MG TABLET (FP) PO SCH ×3 (07:09→17:36)
[2020-01-07] MEDS: LIPASE/PROTEASE/AMYLASE 6,000 UNIT CAPSULE PO SCH ×3 (08:27→17:37)
[2020-01-07] MEDS: NICOTINE 7 MG/24 HOURS TOPICAL PATCH TD SCH (09:56)
[2020-01-07] MEDS: PRENATAL VITAMINS W/ FOLIC ACID TABLET (FP) PO SCH (09:56)
[2020-01-07] MEDS: MELATONIN 5 MG TABLETS PO SCH (21:18)
[2020-01-07] MEDS: QUEtiapine FUMARATE 200 MG TABLET PO SCH (21:18)
[2020-01-07] MEDS: THIAMINE HCL 100 MG TABLET (FP) PO SCH (21:18)
[2020-01-07] MEDS: METHOCARBAMOL 500 MG TABLET PO PRN (21:18)
[2020-01-07] MEDS: hydrOXYzine PAMOATE 25 MG CAPSULE (FP) PO PRN (21:18)
[2020-01-08] MEDS: LIPASE/PROTEASE/AMYLASE 6,000 UNIT CAPSULE PO SCH ×3 (07:23→16:53)
[2020-01-08] MEDS: FERROUS SO4 325 MG TABLET (FP) PO SCH ×3 (07:23→16:52)
[2020-01-08] MEDS: NICOTINE 7 MG/24 HOURS TOPICAL PATCH TD SCH (09:50)
[2020-01-08] MEDS: hydrOXYzine PAMOATE 25 MG CAPSULE (FP) PO PRN ×2 (09:50→21:25)
[2020-01-08] MEDS: PRENATAL VITAMINS W/ FOLIC ACID TABLET (FP) PO SCH (09:50)
[2020-01-08] MEDS: MELATONIN 5 MG TABLETS PO SCH (21:24)
[2020-01-08] MEDS: QUEtiapine FUMARATE 200 MG TABLET PO SCH (21:24)
[2020-01-08] MEDS: METHOCARBAMOL 500 MG TABLET PO PRN (21:25)
[2020-01-08] MEDS: THIAMINE HCL 100 MG TABLET (FP) PO SCH (21:25)
[2020-01-09] MEDS: LIPASE/PROTEASE/AMYLASE 6,000 UNIT CAPSULE PO SCH ×3 (07:04→17:25)
[2020-01-09] MEDS: FERROUS SO4 325 MG TABLET (FP) PO SCH ×3 (07:04→17:24)
[2020-01-09] MEDS: NICOTINE 7 MG/24 HOURS TOPICAL PATCH TD SCH (09:46)
[2020-01-09] MEDS: PRENATAL VITAMINS W/ FOLIC ACID TABLET (FP) PO SCH (09:46)
[2020-01-09] MEDS ORDERED: MENTHOL/PHENOL 1 EACH UD MM PRN (10:05)
[2020-01-09] MEDS: THIAMINE HCL 100 MG TABLET (FP) PO SCH (21:45)
[2020-01-09] MEDS: QUEtiapine FUMARATE 200 MG TABLET PO SCH (21:45)
[2020-01-09] MEDS: SUVOREXANT 10 MG TABLET PO PRN (21:46)
[2020-01-09] MEDS: MELATONIN 5 MG TABLETS PO SCH (21:47)
[2020-01-09] MEDS: hydrOXYzine PAMOATE 25 MG CAPSULE (FP) PO PRN (21:47)
[2020-01-10] MEDS: FERROUS SO4 325 MG TABLET (FP) PO SCH ×3 (07:51→16:40)
[2020-01-10] MEDS: LIPASE/PROTEASE/AMYLASE 6,000 UNIT CAPSULE PO SCH ×3 (07:51→16:40)
[2020-01-10] MEDS: NICOTINE 7 MG/24 HOURS TOPICAL PATCH TD SCH (09:47)
[2020-01-10] MEDS: PRENATAL VITAMINS W/ FOLIC ACID TABLET (FP) PO SCH (09:47)
[2020-01-10] MEDS: THIAMINE HCL 100 MG TABLET (FP) PO SCH (21:20)
[2020-01-10] MEDS: SUVOREXANT 10 MG TABLET PO PRN (21:20)
[2020-01-10] MEDS: QUEtiapine FUMARATE 200 MG TABLET PO SCH (21:20)
[2020-01-10] MEDS: MELATONIN 5 MG TABLETS PO SCH (21:20)
[2020-01-11] MEDS: LIPASE/PROTEASE/AMYLASE 6,000 UNIT CAPSULE PO SCH ×3 (07:59→16:31)
[2020-01-11] MEDS: FERROUS SO4 325 MG TABLET (FP) PO SCH ×3 (07:59→17:47)
[2020-01-11] MEDS: PRENATAL VITAMINS W/ FOLIC ACID TABLET (FP) PO SCH (09:34)
[2020-01-11] MEDS: NICOTINE 7 MG/24 HOURS TOPICAL PATCH TD SCH (09:34)
[2020-01-11] MEDS: hydrOXYzine PAMOATE 25 MG CAPSULE (FP) PO PRN (21:26)
[2020-01-11] MEDS: SUVOREXANT 10 MG TABLET PO PRN (21:26)
[2020-01-11] MEDS: QUEtiapine FUMARATE 200 MG TABLET PO SCH (21:26)
[2020-01-11] MEDS: MELATONIN 5 MG TABLETS PO SCH (21:26)
[2020-01-11] MEDS: THIAMINE HCL 100 MG TABLET (FP) PO SCH (21:27)
[2020-01-12] MEDS: LIPASE/PROTEASE/AMYLASE 6,000 UNIT CAPSULE PO SCH ×3 (07:24→17:34)
[2020-01-12] MEDS: FERROUS SO4 325 MG TABLET (FP) PO SCH ×3 (07:24→17:34)
[2020-01-12] MEDS: PRENATAL VITAMINS W/ FOLIC ACID TABLET (FP) PO SCH (10:06)
[2020-01-12] MEDS: NICOTINE 7 MG/24 HOURS TOPICAL PATCH TD SCH (10:07)
[2020-01-12] MEDS: SUVOREXANT 10 MG TABLET PO PRN (21:24)
[2020-01-12] MEDS: QUEtiapine FUMARATE 200 MG TABLET PO SCH (21:24)
[2020-01-12] MEDS: THIAMINE HCL 100 MG TABLET (FP) PO SCH (21:24)
[2020-01-12] MEDS: hydrOXYzine PAMOATE 25 MG CAPSULE (FP) PO PRN (21:24)
[2020-01-12] MEDS: MELATONIN 5 MG TABLETS PO SCH (21:24)
[2020-01-12] MEDS: METHOCARBAMOL 500 MG TABLET PO PRN (21:24)
[2020-01-13] MEDS: FERROUS SO4 325 MG TABLET (FP) PO SCH ×3 (07:08→17:20)
[2020-01-13] MEDS: LIPASE/PROTEASE/AMYLASE 6,000 UNIT CAPSULE PO SCH ×3 (07:08→17:21)
[2020-01-13] MEDS: ACETAMINOPHEN 325 MG TABLET (FP) PO PRN ×2 (08:33→17:49)
[2020-01-13] MEDS: PRENATAL VITAMINS W/ FOLIC ACID TABLET (FP) PO SCH (09:48)
[2020-01-13] MEDS: NICOTINE 7 MG/24 HOURS TOPICAL PATCH TD SCH (09:49)
[2020-01-13] MEDS: hydrOXYzine PAMOATE 25 MG CAPSULE (FP) PO PRN (21:29)
[2020-01-13] MEDS: THIAMINE HCL 100 MG TABLET (FP) PO SCH (21:29)
[2020-01-13] MEDS: METHOCARBAMOL 500 MG TABLET PO PRN (21:29)
[2020-01-13] MEDS: QUEtiapine FUMARATE 200 MG TABLET PO SCH (21:29)
[2020-01-13] MEDS: SUVOREXANT 10 MG TABLET PO PRN (21:29)
[2020-01-13] MEDS: MELATONIN 5 MG TABLETS PO SCH (22:06)
[2020-01-14] MEDS: FERROUS SO4 325 MG TABLET (FP) PO SCH ×3 (07:54→16:46)
[2020-01-14] MEDS: LIPASE/PROTEASE/AMYLASE 6,000 UNIT CAPSULE PO SCH ×3 (07:54→16:46)
[2020-01-14] MEDS: ACETAMINOPHEN 325 MG TABLET (FP) PO PRN ×3 (08:43→22:10)
[2020-01-14] MEDS: PRENATAL VITAMINS W/ FOLIC ACID TABLET (FP) PO SCH (10:00)
[2020-01-14] MEDS: NICOTINE 7 MG/24 HOURS TOPICAL PATCH TD SCH (10:00)
[2020-01-14] MEDS ORDERED: AMOXICILLIN 500 MG CAPSULE (FP) PO ONE (10:15)
[2020-01-14] MEDS: IBUPROFEN 400 MG TABLET (FP) PO PRN (10:35)
[2020-01-14] MEDS ORDERED: BENZOCAINE 20 % GEL TUBE MM PRN (13:34)
[2020-01-14] MEDS: AMOXICILLIN 500 MG CAPSULE (FP) PO SCH ×2 (14:22→22:09)
[2020-01-14] MEDS: hydrOXYzine PAMOATE 25 MG CAPSULE (FP) PO PRN (21:27)
[2020-01-14] MEDS: THIAMINE HCL 100 MG TABLET (FP) PO SCH (21:28)
[2020-01-14] MEDS: SUVOREXANT 10 MG TABLET PO PRN (21:28)
[2020-01-14] MEDS: QUEtiapine FUMARATE 200 MG TABLET PO SCH (21:28)
[2020-01-14] MEDS: MELATONIN 5 MG TABLETS PO SCH (21:28)
[2020-01-14] MEDS: METHOCARBAMOL 500 MG TABLET PO PRN (21:28)
[2020-01-15] MEDS: LIPASE/PROTEASE/AMYLASE 6,000 UNIT CAPSULE PO SCH ×3 (07:00→16:44)
[2020-01-15] MEDS: AMOXICILLIN 500 MG CAPSULE (FP) PO SCH ×3 (07:00→21:30)
[2020-01-15] MEDS: FERROUS SO4 325 MG TABLET (FP) PO SCH ×3 (07:01→16:44)
[2020-01-15] MEDS: NICOTINE 7 MG/24 HOURS TOPICAL PATCH TD SCH (09:50)
[2020-01-15] MEDS: PRENATAL VITAMINS W/ FOLIC ACID TABLET (FP) PO SCH (09:50)
[2020-01-15] MEDS: IBUPROFEN 400 MG TABLET (FP) PO PRN ×2 (11:22→19:41)
[2020-01-15] MEDS: ACETAMINOPHEN 325 MG TABLET (FP) PO PRN ×2 (13:37→21:30)
[2020-01-15] MEDS: THIAMINE HCL 100 MG TABLET (FP) PO SCH (21:30)
[2020-01-15] MEDS ORDERED: SUVOREXANT 10 MG TABLET PO PRN (22:00)
[2020-01-15] MEDS: MELATONIN 5 MG TABLETS PO SCH ×2 (22:21→22:49)
[2020-01-15] MEDS: SUVOREXANT 15 MG TABLET PO PRN (22:46)
[2020-01-15] MEDS: hydrOXYzine PAMOATE 25 MG CAPSULE (FP) PO PRN (22:47)
[2020-01-16] MEDS: IBUPROFEN 400 MG TABLET (FP) PO PRN ×3 (06:01→23:01)
[2020-01-16] MEDS: AMOXICILLIN 500 MG CAPSULE (FP) PO SCH ×3 (06:01→21:22)
[2020-01-16] MEDS: FERROUS SO4 325 MG TABLET (FP) PO SCH ×3 (07:28→17:17)
[2020-01-16] MEDS: LIPASE/PROTEASE/AMYLASE 6,000 UNIT CAPSULE PO SCH ×3 (07:28→17:17)
[2020-01-16] MEDS: NICOTINE 7 MG/24 HOURS TOPICAL PATCH TD SCH (10:18)
[2020-01-16] MEDS: PRENATAL VITAMINS W/ FOLIC ACID TABLET (FP) PO SCH (10:18)
[2020-01-16] MEDS: ACETAMINOPHEN 325 MG TABLET (FP) PO PRN (10:19)
[2020-01-16] MEDS: MELATONIN 5 MG TABLETS PO SCH (21:22)
[2020-01-16] MEDS: THIAMINE HCL 100 MG TABLET (FP) PO SCH (21:22)
[2020-01-16] MEDS: SUVOREXANT 15 MG TABLET PO PRN (21:24)
[2020-01-16] MEDS: hydrOXYzine PAMOATE 25 MG CAPSULE (FP) PO PRN (22:11)
[2020-01-17] MEDS: AMOXICILLIN 500 MG CAPSULE (FP) PO SCH ×3 (06:14→21:29)
[2020-01-17] MEDS: FERROUS SO4 325 MG TABLET (FP) PO SCH ×3 (07:09→16:45)
[2020-01-17] MEDS: LIPASE/PROTEASE/AMYLASE 6,000 UNIT CAPSULE PO SCH ×3 (07:09→16:46)
[2020-01-17] MEDS: NICOTINE 7 MG/24 HOURS TOPICAL PATCH TD SCH (09:44)
[2020-01-17] MEDS: IBUPROFEN 400 MG TABLET (FP) PO PRN ×2 (09:45→22:04)
[2020-01-17] MEDS: PRENATAL VITAMINS W/ FOLIC ACID TABLET (FP) PO SCH (09:45)
[2020-01-17] MEDS: ACETAMINOPHEN 325 MG TABLET (FP) PO PRN (17:46)
[2020-01-17] MEDS: THIAMINE HCL 100 MG TABLET (FP) PO SCH (21:30)
[2020-01-17] MEDS: MELATONIN 5 MG TABLETS PO SCH (22:03)
[2020-01-17] MEDS: METHOCARBAMOL 500 MG TABLET PO PRN (22:04)
[2020-01-17] MEDS: SUVOREXANT 15 MG TABLET PO PRN (22:04)
[2020-01-17] MEDS: hydrOXYzine PAMOATE 25 MG CAPSULE (FP) PO PRN (22:06)
[2020-01-18] MEDS: AMOXICILLIN 500 MG CAPSULE (FP) PO SCH ×3 (06:54→21:25)
[2020-01-18] MEDS: LIPASE/PROTEASE/AMYLASE 6,000 UNIT CAPSULE PO SCH ×3 (07:18→16:47)
[2020-01-18] MEDS: FERROUS SO4 325 MG TABLET (FP) PO SCH ×3 (07:18→16:46)
[2020-01-18] MEDS: IBUPROFEN 400 MG TABLET (FP) PO PRN (08:11)
[2020-01-18] MEDS: NICOTINE 7 MG/24 HOURS TOPICAL PATCH TD SCH (09:47)
[2020-01-18] MEDS: PRENATAL VITAMINS W/ FOLIC ACID TABLET (FP) PO SCH (09:47)
[2020-01-18] MEDS: hydrOXYzine PAMOATE 25 MG CAPSULE (FP) PO PRN (21:25)
[2020-01-18] MEDS: MELATONIN 5 MG TABLETS PO SCH (21:25)
[2020-01-18] MEDS: SUVOREXANT 15 MG TABLET PO PRN (21:25)
[2020-01-18] MEDS: ACETAMINOPHEN 325 MG TABLET (FP) PO PRN (21:25)
[2020-01-18] MEDS: THIAMINE HCL 100 MG TABLET (FP) PO SCH (21:25)
[2020-01-18] MEDS: METHOCARBAMOL 500 MG TABLET PO PRN (21:25)
[2020-01-18] MEDS ORDERED: SUVOREXANT 10 MG TABLET PO PRN (22:00)
[2020-01-19] MEDS: AMOXICILLIN 500 MG CAPSULE (FP) PO SCH ×3 (07:08→21:22)
[2020-01-19] MEDS: LIPASE/PROTEASE/AMYLASE 6,000 UNIT CAPSULE PO SCH ×3 (07:09→16:35)
[2020-01-19] MEDS: FERROUS SO4 325 MG TABLET (FP) PO SCH ×3 (07:11→16:35)
[2020-01-19] MEDS: PRENATAL VITAMINS W/ FOLIC ACID TABLET (FP) PO SCH (09:48)
[2020-01-19] MEDS: NICOTINE 7 MG/24 HOURS TOPICAL PATCH TD SCH (09:48)
[2020-01-19] MEDS ORDERED: SUVOREXANT 15 MG TABLET PO PRN (19:40)
[2020-01-19] MEDS: METHOCARBAMOL 500 MG TABLET PO PRN (21:23)
[2020-01-19] MEDS: MELATONIN 5 MG TABLETS PO SCH (21:23)
[2020-01-19] MEDS: THIAMINE HCL 100 MG TABLET (FP) PO SCH (21:23)
[2020-01-19] MEDS: hydrOXYzine PAMOATE 25 MG CAPSULE (FP) PO PRN (21:23)
[2020-01-19] MEDS: IBUPROFEN 400 MG TABLET (FP) PO PRN (21:24)
[2020-01-20] MEDS: AMOXICILLIN 500 MG CAPSULE (FP) PO SCH ×3 (05:58→21:27)
[2020-01-20] MEDS: LIPASE/PROTEASE/AMYLASE 6,000 UNIT CAPSULE PO SCH ×3 (07:03→16:36)
[2020-01-20] MEDS: FERROUS SO4 325 MG TABLET (FP) PO SCH ×3 (07:03→16:36)
[2020-01-20] MEDS: IBUPROFEN 400 MG TABLET (FP) PO PRN ×2 (07:47→21:26)
[2020-01-20] MEDS: PRENATAL VITAMINS W/ FOLIC ACID TABLET (FP) PO SCH (09:41)
[2020-01-20] MEDS: NICOTINE 7 MG/24 HOURS TOPICAL PATCH TD SCH (09:41)
[2020-01-20] MEDS: ACETAMINOPHEN 325 MG TABLET (FP) PO PRN (09:42)
[2020-01-20] MEDS: hydrOXYzine PAMOATE 25 MG CAPSULE (FP) PO PRN ×2 (09:42→21:27)
[2020-01-20] MEDS: THIAMINE HCL 100 MG TABLET (FP) PO SCH (21:27)
[2020-01-20] MEDS: MELATONIN 5 MG TABLETS PO SCH (21:27)
[2020-01-20] MEDS: METHOCARBAMOL 500 MG TABLET PO PRN (21:27)
[2020-01-21] MEDS: AMOXICILLIN 500 MG CAPSULE (FP) PO SCH ×3 (06:09→21:21)
[2020-01-21] MEDS: IBUPROFEN 400 MG TABLET (FP) PO PRN ×2 (06:09→21:22)
[2020-01-21] MEDS: LIPASE/PROTEASE/AMYLASE 6,000 UNIT CAPSULE PO SCH ×3 (07:11→17:34)
[2020-01-21] MEDS: FERROUS SO4 325 MG TABLET (FP) PO SCH ×3 (07:11→17:34)
[2020-01-21] MEDS: PRENATAL VITAMINS W/ FOLIC ACID TABLET (FP) PO SCH (09:43)
[2020-01-21] MEDS: NICOTINE 21 MG/24 HOURS TOPICAL PATCH TD SCH (09:43)
[2020-01-21] MEDS: hydrOXYzine PAMOATE 25 MG CAPSULE (FP) PO PRN (21:22)
[2020-01-21] MEDS: METHOCARBAMOL 500 MG TABLET PO PRN (21:22)
[2020-01-21] MEDS: SUVOREXANT 20 MG TABLET PO PRN ×2 (21:22→22:02)
[2020-01-21] MEDS: MELATONIN 5 MG TABLETS PO SCH (21:23)
[2020-01-21] MEDS: THIAMINE HCL 100 MG TABLET (FP) PO SCH (21:23)
[2020-01-22] MEDS: AMOXICILLIN 500 MG CAPSULE (FP) PO SCH ×3 (06:14→21:50)
[2020-01-22] MEDS: IBUPROFEN 400 MG TABLET (FP) PO PRN ×2 (06:14→21:50)
[2020-01-22] MEDS: FERROUS SO4 325 MG TABLET (FP) PO SCH ×3 (07:04→16:52)
[2020-01-22] MEDS: LIPASE/PROTEASE/AMYLASE 6,000 UNIT CAPSULE PO SCH ×3 (07:05→16:52)
[2020-01-22] MEDS: PRENATAL VITAMINS W/ FOLIC ACID TABLET (FP) PO SCH (09:54)
[2020-01-22] MEDS: NICOTINE 21 MG/24 HOURS TOPICAL PATCH TD SCH (09:55)
[2020-01-22] MEDS: ACETAMINOPHEN 325 MG TABLET (FP) PO PRN (14:15)
[2020-01-22] MEDS: THIAMINE HCL 100 MG TABLET (FP) PO SCH (21:50)
[2020-01-22] MEDS: MELATONIN 5 MG TABLETS PO SCH (21:50)
[2020-01-22] MEDS: hydrOXYzine PAMOATE 25 MG CAPSULE (FP) PO PRN (21:50)
[2020-01-22] MEDS: METHOCARBAMOL 500 MG TABLET PO PRN (21:50)
[2020-01-22] MEDS: SUVOREXANT 20 MG TABLET PO PRN (21:50)
[2020-01-23] MEDS: IBUPROFEN 400 MG TABLET (FP) PO PRN ×2 (06:16→21:24)
[2020-01-23] MEDS: AMOXICILLIN 500 MG CAPSULE (FP) PO SCH ×3 (06:16→21:24)
[2020-01-23] MEDS: FERROUS SO4 325 MG TABLET (FP) PO SCH ×3 (07:15→16:50)
[2020-01-23] MEDS: LIPASE/PROTEASE/AMYLASE 6,000 UNIT CAPSULE PO SCH ×3 (07:17→16:50)
[2020-01-23] MEDS: PRENATAL VITAMINS W/ FOLIC ACID TABLET (FP) PO SCH (10:47)
[2020-01-23] MEDS: NICOTINE 21 MG/24 HOURS TOPICAL PATCH TD SCH (10:47)
[2020-01-23] MEDS: ACETAMINOPHEN 325 MG TABLET (FP) PO PRN (14:13)
[2020-01-23] MEDS: THIAMINE HCL 100 MG TABLET (FP) PO SCH (21:24)
[2020-01-23] MEDS: hydrOXYzine PAMOATE 25 MG CAPSULE (FP) PO PRN (21:24)
[2020-01-23] MEDS: METHOCARBAMOL 500 MG TABLET PO PRN (21:24)
[2020-01-23] MEDS: MELATONIN 5 MG TABLETS PO SCH (21:24)
[2020-01-23] MEDS: SUVOREXANT 20 MG TABLET PO PRN (21:24)
[2020-01-24] MEDS: IBUPROFEN 400 MG TABLET (FP) PO PRN (05:57)
[2020-01-24] MEDS: AMOXICILLIN 500 MG CAPSULE (FP) PO SCH ×3 (05:57→21:35)
[2020-01-24] MEDS: FERROUS SO4 325 MG TABLET (FP) PO SCH ×3 (07:13→17:26)
[2020-01-24] MEDS: LIPASE/PROTEASE/AMYLASE 6,000 UNIT CAPSULE PO SCH ×3 (07:13→17:26)
[2020-01-24] MEDS: NICOTINE 21 MG/24 HOURS TOPICAL PATCH TD SCH (09:35)
[2020-01-24] MEDS: PRENATAL VITAMINS W/ FOLIC ACID TABLET (FP) PO SCH (09:35)
[2020-01-24] MEDS: METHOCARBAMOL 500 MG TABLET PO PRN ×2 (17:25→21:35)
[2020-01-24] MEDS: MELATONIN 5 MG TABLETS PO SCH (21:33)
[2020-01-24] MEDS: THIAMINE HCL 100 MG TABLET (FP) PO SCH (21:33)
[2020-01-24] MEDS: hydrOXYzine PAMOATE 25 MG CAPSULE (FP) PO PRN (21:35)
[2020-01-24] MEDS: SUVOREXANT 5 MG TABLET PO PRN (21:36)
[2020-01-25] MEDS: AMOXICILLIN 500 MG CAPSULE (FP) PO SCH ×3 (05:55→21:31)
[2020-01-25] MEDS: IBUPROFEN 400 MG TABLET (FP) PO PRN (05:56)
[2020-01-25] MEDS: FERROUS SO4 325 MG TABLET (FP) PO SCH ×3 (07:06→16:40)
[2020-01-25] MEDS: LIPASE/PROTEASE/AMYLASE 6,000 UNIT CAPSULE PO SCH ×3 (07:07→16:40)
[2020-01-25] MEDS: NICOTINE 21 MG/24 HOURS TOPICAL PATCH TD SCH (09:40)
[2020-01-25] MEDS: PRENATAL VITAMINS W/ FOLIC ACID TABLET (FP) PO SCH (09:40)
[2020-01-25] MEDS: SUVOREXANT 5 MG TABLET PO PRN (21:31)
[2020-01-25] MEDS: THIAMINE HCL 100 MG TABLET (FP) PO SCH (21:31)
[2020-01-25] MEDS: MELATONIN 5 MG TABLETS PO SCH (21:31)
[2020-01-25] MEDS: hydrOXYzine PAMOATE 25 MG CAPSULE (FP) PO PRN (21:32)
[2020-01-26] MEDS: IBUPROFEN 400 MG TABLET (FP) PO PRN ×3 (06:16→21:47)
[2020-01-26] MEDS: AMOXICILLIN 500 MG CAPSULE (FP) PO SCH ×3 (06:16→21:47)
[2020-01-26] MEDS: FERROUS SO4 325 MG TABLET (FP) PO SCH ×3 (07:01→17:20)
[2020-01-26] MEDS: LIPASE/PROTEASE/AMYLASE 6,000 UNIT CAPSULE PO SCH ×3 (07:01→16:13)
[2020-01-26] MEDS: NICOTINE 21 MG/24 HOURS TOPICAL PATCH TD SCH (09:51)
[2020-01-26] MEDS: PRENATAL VITAMINS W/ FOLIC ACID TABLET (FP) PO SCH (09:51)
[2020-01-26] MEDS: THIAMINE HCL 100 MG TABLET (FP) PO SCH (21:46)
[2020-01-26] MEDS: hydrOXYzine PAMOATE 25 MG CAPSULE (FP) PO PRN (21:46)
[2020-01-26] MEDS: MELATONIN 5 MG TABLETS PO SCH (21:46)
[2020-01-26] MEDS: METHOCARBAMOL 500 MG TABLET PO PRN (21:47)
[2020-01-26] MEDS: SUVOREXANT 5 MG TABLET PO PRN (21:47)
[2020-01-27] MEDS: IBUPROFEN 400 MG TABLET (FP) PO PRN (06:03)
[2020-01-27] MEDS: AMOXICILLIN 500 MG CAPSULE (FP) PO SCH (06:05)
[2020-01-27] MEDS: FERROUS SO4 325 MG TABLET (FP) PO SCH ×3 (07:21→16:56)
[2020-01-27] MEDS: LIPASE/PROTEASE/AMYLASE 6,000 UNIT CAPSULE PO SCH ×3 (07:21→16:10)
[2020-01-27] MEDS: NICOTINE 21 MG/24 HOURS TOPICAL PATCH TD SCH (09:50)
[2020-01-27] MEDS: PRENATAL VITAMINS W/ FOLIC ACID TABLET (FP) PO SCH (09:50)
[2020-01-27 10:44] LABS: HEMATOCRIT 38.1 % (35.4-49); MCH 30.5 pg (25.7-33.7); MCHC 31.5 g/dl (32.0-35.9); MEAN PLT VOLUME 8.6 fl (7.5-11.1); PLATELET COUNT 121 K/MM3 (134-434); RBC 3.93 M/mm3 (4.00-5.60); RDW 16.6 % (11.9-15.9); WHITE BLOOD COUNT 2.7 K/mm3 (4.0-10.0)
[2020-01-27 10:53] LABS: POTASSIUM 4.4 mmol/L (3.5-5.1)
[2020-01-27 11:00] LABS: CALCIUM 8.8 mg/dL (8.5-10.1)
[2020-01-27 11:01] LABS: ALBUMIN 3.1 g/dl (3.4-5.0); BLOOD UREA NITROGEN 17.4 mg/dL (7-18)
[2020-01-27 11:04] LABS: CREATININE 1.3 mg/dL (0.55-1.3)
[2020-01-27 11:05] LABS: BILIRUBIN,TOTAL 0.9 mg/dL (0.2-1)
[2020-01-27 11:06] LABS: TOT PROT 7.2 g/dl (6.4-8.2)
[2020-01-27] MEDS: MELATONIN 5 MG TABLETS PO SCH (21:35)
[2020-01-27] MEDS: hydrOXYzine PAMOATE 25 MG CAPSULE (FP) PO PRN (21:36)
[2020-01-27] MEDS: METHOCARBAMOL 500 MG TABLET PO PRN (21:36)
[2020-01-27] MEDS: THIAMINE HCL 100 MG TABLET (FP) PO SCH (21:36)
[2020-01-27] MEDS: SUVOREXANT 20 MG TABLET PO PRN (21:38)
[2020-01-28] MEDS: IBUPROFEN 400 MG TABLET (FP) PO PRN (06:28)
[2020-01-28] MEDS: LIPASE/PROTEASE/AMYLASE 6,000 UNIT CAPSULE PO SCH ×3 (07:03→16:04)
[2020-01-28] MEDS: FERROUS SO4 325 MG TABLET (FP) PO SCH ×3 (07:03→17:14)
[2020-01-28] MEDS: NICOTINE 21 MG/24 HOURS TOPICAL PATCH TD SCH (10:13)
[2020-01-28] MEDS: PRENATAL VITAMINS W/ FOLIC ACID TABLET (FP) PO SCH (10:13)
[2020-01-28] MEDS: ACETAMINOPHEN 325 MG TABLET (FP) PO PRN (18:46)
[2020-01-28] MEDS: MELATONIN 5 MG TABLETS PO SCH (21:31)
[2020-01-28] MEDS: METHOCARBAMOL 500 MG TABLET PO PRN (21:31)
[2020-01-28] MEDS: SUVOREXANT 20 MG TABLET PO PRN (21:31)
[2020-01-28] MEDS: THIAMINE HCL 100 MG TABLET (FP) PO SCH (21:31)
[2020-01-28] MEDS: hydrOXYzine PAMOATE 25 MG CAPSULE (FP) PO PRN (21:31)
[2020-01-29] MEDS: IBUPROFEN 400 MG TABLET (FP) PO PRN (06:06)
[2020-01-29] MEDS: FERROUS SO4 325 MG TABLET (FP) PO SCH ×3 (07:00→16:58)
[2020-01-29] MEDS: LIPASE/PROTEASE/AMYLASE 6,000 UNIT CAPSULE PO SCH ×3 (07:00→16:29)
[2020-01-29] MEDS: PRENATAL VITAMINS W/ FOLIC ACID TABLET (FP) PO SCH (09:56)
[2020-01-29] MEDS: NICOTINE 21 MG/24 HOURS TOPICAL PATCH TD SCH (09:56)
[2020-01-29] MEDS: ACETAMINOPHEN 325 MG TABLET (FP) PO PRN (18:17)
[2020-01-29] MEDS: METHOCARBAMOL 500 MG TABLET PO PRN (21:50)
[2020-01-29] MEDS: hydrOXYzine PAMOATE 25 MG CAPSULE (FP) PO PRN (21:50)
[2020-01-29] MEDS: MELATONIN 5 MG TABLETS PO SCH (21:50)
[2020-01-29] MEDS: THIAMINE HCL 100 MG TABLET (FP) PO SCH (21:50)
[2020-01-29] MEDS: SUVOREXANT 20 MG TABLET PO PRN (21:50)
[2020-01-30] MEDS: IBUPROFEN 400 MG TABLET (FP) PO PRN ×4 (01:12→21:36)
[2020-01-30] MEDS: FERROUS SO4 325 MG TABLET (FP) PO SCH ×3 (07:06→17:04)
[2020-01-30] MEDS: LIPASE/PROTEASE/AMYLASE 6,000 UNIT CAPSULE PO SCH ×3 (07:09→16:11)
[2020-01-30] MEDS: NICOTINE 21 MG/24 HOURS TOPICAL PATCH TD SCH (10:11)
[2020-01-30] MEDS: PRENATAL VITAMINS W/ FOLIC ACID TABLET (FP) PO SCH (10:12)
[2020-01-30] MEDS: MELATONIN 5 MG TABLETS PO SCH (21:35)
[2020-01-30] MEDS: THIAMINE HCL 100 MG TABLET (FP) PO SCH (21:35)
[2020-01-30] MEDS: SUVOREXANT 20 MG TABLET PO PRN (21:36)
[2020-01-30] MEDS: hydrOXYzine PAMOATE 25 MG CAPSULE (FP) PO PRN (21:37)
[2020-01-31] MEDS: IBUPROFEN 400 MG TABLET (FP) PO PRN ×2 (06:14→13:30)
[2020-01-31] MEDS: LIPASE/PROTEASE/AMYLASE 6,000 UNIT CAPSULE PO SCH ×3 (07:45→16:48)
[2020-01-31] MEDS: FERROUS SO4 325 MG TABLET (FP) PO SCH ×3 (09:00→16:48)
[2020-01-31] MEDS: NICOTINE 21 MG/24 HOURS TOPICAL PATCH TD SCH (10:02)
[2020-01-31] MEDS: PRENATAL VITAMINS W/ FOLIC ACID TABLET (FP) PO SCH (10:02)
[2020-01-31] MEDS: ACETAMINOPHEN 325 MG TABLET (FP) PO PRN ×2 (10:03→21:22)
[2020-01-31] MEDS: hydrOXYzine PAMOATE 25 MG CAPSULE (FP) PO PRN (21:22)
[2020-01-31] MEDS: METHOCARBAMOL 500 MG TABLET PO PRN (21:22)
[2020-01-31] MEDS: MELATONIN 5 MG TABLETS PO SCH (21:22)
[2020-01-31] MEDS: THIAMINE HCL 100 MG TABLET (FP) PO SCH (21:22)
[2020-01-31] MEDS: SUVOREXANT 20 MG TABLET PO PRN (21:22)
[2020-02-01] MEDS: IBUPROFEN 400 MG TABLET (FP) PO PRN ×2 (06:03→14:15)
[2020-02-01] MEDS: FERROUS SO4 325 MG TABLET (FP) PO SCH ×3 (07:13→17:26)
[2020-02-01] MEDS: LIPASE/PROTEASE/AMYLASE 6,000 UNIT CAPSULE PO SCH ×3 (07:15→16:32)
[2020-02-01] MEDS: NICOTINE 21 MG/24 HOURS TOPICAL PATCH TD SCH (10:28)
[2020-02-01] MEDS: PRENATAL VITAMINS W/ FOLIC ACID TABLET (FP) PO SCH (10:28)
[2020-02-01] MEDS: THIAMINE HCL 100 MG TABLET (FP) PO SCH (21:30)
[2020-02-01] MEDS: SUVOREXANT 20 MG TABLET PO PRN (21:30)
[2020-02-01] MEDS: MELATONIN 5 MG TABLETS PO SCH (21:30)
[2020-02-01] MEDS: ACETAMINOPHEN 325 MG TABLET (FP) PO PRN (21:30)
[2020-02-01] MEDS: hydrOXYzine PAMOATE 25 MG CAPSULE (FP) PO PRN (21:30)
[2020-02-01] MEDS: METHOCARBAMOL 500 MG TABLET PO PRN (21:30)
[2020-02-02] MEDS: IBUPROFEN 400 MG TABLET (FP) PO PRN ×2 (06:25→18:58)
[2020-02-02] MEDS: LIPASE/PROTEASE/AMYLASE 6,000 UNIT CAPSULE PO SCH ×3 (07:17→16:02)
[2020-02-02] MEDS: FERROUS SO4 325 MG TABLET (FP) PO SCH ×3 (07:17→17:48)
[2020-02-02] MEDS: NICOTINE 21 MG/24 HOURS TOPICAL PATCH TD SCH (10:08)
[2020-02-02] MEDS: PRENATAL VITAMINS W/ FOLIC ACID TABLET (FP) PO SCH (10:09)
[2020-02-02] MEDS: MELATONIN 5 MG TABLETS PO SCH (21:17)
[2020-02-02] MEDS: SUVOREXANT 20 MG TABLET PO PRN (21:17)
[2020-02-02] MEDS: THIAMINE HCL 100 MG TABLET (FP) PO SCH (21:17)
[2020-02-02] MEDS: METHOCARBAMOL 500 MG TABLET PO PRN (21:17)
[2020-02-02] MEDS: hydrOXYzine PAMOATE 25 MG CAPSULE (FP) PO PRN (21:17)
[2020-02-03] MEDS: IBUPROFEN 400 MG TABLET (FP) PO PRN ×2 (06:13→21:14)
[2020-02-03] MEDS: LIPASE/PROTEASE/AMYLASE 6,000 UNIT CAPSULE PO SCH ×3 (07:07→15:48)
[2020-02-03] MEDS: FERROUS SO4 325 MG TABLET (FP) PO SCH ×3 (07:07→16:55)
[2020-02-03] MEDS: PRENATAL VITAMINS W/ FOLIC ACID TABLET (FP) PO SCH (09:35)
[2020-02-03] MEDS: NICOTINE 21 MG/24 HOURS TOPICAL PATCH TD SCH (09:35)
[2020-02-03] MEDS: THIAMINE HCL 100 MG TABLET (FP) PO SCH (21:13)
[2020-02-03] MEDS: hydrOXYzine PAMOATE 25 MG CAPSULE (FP) PO PRN (21:13)
[2020-02-03] MEDS: MELATONIN 5 MG TABLETS PO SCH (21:13)
[2020-02-03] MEDS ORDERED: SUVOREXANT 20 MG TABLET PO PRN (22:00)
[2020-02-04] MEDS: IBUPROFEN 400 MG TABLET (FP) PO PRN (06:06)
[2020-02-04 06:25] VITALS: BP 144/73; PULSE 85; TEMP 98.4
[2020-02-04] MEDS: LIPASE/PROTEASE/AMYLASE 6,000 UNIT CAPSULE PO SCH (07:34)
[2020-02-04] MEDS: FERROUS SO4 325 MG TABLET (FP) PO SCH (07:34)
[2020-02-04] MEDS: PRENATAL VITAMINS W/ FOLIC ACID TABLET (FP) PO SCH (09:04)
[2020-02-04] MEDS: NICOTINE 21 MG/24 HOURS TOPICAL PATCH TD SCH (09:04)
== END 2020-02-04 09:09 | disposition home or self-care (01) | DRG 895 ==
LOC: YASAS 08:22 → Y6N 09:17 → Y5N 01-07 14:00
PROVIDERS: ADMIT Allergy & Immunology; ATTEND Allergy & Immunology
PROC: HZ2ZZZZ Detoxification Services for Substance Abuse Treatment (ICD-10-PCS; principal; 2020-01-03)
PROC: HZ40ZZZ Group Counseling for Substance Abuse Treatment, Cognitive (ICD-10-PCS; 2020-01-07)
DX: F10.230 Alcohol dependence with withdrawal, uncomplicated (principal); F14.20 Cocaine dependence, uncomplicated; F19.282 Other psychoactive substance dependence with psychoactive substance-induced sleep disorder; N17.9 Acute kidney failure, unspecified; F10.282 Alcohol dependence with alcohol-induced sleep disorder; F17.210 Nicotine dependence, cigarettes, uncomplicated; F19.24 Other psychoactive substance dependence with psychoactive substance-induced mood disorder; I10 Essential (primary) hypertension; K21.9 Gastro-esophageal reflux disease without esophagitis; R73.03 Prediabetes; R03.0 Elevated blood-pressure reading, without diagnosis of hypertension; G47.00 Insomnia, unspecified; K04.7 Periapical abscess without sinus; R77.0 Abnormality of albumin; R94.5 Abnormal results of liver function studies; Z86.69 Personal history of other diseases of the nervous system and sense organs; Z87.19 Personal history of other diseases of the digestive system; Z91.013 Allergy to seafood; Z91.018 Allergy to other foods; Z91.048 Other nonmedicinal substance allergy status; Y04.0XXA Assault by unarmed brawl or fight, initial encounter; Y93.9 Activity, unspecified; Y92.238 Other place in hospital as the place of occurrence of the external cause
CPT/HCPCS: 36415; 71045-TC-FY; 80053; 82962; 85025; 85027; 86780; C9803; U0003

== ENCOUNTER 2020-04-08 08:32 | Inpatient (IN) | payer OTHER ==
[2020-04-08 09:28] VITALS: BMI 25.4
[2020-04-08] MEDS ORDERED: BISMUTH SUBSALICYLATE 524 MG/30 ML UD PO PRN (11:53)
[2020-04-08] MEDS ORDERED: ONDANSETRON *ODT* 4 MG TABLET SL PRN (11:53)
[2020-04-08] MEDS ORDERED: NICOTINE POLACRILEX 2 MG GUM BUC PRN (11:53)
[2020-04-08] MEDS ORDERED: MAGNESIUM HYDROX 2400MG/30ML ORAL SUSPENSION 30 ML CUP PO PRN (11:53)
[2020-04-08] MEDS ORDERED: MENTHOL/PHENOL 1 EACH UD MM PRN (11:53)
[2020-04-08] MEDS ORDERED: LORazepam 1 MG TABLET PO PRN (11:53)
[2020-04-08] MEDS ORDERED: MAGNESIUM CITRATE 300 ML BOTTLE PO PRN (11:53)
[2020-04-08] MEDS ORDERED: ACETAMINOPHEN 325 MG TABLET (FP) PO PRN (11:53)
[2020-04-08] MEDS: hydrOXYzine PAMOATE 25 MG CAPSULE (FP) PO SCH ×3 (13:26→22:11)
[2020-04-08] MEDS: PRENATAL VITAMINS W/ FOLIC ACID TABLET (FP) PO SCH (13:26)
[2020-04-08] MEDS: NICOTINE 7 MG/24 HOURS TOPICAL PATCH TD SCH (13:26)
[2020-04-08 15:34] LABS: POTASSIUM 4.4 mmol/L (3.5-5.1)
[2020-04-08 15:36] LABS: CALCIUM 9.4 mg/dL (8.5-10.1)
[2020-04-08 15:37] LABS: ALBUMIN 3.5 g/dl (3.4-5.0)
[2020-04-08 15:40] LABS: CREATININE 1.5 mg/dL (0.55-1.3)
[2020-04-08 15:42] LABS: BILIRUBIN,TOTAL 0.9 mg/dL (0.2-1)
[2020-04-08 15:44] LABS: TOT PROT 8.6 g/dl (6.4-8.2)
[2020-04-08 15:47] LABS: HEMATOCRIT 38.7 % (35.4-49); HEMOGLOBIN 13.1 GM/dL (11.7-16.9); MEAN CELL VOLUME 100.1 fl (80-96); MEAN PLT VOLUME 9.1 fl (7.5-11.1); PLATELET COUNT 150 K/MM3 (134-434); RBC 3.86 M/mm3 (4.00-5.60); RDW 20.8 % (11.9-15.9); WHITE BLOOD COUNT 2.9 K/mm3 (4.0-10.0)
[2020-04-08] MEDS: LORazepam 2 MG TABLET PO SCH ×2 (17:18→22:11)
[2020-04-08] MEDS ORDERED: MELATONIN 5 MG TABLETS PO SCH (22:00)
[2020-04-08] MEDS: THIAMINE HCL 100 MG TABLET (FP) PO SCH (22:11)
[2020-04-08] MEDS: SUVOREXANT 10 MG TABLET PO PRN (22:12)
[2020-04-09] MEDS: LORazepam 2 MG TABLET PO SCH ×4 (05:50→22:01)
[2020-04-09] MEDS: hydrOXYzine PAMOATE 25 MG CAPSULE (FP) PO SCH ×5 (05:50→22:01)
[2020-04-09] MEDS: PRENATAL VITAMINS W/ FOLIC ACID TABLET (FP) PO SCH (10:15)
[2020-04-09] MEDS: NICOTINE 7 MG/24 HOURS TOPICAL PATCH TD SCH (10:16)
[2020-04-09] MEDS: THIAMINE HCL 100 MG TABLET (FP) PO SCH (22:01)
[2020-04-09] MEDS: SUVOREXANT 10 MG TABLET PO PRN (22:02)
[2020-04-10] MEDS: hydrOXYzine PAMOATE 25 MG CAPSULE (FP) PO SCH ×5 (05:34→22:35)
[2020-04-10] MEDS: LORazepam 1 MG TABLET PO SCH ×4 (05:35→22:34)
[2020-04-10] MEDS: PRENATAL VITAMINS W/ FOLIC ACID TABLET (FP) PO SCH (10:06)
[2020-04-10] MEDS: NICOTINE 7 MG/24 HOURS TOPICAL PATCH TD SCH (10:06)
[2020-04-10] MEDS: ACETAMINOPHEN 325 MG TABLET (FP) PO PRN ×2 (10:07→19:23)
[2020-04-10] MEDS: METHOCARBAMOL 500 MG TABLET PO PRN ×2 (10:07→17:26)
[2020-04-10] MEDS: IBUPROFEN 400 MG TABLET (FP) PO PRN (17:25)
[2020-04-10] MEDS: THIAMINE HCL 100 MG TABLET (FP) PO SCH (22:34)
[2020-04-10] MEDS: SUVOREXANT 10 MG TABLET PO PRN (22:35)
[2020-04-11] MEDS ORDERED: LORazepam 0.5 MG TABLET PO PRN
[2020-04-11] MEDS: hydrOXYzine PAMOATE 25 MG CAPSULE (FP) PO SCH ×5 (05:48→21:51)
[2020-04-11] MEDS: LORazepam 0.5 MG TABLET PO SCH ×4 (05:48→22:07)
[2020-04-11] MEDS: METHOCARBAMOL 500 MG TABLET PO PRN ×2 (06:06→17:22)
[2020-04-11 09:55] LABS: POTASSIUM 4.1 mmol/L (3.5-5.1)
[2020-04-11 10:05] LABS: BASO % 0.9 % (0-2.0); EOS % 4.6 % (0-4.5); HEMATOCRIT 33.5 % (35.4-49); LYMPH % 34.8 % (8-40); MCH 33.3 pg (25.7-33.7); MCHC 32.7 g/dl (32.0-35.9); MEAN CELL VOLUME 101.7 fl (80-96); MEAN PLT VOLUME 9.6 fl (7.5-11.1); MONO % 17.5 % (3.8-10.2); NEUT % 42.2 % (42.8-82.8); PLATELET COUNT 120 K/MM3 (134-434); RBC 3.29 M/mm3 (4.00-5.60)
[2020-04-11 10:06] LABS: BLOOD UREA NITROGEN 18.7 mg/dL (7-18); CALCIUM 8.4 mg/dL (8.5-10.1)
[2020-04-11] MEDS: NICOTINE 7 MG/24 HOURS TOPICAL PATCH TD SCH (10:06)
[2020-04-11] MEDS: PRENATAL VITAMINS W/ FOLIC ACID TABLET (FP) PO SCH (10:06)
[2020-04-11 10:10] LABS: CREATININE 1.3 mg/dL (0.55-1.3)
[2020-04-11 11:27] LABS: WHITE BLOOD COUNT 1.9 K/mm3 (4.0-10.0)
[2020-04-11 11:37] LABS: ANISOCYTOSIS 1+; MACROCYTOSIS 1+
[2020-04-11] MEDS: IBUPROFEN 400 MG TABLET (FP) PO PRN (17:23)
[2020-04-11] MEDS: THIAMINE HCL 100 MG TABLET (FP) PO SCH (21:52)
[2020-04-11] MEDS: SUVOREXANT 10 MG TABLET PO PRN (21:53)
[2020-04-12] MEDS ORDERED: LORazepam 0.5 MG TABLET PO ONE (05:00)
[2020-04-12] MEDS: hydrOXYzine PAMOATE 25 MG CAPSULE (FP) PO SCH ×3 (06:04→13:08)
[2020-04-12] MEDS: PRENATAL VITAMINS W/ FOLIC ACID TABLET (FP) PO SCH (09:52)
[2020-04-12] MEDS: NICOTINE 7 MG/24 HOURS TOPICAL PATCH TD SCH (09:54)
[2020-04-12] MEDS ORDERED: LIDOCAINE 5% TOPICAL PATCH TP SCH (10:45)
[2020-04-12] MEDS: METHOCARBAMOL 500 MG TABLET PO PRN (15:31)
[2020-04-12] MEDS: IBUPROFEN 400 MG TABLET (FP) PO PRN (15:31)
[2020-04-12] MEDS ORDERED: hydrOXYzine PAMOATE 25 MG CAPSULE (FP) PO PRN (15:37)
[2020-04-12] MEDS: MAG HYDROX/AL HYDROX/SIMETH 30 ML UNIT-DOSE CUP PO PRN (17:08)
[2020-04-12] MEDS: THIAMINE HCL 100 MG TABLET (FP) PO SCH (21:14)
[2020-04-12] MEDS ORDERED: LIDOCAINE PATCH REMOVAL MC ONE (22:00)
[2020-04-12] MEDS ORDERED: SUVOREXANT 5 MG TABLET PO PRN (22:04)
[2020-04-13] MEDS: NICOTINE 7 MG/24 HOURS TOPICAL PATCH TD SCH (10:04)
[2020-04-13] MEDS: METHOCARBAMOL 500 MG TABLET PO PRN (10:06)
[2020-04-13] MEDS: NICOTINE 21 MG/24 HOURS TOPICAL PATCH TD SCH (11:55)
[2020-04-13 12:08] LABS: HEMATOCRIT 34.7 % (35.4-49); HEMOGLOBIN 11.4 GM/dL (11.7-16.9); MCH 33.4 pg (25.7-33.7); MCHC 32.8 g/dl (32.0-35.9); MEAN CELL VOLUME 101.6 fl (80-96); MEAN PLT VOLUME 9.8 fl (7.5-11.1); PLATELET COUNT 143 K/MM3 (134-434); RBC 3.41 M/mm3 (4.00-5.60); RDW 20.1 % (11.9-15.9); WHITE BLOOD COUNT 2.6 K/mm3 (4.0-10.0)
[2020-04-13 13:13] LABS: HIV INTERPRETATION NEGATIVE (NEGATIVE)
[2020-04-13] MEDS ORDERED: CREON PO SCH (15:45)
[2020-04-13] MEDS: THIAMINE HCL 100 MG TABLET (FP) PO SCH (21:25)
[2020-04-13] MEDS: SUVOREXANT 20 MG TABLET PO PRN (21:25)
[2020-04-13] MEDS: IBUPROFEN 400 MG TABLET (FP) PO PRN (21:26)
[2020-04-14] MEDS: NICOTINE 21 MG/24 HOURS TOPICAL PATCH TD SCH (10:05)
[2020-04-14] MEDS: LIPASE/PROTEASE/AMYLASE 6,000 UNIT CAPSULE PO SCH ×2 (11:24→16:43)
[2020-04-14] MEDS: MAG HYDROX/AL HYDROX/SIMETH 30 ML UNIT-DOSE CUP PO PRN (20:00)
[2020-04-14] MEDS: THIAMINE HCL 100 MG TABLET (FP) PO SCH (21:16)
[2020-04-14] MEDS: SUVOREXANT 20 MG TABLET PO PRN (21:17)
[2020-04-15] MEDS: LIPASE/PROTEASE/AMYLASE 6,000 UNIT CAPSULE PO SCH ×3 (07:01→16:56)
[2020-04-15] MEDS: NICOTINE 21 MG/24 HOURS TOPICAL PATCH TD SCH (10:17)
[2020-04-15] MEDS: MAG HYDROX/AL HYDROX/SIMETH 30 ML UNIT-DOSE CUP PO PRN (18:40)
[2020-04-15] MEDS: SUVOREXANT 20 MG TABLET PO PRN (21:25)
[2020-04-15] MEDS: THIAMINE HCL 100 MG TABLET (FP) PO SCH (21:25)
[2020-04-16] MEDS: LIPASE/PROTEASE/AMYLASE 6,000 UNIT CAPSULE PO SCH ×3 (07:10→16:57)
[2020-04-16] MEDS: NICOTINE 21 MG/24 HOURS TOPICAL PATCH TD SCH (09:57)
[2020-04-16] MEDS: SUVOREXANT 20 MG TABLET PO PRN (21:20)
[2020-04-16] MEDS: THIAMINE HCL 100 MG TABLET (FP) PO SCH (22:38)
[2020-04-17] MEDS: LIPASE/PROTEASE/AMYLASE 6,000 UNIT CAPSULE PO SCH ×3 (07:15→16:36)
[2020-04-17] MEDS ORDERED: MASKS NR ONE (10:21)
[2020-04-17] MEDS: NICOTINE 21 MG/24 HOURS TOPICAL PATCH TD SCH (10:21)
[2020-04-17] MEDS: SUVOREXANT 20 MG TABLET PO PRN (21:26)
[2020-04-17] MEDS: THIAMINE HCL 100 MG TABLET (FP) PO SCH (21:26)
[2020-04-18] MEDS: MAG HYDROX/AL HYDROX/SIMETH 30 ML UNIT-DOSE CUP PO PRN (08:03)
[2020-04-18] MEDS: LIPASE/PROTEASE/AMYLASE 6,000 UNIT CAPSULE PO SCH ×3 (08:03→16:48)
[2020-04-18] MEDS: NICOTINE 21 MG/24 HOURS TOPICAL PATCH TD SCH (12:17)
[2020-04-18] MEDS: SUVOREXANT 20 MG TABLET PO PRN (21:39)
[2020-04-18] MEDS: THIAMINE HCL 100 MG TABLET (FP) PO SCH (21:39)
[2020-04-19] MEDS: MAG HYDROX/AL HYDROX/SIMETH 30 ML UNIT-DOSE CUP PO PRN (07:18)
[2020-04-19] MEDS: LIPASE/PROTEASE/AMYLASE 6,000 UNIT CAPSULE PO SCH ×3 (07:19→16:47)
[2020-04-19] MEDS: NICOTINE 21 MG/24 HOURS TOPICAL PATCH TD SCH (10:02)
[2020-04-19] MEDS: ACETAMINOPHEN 325 MG TABLET (FP) PO PRN (10:04)
[2020-04-19] MEDS ORDERED: SUVOREXANT 20 MG TABLET PO PRN (22:00)
[2020-04-19] MEDS: THIAMINE HCL 100 MG TABLET (FP) PO SCH (22:17)
[2020-04-20] MEDS: IBUPROFEN 400 MG TABLET (FP) PO PRN (05:51)
[2020-04-20] MEDS: MAG HYDROX/AL HYDROX/SIMETH 30 ML UNIT-DOSE CUP PO PRN (05:52)
[2020-04-20 06:50] VITALS: BP 119/66; PULSE 73; TEMP 97.5
[2020-04-20] MEDS: LIPASE/PROTEASE/AMYLASE 6,000 UNIT CAPSULE PO SCH (07:05)
[2020-04-20] MEDS: NICOTINE 21 MG/24 HOURS TOPICAL PATCH TD SCH (10:24)
== END 2020-04-20 10:15 | disposition home or self-care (01) | DRG 895 ==
LOC: YASAS 08:32 → Y3N 11:58 → Y3W 04-12 14:16 → Y5N 04-17 08:29
PROVIDERS: ADMIT Allergy & Immunology; ATTEND Psychiatry & Neurology Psychiatry
PROC: HZ42ZZZ Group Counseling for Substance Abuse Treatment, Cognitive-Behavioral (ICD-10-PCS; principal; 2020-04-08)
DX: F10.20 Alcohol dependence, uncomplicated (principal); F14.20 Cocaine dependence, uncomplicated; F19.282 Other psychoactive substance dependence with psychoactive substance-induced sleep disorder; K86.0 Alcohol-induced chronic pancreatitis; F17.210 Nicotine dependence, cigarettes, uncomplicated; F32.9 Major depressive disorder, single episode, unspecified; I10 Essential (primary) hypertension; K21.9 Gastro-esophageal reflux disease without esophagitis; M12.9 Arthropathy, unspecified; D72.819 Decreased white blood cell count, unspecified; R79.89 Other specified abnormal findings of blood chemistry; R76.11 Nonspecific reaction to tuberculin skin test without active tuberculosis; Z91.018 Allergy to other foods; Z91.048 Other nonmedicinal substance allergy status
CPT/HCPCS: 36415; 80048; 80053; 83690; 85025; 85027; 86780; 86803; 87389; C9803; U0003

== ENCOUNTER 2020-06-23 19:02 | Inpatient (IN) | payer OTHER ==
[2020-06-23 20:14] VITALS: BMI 25.8
[2020-06-23] MEDS ORDERED: METHOCARBAMOL 500 MG TABLET PO PRN (21:57)
[2020-06-23] MEDS ORDERED: NICOTINE POLACRILEX 2 MG GUM BUC PRN (21:57)
[2020-06-23] MEDS ORDERED: ACETAMINOPHEN 325 MG TABLET (FP) PO PRN ×2 (21:57)
[2020-06-23] MEDS ORDERED: hydrOXYzine PAMOATE 25 MG CAPSULE (FP) PO PRN (21:57)
[2020-06-23] MEDS ORDERED: P-EPHED 60MG/TRIPROLIDI 2.5MG TABLET PO PRN (21:57)
[2020-06-23] MEDS ORDERED: MENTHOL/PHENOL 1 EACH UD MM PRN (21:57)
[2020-06-23] MEDS ORDERED: MAGNESIUM CITRATE 300 ML BOTTLE PO PRN (21:57)
[2020-06-23] MEDS ORDERED: MAG HYDROX/AL HYDROX/SIMETH 30 ML UNIT-DOSE CUP PO PRN (21:57)
[2020-06-23] MEDS ORDERED: BISMUTH SUBSALICYLATE 524 MG/30 ML UD PO PRN (21:57)
[2020-06-23] MEDS ORDERED: ONDANSETRON *ODT* 4 MG TABLET SL PRN (21:57)
[2020-06-23] MEDS ORDERED: IBUPROFEN 400 MG TABLET (FP) PO PRN (21:57)
[2020-06-23] MEDS ORDERED: guaiFENesin 200 MG/10 ML 10 ML UNIT-DOSE CUPS PO PRN (21:57)
[2020-06-23] MEDS ORDERED: MAGNESIUM HYDROX 2400MG/30ML ORAL SUSPENSION 30 ML CUP PO PRN (21:57)
[2020-06-23] MEDS ORDERED: MELATONIN 5 MG TABLETS PO SCH (22:00)
[2020-06-23] MEDS ORDERED: THIAMINE HCL 100 MG TABLET (FP) PO SCH (22:00)
[2020-06-24 09:21] VITALS: BP 145/75; PULSE 93; TEMP 97.1
[2020-06-24] MEDS ORDERED: NICOTINE 21 MG/24 HOURS TOPICAL PATCH TD SCH (10:00)
[2020-06-24] MEDS ORDERED: PRENATAL VITAMINS W/ FOLIC ACID TABLET (FP) PO SCH (10:00)
[2020-06-24 11:44] LABS: HEMATOCRIT 34.5 % (35.4-49); HEMOGLOBIN 11.5 GM/dL (11.7-16.9); MCH 33.2 pg (25.7-33.7); MCHC 33.4 g/dl (32.0-35.9); MEAN CELL VOLUME 99.3 fl (80-96); MEAN PLT VOLUME 9.4 fl (7.5-11.1); PLATELET COUNT 87 K/MM3 (134-434); RBC 3.47 M/mm3 (4.00-5.60); RDW 16.4 % (11.9-15.9); WHITE BLOOD COUNT 2.2 K/mm3 (4.0-10.0)
[2020-06-24 11:51] LABS: CALCIUM 8.2 mg/dL (8.5-10.1)
[2020-06-24 11:52] LABS: ALBUMIN 2.8 g/dl (3.4-5.0)
[2020-06-24 11:55] LABS: BILIRUBIN,TOTAL 0.5 mg/dL (0.2-1); CREATININE 1.3 mg/dL (0.55-1.3); TOT PROT 6.5 g/dl (6.4-8.2)
== END 2020-06-24 13:26 | disposition home or self-care (01) | DRG 897 ==
LOC: YASAS 19:02 → Y3N 23:41
PROVIDERS: ADMIT Allergy & Immunology; ATTEND Allergy & Immunology
PROC: HZ2ZZZZ Detoxification Services for Substance Abuse Treatment (ICD-10-PCS; principal; 2020-06-23)
DX: F10.230 Alcohol dependence with withdrawal, uncomplicated (principal); F14.20 Cocaine dependence, uncomplicated; F19.282 Other psychoactive substance dependence with psychoactive substance-induced sleep disorder; K86.1 Other chronic pancreatitis; D61.818 Other pancytopenia; K86.0 Alcohol-induced chronic pancreatitis; F17.210 Nicotine dependence, cigarettes, uncomplicated; D72.819 Decreased white blood cell count, unspecified; F19.24 Other psychoactive substance dependence with psychoactive substance-induced mood disorder; F10.282 Alcohol dependence with alcohol-induced sleep disorder; I10 Essential (primary) hypertension; R03.0 Elevated blood-pressure reading, without diagnosis of hypertension; R76.11 Nonspecific reaction to tuberculin skin test without active tuberculosis; Z91.048 Other nonmedicinal substance allergy status; Z91.018 Allergy to other foods; Z91.013 Allergy to seafood
CPT/HCPCS: 36415; 80053; 85027; 86780; 93005; 93010; C9803; U0003; U0005

== ENCOUNTER 2020-10-06 14:24 | Inpatient (IN) | payer OTHER ==
[2020-10-06] MEDS ORDERED: BISMUTH SUBSALICYLATE 524 MG/30 ML PO PRN (18:31)
[2020-10-06] MEDS ORDERED: ACETAMINOPHEN 325 MG TABLET (FP) PO PRN (18:31)
[2020-10-06] MEDS ORDERED: ONDANSETRON *ODT* 4 MG TABLET SL PRN (18:31)
[2020-10-06] MEDS ORDERED: NICOTINE 10 MG CARTRIDGE (INHALER) IH PRN (18:31)
[2020-10-06] MEDS ORDERED: MAGNESIUM HYDROX 2400MG/30ML ORAL SUSPENSION 30 ML CUP PO PRN (18:31)
[2020-10-06] MEDS ORDERED: METHOCARBAMOL 500 MG TABLET PO PRN (18:31)
[2020-10-06] MEDS ORDERED: MENTHOL/PHENOL 1 EACH UD MM PRN (18:31)
[2020-10-06] MEDS ORDERED: MAGNESIUM CITRATE 300 ML BOTTLE PO PRN (18:31)
[2020-10-06 18:49] VITALS: BMI 25.4
[2020-10-06] MEDS: hydrOXYzine PAMOATE 25 MG CAPSULE (FP) PO SCH (22:06)
[2020-10-06] MEDS: MELATONIN 5 MG TABLETS PO SCH (22:06)
[2020-10-06] MEDS: THIAMINE HCL 100 MG TABLET (FP) PO SCH (22:06)
[2020-10-07] MEDS: hydrOXYzine PAMOATE 25 MG CAPSULE (FP) PO SCH ×2 (05:38→10:23)
[2020-10-07] MEDS: LIPASE/PROTEASE/AMYLASE 6,000 UNIT CAPSULE PO SCH ×3 (07:50→17:00)
[2020-10-07] MEDS ORDERED: LORazepam 1 MG TABLET PO PRN (10:12)
[2020-10-07] MEDS: amLODIPine BESYLATE 5 MG TABLET (FP) PO SCH (11:22)
[2020-10-07] MEDS: PRENATAL VITAMINS W/ FOLIC ACID TABLET (FP) PO SCH (11:23)
[2020-10-07] MEDS: NICOTINE 21 MG/24 HOURS TOPICAL PATCH TD SCH (11:23)
[2020-10-07] MEDS: LORazepam 2 MG TABLET PO SCH ×3 (11:24→22:27)
[2020-10-07 13:47] LABS: HEMATOCRIT 33.9 % (35.4-49); HEMOGLOBIN 11.4 GM/dL (11.7-16.9); MCH 34.5 pg (25.7-33.7); MCHC 33.5 g/dl (32.0-35.9); MEAN CELL VOLUME 102.9 fl (80-96); MEAN PLT VOLUME 8.3 fl (7.5-11.1); PLATELET COUNT 150 10^3/uL (134-434); RBC 3.29 M/mm3 (4.00-5.60); WHITE BLOOD COUNT 2.4 K/mm3 (4.0-10.0)
[2020-10-07 14:12] LABS: CALCIUM 8.2 mg/dL (8.5-10.1)
[2020-10-07 14:13] LABS: ALBUMIN 2.8 g/dl (3.4-5.0); BLOOD UREA NITROGEN 13.2 mg/dL (7-18)
[2020-10-07 14:16] LABS: CREATININE 1.3 mg/dL (0.55-1.3)
[2020-10-07 14:18] LABS: BILIRUBIN,TOTAL 0.4 mg/dL (0.2-1)
[2020-10-07] MEDS ORDERED: SUVOREXANT 10 MG TABLET PO PRN (22:00)
[2020-10-07] MEDS: MELATONIN 5 MG TABLETS PO SCH (22:27)
[2020-10-07] MEDS: THIAMINE HCL 100 MG TABLET (FP) PO SCH (22:27)
[2020-10-08] MEDS: LORazepam 1 MG TABLET PO SCH ×4 (05:13→22:33)
[2020-10-08] MEDS: LIPASE/PROTEASE/AMYLASE 6,000 UNIT CAPSULE PO SCH ×3 (07:30→16:42)
[2020-10-08] MEDS: PRENATAL VITAMINS W/ FOLIC ACID TABLET (FP) PO SCH (10:39)
[2020-10-08] MEDS: PANTOPRAZOLE 20 MG TABLET PO SCH (10:39)
[2020-10-08] MEDS: amLODIPine BESYLATE 5 MG TABLET (FP) PO SCH (10:39)
[2020-10-08] MEDS: NICOTINE 21 MG/24 HOURS TOPICAL PATCH TD SCH (10:39)
[2020-10-08] MEDS: THIAMINE HCL 100 MG TABLET (FP) PO SCH (22:33)
[2020-10-08] MEDS: SUVOREXANT 15 MG TABLET PO PRN (22:33)
[2020-10-09] MEDS ORDERED: LORazepam 0.5 MG TABLET PO PRN ×2 (00:01)
[2020-10-09] MEDS: LORazepam 0.5 MG TABLET PO SCH ×4 (05:18→22:11)
[2020-10-09] MEDS: BACLOFEN 10 MG TABLET (FP) PO PRN ×3 (05:20→22:12)
[2020-10-09] MEDS: LIPASE/PROTEASE/AMYLASE 6,000 UNIT CAPSULE PO SCH ×3 (07:45→16:41)
[2020-10-09] MEDS: ACETAMINOPHEN 325 MG TABLET (FP) PO PRN (09:06)
[2020-10-09] MEDS: PRENATAL VITAMINS W/ FOLIC ACID TABLET (FP) PO SCH (10:29)
[2020-10-09] MEDS: amLODIPine BESYLATE 5 MG TABLET (FP) PO SCH (10:30)
[2020-10-09] MEDS: PANTOPRAZOLE 20 MG TABLET PO SCH (10:30)
[2020-10-09] MEDS: NICOTINE 21 MG/24 HOURS TOPICAL PATCH TD SCH (10:33)
[2020-10-09] MEDS: MAG HYDROX/AL HYDROX/SIMETH 30 ML UNIT-DOSE CUP PO PRN (18:58)
[2020-10-09] MEDS: THIAMINE HCL 100 MG TABLET (FP) PO SCH (22:11)
[2020-10-09] MEDS: SUVOREXANT 15 MG TABLET PO PRN (22:12)
[2020-10-10] MEDS ORDERED: LORazepam 0.5 MG TABLET PO ONE (05:00)
[2020-10-10] MEDS: LIPASE/PROTEASE/AMYLASE 6,000 UNIT CAPSULE PO SCH ×3 (08:03→16:46)
[2020-10-10] MEDS: PRENATAL VITAMINS W/ FOLIC ACID TABLET (FP) PO SCH (10:07)
[2020-10-10] MEDS: amLODIPine BESYLATE 5 MG TABLET (FP) PO SCH (10:08)
[2020-10-10] MEDS: PANTOPRAZOLE 20 MG TABLET PO SCH (10:08)
[2020-10-10] MEDS: NICOTINE 21 MG/24 HOURS TOPICAL PATCH TD SCH (10:08)
[2020-10-10] MEDS: IBUPROFEN 400 MG TABLET (FP) PO PRN ×2 (14:41→21:10)
[2020-10-10] MEDS: ACETAMINOPHEN 325 MG TABLET (FP) PO PRN (16:25)
[2020-10-10] MEDS: MAG HYDROX/AL HYDROX/SIMETH 30 ML UNIT-DOSE CUP PO PRN (18:47)
[2020-10-10] MEDS: SUVOREXANT 15 MG TABLET PO PRN (22:02)
[2020-10-10] MEDS: BACLOFEN 10 MG TABLET (FP) PO PRN (22:03)
[2020-10-10] MEDS: THIAMINE HCL 100 MG TABLET (FP) PO SCH (22:03)
[2020-10-11] MEDS: LIPASE/PROTEASE/AMYLASE 6,000 UNIT CAPSULE PO SCH (07:14)
[2020-10-11 08:10] VITALS: TEMP 97.1
[2020-10-11 08:57] VITALS: BP 127/70; PULSE 73
[2020-10-11] MEDS: NICOTINE 21 MG/24 HOURS TOPICAL PATCH TD SCH (09:07)
[2020-10-11] MEDS: PANTOPRAZOLE 20 MG TABLET PO SCH (09:07)
[2020-10-11] MEDS: PRENATAL VITAMINS W/ FOLIC ACID TABLET (FP) PO SCH (09:07)
[2020-10-11] MEDS: amLODIPine BESYLATE 5 MG TABLET (FP) PO SCH (09:07)
== END 2020-10-11 09:28 | disposition other institution (70) | DRG 897 ==
LOC: YASAS 14:24 → Y3N 17:48 → UNDOADMIN 17:48 → Y3N 18:49
PROVIDERS: ADMIT Allergy & Immunology; ATTEND Allergy & Immunology
PROC: HZ2ZZZZ Detoxification Services for Substance Abuse Treatment (ICD-10-PCS; principal; 2020-10-06)
DX: F10.230 Alcohol dependence with withdrawal, uncomplicated (principal); F14.20 Cocaine dependence, uncomplicated; F19.282 Other psychoactive substance dependence with psychoactive substance-induced sleep disorder; K86.0 Alcohol-induced chronic pancreatitis; F12.20 Cannabis dependence, uncomplicated; F17.210 Nicotine dependence, cigarettes, uncomplicated; F19.24 Other psychoactive substance dependence with psychoactive substance-induced mood disorder; D72.819 Decreased white blood cell count, unspecified; D69.6 Thrombocytopenia, unspecified; D64.9 Anemia, unspecified; I10 Essential (primary) hypertension; K21.9 Gastro-esophageal reflux disease without esophagitis; Z91.018 Allergy to other foods
CPT/HCPCS: 36415; 80053; 85027; 86780; C9803; J0475; U0003; U0005

== ENCOUNTER 2021-01-04 13:59 | Inpatient (IN) | payer OTHER ==
[2021-01-04] MEDS ORDERED: MAGNESIUM HYDROX 2400MG/30ML ORAL SUSPENSION 30 ML CUP PO PRN ×2 (14:33→15:28)
[2021-01-04] MEDS ORDERED: ACETAMINOPHEN 325 MG TABLET (FP) PO PRN ×2 (14:33→15:28)
[2021-01-04] MEDS ORDERED: NICOTINE 10 MG CARTRIDGE (INHALER) IH PRN ×2 (14:33→15:28)
[2021-01-04] MEDS ORDERED: IBUPROFEN 400 MG TABLET (FP) PO PRN ×2 (14:33→15:28)
[2021-01-04] MEDS ORDERED: MAG HYDROX/AL HYDROX/SIMETH 30 ML UNIT-DOSE CUP PO PRN ×2 (14:33→15:28)
[2021-01-04] MEDS ORDERED: MENTHOL/PHENOL 1 EACH UD MM PRN ×2 (14:33→15:28)
[2021-01-04] MEDS ORDERED: ONDANSETRON *ODT* 4 MG TABLET SL PRN ×2 (14:33→15:28)
[2021-01-04] MEDS ORDERED: MAGNESIUM CITRATE 300 ML BOTTLE PO PRN ×2 (14:33→15:28)
[2021-01-04] MEDS ORDERED: BISMUTH SUBSALICYLATE 524 MG/30 ML PO PRN (14:33)
[2021-01-04] MEDS ORDERED: PRENATAL VITAMINS W/ FOLIC ACID TABLET (FP) PO SCH (14:45)
[2021-01-04 15:11] VITALS: BMI 26.1
[2021-01-04] MEDS ORDERED: METHOCARBAMOL 500 MG TABLET PO PRN (15:28)
[2021-01-04] MEDS ORDERED: BISMUTH SUBSALICYLATE 262 MG/15 ML BTL PO PRN (15:28)
[2021-01-04] MEDS: PRENATAL VITAMINS W/ FOLIC ACID TABLET (FP) PO SCH (16:56)
[2021-01-04] MEDS: PATIENT'S OWN MEDICATION (NON-FORMULARY) (Lipase/Protease/Amylase [Creon Dr 24,000 Units C PO SCH (16:56)
[2021-01-04] MEDS: hydrOXYzine PAMOATE 25 MG CAPSULE (FP) PO SCH ×2 (17:30→22:28)
[2021-01-04] MEDS ORDERED: PATIENT'S OWN MEDICATION (NON-FORMULARY) (Lipase/Protease/Amylase [Creon Dr 24,000 Units C PO SCH (17:30)
[2021-01-04] MEDS ORDERED: hydrOXYzine PAMOATE 25 MG CAPSULE (FP) PO SCH (18:00)
[2021-01-04] MEDS ORDERED: THIAMINE HCL 100 MG TABLET (FP) PO SCH (22:00)
[2021-01-04] MEDS ORDERED: MELATONIN 5 MG TABLETS PO SCH (22:00)
[2021-01-04] MEDS: THIAMINE HCL 100 MG TABLET (FP) PO SCH (22:28)
[2021-01-04] MEDS: MELATONIN 5 MG TABLETS PO SCH (22:28)
[2021-01-05] MEDS: hydrOXYzine PAMOATE 25 MG CAPSULE (FP) PO SCH ×5 (05:07→22:32)
[2021-01-05] MEDS: PATIENT'S OWN MEDICATION (NON-FORMULARY) (Lipase/Protease/Amylase [Creon Dr 24,000 Units C PO SCH ×3 (07:13→17:45)
[2021-01-05] MEDS ORDERED: LORazepam 1 MG TABLET PO PRN (09:21)
[2021-01-05] MEDS ORDERED: NICOTINE 7 MG/24 HOURS TOPICAL PATCH TD SCH (10:00)
[2021-01-05] MEDS ORDERED: amLODIPine BESYLATE 5 MG TABLET (FP) PO SCH (10:00)
[2021-01-05] MEDS ORDERED: PANTOPRAZOLE 20 MG TABLET PO SCH ×2 (10:00)
[2021-01-05] MEDS: NICOTINE 14 MG/24 HOURS TOPICAL PATCH TD SCH (10:08)
[2021-01-05] MEDS: amLODIPine BESYLATE 5 MG TABLET (FP) PO SCH (10:08)
[2021-01-05] MEDS: PRENATAL VITAMINS W/ FOLIC ACID TABLET (FP) PO SCH (10:08)
[2021-01-05 10:31] LABS: HEMATOCRIT 35.2 % (35.4-49); HEMOGLOBIN 11.6 GM/dL (11.7-16.9); MCH 31.9 pg (25.7-33.7); MCHC 32.9 g/dl (32.0-35.9); MEAN PLT VOLUME 8.8 fl (7.5-11.1); PLATELET COUNT 94 10^3/uL (134-434); RBC 3.62 M/mm3 (4.00-5.60); RDW 16.1 % (11.9-15.9); WHITE BLOOD COUNT 2.4 K/mm3 (4.0-10.0)
[2021-01-05 10:40] LABS: CALCIUM 8.6 mg/dL (8.5-10.1)
[2021-01-05 10:41] LABS: ALBUMIN 2.7 g/dl (3.4-5.0); BLOOD UREA NITROGEN 25.2 mg/dL (7-18)
[2021-01-05 10:43] LABS: CREATININE 1.6 mg/dL (0.55-1.3)
[2021-01-05 10:44] LABS: TOT PROT 6.7 g/dl (6.4-8.2)
[2021-01-05 10:50] LABS: BILIRUBIN,TOTAL 0.7 mg/dL (0.2-1)
[2021-01-05] MEDS: LORazepam 2 MG TABLET PO SCH ×3 (12:00→22:32)
[2021-01-05] MEDS: LIPASE/PROTEASE/AMYLASE 6,000 UNIT CAPSULE PO SCH ×2 (18:15→18:16)
[2021-01-05] MEDS ORDERED: cloNIDine HCL 0.1 MG TABLET PO ONE (21:45)
[2021-01-05] MEDS: THIAMINE HCL 100 MG TABLET (FP) PO SCH (22:32)
[2021-01-05] MEDS: MELATONIN 5 MG TABLETS PO SCH (22:33)
[2021-01-06] MEDS: LORazepam 2 MG TABLET PO SCH ×4 (05:01→22:10)
[2021-01-06] MEDS: hydrOXYzine PAMOATE 25 MG CAPSULE (FP) PO SCH ×5 (05:01→22:10)
[2021-01-06] MEDS: PATIENT'S OWN MEDICATION (NON-FORMULARY) (Lipase/Protease/Amylase [Creon Dr 24,000 Units C PO SCH ×3 (07:23→16:33)
[2021-01-06] MEDS: PRENATAL VITAMINS W/ FOLIC ACID TABLET (FP) PO SCH (10:09)
[2021-01-06] MEDS: NICOTINE 14 MG/24 HOURS TOPICAL PATCH TD SCH (10:09)
[2021-01-06] MEDS: amLODIPine BESYLATE 5 MG TABLET (FP) PO SCH (10:09)
[2021-01-06] MEDS: FAMOTIDINE 20 MG TABLET PO SCH (10:12)
[2021-01-06] MEDS ORDERED: ASPIRIN 81 MG CHEWABLE TABLETS PO ONE (20:23)
[2021-01-06] MEDS: ACETAMINOPHEN 325 MG TABLET (FP) PO PRN (20:29)
[2021-01-06] MEDS: THIAMINE HCL 100 MG TABLET (FP) PO SCH (22:10)
[2021-01-06] MEDS: SUVOREXANT 10 MG TABLET PO PRN (22:11)
[2021-01-07] MEDS: LORazepam 1 MG TABLET PO SCH ×4 (05:41→22:21)
[2021-01-07] MEDS: hydrOXYzine PAMOATE 25 MG CAPSULE (FP) PO SCH ×6 (05:41→21:50)
[2021-01-07] MEDS: METHOCARBAMOL 500 MG TABLET PO PRN (05:43)
[2021-01-07] MEDS: PATIENT'S OWN MEDICATION (NON-FORMULARY) (Lipase/Protease/Amylase [Creon Dr 24,000 Units C PO SCH ×4 (07:21→16:39)
[2021-01-07] MEDS: PRENATAL VITAMINS W/ FOLIC ACID TABLET (FP) PO SCH (10:23)
[2021-01-07] MEDS: amLODIPine BESYLATE 5 MG TABLET (FP) PO SCH (10:24)
[2021-01-07] MEDS: FAMOTIDINE 20 MG TABLET PO SCH (10:24)
[2021-01-07] MEDS: NICOTINE 14 MG/24 HOURS TOPICAL PATCH TD SCH (10:26)
[2021-01-07] MEDS: SUVOREXANT 10 MG TABLET PO PRN (21:49)
[2021-01-07] MEDS: THIAMINE HCL 100 MG TABLET (FP) PO SCH (21:50)
[2021-01-08] MEDS ORDERED: LORazepam 0.5 MG TABLET PO PRN
[2021-01-08] MEDS: LORazepam 0.5 MG TABLET PO SCH ×4 (05:09→22:01)
[2021-01-08] MEDS: hydrOXYzine PAMOATE 25 MG CAPSULE (FP) PO SCH ×5 (05:10→22:02)
[2021-01-08] MEDS: PATIENT'S OWN MEDICATION (NON-FORMULARY) (Lipase/Protease/Amylase [Creon Dr 24,000 Units C PO SCH ×3 (07:16→16:35)
[2021-01-08] MEDS: NICOTINE 14 MG/24 HOURS TOPICAL PATCH TD SCH (10:16)
[2021-01-08] MEDS: PRENATAL VITAMINS W/ FOLIC ACID TABLET (FP) PO SCH (10:17)
[2021-01-08] MEDS: FAMOTIDINE 20 MG TABLET PO SCH (10:17)
[2021-01-08] MEDS: amLODIPine BESYLATE 5 MG TABLET (FP) PO SCH (10:18)
[2021-01-08] MEDS: ACETAMINOPHEN 325 MG TABLET (FP) PO PRN (15:16)
[2021-01-08] MEDS: SUVOREXANT 10 MG TABLET PO PRN (22:02)
[2021-01-08] MEDS: THIAMINE HCL 100 MG TABLET (FP) PO SCH (22:02)
[2021-01-09] MEDS ORDERED: LORazepam 0.5 MG TABLET PO ONE (05:00)
[2021-01-09] MEDS: hydrOXYzine PAMOATE 25 MG CAPSULE (FP) PO SCH (05:23)
[2021-01-09] MEDS: METHOCARBAMOL 500 MG TABLET PO PRN (05:24)
[2021-01-09] MEDS: PATIENT'S OWN MEDICATION (NON-FORMULARY) (Lipase/Protease/Amylase [Creon Dr 24,000 Units C PO SCH (07:11)
[2021-01-09 09:11] VITALS: BP 139/77; PULSE 83; TEMP 97.5
== END 2021-01-09 09:11 | disposition home or self-care (01) | DRG 897 ==
LOC: YASAS 13:59 → Y3N 15:27
PROVIDERS: ADMIT Allergy & Immunology; ATTEND Allergy & Immunology
PROC: HZ2ZZZZ Detoxification Services for Substance Abuse Treatment (ICD-10-PCS; principal; 2021-01-04)
DX: F10.230 Alcohol dependence with withdrawal, uncomplicated (principal); F14.20 Cocaine dependence, uncomplicated; D61.818 Other pancytopenia; K86.1 Other chronic pancreatitis; F17.210 Nicotine dependence, cigarettes, uncomplicated; F19.24 Other psychoactive substance dependence with psychoactive substance-induced mood disorder; F32.A Depression, unspecified; E88.09 Other disorders of plasma-protein metabolism, not elsewhere classified; I10 Essential (primary) hypertension; K21.9 Gastro-esophageal reflux disease without esophagitis; R74.01 Elevation of levels of liver transaminase levels; R07.89 Other chest pain; Z91.013 Allergy to seafood; Z88.8 Allergy status to other drugs, medicaments and biological substances
CPT/HCPCS: 36415; 71045-TC-FY; 80053; 85027; 86780; 93005; 93010; C9803; J0735; U0003; U0005

== ENCOUNTER 2021-02-21 10:08 | Inpatient (IN) | payer OTHER ==
[2021-02-21] MEDS ORDERED: MENTHOL/PHENOL 1 EACH UD MM PRN (10:31)
[2021-02-21] MEDS ORDERED: NICOTINE 10 MG CARTRIDGE (INHALER) IH PRN (10:31)
[2021-02-21] MEDS ORDERED: MAGNESIUM CITRATE 300 ML BOTTLE PO PRN (10:31)
[2021-02-21] MEDS ORDERED: IBUPROFEN 400 MG TABLET (FP) PO PRN (10:31)
[2021-02-21] MEDS ORDERED: ONDANSETRON *ODT* 4 MG TABLET SL PRN (10:31)
[2021-02-21] MEDS ORDERED: ACETAMINOPHEN 325 MG TABLET (FP) PO PRN (10:31)
[2021-02-21] MEDS ORDERED: BISMUTH SUBSALICYLATE 524 MG/30 ML PO PRN (10:31)
[2021-02-21] MEDS ORDERED: MAGNESIUM HYDROX 2400MG/30ML ORAL SUSPENSION 30 ML CUP PO PRN (10:31)
[2021-02-21] MEDS ORDERED: chlordiazePOXIDE HCL 25 MG CAPSULE PO PRN (10:31)
[2021-02-21 10:38] VITALS: BMI 26.9
[2021-02-21] MEDS ORDERED: chlordiazePOXIDE HCL 25 MG CAPSULE PO SCH (11:00)
[2021-02-21] MEDS ORDERED: LORazepam 1 MG TABLET PO PRN (11:53)
[2021-02-21] MEDS: LORazepam 2 MG TABLET PO SCH ×3 (12:24→22:42)
[2021-02-21] MEDS: NICOTINE 14 MG/24 HOURS TOPICAL PATCH TD SCH (12:27)
[2021-02-21] MEDS: LIPASE/PROTEASE/AMYLASE 6,000 UNIT CAPSULE PO SCH ×2 (13:15→16:58)
[2021-02-21 14:52] LABS: HEMATOCRIT 39.1 % (35.4-49); HEMOGLOBIN 12.4 GM/dL (11.7-16.9); MCH 31.2 pg (25.7-33.7); MCHC 31.8 g/dl (32.0-35.9); MEAN CELL VOLUME 98.1 fl (80-96); MEAN PLT VOLUME 8.8 fl (7.5-11.1); PLATELET COUNT 139 10^3/uL (134-434); RBC 3.98 M/mm3 (4.00-5.60); RDW 16.6 % (11.9-15.9); WHITE BLOOD COUNT 3.6 K/mm3 (4.0-10.0)
[2021-02-21 14:58] LABS: CALCIUM 8.8 mg/dL (8.5-10.1)
[2021-02-21 14:59] LABS: BLOOD UREA NITROGEN 16.8 mg/dL (7-18)
[2021-02-21 15:02] LABS: CREATININE 1.6 mg/dL (0.55-1.3)
[2021-02-21 15:03] LABS: BILIRUBIN,TOTAL 0.6 mg/dL (0.2-1); TOT PROT 7.6 g/dl (6.4-8.2)
[2021-02-21] MEDS: hydrOXYzine PAMOATE 25 MG CAPSULE (FP) PO SCH ×3 (15:12→22:40)
[2021-02-21] MEDS ORDERED: SUVOREXANT 10 MG TABLET PO PRN (22:00)
[2021-02-21] MEDS ORDERED: MELATONIN 5 MG TABLETS PO SCH (22:00)
[2021-02-21] MEDS: THIAMINE HCL 100 MG TABLET (FP) PO SCH (22:40)
[2021-02-21] MEDS: METHOCARBAMOL 500 MG TABLET PO PRN (22:43)
[2021-02-22] MEDS: hydrOXYzine PAMOATE 25 MG CAPSULE (FP) PO SCH ×5 (06:28→22:39)
[2021-02-22] MEDS: LORazepam 2 MG TABLET PO SCH ×4 (06:28→22:40)
[2021-02-22] MEDS: LIPASE/PROTEASE/AMYLASE 6,000 UNIT CAPSULE PO SCH ×3 (09:37→18:07)
[2021-02-22] MEDS: NICOTINE 14 MG/24 HOURS TOPICAL PATCH TD SCH (10:32)
[2021-02-22] MEDS: PANTOPRAZOLE 20 MG TABLET PO SCH (10:33)
[2021-02-22] MEDS: amLODIPine BESYLATE 5 MG TABLET (FP) PO SCH (10:33)
[2021-02-22] MEDS: PRENATAL VITAMINS W/ FOLIC ACID TABLET (FP) PO SCH (10:35)
[2021-02-22] MEDS: DICLOFENAC SODIUM 75 MG TABLET.DR PO SCH (10:35)
[2021-02-22] MEDS: THIAMINE HCL 100 MG TABLET (FP) PO SCH (22:39)
[2021-02-22] MEDS: SUVOREXANT 15 MG TABLET PO PRN (22:39)
[2021-02-23] MEDS ORDERED: chlordiazePOXIDE HCL 25 MG CAPSULE PO SCH (05:00)
[2021-02-23] MEDS: LORazepam 1 MG TABLET PO SCH ×4 (06:11→22:19)
[2021-02-23] MEDS: hydrOXYzine PAMOATE 25 MG CAPSULE (FP) PO SCH ×5 (06:11→22:19)
[2021-02-23] MEDS: LIPASE/PROTEASE/AMYLASE 6,000 UNIT CAPSULE PO SCH ×3 (07:54→17:02)
[2021-02-23] MEDS: MAG HYDROX/AL HYDROX/SIMETH 30 ML UNIT-DOSE CUP PO PRN (10:18)
[2021-02-23] MEDS: NICOTINE 14 MG/24 HOURS TOPICAL PATCH TD SCH (10:18)
[2021-02-23] MEDS: amLODIPine BESYLATE 5 MG TABLET (FP) PO SCH (10:19)
[2021-02-23] MEDS: PANTOPRAZOLE 20 MG TABLET PO SCH (10:20)
[2021-02-23] MEDS: PRENATAL VITAMINS W/ FOLIC ACID TABLET (FP) PO SCH (10:20)
[2021-02-23] MEDS: DICLOFENAC SODIUM 75 MG TABLET.DR PO SCH (11:45)
[2021-02-23] MEDS: THIAMINE HCL 100 MG TABLET (FP) PO SCH (22:19)
[2021-02-23] MEDS: SUVOREXANT 15 MG TABLET PO PRN (22:23)
[2021-02-24] MEDS ORDERED: chlordiazePOXIDE HCL 10 MG CAPSULE PO PRN
[2021-02-24] MEDS ORDERED: LORazepam 0.5 MG TABLET PO PRN
[2021-02-24] MEDS ORDERED: chlordiazePOXIDE HCL 10 MG CAPSULE PO SCH (05:00)
[2021-02-24] MEDS: LORazepam 0.5 MG TABLET PO SCH ×4 (05:49→22:05)
[2021-02-24] MEDS: hydrOXYzine PAMOATE 25 MG CAPSULE (FP) PO SCH ×5 (05:49→21:43)
[2021-02-24] MEDS: LIPASE/PROTEASE/AMYLASE 6,000 UNIT CAPSULE PO SCH ×3 (07:26→16:40)
[2021-02-24] MEDS: PANTOPRAZOLE 20 MG TABLET PO SCH (10:06)
[2021-02-24] MEDS: amLODIPine BESYLATE 5 MG TABLET (FP) PO SCH (10:06)
[2021-02-24] MEDS: PRENATAL VITAMINS W/ FOLIC ACID TABLET (FP) PO SCH (10:07)
[2021-02-24] MEDS: NICOTINE 14 MG/24 HOURS TOPICAL PATCH TD SCH (10:08)
[2021-02-24] MEDS: DICLOFENAC SODIUM 75 MG TABLET.DR PO SCH (10:08)
[2021-02-24] MEDS: ACETAMINOPHEN 325 MG TABLET (FP) PO PRN (18:27)
[2021-02-24] MEDS: THIAMINE HCL 100 MG TABLET (FP) PO SCH (21:43)
[2021-02-24] MEDS: SUVOREXANT 15 MG TABLET PO PRN (21:44)
[2021-02-25] MEDS ORDERED: chlordiazePOXIDE HCL 10 MG CAPSULE PO SCH (05:00)
[2021-02-25] MEDS ORDERED: LORazepam 0.5 MG TABLET PO ONE (05:00)
[2021-02-25] MEDS: hydrOXYzine PAMOATE 25 MG CAPSULE (FP) PO SCH ×4 (05:28→17:08)
[2021-02-25] MEDS: LIPASE/PROTEASE/AMYLASE 6,000 UNIT CAPSULE PO SCH ×3 (07:02→17:08)
[2021-02-25] MEDS: NICOTINE 14 MG/24 HOURS TOPICAL PATCH TD SCH (10:32)
[2021-02-25] MEDS: DICLOFENAC SODIUM 75 MG TABLET.DR PO SCH (10:33)
[2021-02-25] MEDS: PANTOPRAZOLE 20 MG TABLET PO SCH (10:33)
[2021-02-25] MEDS: amLODIPine BESYLATE 5 MG TABLET (FP) PO SCH (10:33)
[2021-02-25] MEDS: PRENATAL VITAMINS W/ FOLIC ACID TABLET (FP) PO SCH (10:33)
[2021-02-25] MEDS: ACETAMINOPHEN 325 MG TABLET (FP) PO PRN (18:06)
[2021-02-25] MEDS: SUVOREXANT 15 MG TABLET PO PRN (22:14)
[2021-02-26] MEDS ORDERED: chlordiazePOXIDE HCL 10 MG CAPSULE PO ONE (05:00)
[2021-02-26] MEDS: hydrOXYzine PAMOATE 25 MG CAPSULE (FP) PO SCH ×6 (06:16→21:26)
[2021-02-26] MEDS: LIPASE/PROTEASE/AMYLASE 6,000 UNIT CAPSULE PO SCH ×3 (08:00→16:50)
[2021-02-26] MEDS: PRENATAL VITAMINS W/ FOLIC ACID TABLET (FP) PO SCH (10:22)
[2021-02-26] MEDS: amLODIPine BESYLATE 5 MG TABLET (FP) PO SCH (10:22)
[2021-02-26] MEDS: PANTOPRAZOLE 20 MG TABLET PO SCH (10:22)
[2021-02-26] MEDS: NICOTINE 14 MG/24 HOURS TOPICAL PATCH TD SCH (10:22)
[2021-02-26] MEDS: DICLOFENAC SODIUM 75 MG TABLET.DR PO SCH (10:22)
[2021-02-26] MEDS: THIAMINE HCL 100 MG TABLET (FP) PO SCH ×2 (21:26)
[2021-02-26] MEDS: SUVOREXANT 15 MG TABLET PO PRN (21:26)
[2021-02-26] MEDS: METHOCARBAMOL 500 MG TABLET PO PRN (21:26)
[2021-02-27] MEDS ORDERED: PT OWN MED DRAWER 7, Y5N ONE (03:14)
[2021-02-27] MEDS: hydrOXYzine PAMOATE 25 MG CAPSULE (FP) PO SCH ×2 (06:11→09:35)
[2021-02-27] MEDS: LIPASE/PROTEASE/AMYLASE 6,000 UNIT CAPSULE PO SCH ×3 (07:23→16:48)
[2021-02-27] MEDS: NICOTINE 14 MG/24 HOURS TOPICAL PATCH TD SCH (09:34)
[2021-02-27] MEDS: PRENATAL VITAMINS W/ FOLIC ACID TABLET (FP) PO SCH (09:34)
[2021-02-27] MEDS: amLODIPine BESYLATE 5 MG TABLET (FP) PO SCH (09:34)
[2021-02-27] MEDS: PANTOPRAZOLE 20 MG TABLET PO SCH (09:34)
[2021-02-27] MEDS: DICLOFENAC SODIUM 75 MG TABLET.DR PO SCH (09:35)
[2021-02-27] MEDS: METHOCARBAMOL 500 MG TABLET PO PRN (09:35)
[2021-02-27] MEDS: MAG HYDROX/AL HYDROX/SIMETH 30 ML UNIT-DOSE CUP PO PRN (18:33)
[2021-02-27] MEDS: THIAMINE HCL 100 MG TABLET (FP) PO SCH (21:27)
[2021-02-27] MEDS: SUVOREXANT 15 MG TABLET PO PRN (21:27)
[2021-02-28] MEDS: LIPASE/PROTEASE/AMYLASE 6,000 UNIT CAPSULE PO SCH ×3 (07:36→17:06)
[2021-02-28] MEDS: amLODIPine BESYLATE 5 MG TABLET (FP) PO SCH (09:43)
[2021-02-28] MEDS: DICLOFENAC SODIUM 75 MG TABLET.DR PO SCH (09:43)
[2021-02-28] MEDS: PANTOPRAZOLE 20 MG TABLET PO SCH (09:43)
[2021-02-28] MEDS: PRENATAL VITAMINS W/ FOLIC ACID TABLET (FP) PO SCH (09:43)
[2021-02-28] MEDS: NICOTINE 14 MG/24 HOURS TOPICAL PATCH TD SCH (09:44)
[2021-02-28] MEDS: CLOTRIMAZOLE 10 MG TROCHE PO SCH ×3 (14:14→21:17)
[2021-02-28] MEDS ORDERED: PT OWN MED DRAWER 7, Y5N ONE ×2 (17:06→19:15)
[2021-02-28] MEDS: THIAMINE HCL 100 MG TABLET (FP) PO SCH (21:17)
[2021-02-28] MEDS: SUVOREXANT 20 MG TABLET PO PRN (21:19)
[2021-03-01] MEDS: CLOTRIMAZOLE 10 MG TROCHE PO SCH ×5 (06:13→21:07)
[2021-03-01] MEDS: LIPASE/PROTEASE/AMYLASE 6,000 UNIT CAPSULE PO SCH ×3 (09:09→16:48)
[2021-03-01] MEDS: NICOTINE 14 MG/24 HOURS TOPICAL PATCH TD SCH (09:47)
[2021-03-01] MEDS: amLODIPine BESYLATE 5 MG TABLET (FP) PO SCH (09:47)
[2021-03-01] MEDS: PANTOPRAZOLE 20 MG TABLET PO SCH (09:47)
[2021-03-01] MEDS: PRENATAL VITAMINS W/ FOLIC ACID TABLET (FP) PO SCH (09:47)
[2021-03-01] MEDS: DICLOFENAC SODIUM 75 MG TABLET.DR PO SCH (10:42)
[2021-03-01] MEDS: AMOXICILLIN 500 MG CAPSULE (FP) PO SCH ×2 (12:13→21:07)
[2021-03-01] MEDS: ACETAMINOPHEN 325 MG TABLET (FP) PO PRN (20:31)
[2021-03-01] MEDS: THIAMINE HCL 100 MG TABLET (FP) PO SCH (21:07)
[2021-03-01] MEDS: hydrOXYzine PAMOATE 25 MG CAPSULE (FP) PO PRN (21:07)
[2021-03-01] MEDS: SUVOREXANT 20 MG TABLET PO PRN (21:08)
[2021-03-02] MEDS: CLOTRIMAZOLE 10 MG TROCHE PO SCH ×5 (06:10→21:26)
[2021-03-02] MEDS: LIPASE/PROTEASE/AMYLASE 6,000 UNIT CAPSULE PO SCH ×3 (07:33→16:38)
[2021-03-02] MEDS: amLODIPine BESYLATE 5 MG TABLET (FP) PO SCH (09:45)
[2021-03-02] MEDS: PRENATAL VITAMINS W/ FOLIC ACID TABLET (FP) PO SCH (09:45)
[2021-03-02] MEDS: AMOXICILLIN 500 MG CAPSULE (FP) PO SCH ×2 (09:45→21:23)
[2021-03-02] MEDS: PANTOPRAZOLE 20 MG TABLET PO SCH (09:45)
[2021-03-02] MEDS: hydrOXYzine PAMOATE 25 MG CAPSULE (FP) PO PRN ×2 (09:46→21:23)
[2021-03-02] MEDS: DICLOFENAC SODIUM 75 MG TABLET.DR PO SCH (09:47)
[2021-03-02] MEDS: NICOTINE 14 MG/24 HOURS TOPICAL PATCH TD SCH (09:48)
[2021-03-02] MEDS: SUVOREXANT 20 MG TABLET PO PRN (21:22)
[2021-03-02] MEDS: THIAMINE HCL 100 MG TABLET (FP) PO SCH (21:23)
[2021-03-03] MEDS: CLOTRIMAZOLE 10 MG TROCHE PO SCH ×5 (06:03→21:19)
[2021-03-03] MEDS: LIPASE/PROTEASE/AMYLASE 6,000 UNIT CAPSULE PO SCH ×3 (07:23→16:39)
[2021-03-03] MEDS: PRENATAL VITAMINS W/ FOLIC ACID TABLET (FP) PO SCH (10:03)
[2021-03-03] MEDS: DICLOFENAC SODIUM 75 MG TABLET.DR PO SCH (10:04)
[2021-03-03] MEDS: amLODIPine BESYLATE 5 MG TABLET (FP) PO SCH (10:04)
[2021-03-03] MEDS: NICOTINE 14 MG/24 HOURS TOPICAL PATCH TD SCH (10:04)
[2021-03-03] MEDS: AMOXICILLIN 500 MG CAPSULE (FP) PO SCH ×2 (10:04→21:18)
[2021-03-03] MEDS: PANTOPRAZOLE 20 MG TABLET PO SCH (10:04)
[2021-03-03] MEDS: hydrOXYzine PAMOATE 25 MG CAPSULE (FP) PO PRN ×2 (14:26→21:18)
[2021-03-03] MEDS: THIAMINE HCL 100 MG TABLET (FP) PO SCH (21:17)
[2021-03-04] MEDS: CLOTRIMAZOLE 10 MG TROCHE PO SCH ×5 (06:06→21:15)
[2021-03-04] MEDS: hydrOXYzine PAMOATE 25 MG CAPSULE (FP) PO PRN ×3 (06:07→21:13)
[2021-03-04] MEDS: LIPASE/PROTEASE/AMYLASE 6,000 UNIT CAPSULE PO SCH ×3 (07:14→16:42)
[2021-03-04] MEDS: PANTOPRAZOLE 20 MG TABLET PO SCH (10:07)
[2021-03-04] MEDS: amLODIPine BESYLATE 5 MG TABLET (FP) PO SCH (10:07)
[2021-03-04] MEDS: AMOXICILLIN 500 MG CAPSULE (FP) PO SCH ×2 (10:07→21:13)
[2021-03-04] MEDS: NICOTINE 14 MG/24 HOURS TOPICAL PATCH TD SCH (10:07)
[2021-03-04] MEDS: PRENATAL VITAMINS W/ FOLIC ACID TABLET (FP) PO SCH (10:07)
[2021-03-04] MEDS: DICLOFENAC SODIUM 75 MG TABLET.DR PO SCH (10:08)
[2021-03-04] MEDS: THIAMINE HCL 100 MG TABLET (FP) PO SCH (21:13)
[2021-03-04] MEDS: SUVOREXANT 20 MG TABLET PO PRN (21:15)
[2021-03-05] MEDS: CLOTRIMAZOLE 10 MG TROCHE PO SCH ×5 (06:03→22:22)
[2021-03-05] MEDS: hydrOXYzine PAMOATE 25 MG CAPSULE (FP) PO PRN ×2 (06:04→21:07)
[2021-03-05] MEDS: LIPASE/PROTEASE/AMYLASE 6,000 UNIT CAPSULE PO SCH ×3 (07:37→16:35)
[2021-03-05] MEDS: AMOXICILLIN 500 MG CAPSULE (FP) PO SCH ×2 (09:47→21:07)
[2021-03-05] MEDS: PRENATAL VITAMINS W/ FOLIC ACID TABLET (FP) PO SCH (09:47)
[2021-03-05] MEDS: amLODIPine BESYLATE 5 MG TABLET (FP) PO SCH (09:47)
[2021-03-05] MEDS: NICOTINE 14 MG/24 HOURS TOPICAL PATCH TD SCH (09:50)
[2021-03-05] MEDS: PANTOPRAZOLE 20 MG TABLET PO SCH (09:50)
[2021-03-05] MEDS: DICLOFENAC SODIUM 75 MG TABLET.DR PO SCH (09:51)
[2021-03-05] MEDS: SUVOREXANT 20 MG TABLET PO PRN (21:06)
[2021-03-05] MEDS: THIAMINE HCL 100 MG TABLET (FP) PO SCH (21:07)
[2021-03-06] MEDS: CLOTRIMAZOLE 10 MG TROCHE PO SCH ×5 (06:02→21:15)
[2021-03-06] MEDS: LIPASE/PROTEASE/AMYLASE 6,000 UNIT CAPSULE PO SCH ×3 (07:50→16:57)
[2021-03-06] MEDS: PRENATAL VITAMINS W/ FOLIC ACID TABLET (FP) PO SCH (09:40)
[2021-03-06] MEDS: amLODIPine BESYLATE 5 MG TABLET (FP) PO SCH (09:40)
[2021-03-06] MEDS: PANTOPRAZOLE 20 MG TABLET PO SCH (09:40)
[2021-03-06] MEDS: AMOXICILLIN 500 MG CAPSULE (FP) PO SCH ×2 (09:40→21:14)
[2021-03-06] MEDS: DICLOFENAC SODIUM 75 MG TABLET.DR PO SCH (09:42)
[2021-03-06] MEDS: hydrOXYzine PAMOATE 25 MG CAPSULE (FP) PO PRN ×2 (09:45→21:15)
[2021-03-06] MEDS: NICOTINE 14 MG/24 HOURS TOPICAL PATCH TD SCH (09:45)
[2021-03-06] MEDS: THIAMINE HCL 100 MG TABLET (FP) PO SCH (21:14)
[2021-03-06] MEDS: SUVOREXANT 20 MG TABLET PO PRN (22:29)
[2021-03-07] MEDS: CLOTRIMAZOLE 10 MG TROCHE PO SCH ×5 (06:09→21:04)
[2021-03-07] MEDS: LIPASE/PROTEASE/AMYLASE 6,000 UNIT CAPSULE PO SCH ×3 (07:12→17:18)
[2021-03-07] MEDS: PRENATAL VITAMINS W/ FOLIC ACID TABLET (FP) PO SCH (09:40)
[2021-03-07] MEDS: PANTOPRAZOLE 20 MG TABLET PO SCH (09:40)
[2021-03-07] MEDS: amLODIPine BESYLATE 5 MG TABLET (FP) PO SCH (09:40)
[2021-03-07] MEDS: AMOXICILLIN 500 MG CAPSULE (FP) PO SCH ×2 (09:40→21:02)
[2021-03-07] MEDS: NICOTINE 14 MG/24 HOURS TOPICAL PATCH TD SCH (09:41)
[2021-03-07] MEDS: DICLOFENAC SODIUM 75 MG TABLET.DR PO SCH (09:42)
[2021-03-07] MEDS: THIAMINE HCL 100 MG TABLET (FP) PO SCH (21:02)
[2021-03-07] MEDS: hydrOXYzine PAMOATE 25 MG CAPSULE (FP) PO PRN (21:02)
[2021-03-07] MEDS: SUVOREXANT 20 MG TABLET PO PRN (21:04)
[2021-03-08] MEDS: ACETAMINOPHEN 325 MG TABLET (FP) PO PRN ×2 (00:27→06:35)
[2021-03-08] MEDS: LIPASE/PROTEASE/AMYLASE 6,000 UNIT CAPSULE PO SCH ×3 (07:47→16:48)
[2021-03-08] MEDS: PRENATAL VITAMINS W/ FOLIC ACID TABLET (FP) PO SCH (09:43)
[2021-03-08] MEDS: amLODIPine BESYLATE 5 MG TABLET (FP) PO SCH (09:44)
[2021-03-08] MEDS: PANTOPRAZOLE 20 MG TABLET PO SCH (09:44)
[2021-03-08] MEDS: NICOTINE 14 MG/24 HOURS TOPICAL PATCH TD SCH (09:44)
[2021-03-08] MEDS: DICLOFENAC SODIUM 75 MG TABLET.DR PO SCH (09:46)
[2021-03-08] MEDS ORDERED: AMOXICILLIN 500 MG CAPSULE (FP) PO ONE (10:20)
[2021-03-08] MEDS: AMOXICILLIN 500 MG CAPSULE (FP) PO SCH (21:07)
[2021-03-08] MEDS: THIAMINE HCL 100 MG TABLET (FP) PO SCH (21:07)
[2021-03-08] MEDS: QUEtiapine FUMARATE 50 MG TABLET PO SCH (21:07)
[2021-03-08] MEDS: SUVOREXANT 20 MG TABLET PO PRN (21:08)
[2021-03-09] MEDS: LIPASE/PROTEASE/AMYLASE 6,000 UNIT CAPSULE PO SCH ×3 (07:56→16:46)
[2021-03-09] MEDS: DICLOFENAC SODIUM 75 MG TABLET.DR PO SCH (09:40)
[2021-03-09] MEDS: PANTOPRAZOLE 20 MG TABLET PO SCH (09:41)
[2021-03-09] MEDS: PRENATAL VITAMINS W/ FOLIC ACID TABLET (FP) PO SCH (09:41)
[2021-03-09] MEDS: amLODIPine BESYLATE 5 MG TABLET (FP) PO SCH (09:41)
[2021-03-09] MEDS: AMOXICILLIN 500 MG CAPSULE (FP) PO SCH ×2 (09:41→21:01)
[2021-03-09] MEDS: NICOTINE 14 MG/24 HOURS TOPICAL PATCH TD SCH (09:41)
[2021-03-09] MEDS: QUEtiapine FUMARATE 50 MG TABLET PO SCH (21:01)
[2021-03-09] MEDS: THIAMINE HCL 100 MG TABLET (FP) PO SCH (21:01)
[2021-03-09] MEDS: SUVOREXANT 20 MG TABLET PO PRN (21:02)
[2021-03-10] MEDS: LIPASE/PROTEASE/AMYLASE 6,000 UNIT CAPSULE PO SCH ×3 (07:46→17:04)
[2021-03-10] MEDS: AMOXICILLIN 500 MG CAPSULE (FP) PO SCH ×2 (10:03→21:01)
[2021-03-10] MEDS: PANTOPRAZOLE 20 MG TABLET PO SCH (10:03)
[2021-03-10] MEDS: DICLOFENAC SODIUM 75 MG TABLET.DR PO SCH (10:04)
[2021-03-10] MEDS: amLODIPine BESYLATE 5 MG TABLET (FP) PO SCH (10:04)
[2021-03-10] MEDS: NICOTINE 14 MG/24 HOURS TOPICAL PATCH TD SCH (10:04)
[2021-03-10] MEDS: hydrOXYzine PAMOATE 25 MG CAPSULE (FP) PO PRN ×2 (10:04→21:01)
[2021-03-10] MEDS: PRENATAL VITAMINS W/ FOLIC ACID TABLET (FP) PO SCH (10:04)
[2021-03-10] MEDS: QUEtiapine FUMARATE 50 MG TABLET PO SCH (21:01)
[2021-03-10] MEDS: THIAMINE HCL 100 MG TABLET (FP) PO SCH (21:01)
[2021-03-10] MEDS: SUVOREXANT 20 MG TABLET PO PRN (21:05)
[2021-03-11] MEDS: ACETAMINOPHEN 325 MG TABLET (FP) PO PRN (06:50)
[2021-03-11 06:52] VITALS: BP 129/72; PULSE 83; TEMP 98
[2021-03-11] MEDS: LIPASE/PROTEASE/AMYLASE 6,000 UNIT CAPSULE PO SCH (07:15)
[2021-03-11] MEDS: PRENATAL VITAMINS W/ FOLIC ACID TABLET (FP) PO SCH (09:25)
[2021-03-11] MEDS: PANTOPRAZOLE 20 MG TABLET PO SCH (09:25)
[2021-03-11] MEDS: amLODIPine BESYLATE 5 MG TABLET (FP) PO SCH (09:25)
[2021-03-11] MEDS: NICOTINE 14 MG/24 HOURS TOPICAL PATCH TD SCH (09:26)
[2021-03-11] MEDS: DICLOFENAC SODIUM 75 MG TABLET.DR PO SCH (09:27)
== END 2021-03-11 09:30 | disposition home or self-care (01) | DRG 895 ==
LOC: YASAS 10:08 → Y3N 12:01 → UNDODISIN 02-25 19:44 → Y5N 02-25 20:21
PROVIDERS: ADMIT Allergy & Immunology; ATTEND Allergy & Immunology
PROC: HZ2ZZZZ Detoxification Services for Substance Abuse Treatment (ICD-10-PCS; 2021-02-21)
PROC: HZ42ZZZ Group Counseling for Substance Abuse Treatment, Cognitive-Behavioral (ICD-10-PCS; principal; 2021-02-25)
DX: F10.20 Alcohol dependence, uncomplicated (principal); F14.20 Cocaine dependence, uncomplicated; F19.282 Other psychoactive substance dependence with psychoactive substance-induced sleep disorder; F17.210 Nicotine dependence, cigarettes, uncomplicated; F32.A Depression, unspecified; G47.00 Insomnia, unspecified; I10 Essential (primary) hypertension; K21.9 Gastro-esophageal reflux disease without esophagitis; M19.90 Unspecified osteoarthritis, unspecified site; K13.70 Unspecified lesions of oral mucosa; R76.11 Nonspecific reaction to tuberculin skin test without active tuberculosis; Z87.19 Personal history of other diseases of the digestive system; Z91.013 Allergy to seafood; Z91.018 Allergy to other foods; Z88.8 Allergy status to other drugs, medicaments and biological substances
CPT/HCPCS: 36415; 80053; 85027; 86780; C9803; U0003; U0005

== ENCOUNTER 2021-04-01 14:11 | Inpatient (IN) | payer OTHER ==
[2021-04-01] MEDS ORDERED: MAG HYDROX/AL HYDROX/SIMETH 30 ML UNIT-DOSE CUP PO PRN (16:00)
[2021-04-01] MEDS ORDERED: LOPERAMIDE HCL 2 MG CAPSULE PO PRN (16:00)
[2021-04-01] MEDS ORDERED: MENTHOL/PHENOL 1 EACH UD MM PRN (16:00)
[2021-04-01] MEDS ORDERED: MAGNESIUM CITRATE 300 ML BOTTLE PO PRN (16:00)
[2021-04-01] MEDS ORDERED: ACETAMINOPHEN 325 MG TABLET (FP) PO PRN ×2 (16:00)
[2021-04-01] MEDS ORDERED: BISMUTH SUBSALICYLATE 524 MG/30 ML PO PRN (16:00)
[2021-04-01] MEDS ORDERED: LORazepam 1 MG TABLET PO PRN (16:00)
[2021-04-01] MEDS ORDERED: MAGNESIUM HYDROX 2400MG/30ML ORAL SUSPENSION 30 ML CUP PO PRN (16:00)
[2021-04-01] MEDS ORDERED: ONDANSETRON *ODT* 4 MG TABLET SL PRN (16:00)
[2021-04-01] MEDS ORDERED: IBUPROFEN 400 MG TABLET (FP) PO PRN (16:00)
[2021-04-01] MEDS ORDERED: NICOTINE 10 MG CARTRIDGE (INHALER) IH PRN (16:00)
[2021-04-01 17:39] VITALS: BMI 26.7
[2021-04-01] MEDS: METHOCARBAMOL 500 MG TABLET PO PRN (19:29)
[2021-04-01] MEDS: LORazepam 2 MG TABLET PO SCH ×2 (19:29→22:10)
[2021-04-01] MEDS: hydrOXYzine PAMOATE 25 MG CAPSULE (FP) PO SCH ×2 (19:29→22:10)
[2021-04-01] MEDS ORDERED: MELATONIN 5 MG TABLETS PO SCH (22:00)
[2021-04-01] MEDS: THIAMINE HCL 100 MG TABLET (FP) PO SCH (22:10)
[2021-04-02] MEDS: hydrOXYzine PAMOATE 25 MG CAPSULE (FP) PO SCH ×5 (05:36→22:11)
[2021-04-02] MEDS: LORazepam 2 MG TABLET PO SCH ×4 (05:36→22:08)
[2021-04-02] MEDS: LIPASE/PROTEASE/AMYLASE 6,000 UNIT CAPSULE PO SCH ×3 (08:23→17:03)
[2021-04-02] MEDS ORDERED: SUVOREXANT 10 MG TABLET PO PRN (09:28)
[2021-04-02 10:15] LABS: HEMATOCRIT 35.8 % (35.4-49); HEMOGLOBIN 11.6 GM/dL (11.7-16.9); MCH 31.6 pg (25.7-33.7); MCHC 32.3 g/dl (32.0-35.9); MEAN CELL VOLUME 97.7 fl (80-96); MEAN PLT VOLUME 8.9 fl (7.5-11.1); PLATELET COUNT 104 10^3/uL (134-434); RBC 3.66 M/mm3 (4.00-5.60); RDW 16.8 % (11.9-15.9)
[2021-04-02 10:23] LABS: ALBUMIN 2.6 g/dl (3.4-5.0); CALCIUM 8.7 mg/dL (8.5-10.1)
[2021-04-02 10:27] LABS: CREATININE 1.3 mg/dL (0.55-1.3)
[2021-04-02 10:28] LABS: TOT PROT 6.3 g/dl (6.4-8.2)
[2021-04-02 10:30] LABS: BILIRUBIN,TOTAL 0.4 mg/dL (0.2-1)
[2021-04-02] MEDS: PRENATAL VITAMINS W/ FOLIC ACID TABLET (FP) PO SCH (10:45)
[2021-04-02] MEDS: METHOCARBAMOL 500 MG TABLET PO PRN (10:45)
[2021-04-02] MEDS: NICOTINE 14 MG/24 HOURS TOPICAL PATCH TD SCH (16:03)
[2021-04-02] MEDS: THIAMINE HCL 100 MG TABLET (FP) PO SCH (22:09)
[2021-04-02] MEDS: SUVOREXANT 10 MG TABLET PO PRN (22:11)
[2021-04-03] MEDS: hydrOXYzine PAMOATE 25 MG CAPSULE (FP) PO SCH ×5 (05:32→22:13)
[2021-04-03] MEDS: LORazepam 1 MG TABLET PO SCH ×4 (05:32→22:13)
[2021-04-03] MEDS: LIPASE/PROTEASE/AMYLASE 6,000 UNIT CAPSULE PO SCH ×3 (08:21→17:56)
[2021-04-03] MEDS: NICOTINE 14 MG/24 HOURS TOPICAL PATCH TD SCH (10:53)
[2021-04-03] MEDS: METHOCARBAMOL 500 MG TABLET PO PRN ×2 (10:53→17:56)
[2021-04-03] MEDS: PRENATAL VITAMINS W/ FOLIC ACID TABLET (FP) PO SCH (10:53)
[2021-04-03 14:06] LABS: SARS-CoV-2 NAA Not Detected (Not Detected)
[2021-04-03] MEDS: SUVOREXANT 10 MG TABLET PO PRN (22:12)
[2021-04-03] MEDS: THIAMINE HCL 100 MG TABLET (FP) PO SCH (22:13)
[2021-04-04] MEDS ORDERED: LORazepam 0.5 MG TABLET PO PRN
[2021-04-04] MEDS: hydrOXYzine PAMOATE 25 MG CAPSULE (FP) PO SCH ×5 (05:34→21:59)
[2021-04-04] MEDS: LORazepam 0.5 MG TABLET PO SCH ×4 (05:35→22:00)
[2021-04-04] MEDS: LIPASE/PROTEASE/AMYLASE 6,000 UNIT CAPSULE PO SCH ×3 (08:19→17:32)
[2021-04-04] MEDS: NICOTINE 14 MG/24 HOURS TOPICAL PATCH TD SCH (10:31)
[2021-04-04] MEDS: METHOCARBAMOL 500 MG TABLET PO PRN ×2 (10:31→19:50)
[2021-04-04] MEDS: amLODIPine BESYLATE 10 MG TABLET (FP) PO SCH (10:31)
[2021-04-04] MEDS: PRENATAL VITAMINS W/ FOLIC ACID TABLET (FP) PO SCH (10:31)
[2021-04-04] MEDS: THIAMINE HCL 100 MG TABLET (FP) PO SCH (21:59)
[2021-04-04] MEDS ORDERED: SUVOREXANT 20 MG TABLET PO PRN (22:00)
[2021-04-05] MEDS ORDERED: LORazepam 0.5 MG TABLET PO ONE (05:00)
[2021-04-05] MEDS: hydrOXYzine PAMOATE 25 MG CAPSULE (FP) PO SCH ×2 (05:37→10:06)
[2021-04-05] MEDS: LIPASE/PROTEASE/AMYLASE 6,000 UNIT CAPSULE PO SCH ×2 (08:25→13:27)
[2021-04-05 09:27] VITALS: BP 142/80; PULSE 79; TEMP 98.9
[2021-04-05] MEDS: NICOTINE 14 MG/24 HOURS TOPICAL PATCH TD SCH (10:05)
[2021-04-05] MEDS: amLODIPine BESYLATE 10 MG TABLET (FP) PO SCH (10:05)
[2021-04-05] MEDS: PRENATAL VITAMINS W/ FOLIC ACID TABLET (FP) PO SCH (10:06)
== END 2021-04-05 13:30 | disposition other institution (70) | DRG 897 ==
LOC: YASAS 14:11 → Y6N 18:24
PROVIDERS: ADMIT Allergy & Immunology; ATTEND Allergy & Immunology
PROC: HZ2ZZZZ Detoxification Services for Substance Abuse Treatment (ICD-10-PCS; principal; 2021-04-01)
DX: F10.230 Alcohol dependence with withdrawal, uncomplicated (principal); F14.20 Cocaine dependence, uncomplicated; F19.282 Other psychoactive substance dependence with psychoactive substance-induced sleep disorder; D61.818 Other pancytopenia; K86.0 Alcohol-induced chronic pancreatitis; F17.213 Nicotine dependence, cigarettes, with withdrawal; F19.24 Other psychoactive substance dependence with psychoactive substance-induced mood disorder; F34.1 Dysthymic disorder; I10 Essential (primary) hypertension; K21.9 Gastro-esophageal reflux disease without esophagitis; R76.11 Nonspecific reaction to tuberculin skin test without active tuberculosis; Z88.8 Allergy status to other drugs, medicaments and biological substances; Z91.018 Allergy to other foods
CPT/HCPCS: 36415; 80053; 82962; 85027; 86780; C9803; U0003; U0005

== ENCOUNTER 2021-05-14 09:13 | Inpatient (IN) | payer OTHER ==
[2021-05-14] MEDS ORDERED: ACETAMINOPHEN 325 MG TABLET (FP) PO PRN ×2 (11:01)
[2021-05-14] MEDS ORDERED: LORazepam 2 MG TABLET PO ONE (11:01)
[2021-05-14] MEDS ORDERED: LORazepam 1 MG TABLET PO PRN (11:01)
[2021-05-14] MEDS ORDERED: ONDANSETRON *ODT* 4 MG TABLET SL PRN (11:01)
[2021-05-14] MEDS ORDERED: NICOTINE 10 MG CARTRIDGE (INHALER) IH PRN (11:01)
[2021-05-14] MEDS ORDERED: BISMUTH SUBSALICYLATE 524 MG/30 ML PO PRN (11:01)
[2021-05-14] MEDS ORDERED: MAGNESIUM CITRATE 300 ML BOTTLE PO PRN (11:01)
[2021-05-14] MEDS ORDERED: MENTHOL/PHENOL 1 EACH UD MM PRN (11:01)
[2021-05-14] MEDS ORDERED: LOPERAMIDE HCL 2 MG CAPSULE PO PRN (11:01)
[2021-05-14] MEDS ORDERED: BACLOFEN 10 MG TABLET (FP) PO PRN (11:01)
[2021-05-14] MEDS ORDERED: MAGNESIUM HYDROX 2400MG/30ML ORAL SUSPENSION 30 ML CUP PO PRN (11:01)
[2021-05-14 11:56] VITALS: BMI 25.7
[2021-05-14] MEDS: PRENATAL VITAMINS W/ FOLIC ACID TABLET (FP) PO SCH (13:53)
[2021-05-14] MEDS: NICOTINE 21 MG/24 HOURS TOPICAL PATCH TD SCH (13:53)
[2021-05-14] MEDS: LIDOCAINE 5% TOPICAL PATCH TP SCH (13:55)
[2021-05-14] MEDS: hydrOXYzine PAMOATE 25 MG CAPSULE (FP) PO SCH ×3 (14:02→23:14)
[2021-05-14] MEDS: LIPASE/PROTEASE/AMYLASE 6,000 UNIT CAPSULE PO SCH ×3 (18:13→18:49)
[2021-05-14] MEDS: PANTOPRAZOLE 20 MG TABLET PO SCH (18:14)
[2021-05-14] MEDS: LORazepam 2 MG TABLET PO SCH ×2 (18:14→23:13)
[2021-05-14] MEDS: THIAMINE HCL 100 MG TABLET (FP) PO SCH (23:14)
[2021-05-14] MEDS: LIDOCAINE PATCH REMOVAL MC SCH (23:14)
[2021-05-14] MEDS: MELATONIN 5 MG TABLETS PO SCH (23:14)
[2021-05-15] MEDS: hydrOXYzine PAMOATE 25 MG CAPSULE (FP) PO SCH ×5 (06:13→22:19)
[2021-05-15] MEDS: LORazepam 2 MG TABLET PO SCH ×4 (06:13→22:20)
[2021-05-15] MEDS: LIPASE/PROTEASE/AMYLASE 6,000 UNIT CAPSULE PO SCH ×3 (07:07→16:41)
[2021-05-15] MEDS: NICOTINE 21 MG/24 HOURS TOPICAL PATCH TD SCH (10:44)
[2021-05-15] MEDS: PANTOPRAZOLE 20 MG TABLET PO SCH (10:45)
[2021-05-15] MEDS: PRENATAL VITAMINS W/ FOLIC ACID TABLET (FP) PO SCH (10:45)
[2021-05-15] MEDS: LIDOCAINE 5% TOPICAL PATCH TP SCH (11:12)
[2021-05-15 11:54] LABS: HEMATOCRIT 36.3 % (35.4-49); HEMOGLOBIN 11.7 GM/dL (11.7-16.9); MCH 31.9 pg (25.7-33.7); MCHC 32.3 g/dl (32.0-35.9); MEAN CELL VOLUME 98.6 fl (80-96); MEAN PLT VOLUME 9.2 fl (7.5-11.1); PLATELET COUNT 112 10^3/uL (134-434); RBC 3.68 M/mm3 (4.00-5.60); RDW 17.4 % (11.9-15.9)
[2021-05-15 11:56] LABS: CALCIUM 8.5 mg/dL (8.5-10.1)
[2021-05-15 11:57] LABS: ALBUMIN 2.9 g/dl (3.4-5.0); BLOOD UREA NITROGEN 14.4 mg/dL (7-18)
[2021-05-15 12:00] LABS: CREATININE 1.3 mg/dL (0.55-1.3)
[2021-05-15 12:01] LABS: BILIRUBIN,TOTAL 0.7 mg/dL (0.2-1); TOT PROT 6.2 g/dl (6.4-8.2)
[2021-05-15] MEDS: MAG HYDROX/AL HYDROX/SIMETH 30 ML UNIT-DOSE CUP PO PRN (17:33)
[2021-05-15] MEDS: SUVOREXANT 15 MG TABLET PO PRN (22:19)
[2021-05-15] MEDS: MELATONIN 5 MG TABLETS PO SCH (22:19)
[2021-05-15] MEDS: LIDOCAINE PATCH REMOVAL MC SCH (22:20)
[2021-05-15] MEDS: THIAMINE HCL 100 MG TABLET (FP) PO SCH (22:22)
[2021-05-16] MEDS: LORazepam 1 MG TABLET PO SCH ×4 (05:43→22:02)
[2021-05-16] MEDS: hydrOXYzine PAMOATE 25 MG CAPSULE (FP) PO SCH ×5 (05:43→22:02)
[2021-05-16] MEDS: LIPASE/PROTEASE/AMYLASE 6,000 UNIT CAPSULE PO SCH ×3 (07:57→16:33)
[2021-05-16] MEDS: NICOTINE 21 MG/24 HOURS TOPICAL PATCH TD SCH (10:27)
[2021-05-16] MEDS: LIDOCAINE 5% TOPICAL PATCH TP SCH (10:28)
[2021-05-16] MEDS: PANTOPRAZOLE 20 MG TABLET PO SCH (10:28)
[2021-05-16] MEDS: PRENATAL VITAMINS W/ FOLIC ACID TABLET (FP) PO SCH (10:28)
[2021-05-16] MEDS: MAG HYDROX/AL HYDROX/SIMETH 30 ML UNIT-DOSE CUP PO PRN (16:51)
[2021-05-16] MEDS: SUVOREXANT 15 MG TABLET PO PRN (22:01)
[2021-05-16] MEDS: MELATONIN 5 MG TABLETS PO SCH (22:02)
[2021-05-16] MEDS: THIAMINE HCL 100 MG TABLET (FP) PO SCH (22:02)
[2021-05-16] MEDS: LIDOCAINE PATCH REMOVAL MC SCH (22:27)
[2021-05-17] MEDS ORDERED: LORazepam 0.5 MG TABLET PO PRN
[2021-05-17] MEDS: hydrOXYzine PAMOATE 25 MG CAPSULE (FP) PO SCH ×3 (05:59→14:43)
[2021-05-17] MEDS: LORazepam 0.5 MG TABLET PO SCH ×4 (05:59→22:00)
[2021-05-17] MEDS: LIPASE/PROTEASE/AMYLASE 6,000 UNIT CAPSULE PO SCH ×3 (07:01→16:47)
[2021-05-17] MEDS: NICOTINE 21 MG/24 HOURS TOPICAL PATCH TD SCH (10:27)
[2021-05-17] MEDS: PRENATAL VITAMINS W/ FOLIC ACID TABLET (FP) PO SCH (10:28)
[2021-05-17] MEDS: LIDOCAINE 5% TOPICAL PATCH TP SCH (11:11)
[2021-05-17] MEDS: PANTOPRAZOLE 20 MG TABLET PO SCH (11:12)
[2021-05-17] MEDS: MAG HYDROX/AL HYDROX/SIMETH 30 ML UNIT-DOSE CUP PO PRN (18:14)
[2021-05-17] MEDS: THIAMINE HCL 100 MG TABLET (FP) PO SCH (21:59)
[2021-05-17] MEDS: MELATONIN 5 MG TABLETS PO SCH (21:59)
[2021-05-17] MEDS: LIDOCAINE PATCH REMOVAL MC SCH (21:59)
[2021-05-17] MEDS: SUVOREXANT 15 MG TABLET PO PRN (22:00)
[2021-05-17] MEDS: hydrOXYzine PAMOATE 25 MG CAPSULE (FP) PO PRN (22:01)
[2021-05-18] MEDS ORDERED: LORazepam 0.5 MG TABLET PO ONE (05:00)
[2021-05-18] MEDS: LIPASE/PROTEASE/AMYLASE 6,000 UNIT CAPSULE PO SCH ×3 (07:16→16:42)
[2021-05-18] MEDS: PRENATAL VITAMINS W/ FOLIC ACID TABLET (FP) PO SCH (10:19)
[2021-05-18] MEDS: PANTOPRAZOLE 20 MG TABLET PO SCH (10:53)
[2021-05-18] MEDS: NICOTINE 21 MG/24 HOURS TOPICAL PATCH TD SCH (10:54)
[2021-05-18] MEDS: LIDOCAINE 5% TOPICAL PATCH TP SCH (10:54)
[2021-05-18] MEDS: MAG HYDROX/AL HYDROX/SIMETH 30 ML UNIT-DOSE CUP PO PRN (14:13)
[2021-05-18] MEDS: THIAMINE HCL 100 MG TABLET (FP) PO SCH (21:04)
[2021-05-18] MEDS: MELATONIN 5 MG TABLETS PO SCH (21:04)
[2021-05-18] MEDS: hydrOXYzine PAMOATE 25 MG CAPSULE (FP) PO PRN (21:05)
[2021-05-18] MEDS: LIDOCAINE PATCH REMOVAL MC SCH (21:05)
[2021-05-18] MEDS: SUVOREXANT 15 MG TABLET PO PRN (21:05)
[2021-05-19] MEDS: LIPASE/PROTEASE/AMYLASE 6,000 UNIT CAPSULE PO SCH ×3 (07:20→16:40)
[2021-05-19] MEDS ORDERED: SUVOREXANT 15 MG TABLET PO PRN (09:41)
[2021-05-19] MEDS: LIDOCAINE 5% TOPICAL PATCH TP SCH (09:49)
[2021-05-19] MEDS: PANTOPRAZOLE 20 MG TABLET PO SCH (09:49)
[2021-05-19] MEDS: PRENATAL VITAMINS W/ FOLIC ACID TABLET (FP) PO SCH (09:49)
[2021-05-19] MEDS: NICOTINE 21 MG/24 HOURS TOPICAL PATCH TD SCH (09:50)
[2021-05-19] MEDS: MAG HYDROX/AL HYDROX/SIMETH 30 ML UNIT-DOSE CUP PO PRN (18:26)
[2021-05-19] MEDS: MELATONIN 5 MG TABLETS PO SCH (21:30)
[2021-05-19] MEDS: SUVOREXANT 20 MG TABLET PO PRN (21:30)
[2021-05-19] MEDS: LIDOCAINE PATCH REMOVAL MC SCH (21:31)
[2021-05-19] MEDS: hydrOXYzine PAMOATE 25 MG CAPSULE (FP) PO PRN (21:31)
[2021-05-19] MEDS: THIAMINE HCL 100 MG TABLET (FP) PO SCH (21:31)
[2021-05-20] MEDS: LIPASE/PROTEASE/AMYLASE 6,000 UNIT CAPSULE PO SCH ×3 (07:22→16:33)
[2021-05-20] MEDS: NICOTINE 21 MG/24 HOURS TOPICAL PATCH TD SCH (09:41)
[2021-05-20] MEDS: PANTOPRAZOLE 20 MG TABLET PO SCH (09:41)
[2021-05-20] MEDS: LIDOCAINE 5% TOPICAL PATCH TP SCH (09:41)
[2021-05-20] MEDS: PRENATAL VITAMINS W/ FOLIC ACID TABLET (FP) PO SCH (09:41)
[2021-05-20] MEDS: MAG HYDROX/AL HYDROX/SIMETH 30 ML UNIT-DOSE CUP PO PRN (15:00)
[2021-05-20] MEDS: LIDOCAINE PATCH REMOVAL MC SCH (21:11)
[2021-05-20] MEDS: SUVOREXANT 20 MG TABLET PO PRN (21:12)
[2021-05-20] MEDS: MELATONIN 5 MG TABLETS PO SCH (21:12)
[2021-05-20] MEDS: THIAMINE HCL 100 MG TABLET (FP) PO SCH (21:12)
[2021-05-20] MEDS: DOCUSATE SODIUM 100 MG CAPSULE (FP) PO SCH (21:13)
[2021-05-21] MEDS: MAG HYDROX/AL HYDROX/SIMETH 30 ML UNIT-DOSE CUP PO PRN (03:22)
[2021-05-21] MEDS: LIPASE/PROTEASE/AMYLASE 6,000 UNIT CAPSULE PO SCH ×3 (07:04→16:46)
[2021-05-21] MEDS: PRENATAL VITAMINS W/ FOLIC ACID TABLET (FP) PO SCH (09:52)
[2021-05-21] MEDS: LIDOCAINE 5% TOPICAL PATCH TP SCH (09:52)
[2021-05-21] MEDS: PANTOPRAZOLE 20 MG TABLET PO SCH (09:52)
[2021-05-21] MEDS: NICOTINE 21 MG/24 HOURS TOPICAL PATCH TD SCH (09:52)
[2021-05-21] MEDS: SUVOREXANT 20 MG TABLET PO PRN (21:36)
[2021-05-21] MEDS: MELATONIN 5 MG TABLETS PO SCH (21:37)
[2021-05-21] MEDS: THIAMINE HCL 100 MG TABLET (FP) PO SCH (21:37)
[2021-05-21] MEDS: DOCUSATE SODIUM 100 MG CAPSULE (FP) PO SCH (21:38)
[2021-05-21] MEDS: LIDOCAINE PATCH REMOVAL MC SCH (21:38)
[2021-05-22] MEDS: LIPASE/PROTEASE/AMYLASE 6,000 UNIT CAPSULE PO SCH ×3 (07:09→16:56)
[2021-05-22] MEDS: PANTOPRAZOLE 20 MG TABLET PO SCH (09:21)
[2021-05-22] MEDS: LIDOCAINE 5% TOPICAL PATCH TP SCH (09:21)
[2021-05-22] MEDS: NICOTINE 21 MG/24 HOURS TOPICAL PATCH TD SCH (09:21)
[2021-05-22] MEDS: PRENATAL VITAMINS W/ FOLIC ACID TABLET (FP) PO SCH (09:21)
[2021-05-22] MEDS ORDERED: hydrOXYzine PAMOATE 25 MG CAPSULE (FP) PO PRN (15:08)
[2021-05-22] MEDS: MELATONIN 5 MG TABLETS PO SCH (21:19)
[2021-05-22] MEDS: THIAMINE HCL 100 MG TABLET (FP) PO SCH (21:19)
[2021-05-22] MEDS: DOCUSATE SODIUM 100 MG CAPSULE (FP) PO SCH (21:20)
[2021-05-22] MEDS: LIDOCAINE PATCH REMOVAL MC SCH (21:21)
[2021-05-22] MEDS ORDERED: SUVOREXANT 10 MG TABLET PO PRN (22:00)
[2021-05-23] MEDS: LIPASE/PROTEASE/AMYLASE 6,000 UNIT CAPSULE PO SCH ×2 (07:14→12:11)
[2021-05-23 08:13] VITALS: BP 145/72; PULSE 78; TEMP 98.6
[2021-05-23] MEDS: PRENATAL VITAMINS W/ FOLIC ACID TABLET (FP) PO SCH (09:57)
[2021-05-23] MEDS: NICOTINE 21 MG/24 HOURS TOPICAL PATCH TD SCH (09:58)
[2021-05-23] MEDS: LIDOCAINE 5% TOPICAL PATCH TP SCH (09:58)
[2021-05-23] MEDS: PANTOPRAZOLE 20 MG TABLET PO SCH (12:11)
== END 2021-05-23 13:05 | disposition left against medical advice (07) | DRG 894 ==
LOC: YASAS 09:13 → Y3N 12:14 → Y3W 05-18 13:29
PROVIDERS: ADMIT Allergy & Immunology; ATTEND Allergy & Immunology
PROC: HZ2ZZZZ Detoxification Services for Substance Abuse Treatment (ICD-10-PCS; 2021-05-14)
PROC: HZ42ZZZ Group Counseling for Substance Abuse Treatment, Cognitive-Behavioral (ICD-10-PCS; principal; 2021-05-18)
DX: F10.20 Alcohol dependence, uncomplicated (principal); F14.20 Cocaine dependence, uncomplicated; F19.282 Other psychoactive substance dependence with psychoactive substance-induced sleep disorder; E46 Unspecified protein-calorie malnutrition; K86.0 Alcohol-induced chronic pancreatitis; F17.210 Nicotine dependence, cigarettes, uncomplicated; F19.24 Other psychoactive substance dependence with psychoactive substance-induced mood disorder; D69.59 Other secondary thrombocytopenia; D72.819 Decreased white blood cell count, unspecified; R76.11 Nonspecific reaction to tuberculin skin test without active tuberculosis; Z91.018 Allergy to other foods; Z91.013 Allergy to seafood
CPT/HCPCS: 36415; 74018-TC-FY; 80053; 85027; 86780; 87811; C9803-CS; Q0162; U0003; U0005

== ENCOUNTER 2021-06-17 15:59 | Inpatient (IN) | payer OTHER ==
[2021-06-17 18:51] VITALS: BMI 27.4
[2021-06-17] MEDS ORDERED: IBUPROFEN 400 MG TABLET (FP) PO PRN (20:43)
[2021-06-17] MEDS ORDERED: METHOCARBAMOL 500 MG TABLET PO PRN (20:43)
[2021-06-17] MEDS ORDERED: MAG HYDROX/AL HYDROX/SIMETH 30 ML UNIT-DOSE CUP PO PRN (20:43)
[2021-06-17] MEDS ORDERED: MAGNESIUM HYDROX 2400MG/30ML ORAL SUSPENSION 30 ML CUP PO PRN (20:43)
[2021-06-17] MEDS ORDERED: BISMUTH SUBSALICYLATE 524 MG/30 ML PO PRN (20:43)
[2021-06-17] MEDS ORDERED: LORazepam 2 MG TABLET PO ONE (20:43)
[2021-06-17] MEDS ORDERED: DICYCLOMINE HCL 10 MG CAPSULE PO PRN (20:43)
[2021-06-17] MEDS ORDERED: LORazepam 1 MG TABLET PO PRN (20:43)
[2021-06-17] MEDS ORDERED: MAGNESIUM CITRATE 300 ML BOTTLE PO PRN (20:43)
[2021-06-17] MEDS ORDERED: ACETAMINOPHEN 325 MG TABLET (FP) PO PRN ×2 (20:43)
[2021-06-17] MEDS ORDERED: NICOTINE POLACRILEX 2 MG GUM BUC PRN (20:43)
[2021-06-17] MEDS ORDERED: LOPERAMIDE HCL 2 MG CAPSULE PO PRN (20:43)
[2021-06-17] MEDS ORDERED: BENZOCAINE/MENTHOL (CHLORASEPTIC ) LOZENGE MM PRN (20:43)
[2021-06-17] MEDS ORDERED: ONDANSETRON *ODT* 4 MG TABLET SL PRN (20:43)
[2021-06-17] MEDS ORDERED: QUEtiapine FUMARATE 50 MG TABLET PO PRN (20:49)
[2021-06-17] MEDS ORDERED: MELATONIN 5 MG TABLETS PO PRN (20:50)
[2021-06-17] MEDS: THIAMINE HCL 100 MG TABLET (FP) PO SCH (22:18)
[2021-06-17] MEDS: LORazepam 2 MG TABLET PO SCH (22:28)
[2021-06-17] MEDS ORDERED: QUEtiapine FUMARATE 50 MG TABLET PO ONE (22:44)
[2021-06-18] MEDS: LORazepam 2 MG TABLET PO SCH ×4 (05:36→22:17)
[2021-06-18] MEDS: PRENATAL VITAMINS W/ FOLIC ACID TABLET (FP) PO SCH (10:21)
[2021-06-18] MEDS: NICOTINE 21 MG/24 HOURS TOPICAL PATCH TD SCH (10:21)
[2021-06-18] MEDS ORDERED: AZITHROMYCIN 500 MG TABLET PO ONE (12:05)
[2021-06-18 12:29] LABS: HEMATOCRIT 31.6 % (35.4-49); HEMOGLOBIN 10.5 GM/dL (11.7-16.9); MCH 32.2 pg (25.7-33.7); MCHC 33.4 g/dl (32.0-35.9); MEAN CELL VOLUME 96.4 fl (80-96); PLATELET COUNT 114 10^3/uL (134-434); RBC 3.28 M/mm3 (4.00-5.60); RDW 16.6 % (11.9-15.9); WHITE BLOOD COUNT 2.4 K/mm3 (4.0-10.0)
[2021-06-18 12:41] LABS: ALBUMIN 2.6 g/dl (3.4-5.0); BLOOD UREA NITROGEN 21.5 mg/dL (7-18); CALCIUM 8.5 mg/dL (8.5-10.1)
[2021-06-18 12:44] LABS: CREATININE 1.2 mg/dL (0.55-1.3)
[2021-06-18 12:46] LABS: BILIRUBIN,TOTAL 0.5 mg/dL (0.2-1)
[2021-06-18 12:49] LABS: TOT PROT 6.2 g/dl (6.4-8.2)
[2021-06-18] MEDS: hydrOXYzine PAMOATE 25 MG CAPSULE (FP) PO PRN ×2 (17:57→22:17)
[2021-06-18] MEDS: LIPASE/PROTEASE/AMYLASE 6,000 UNIT CAPSULE PO SCH (18:24)
[2021-06-18] MEDS: THIAMINE HCL 100 MG TABLET (FP) PO SCH (22:17)
[2021-06-18] MEDS: QUEtiapine FUMARATE 50 MG TABLET PO SCH (22:17)
[2021-06-19] MEDS: LORazepam 1 MG TABLET PO SCH ×4 (05:36→22:05)
[2021-06-19] MEDS: LIPASE/PROTEASE/AMYLASE 6,000 UNIT CAPSULE PO SCH ×3 (07:08→17:00)
[2021-06-19] MEDS: AZITHROMYCIN 250 MG TABLET PO SCH (10:37)
[2021-06-19] MEDS: hydrOXYzine PAMOATE 25 MG CAPSULE (FP) PO PRN ×2 (10:37→17:00)
[2021-06-19] MEDS: PRENATAL VITAMINS W/ FOLIC ACID TABLET (FP) PO SCH (10:37)
[2021-06-19] MEDS: NICOTINE 21 MG/24 HOURS TOPICAL PATCH TD SCH (10:38)
[2021-06-19] MEDS: QUEtiapine FUMARATE 50 MG TABLET PO SCH (22:05)
[2021-06-19] MEDS: THIAMINE HCL 100 MG TABLET (FP) PO SCH (22:05)
[2021-06-20] MEDS ORDERED: LORazepam 0.5 MG TABLET PO PRN
[2021-06-20 00:06] LABS: SARS-CoV-2 NAA Not Detected (Not Detected)
[2021-06-20] MEDS: LORazepam 0.5 MG TABLET PO SCH ×4 (05:39→22:14)
[2021-06-20] MEDS: AZITHROMYCIN 250 MG TABLET PO SCH (10:09)
[2021-06-20] MEDS: LIPASE/PROTEASE/AMYLASE 6,000 UNIT CAPSULE PO SCH ×3 (10:09→17:18)
[2021-06-20] MEDS: PRENATAL VITAMINS W/ FOLIC ACID TABLET (FP) PO SCH (10:10)
[2021-06-20] MEDS: NICOTINE 21 MG/24 HOURS TOPICAL PATCH TD SCH (10:11)
[2021-06-20] MEDS ORDERED: LOPERAMIDE HCL 2 MG CAPSULE PO ONE (12:03)
[2021-06-20] MEDS: hydrOXYzine PAMOATE 25 MG CAPSULE (FP) PO PRN ×2 (17:18→22:13)
[2021-06-20] MEDS: THIAMINE HCL 100 MG TABLET (FP) PO SCH (22:13)
[2021-06-20] MEDS: QUEtiapine FUMARATE 50 MG TABLET PO SCH (22:14)
[2021-06-21] MEDS ORDERED: LORazepam 0.5 MG TABLET PO ONE (05:00)
[2021-06-21] MEDS: LIPASE/PROTEASE/AMYLASE 6,000 UNIT CAPSULE PO SCH ×3 (07:07→16:36)
[2021-06-21] MEDS: PRENATAL VITAMINS W/ FOLIC ACID TABLET (FP) PO SCH (09:37)
[2021-06-21] MEDS: NICOTINE 21 MG/24 HOURS TOPICAL PATCH TD SCH (09:37)
[2021-06-21] MEDS: AZITHROMYCIN 250 MG TABLET PO SCH (09:38)
[2021-06-21] MEDS: THIAMINE HCL 100 MG TABLET (FP) PO SCH (21:13)
[2021-06-21] MEDS: QUEtiapine FUMARATE 50 MG TABLET PO SCH (21:13)
[2021-06-22] MEDS: LIPASE/PROTEASE/AMYLASE 6,000 UNIT CAPSULE PO SCH ×3 (07:09→17:01)
[2021-06-22] MEDS: PRENATAL VITAMINS W/ FOLIC ACID TABLET (FP) PO SCH (09:36)
[2021-06-22] MEDS: NICOTINE 21 MG/24 HOURS TOPICAL PATCH TD SCH (09:36)
[2021-06-22] MEDS: THIAMINE HCL 100 MG TABLET (FP) PO SCH (21:17)
[2021-06-22] MEDS: QUEtiapine FUMARATE 50 MG TABLET PO SCH (21:17)
[2021-06-22] MEDS: SUVOREXANT 10 MG TABLET PO PRN (21:19)
[2021-06-23] MEDS: LIPASE/PROTEASE/AMYLASE 6,000 UNIT CAPSULE PO SCH ×3 (07:10→15:43)
[2021-06-23] MEDS: PRENATAL VITAMINS W/ FOLIC ACID TABLET (FP) PO SCH (09:34)
[2021-06-23] MEDS: NICOTINE 21 MG/24 HOURS TOPICAL PATCH TD SCH (09:35)
[2021-06-23] MEDS: THIAMINE HCL 100 MG TABLET (FP) PO SCH (21:06)
[2021-06-23] MEDS: QUEtiapine FUMARATE 50 MG TABLET PO SCH (21:07)
[2021-06-23] MEDS: SUVOREXANT 10 MG TABLET PO PRN (21:08)
[2021-06-24] MEDS: LIPASE/PROTEASE/AMYLASE 6,000 UNIT CAPSULE PO SCH ×2 (06:21→10:51)
[2021-06-24] MEDS: PRENATAL VITAMINS W/ FOLIC ACID TABLET (FP) PO SCH (09:38)
[2021-06-24] MEDS: NICOTINE 21 MG/24 HOURS TOPICAL PATCH TD SCH (09:38)
[2021-06-24] MEDS: INSULIN (NOVOLOG) ASPART 100 UNITS/ML 10ML VIAL SQ SCH (16:39)
[2021-06-24] MEDS: THIAMINE HCL 100 MG TABLET (FP) PO SCH (21:10)
[2021-06-24] MEDS: QUEtiapine FUMARATE 50 MG TABLET PO SCH (21:11)
[2021-06-24] MEDS: SUVOREXANT 15 MG TABLET PO PRN (21:11)
[2021-06-25] MEDS: LIPASE/PROTEASE/AMYLASE 6,000 UNIT CAPSULE PO SCH ×3 (06:14→16:06)
[2021-06-25] MEDS: INSULIN (NOVOLOG) ASPART 100 UNITS/ML 10ML VIAL SQ SCH ×2 (07:27→17:49)
[2021-06-25] MEDS: NICOTINE 21 MG/24 HOURS TOPICAL PATCH TD SCH (09:56)
[2021-06-25] MEDS: PRENATAL VITAMINS W/ FOLIC ACID TABLET (FP) PO SCH (09:56)
[2021-06-25] MEDS: QUEtiapine FUMARATE 50 MG TABLET PO SCH (21:14)
[2021-06-25] MEDS: THIAMINE HCL 100 MG TABLET (FP) PO SCH (21:15)
[2021-06-25] MEDS: SUVOREXANT 15 MG TABLET PO PRN (21:16)
[2021-06-26] MEDS: LIPASE/PROTEASE/AMYLASE 6,000 UNIT CAPSULE PO SCH (06:22)
[2021-06-26] MEDS: INSULIN (NOVOLOG) ASPART 100 UNITS/ML 10ML VIAL SQ SCH ×2 (07:02→17:01)
[2021-06-26] MEDS: PRENATAL VITAMINS W/ FOLIC ACID TABLET (FP) PO SCH (09:41)
[2021-06-26] MEDS: NICOTINE 21 MG/24 HOURS TOPICAL PATCH TD SCH (09:41)
[2021-06-26] MEDS: QUEtiapine FUMARATE 50 MG TABLET PO SCH (21:05)
[2021-06-26] MEDS: THIAMINE HCL 100 MG TABLET (FP) PO SCH (21:05)
[2021-06-27] MEDS: LIPASE/PROTEASE/AMYLASE 6,000 UNIT CAPSULE PO SCH ×3 (06:41→15:53)
[2021-06-27] MEDS: INSULIN (NOVOLOG) ASPART 100 UNITS/ML 10ML VIAL SQ SCH ×2 (07:35→16:57)
[2021-06-27] MEDS: PRENATAL VITAMINS W/ FOLIC ACID TABLET (FP) PO SCH (09:50)
[2021-06-27] MEDS: NICOTINE 21 MG/24 HOURS TOPICAL PATCH TD SCH (09:51)
[2021-06-27] MEDS: THIAMINE HCL 100 MG TABLET (FP) PO SCH (21:21)
[2021-06-27] MEDS: QUEtiapine FUMARATE 50 MG TABLET PO SCH (21:21)
[2021-06-27] MEDS: SUVOREXANT 15 MG TABLET PO PRN (21:22)
[2021-06-27] MEDS ORDERED: MELATONIN 5 MG TABLETS PO ONE (22:00)
[2021-06-28] MEDS: LIPASE/PROTEASE/AMYLASE 6,000 UNIT CAPSULE PO SCH ×4 (06:16→15:48)
[2021-06-28] MEDS: INSULIN (NOVOLOG) ASPART 100 UNITS/ML 10ML VIAL SQ SCH ×2 (06:33→16:47)
[2021-06-28] MEDS: PRENATAL VITAMINS W/ FOLIC ACID TABLET (FP) PO SCH (09:51)
[2021-06-28] MEDS: NICOTINE 21 MG/24 HOURS TOPICAL PATCH TD SCH (09:51)
[2021-06-28] MEDS: THIAMINE HCL 100 MG TABLET (FP) PO SCH (21:13)
[2021-06-28] MEDS: QUEtiapine FUMARATE 50 MG TABLET PO SCH (21:14)
[2021-06-28] MEDS: SUVOREXANT 15 MG TABLET PO PRN (21:14)
[2021-06-29] MEDS: LIPASE/PROTEASE/AMYLASE 6,000 UNIT CAPSULE PO SCH ×3 (06:04→15:53)
[2021-06-29] MEDS: INSULIN (NOVOLOG) ASPART 100 UNITS/ML 10ML VIAL SQ SCH ×2 (06:29→17:32)
[2021-06-29] MEDS: PRENATAL VITAMINS W/ FOLIC ACID TABLET (FP) PO SCH (09:43)
[2021-06-29] MEDS: NICOTINE 21 MG/24 HOURS TOPICAL PATCH TD SCH (09:45)
[2021-06-29] MEDS: THIAMINE HCL 100 MG TABLET (FP) PO SCH (21:12)
[2021-06-29] MEDS: SUVOREXANT 15 MG TABLET PO PRN (21:13)
[2021-06-29] MEDS: QUEtiapine FUMARATE 50 MG TABLET PO SCH (21:13)
[2021-06-30] MEDS: LIPASE/PROTEASE/AMYLASE 6,000 UNIT CAPSULE PO SCH ×3 (05:58→15:44)
[2021-06-30 06:17] VITALS: TEMP 97.1
[2021-06-30] MEDS: INSULIN (NOVOLOG) ASPART 100 UNITS/ML 10ML VIAL SQ SCH ×2 (07:08→17:38)
[2021-06-30 09:10] VITALS: PULSE 80
[2021-06-30] MEDS: PRENATAL VITAMINS W/ FOLIC ACID TABLET (FP) PO SCH (09:35)
[2021-06-30] MEDS: NICOTINE 21 MG/24 HOURS TOPICAL PATCH TD SCH (09:35)
[2021-06-30] MEDS: QUEtiapine FUMARATE 50 MG TABLET PO SCH (21:13)
[2021-06-30] MEDS: THIAMINE HCL 100 MG TABLET (FP) PO SCH (21:14)
[2021-07-01 06:26] VITALS: BP 136/73
[2021-07-01] MEDS: LIPASE/PROTEASE/AMYLASE 6,000 UNIT CAPSULE PO SCH ×3 (06:43→17:33)
[2021-07-01] MEDS: INSULIN (NOVOLOG) ASPART 100 UNITS/ML 10ML VIAL SQ SCH ×2 (06:44→17:34)
[2021-07-01] MEDS: PRENATAL VITAMINS W/ FOLIC ACID TABLET (FP) PO SCH (10:33)
[2021-07-01] MEDS: NICOTINE 21 MG/24 HOURS TOPICAL PATCH TD SCH (10:33)
[2021-07-02] MEDS ORDERED: FERROUS SO4 325 MG TABLET (FP) PO SCH (10:00)
== END 2021-07-01 18:50 | disposition other institution (70) | DRG 895 ==
LOC: YASAS 15:59 → Y6N 21:54 → Y3E 06-21 11:57
PROVIDERS: ADMIT Allergy & Immunology; ATTEND Allergy & Immunology
PROC: HZ2ZZZZ Detoxification Services for Substance Abuse Treatment (ICD-10-PCS; 2021-06-17)
PROC: HZ42ZZZ Group Counseling for Substance Abuse Treatment, Cognitive-Behavioral (ICD-10-PCS; principal; 2021-06-21)
DX: F10.20 Alcohol dependence, uncomplicated (principal); U07.1 COVID-19; F14.20 Cocaine dependence, uncomplicated; F17.210 Nicotine dependence, cigarettes, uncomplicated; F19.24 Other psychoactive substance dependence with psychoactive substance-induced mood disorder; D64.9 Anemia, unspecified; I10 Essential (primary) hypertension; J39.2 Other diseases of pharynx; B95.1 Streptococcus, group B, as the cause of diseases classified elsewhere; K21.9 Gastro-esophageal reflux disease without esophagitis; Z87.19 Personal history of other diseases of the digestive system; Z86.11 Personal history of tuberculosis; Z91.013 Allergy to seafood; Z88.8 Allergy status to other drugs, medicaments and biological substances
CPT/HCPCS: 36415; 80053; 82962; 85027; 86780; 87070; 87077; 87811; C9803-CS; U0003; U0005

== ENCOUNTER 2021-07-12 16:48 | Inpatient (IN) | payer OTHER ==
[2021-07-12 18:01] VITALS: BMI 26.9
[2021-07-12] MEDS ORDERED: DICYCLOMINE HCL 10 MG CAPSULE PO PRN (19:36)
[2021-07-12] MEDS ORDERED: ONDANSETRON *ODT* 4 MG TABLET SL PRN (19:36)
[2021-07-12] MEDS ORDERED: MAGNESIUM CITRATE 300 ML BOTTLE PO PRN (19:36)
[2021-07-12] MEDS ORDERED: BENZOCAINE/MENTHOL (CHLORASEPTIC ) LOZENGE MM PRN (19:36)
[2021-07-12] MEDS ORDERED: NICOTINE 10 MG CARTRIDGE (INHALER) IH PRN (19:36)
[2021-07-12] MEDS ORDERED: MAG HYDROX/AL HYDROX/SIMETH 30 ML UNIT-DOSE CUP PO PRN (19:36)
[2021-07-12] MEDS ORDERED: METHOCARBAMOL 500 MG TABLET PO PRN (19:36)
[2021-07-12] MEDS ORDERED: MAGNESIUM HYDROX 2400MG/30ML ORAL SUSPENSION 30 ML CUP PO PRN (19:36)
[2021-07-12] MEDS ORDERED: LOPERAMIDE HCL 2 MG CAPSULE PO PRN (19:36)
[2021-07-12] MEDS ORDERED: IBUPROFEN 400 MG TABLET (FP) PO PRN (19:36)
[2021-07-12] MEDS ORDERED: ACETAMINOPHEN 325 MG TABLET (FP) PO PRN ×2 (19:36)
[2021-07-12] MEDS ORDERED: BISMUTH SUBSALICYLATE 524 MG/30 ML PO PRN (19:36)
[2021-07-12] MEDS ORDERED: diazePAM 5 MG TABLET PO PRN (19:36)
[2021-07-12] MEDS: MELATONIN 5 MG TABLETS PO SCH (22:40)
[2021-07-12] MEDS: hydrOXYzine PAMOATE 25 MG CAPSULE (FP) PO SCH (22:41)
[2021-07-12] MEDS: PRENATAL VITAMINS W/ FOLIC ACID TABLET (FP) PO SCH (22:44)
[2021-07-12] MEDS: diazePAM 5 MG TABLET PO SCH (22:45)
[2021-07-12] MEDS: THIAMINE HCL 100 MG TABLET (FP) PO SCH (23:24)
[2021-07-13] MEDS: hydrOXYzine PAMOATE 25 MG CAPSULE (FP) PO SCH ×5 (05:15→23:44)
[2021-07-13] MEDS: diazePAM 5 MG TABLET PO SCH ×4 (05:15→23:44)
[2021-07-13] MEDS ORDERED: LIPASE/PROTEASE/AMYLASE 6,000 UNIT CAPSULE PO SCH (08:00)
[2021-07-13] MEDS: PRENATAL VITAMINS W/ FOLIC ACID TABLET (FP) PO SCH (10:15)
[2021-07-13 10:59] LABS: HEMATOCRIT 38.3 % (35.4-49); HEMOGLOBIN 12.3 GM/dL (11.7-16.9); MCH 30.9 pg (25.7-33.7); MCHC 32.1 g/dl (32.0-35.9); MEAN CELL VOLUME 96.2 fl (80-96); MEAN PLT VOLUME 8.4 fl (7.5-11.1); PLATELET COUNT 223 10^3/uL (134-434); RBC 3.98 M/mm3 (4.00-5.60); RDW 15.7 % (11.9-15.9); WHITE BLOOD COUNT 3.5 K/mm3 (4.0-10.0)
[2021-07-13 11:00] LABS: CALCIUM 9.1 mg/dL (8.5-10.1)
[2021-07-13 11:01] LABS: ALBUMIN 3.3 g/dl (3.4-5.0); BLOOD UREA NITROGEN 20.5 mg/dL (7-18)
[2021-07-13 11:04] LABS: CREATININE 1.3 mg/dL (0.55-1.3)
[2021-07-13 11:06] LABS: BILIRUBIN,TOTAL 0.6 mg/dL (0.2-1); TOT PROT 8.1 g/dl (6.4-8.2)
[2021-07-13] MEDS ORDERED: NICOTINE POLACRILEX 4 MG GUM BUC PRN (11:22)
[2021-07-13] MEDS: PROTEASE PO SCH ×2 (11:52→16:37)
[2021-07-13] MEDS: LIPASE PO SCH ×2 (11:52→16:37)
[2021-07-13] MEDS: AMYLASE PO SCH ×2 (11:52→16:37)
[2021-07-13] MEDS: NICOTINE 21 MG/24 HOURS TOPICAL PATCH TD SCH (11:52)
[2021-07-13] MEDS ORDERED: AMYLASE PO SCH (12:00)
[2021-07-13] MEDS ORDERED: [UNRECOGNIZED DRUG - OTHER] PO SCH (12:00)
[2021-07-13] MEDS ORDERED: PROTEASE PO SCH (12:00)
[2021-07-13] MEDS ORDERED: LIPASE PO SCH (12:00)
[2021-07-13] MEDS: MELATONIN 5 MG TABLETS PO SCH (23:37)
[2021-07-13] MEDS: THIAMINE HCL 100 MG TABLET (FP) PO SCH (23:45)
[2021-07-14] MEDS: hydrOXYzine PAMOATE 25 MG CAPSULE (FP) PO SCH ×2 (05:11→11:03)
[2021-07-14] MEDS ORDERED: diazePAM 5 MG TABLET PO SCH (06:00)
[2021-07-14] MEDS: LIPASE PO SCH (07:01)
[2021-07-14] MEDS: PROTEASE PO SCH (07:01)
[2021-07-14] MEDS: AMYLASE PO SCH (07:01)
[2021-07-14] MEDS ORDERED: SUVOREXANT 15 MG TABLET PO PRN (08:13)
[2021-07-14 08:16] VITALS: PULSE 82
[2021-07-14 09:54] VITALS: BP 126/58; TEMP 98.1
[2021-07-14] MEDS: NICOTINE 21 MG/24 HOURS TOPICAL PATCH TD SCH (11:03)
[2021-07-14] MEDS: PRENATAL VITAMINS W/ FOLIC ACID TABLET (FP) PO SCH (11:03)
[2021-07-14] MEDS ORDERED: QUEtiapine FUMARATE 50 MG TABLET PO SCH (22:00)
[2021-07-15] MEDS ORDERED: diazePAM 5 MG TABLET PO SCH (06:00)
[2021-07-16] MEDS ORDERED: diazePAM 5 MG TABLET PO ONE (06:00)
== END 2021-07-14 09:10 | disposition home or self-care (01) | DRG 897 ==
LOC: YASAS 16:48 → Y6N 21:49
PROVIDERS: ADMIT Allergy & Immunology; ATTEND Surgery
PROC: HZ2ZZZZ Detoxification Services for Substance Abuse Treatment (ICD-10-PCS; principal; 2021-07-12)
DX: F10.230 Alcohol dependence with withdrawal, uncomplicated (principal); F14.20 Cocaine dependence, uncomplicated; F19.282 Other psychoactive substance dependence with psychoactive substance-induced sleep disorder; F19.280 Other psychoactive substance dependence with psychoactive substance-induced anxiety disorder; K86.0 Alcohol-induced chronic pancreatitis; F17.213 Nicotine dependence, cigarettes, with withdrawal; I10 Essential (primary) hypertension; K21.9 Gastro-esophageal reflux disease without esophagitis; Z86.11 Personal history of tuberculosis; Z91.013 Allergy to seafood; Z88.8 Allergy status to other drugs, medicaments and biological substances
CPT/HCPCS: 36415; 80053; 82962; 85027; 86780; C9803-CS; U0003; U0005

== ENCOUNTER 2021-08-20 15:36 | Inpatient (IN) | payer OTHER ==
[2021-08-20 16:41] VITALS: BMI 25.1
[2021-08-20] MEDS ORDERED: LORazepam 1 MG TABLET PO PRN (20:42)
[2021-08-20] MEDS ORDERED: LOPERAMIDE HCL 2 MG CAPSULE PO PRN (20:42)
[2021-08-20] MEDS ORDERED: BENZOCAINE/MENTHOL (CHLORASEPTIC ) LOZENGE MM PRN (20:42)
[2021-08-20] MEDS ORDERED: ACETAMINOPHEN 325 MG TABLET (FP) PO PRN ×2 (20:42)
[2021-08-20] MEDS ORDERED: MAGNESIUM CITRATE 300 ML BOTTLE PO PRN (20:42)
[2021-08-20] MEDS ORDERED: MAGNESIUM HYDROX 2400MG/30ML ORAL SUSPENSION 30 ML CUP PO PRN (20:42)
[2021-08-20] MEDS ORDERED: BISMUTH SUBSALICYLATE 524 MG/30 ML PO PRN (20:42)
[2021-08-20] MEDS ORDERED: IBUPROFEN 600 MG TABLET (FP) PO PRN (20:42)
[2021-08-20] MEDS ORDERED: IBUPROFEN 400 MG TABLET (FP) PO PRN (20:42)
[2021-08-20] MEDS ORDERED: ONDANSETRON *ODT* 4 MG TABLET SL PRN (20:42)
[2021-08-20] MEDS ORDERED: DICYCLOMINE HCL 10 MG CAPSULE PO PRN (20:42)
[2021-08-20] MEDS ORDERED: MELATONIN 5 MG TABLETS PO SCH (22:00)
[2021-08-20] MEDS: METHOCARBAMOL 500 MG TABLET PO PRN (22:49)
[2021-08-20] MEDS: THIAMINE HCL 100 MG TABLET (FP) PO SCH (22:50)
[2021-08-20] MEDS: LORazepam 2 MG TABLET PO SCH (22:50)
[2021-08-21] MEDS: LORazepam 2 MG TABLET PO SCH ×4 (05:22→23:18)
[2021-08-21] MEDS: METHOCARBAMOL 500 MG TABLET PO PRN ×2 (06:53→13:03)
[2021-08-21] MEDS: NICOTINE 14 MG/24 HOURS TOPICAL PATCH TD SCH (11:05)
[2021-08-21] MEDS: PRENATAL VITAMINS W/ FOLIC ACID TABLET (FP) PO SCH (11:05)
[2021-08-21] MEDS: LIPASE/PROTEASE/AMYLASE 6,000 UNIT CAPSULE PO SCH (18:39)
[2021-08-21] MEDS ORDERED: SUVOREXANT 15 MG TABLET PO PRN (22:00)
[2021-08-21] MEDS: THIAMINE HCL 100 MG TABLET (FP) PO SCH (23:18)
[2021-08-22] MEDS: LORazepam 1 MG TABLET PO SCH ×4 (05:43→22:00)
[2021-08-22] MEDS: LIPASE/PROTEASE/AMYLASE 6,000 UNIT CAPSULE PO SCH ×4 (07:12→16:26)
[2021-08-22] MEDS: PRENATAL VITAMINS W/ FOLIC ACID TABLET (FP) PO SCH (10:15)
[2021-08-22] MEDS: NICOTINE 14 MG/24 HOURS TOPICAL PATCH TD SCH (10:16)
[2021-08-22] MEDS: THIAMINE HCL 100 MG TABLET (FP) PO SCH (22:00)
[2021-08-22] MEDS: METHOCARBAMOL 500 MG TABLET PO PRN (23:31)
[2021-08-23] MEDS ORDERED: LORazepam 0.5 MG TABLET PO PRN
[2021-08-23] MEDS: LORazepam 0.5 MG TABLET PO SCH ×4 (05:16→22:05)
[2021-08-23] MEDS: LIPASE/PROTEASE/AMYLASE 6,000 UNIT CAPSULE PO SCH ×3 (07:01→16:03)
[2021-08-23] MEDS: PRENATAL VITAMINS W/ FOLIC ACID TABLET (FP) PO SCH (10:08)
[2021-08-23] MEDS: NICOTINE 14 MG/24 HOURS TOPICAL PATCH TD SCH (10:09)
[2021-08-23 14:30] LABS: HEMOGLOBIN 11.7 GM/dL (11.7-16.9); MCH 30.7 pg (25.7-33.7); MCHC 32.5 g/dl (32.0-35.9); MEAN CELL VOLUME 94.3 fl (80-96); MEAN PLT VOLUME 8.6 fl (7.5-11.1); PLATELET COUNT 127 10^3/uL (134-434); RBC 3.82 M/mm3 (4.00-5.60); RDW 16.4 % (11.9-15.9); WHITE BLOOD COUNT 3.1 K/mm3 (4.0-10.0)
[2021-08-23 15:04] LABS: ALBUMIN 2.8 g/dl (3.4-5.0); BLOOD UREA NITROGEN 18.9 mg/dL (7-18); CALCIUM 8.4 mg/dL (8.5-10.1)
[2021-08-23 15:08] LABS: CREATININE 1.1 mg/dL (0.55-1.3)
[2021-08-23 15:09] LABS: BILIRUBIN,TOTAL 0.5 mg/dL (0.2-1); TOT PROT 6.9 g/dl (6.4-8.2)
[2021-08-23] MEDS: SUVOREXANT 15 MG TABLET PO PRN (22:04)
[2021-08-23] MEDS: QUEtiapine FUMARATE 50 MG TABLET PO SCH (22:05)
[2021-08-23] MEDS: THIAMINE HCL 100 MG TABLET (FP) PO SCH (22:07)
[2021-08-24] MEDS ORDERED: LORazepam 0.5 MG TABLET PO ONE (05:00)
[2021-08-24] MEDS: LIPASE/PROTEASE/AMYLASE 6,000 UNIT CAPSULE PO SCH ×3 (07:14→16:56)
[2021-08-24] MEDS: NICOTINE 14 MG/24 HOURS TOPICAL PATCH TD SCH (10:12)
[2021-08-24] MEDS: PRENATAL VITAMINS W/ FOLIC ACID TABLET (FP) PO SCH (10:12)
[2021-08-24] MEDS: SUVOREXANT 15 MG TABLET PO PRN (21:39)
[2021-08-24] MEDS: QUEtiapine FUMARATE 50 MG TABLET PO SCH (21:40)
[2021-08-24] MEDS: THIAMINE HCL 100 MG TABLET (FP) PO SCH (21:40)
[2021-08-24] MEDS: METHOCARBAMOL 500 MG TABLET PO PRN (21:40)
[2021-08-25] MEDS: LIPASE/PROTEASE/AMYLASE 6,000 UNIT CAPSULE PO SCH ×3 (06:05→16:05)
[2021-08-25] MEDS: NICOTINE 14 MG/24 HOURS TOPICAL PATCH TD SCH (10:13)
[2021-08-25] MEDS: PRENATAL VITAMINS W/ FOLIC ACID TABLET (FP) PO SCH (10:13)
[2021-08-25] MEDS: QUEtiapine FUMARATE 50 MG TABLET PO SCH (21:36)
[2021-08-25] MEDS: THIAMINE HCL 100 MG TABLET (FP) PO SCH (21:36)
[2021-08-25] MEDS: SUVOREXANT 15 MG TABLET PO PRN (21:39)
[2021-08-26] MEDS: LIPASE/PROTEASE/AMYLASE 6,000 UNIT CAPSULE PO SCH ×3 (06:14→16:01)
[2021-08-26] MEDS: PRENATAL VITAMINS W/ FOLIC ACID TABLET (FP) PO SCH (10:06)
[2021-08-26] MEDS: NICOTINE 14 MG/24 HOURS TOPICAL PATCH TD SCH (10:07)
[2021-08-26] MEDS: SUVOREXANT 15 MG TABLET PO PRN (21:34)
[2021-08-26] MEDS: QUEtiapine FUMARATE 50 MG TABLET PO SCH (21:35)
[2021-08-26] MEDS: THIAMINE HCL 100 MG TABLET (FP) PO SCH (21:35)
[2021-08-27] MEDS: LIPASE/PROTEASE/AMYLASE 6,000 UNIT CAPSULE PO SCH ×4 (06:20→16:17)
[2021-08-27] MEDS: PRENATAL VITAMINS W/ FOLIC ACID TABLET (FP) PO SCH (09:54)
[2021-08-27] MEDS: NICOTINE 14 MG/24 HOURS TOPICAL PATCH TD SCH (09:54)
[2021-08-27] MEDS: QUEtiapine FUMARATE 50 MG TABLET PO SCH (21:33)
[2021-08-27] MEDS: THIAMINE HCL 100 MG TABLET (FP) PO SCH (21:33)
[2021-08-27] MEDS: SUVOREXANT 15 MG TABLET PO PRN (21:34)
[2021-08-28] MEDS: LIPASE/PROTEASE/AMYLASE 6,000 UNIT CAPSULE PO SCH ×3 (06:27→16:08)
[2021-08-28] MEDS: NICOTINE 14 MG/24 HOURS TOPICAL PATCH TD SCH (10:09)
[2021-08-28] MEDS: PRENATAL VITAMINS W/ FOLIC ACID TABLET (FP) PO SCH (10:09)
[2021-08-28] MEDS: QUEtiapine FUMARATE 50 MG TABLET PO SCH (21:34)
[2021-08-28] MEDS: THIAMINE HCL 100 MG TABLET (FP) PO SCH (21:34)
[2021-08-28] MEDS: SUVOREXANT 15 MG TABLET PO PRN (21:35)
[2021-08-29] MEDS: LIPASE/PROTEASE/AMYLASE 6,000 UNIT CAPSULE PO SCH ×3 (07:04→16:46)
[2021-08-29] MEDS: PRENATAL VITAMINS W/ FOLIC ACID TABLET (FP) PO SCH (10:11)
[2021-08-29] MEDS: NICOTINE 14 MG/24 HOURS TOPICAL PATCH TD SCH (10:12)
[2021-08-29] MEDS: SUVOREXANT 15 MG TABLET PO PRN (21:41)
[2021-08-29] MEDS: QUEtiapine FUMARATE 50 MG TABLET PO SCH (21:41)
[2021-08-29] MEDS: THIAMINE HCL 100 MG TABLET (FP) PO SCH (21:41)
[2021-08-30] MEDS: LIPASE/PROTEASE/AMYLASE 6,000 UNIT CAPSULE PO SCH ×3 (06:37→16:21)
[2021-08-30] MEDS: PRENATAL VITAMINS W/ FOLIC ACID TABLET (FP) PO SCH (10:01)
[2021-08-30] MEDS: NICOTINE 14 MG/24 HOURS TOPICAL PATCH TD SCH (10:02)
[2021-08-30] MEDS: THIAMINE HCL 100 MG TABLET (FP) PO SCH (21:33)
[2021-08-30] MEDS: QUEtiapine FUMARATE 50 MG TABLET PO SCH (21:33)
[2021-08-30] MEDS ORDERED: SUVOREXANT 15 MG TABLET PO PRN (22:00)
[2021-08-31] MEDS: LIPASE/PROTEASE/AMYLASE 6,000 UNIT CAPSULE PO SCH ×3 (06:00→15:46)
[2021-08-31] MEDS: PRENATAL VITAMINS W/ FOLIC ACID TABLET (FP) PO SCH (10:06)
[2021-08-31] MEDS: NICOTINE 14 MG/24 HOURS TOPICAL PATCH TD SCH (10:06)
[2021-08-31] MEDS: SUVOREXANT 20 MG TABLET PO PRN (21:31)
[2021-08-31] MEDS: THIAMINE HCL 100 MG TABLET (FP) PO SCH (21:31)
[2021-08-31] MEDS: QUEtiapine FUMARATE 50 MG TABLET PO SCH (21:31)
[2021-09-01] MEDS: LIPASE/PROTEASE/AMYLASE 6,000 UNIT CAPSULE PO SCH ×3 (06:15→15:59)
[2021-09-01] MEDS: PRENATAL VITAMINS W/ FOLIC ACID TABLET (FP) PO SCH (10:19)
[2021-09-01] MEDS: NICOTINE 14 MG/24 HOURS TOPICAL PATCH TD SCH (10:19)
[2021-09-01] MEDS: SUVOREXANT 20 MG TABLET PO PRN (21:25)
[2021-09-01] MEDS: THIAMINE HCL 100 MG TABLET (FP) PO SCH (21:27)
[2021-09-01] MEDS: QUEtiapine FUMARATE 50 MG TABLET PO SCH (21:27)
[2021-09-02] MEDS: LIPASE/PROTEASE/AMYLASE 6,000 UNIT CAPSULE PO SCH ×3 (06:00→16:19)
[2021-09-02] MEDS: NICOTINE 14 MG/24 HOURS TOPICAL PATCH TD SCH (10:29)
[2021-09-02] MEDS: PRENATAL VITAMINS W/ FOLIC ACID TABLET (FP) PO SCH (10:29)
[2021-09-02] MEDS: QUEtiapine FUMARATE 50 MG TABLET PO SCH (21:24)
[2021-09-02] MEDS: THIAMINE HCL 100 MG TABLET (FP) PO SCH (21:24)
[2021-09-02] MEDS: SUVOREXANT 20 MG TABLET PO PRN (21:25)
[2021-09-03] MEDS: LIPASE/PROTEASE/AMYLASE 6,000 UNIT CAPSULE PO SCH ×3 (06:23→16:26)
[2021-09-03] MEDS: NICOTINE 14 MG/24 HOURS TOPICAL PATCH TD SCH (10:32)
[2021-09-03] MEDS: PRENATAL VITAMINS W/ FOLIC ACID TABLET (FP) PO SCH (10:32)
[2021-09-03] MEDS: QUEtiapine FUMARATE 50 MG TABLET PO SCH (21:51)
[2021-09-03] MEDS: THIAMINE HCL 100 MG TABLET (FP) PO SCH (21:51)
[2021-09-03] MEDS: SUVOREXANT 20 MG TABLET PO PRN (21:52)
[2021-09-04] MEDS: LIPASE/PROTEASE/AMYLASE 6,000 UNIT CAPSULE PO SCH ×3 (06:06→16:22)
[2021-09-04] MEDS: NICOTINE 14 MG/24 HOURS TOPICAL PATCH TD SCH (10:29)
[2021-09-04] MEDS: PRENATAL VITAMINS W/ FOLIC ACID TABLET (FP) PO SCH (10:29)
[2021-09-04] MEDS: QUEtiapine FUMARATE 50 MG TABLET PO SCH (21:49)
[2021-09-04] MEDS: THIAMINE HCL 100 MG TABLET (FP) PO SCH (21:49)
[2021-09-04] MEDS: SUVOREXANT 20 MG TABLET PO PRN (21:50)
[2021-09-05] MEDS: LIPASE/PROTEASE/AMYLASE 6,000 UNIT CAPSULE PO SCH ×3 (06:01→16:05)
[2021-09-05] MEDS: NICOTINE 14 MG/24 HOURS TOPICAL PATCH TD SCH (10:10)
[2021-09-05] MEDS: PRENATAL VITAMINS W/ FOLIC ACID TABLET (FP) PO SCH (10:10)
[2021-09-05] MEDS: NICOTINE 10 MG CARTRIDGE (INHALER) IH PRN (10:11)
[2021-09-05] MEDS: THIAMINE HCL 100 MG TABLET (FP) PO SCH (21:37)
[2021-09-05] MEDS: QUEtiapine FUMARATE 50 MG TABLET PO SCH (21:37)
[2021-09-05] MEDS: SUVOREXANT 20 MG TABLET PO PRN (21:38)
[2021-09-06] MEDS: LIPASE/PROTEASE/AMYLASE 6,000 UNIT CAPSULE PO SCH ×3 (06:05→16:40)
[2021-09-06] MEDS: NICOTINE 14 MG/24 HOURS TOPICAL PATCH TD SCH (10:19)
[2021-09-06] MEDS: PRENATAL VITAMINS W/ FOLIC ACID TABLET (FP) PO SCH (10:20)
[2021-09-06] MEDS: THIAMINE HCL 100 MG TABLET (FP) PO SCH (21:30)
[2021-09-06] MEDS: SUVOREXANT 20 MG TABLET PO PRN (21:30)
[2021-09-06] MEDS: QUEtiapine FUMARATE 50 MG TABLET PO SCH (21:30)
[2021-09-07] MEDS: LIPASE/PROTEASE/AMYLASE 6,000 UNIT CAPSULE PO SCH ×3 (06:12→15:54)
[2021-09-07] MEDS: NICOTINE 14 MG/24 HOURS TOPICAL PATCH TD SCH (09:56)
[2021-09-07] MEDS: PRENATAL VITAMINS W/ FOLIC ACID TABLET (FP) PO SCH (09:56)
[2021-09-07] MEDS: SUVOREXANT 20 MG TABLET PO PRN (21:31)
[2021-09-07] MEDS: THIAMINE HCL 100 MG TABLET (FP) PO SCH (21:31)
[2021-09-07] MEDS: QUEtiapine FUMARATE 50 MG TABLET PO SCH (21:31)
[2021-09-08] MEDS: LIPASE/PROTEASE/AMYLASE 6,000 UNIT CAPSULE PO SCH ×3 (06:57→16:34)
[2021-09-08] MEDS: PRENATAL VITAMINS W/ FOLIC ACID TABLET (FP) PO SCH (10:23)
[2021-09-08] MEDS: NICOTINE 14 MG/24 HOURS TOPICAL PATCH TD SCH (10:23)
[2021-09-08] MEDS: SUVOREXANT 20 MG TABLET PO PRN (21:30)
[2021-09-08] MEDS: QUEtiapine FUMARATE 100 MG TABLET (FP) PO SCH (21:30)
[2021-09-08] MEDS: THIAMINE HCL 100 MG TABLET (FP) PO SCH (21:30)
[2021-09-09] MEDS: LIPASE/PROTEASE/AMYLASE 6,000 UNIT CAPSULE PO SCH ×3 (06:17→16:33)
[2021-09-09] MEDS: NICOTINE 14 MG/24 HOURS TOPICAL PATCH TD SCH (10:35)
[2021-09-09] MEDS: PRENATAL VITAMINS W/ FOLIC ACID TABLET (FP) PO SCH (10:35)
[2021-09-09] MEDS: NICOTINE 10 MG CARTRIDGE (INHALER) IH PRN (18:26)
[2021-09-09] MEDS: SUVOREXANT 20 MG TABLET PO PRN (21:38)
[2021-09-09] MEDS: THIAMINE HCL 100 MG TABLET (FP) PO SCH (21:39)
[2021-09-09] MEDS: QUEtiapine FUMARATE 100 MG TABLET (FP) PO SCH (21:39)
[2021-09-10] MEDS: LIPASE/PROTEASE/AMYLASE 6,000 UNIT CAPSULE PO SCH ×3 (07:08→15:57)
[2021-09-10] MEDS: PRENATAL VITAMINS W/ FOLIC ACID TABLET (FP) PO SCH (09:46)
[2021-09-10] MEDS: NICOTINE 14 MG/24 HOURS TOPICAL PATCH TD SCH (09:47)
[2021-09-10] MEDS: THIAMINE HCL 100 MG TABLET (FP) PO SCH (21:29)
[2021-09-10] MEDS: QUEtiapine FUMARATE 100 MG TABLET (FP) PO SCH (21:29)
[2021-09-10] MEDS: SUVOREXANT 20 MG TABLET PO PRN (21:30)
[2021-09-11 07:28] VITALS: RESP 18
[2021-09-11] MEDS: LIPASE/PROTEASE/AMYLASE 6,000 UNIT CAPSULE PO SCH ×3 (08:15→16:53)
[2021-09-11] MEDS: MAG HYDROX/AL HYDROX/SIMETH 30 ML UNIT-DOSE CUP PO PRN ×2 (08:25→14:49)
[2021-09-11] MEDS: NICOTINE 14 MG/24 HOURS TOPICAL PATCH TD SCH (09:58)
[2021-09-11] MEDS: PRENATAL VITAMINS W/ FOLIC ACID TABLET (FP) PO SCH (09:58)
[2021-09-11] MEDS: THIAMINE HCL 100 MG TABLET (FP) PO SCH (21:46)
[2021-09-11] MEDS: QUEtiapine FUMARATE 100 MG TABLET (FP) PO SCH (21:46)
[2021-09-11] MEDS: SUVOREXANT 10 MG TABLET PO PRN (21:48)
[2021-09-12] MEDS: LIPASE/PROTEASE/AMYLASE 6,000 UNIT CAPSULE PO SCH ×3 (06:19→16:41)
[2021-09-12] MEDS: PRENATAL VITAMINS W/ FOLIC ACID TABLET (FP) PO SCH (10:54)
[2021-09-12] MEDS: NICOTINE 14 MG/24 HOURS TOPICAL PATCH TD SCH (10:54)
[2021-09-12] MEDS: SUVOREXANT 10 MG TABLET PO PRN (21:46)
[2021-09-12] MEDS: THIAMINE HCL 100 MG TABLET (FP) PO SCH (21:46)
[2021-09-12] MEDS: QUEtiapine FUMARATE 100 MG TABLET (FP) PO SCH (21:46)
[2021-09-13] MEDS: LIPASE/PROTEASE/AMYLASE 6,000 UNIT CAPSULE PO SCH ×3 (07:21→16:12)
[2021-09-13] MEDS: NICOTINE 14 MG/24 HOURS TOPICAL PATCH TD SCH (10:07)
[2021-09-13] MEDS: PRENATAL VITAMINS W/ FOLIC ACID TABLET (FP) PO SCH (10:07)
[2021-09-13] MEDS: SUVOREXANT 10 MG TABLET PO PRN (21:47)
[2021-09-13] MEDS: THIAMINE HCL 100 MG TABLET (FP) PO SCH (21:48)
[2021-09-13] MEDS: QUEtiapine FUMARATE 100 MG TABLET (FP) PO SCH (21:48)
[2021-09-14] MEDS: LIPASE/PROTEASE/AMYLASE 6,000 UNIT CAPSULE PO SCH ×3 (06:31→15:45)
[2021-09-14] MEDS: NICOTINE 14 MG/24 HOURS TOPICAL PATCH TD SCH (10:07)
[2021-09-14] MEDS: PRENATAL VITAMINS W/ FOLIC ACID TABLET (FP) PO SCH (10:07)
[2021-09-14] MEDS: NICOTINE 10 MG CARTRIDGE (INHALER) IH PRN (15:45)
[2021-09-14] MEDS: MAG HYDROX/AL HYDROX/SIMETH 30 ML UNIT-DOSE CUP PO PRN (16:24)
[2021-09-14] MEDS: THIAMINE HCL 100 MG TABLET (FP) PO SCH (21:49)
[2021-09-14] MEDS: QUEtiapine FUMARATE 100 MG TABLET (FP) PO SCH (21:49)
[2021-09-14] MEDS: SUVOREXANT 10 MG TABLET PO PRN (21:49)
[2021-09-15] MEDS: LIPASE/PROTEASE/AMYLASE 6,000 UNIT CAPSULE PO SCH ×3 (06:06→16:00)
[2021-09-15] MEDS: PRENATAL VITAMINS W/ FOLIC ACID TABLET (FP) PO SCH (10:03)
[2021-09-15] MEDS: NICOTINE 14 MG/24 HOURS TOPICAL PATCH TD SCH ×2 (10:03→10:04)
[2021-09-15] MEDS: THIAMINE HCL 100 MG TABLET (FP) PO SCH (21:16)
[2021-09-15] MEDS: QUEtiapine FUMARATE 100 MG TABLET (FP) PO SCH (21:16)
[2021-09-15] MEDS: SUVOREXANT 10 MG TABLET PO PRN (21:20)
[2021-09-16] MEDS: LIPASE/PROTEASE/AMYLASE 6,000 UNIT CAPSULE PO SCH ×3 (06:08→16:13)
[2021-09-16] MEDS: NICOTINE 14 MG/24 HOURS TOPICAL PATCH TD SCH (10:01)
[2021-09-16] MEDS: PRENATAL VITAMINS W/ FOLIC ACID TABLET (FP) PO SCH (10:01)
[2021-09-16] MEDS: QUEtiapine FUMARATE 50 MG TABLET PO SCH (21:12)
[2021-09-16] MEDS: THIAMINE HCL 100 MG TABLET (FP) PO SCH (21:12)
[2021-09-16] MEDS: SUVOREXANT 20 MG TABLET PO PRN (21:12)
[2021-09-17] MEDS: LIPASE/PROTEASE/AMYLASE 6,000 UNIT CAPSULE PO SCH ×3 (06:13→16:07)
[2021-09-17] MEDS: NICOTINE 14 MG/24 HOURS TOPICAL PATCH TD SCH (10:31)
[2021-09-17] MEDS: PRENATAL VITAMINS W/ FOLIC ACID TABLET (FP) PO SCH (10:31)
[2021-09-17] MEDS: MAG HYDROX/AL HYDROX/SIMETH 30 ML UNIT-DOSE CUP PO PRN (11:34)
[2021-09-17] MEDS: THIAMINE HCL 100 MG TABLET (FP) PO SCH (21:37)
[2021-09-17] MEDS: SUVOREXANT 20 MG TABLET PO PRN (21:37)
[2021-09-17] MEDS: QUEtiapine FUMARATE 50 MG TABLET PO SCH (21:37)
[2021-09-17] MEDS: NICOTINE 10 MG CARTRIDGE (INHALER) IH PRN (23:06)
[2021-09-18] MEDS: LIPASE/PROTEASE/AMYLASE 6,000 UNIT CAPSULE PO SCH ×3 (06:03→15:53)
[2021-09-18] MEDS: PRENATAL VITAMINS W/ FOLIC ACID TABLET (FP) PO SCH (10:32)
[2021-09-18] MEDS: NICOTINE 14 MG/24 HOURS TOPICAL PATCH TD SCH (10:32)
[2021-09-18] MEDS: QUEtiapine FUMARATE 50 MG TABLET PO SCH (21:23)
[2021-09-18] MEDS: THIAMINE HCL 100 MG TABLET (FP) PO SCH (21:24)
[2021-09-18] MEDS: SUVOREXANT 20 MG TABLET PO PRN (21:24)
[2021-09-19] MEDS: LIPASE/PROTEASE/AMYLASE 6,000 UNIT CAPSULE PO SCH ×3 (06:02→16:05)
[2021-09-19] MEDS: NICOTINE 14 MG/24 HOURS TOPICAL PATCH TD SCH (09:59)
[2021-09-19] MEDS: PRENATAL VITAMINS W/ FOLIC ACID TABLET (FP) PO SCH (09:59)
[2021-09-19] MEDS: NICOTINE 10 MG CARTRIDGE (INHALER) IH PRN (11:53)
[2021-09-19] MEDS: SUVOREXANT 10 MG TABLET PO PRN (21:36)
[2021-09-19] MEDS: THIAMINE HCL 100 MG TABLET (FP) PO SCH (21:37)
[2021-09-19] MEDS: QUEtiapine FUMARATE 50 MG TABLET PO SCH (21:37)
[2021-09-20] MEDS: LIPASE/PROTEASE/AMYLASE 6,000 UNIT CAPSULE PO SCH ×3 (06:16→15:56)
[2021-09-20] MEDS: NICOTINE 14 MG/24 HOURS TOPICAL PATCH TD SCH (10:03)
[2021-09-20] MEDS: PRENATAL VITAMINS W/ FOLIC ACID TABLET (FP) PO SCH (10:03)
[2021-09-20] MEDS: SUVOREXANT 10 MG TABLET PO PRN (21:22)
[2021-09-20] MEDS: QUEtiapine FUMARATE 50 MG TABLET PO SCH (21:23)
[2021-09-20] MEDS: THIAMINE HCL 100 MG TABLET (FP) PO SCH (21:23)
[2021-09-21] MEDS: LIPASE/PROTEASE/AMYLASE 6,000 UNIT CAPSULE PO SCH (06:07)
[2021-09-21 07:25] VITALS: BP 137/69; PULSE 86; TEMP 97.5
[2021-09-21] MEDS: NICOTINE 14 MG/24 HOURS TOPICAL PATCH TD SCH (09:15)
[2021-09-21] MEDS: PRENATAL VITAMINS W/ FOLIC ACID TABLET (FP) PO SCH (09:20)
== END 2021-09-21 09:30 | disposition home or self-care (01) | DRG 895 ==
LOC: YASAS 15:36 → Y3N 20:56 → Y5N 08-24 13:51
PROVIDERS: ADMIT Allergy & Immunology; ATTEND Psychiatry & Neurology Pain Medicine
PROC: HZ2ZZZZ Detoxification Services for Substance Abuse Treatment (ICD-10-PCS; principal; 2021-08-20)
PROC: HZ42ZZZ Group Counseling for Substance Abuse Treatment, Cognitive-Behavioral (ICD-10-PCS; 2021-08-24)
DX: F10.230 Alcohol dependence with withdrawal, uncomplicated (principal); F14.20 Cocaine dependence, uncomplicated; F19.282 Other psychoactive substance dependence with psychoactive substance-induced sleep disorder; K86.0 Alcohol-induced chronic pancreatitis; K86.3 Pseudocyst of pancreas; F17.210 Nicotine dependence, cigarettes, uncomplicated; F19.24 Other psychoactive substance dependence with psychoactive substance-induced mood disorder; F32.A Depression, unspecified; I10 Essential (primary) hypertension; K21.9 Gastro-esophageal reflux disease without esophagitis; D69.6 Thrombocytopenia, unspecified; Z86.11 Personal history of tuberculosis; Z91.013 Allergy to seafood; Z88.8 Allergy status to other drugs, medicaments and biological substances
CPT/HCPCS: 36415; 71046-TC-FY; 80053; 82962; 83036; 85027; 86780; 93005; 93010; C9803-CS; Q0162; U0003; U0005

== ENCOUNTER 2021-10-23 19:42 | Inpatient (IN) | payer OTHER ==
[2021-10-23 20:27] VITALS: BMI 29.5
[2021-10-23] MEDS ORDERED: IBUPROFEN 600 MG TABLET (FP) PO PRN (22:51)
[2021-10-23] MEDS ORDERED: MAGNESIUM CITRATE 300 ML BOTTLE PO PRN (22:51)
[2021-10-23] MEDS ORDERED: MAGNESIUM HYDROX 2400MG/30ML ORAL SUSPENSION 30 ML CUP PO PRN (22:51)
[2021-10-23] MEDS ORDERED: DICYCLOMINE HCL 10 MG CAPSULE PO PRN (22:51)
[2021-10-23] MEDS ORDERED: LOPERAMIDE HCL 2 MG CAPSULE PO PRN (22:51)
[2021-10-23] MEDS ORDERED: BENZOCAINE/MENTHOL (CHLORASEPTIC ) LOZENGE MM PRN (22:51)
[2021-10-23] MEDS ORDERED: LORazepam 1 MG TABLET PO PRN (22:51)
[2021-10-23] MEDS ORDERED: BISMUTH SUBSALICYLATE 524 MG/30 ML PO PRN (22:51)
[2021-10-23] MEDS ORDERED: NICOTINE POLACRILEX 2 MG GUM BUC PRN (22:51)
[2021-10-23] MEDS ORDERED: MAG HYDROX/AL HYDROX/SIMETH 30 ML UNIT-DOSE CUP PO PRN (22:51)
[2021-10-23] MEDS ORDERED: ONDANSETRON *ODT* 4 MG TABLET SL PRN (22:51)
[2021-10-23] MEDS ORDERED: ACETAMINOPHEN 325 MG TABLET (FP) PO PRN ×2 (22:51)
[2021-10-23] MEDS ORDERED: IBUPROFEN 400 MG TABLET (FP) PO PRN (22:51)
[2021-10-23] MEDS: LORazepam 2 MG TABLET PO SCH (23:42)
[2021-10-24] MEDS: LORazepam 2 MG TABLET PO SCH ×4 (05:44→21:59)
[2021-10-24] MEDS: PRENATAL VITAMINS W/ FOLIC ACID TABLET (FP) PO SCH (10:30)
[2021-10-24] MEDS: LIPASE/PROTEASE/AMYLASE 6,000 UNIT CAPSULE PO SCH ×2 (11:48→17:41)
[2021-10-24] MEDS: NICOTINE 21 MG/24 HOURS TOPICAL PATCH TD SCH (11:49)
[2021-10-24] MEDS: amLODIPine BESYLATE 5 MG TABLET (FP) PO SCH (15:13)
[2021-10-24] MEDS: SUVOREXANT 10 MG TABLET PO PRN (21:55)
[2021-10-24] MEDS: QUEtiapine FUMARATE 50 MG TABLET PO SCH (21:56)
[2021-10-24] MEDS: THIAMINE HCL 100 MG TABLET (FP) PO SCH (21:56)
[2021-10-24] MEDS ORDERED: MELATONIN 5 MG TABLETS PO SCH (22:00)
[2021-10-24] MEDS ORDERED: SUVOREXANT 10 MG TABLET PO PRN (22:00)
[2021-10-25] MEDS: LORazepam 1 MG TABLET PO SCH ×4 (05:57→23:28)
[2021-10-25] MEDS: LIPASE/PROTEASE/AMYLASE 6,000 UNIT CAPSULE PO SCH ×3 (08:06→16:46)
[2021-10-25] MEDS: METHOCARBAMOL 500 MG TABLET PO PRN (10:25)
[2021-10-25] MEDS: cloNIDine HCL 0.1 MG TABLET PO PRN (10:25)
[2021-10-25] MEDS: PRENATAL VITAMINS W/ FOLIC ACID TABLET (FP) PO SCH (10:25)
[2021-10-25] MEDS: NICOTINE 21 MG/24 HOURS TOPICAL PATCH TD SCH (10:26)
[2021-10-25] MEDS: amLODIPine BESYLATE 10 MG TABLET (FP) PO SCH (10:27)
[2021-10-25] MEDS: amLODIPine BESYLATE 5 MG TABLET (FP) PO SCH (10:47)
[2021-10-25 11:07] LABS: HEMATOCRIT 35.1 % (35.4-49); HEMOGLOBIN 11.2 GM/dL (11.7-16.9); MCH 29.6 pg (25.7-33.7); MCHC 32.1 g/dl (32.0-35.9); MEAN CELL VOLUME 92.3 fl (80-96); MEAN PLT VOLUME 8.4 fl (7.5-11.1); PLATELET COUNT 123 10^3/uL (134-434); RDW 16.8 % (11.9-15.9); WHITE BLOOD COUNT 2.4 K/mm3 (4.0-10.0)
[2021-10-25 11:27] LABS: CALCIUM 8.3 mg/dL (8.5-10.1)
[2021-10-25 11:28] LABS: ALBUMIN 2.6 g/dl (3.4-5.0); BLOOD UREA NITROGEN 16.3 mg/dL (7-18)
[2021-10-25 11:31] LABS: CREATININE 1.1 mg/dL (0.55-1.3)
[2021-10-25 11:33] LABS: BILIRUBIN,TOTAL 0.5 mg/dL (0.2-1); TOT PROT 6.7 g/dl (6.4-8.2)
[2021-10-25] MEDS: THIAMINE HCL 100 MG TABLET (FP) PO SCH (22:36)
[2021-10-25] MEDS: QUEtiapine FUMARATE 50 MG TABLET PO SCH (22:36)
[2021-10-25] MEDS: SUVOREXANT 10 MG TABLET PO PRN (22:37)
[2021-10-26] MEDS ORDERED: LORazepam 0.5 MG TABLET PO PRN
[2021-10-26] MEDS: LORazepam 0.5 MG TABLET PO SCH ×4 (05:51→22:33)
[2021-10-26] MEDS: LIPASE/PROTEASE/AMYLASE 6,000 UNIT CAPSULE PO SCH ×3 (07:23→17:02)
[2021-10-26] MEDS: cloNIDine HCL 0.1 MG TABLET PO PRN (10:38)
[2021-10-26] MEDS: NICOTINE 21 MG/24 HOURS TOPICAL PATCH TD SCH (10:39)
[2021-10-26] MEDS: PRENATAL VITAMINS W/ FOLIC ACID TABLET (FP) PO SCH (10:39)
[2021-10-26] MEDS: METHOCARBAMOL 500 MG TABLET PO PRN ×2 (10:39→22:34)
[2021-10-26] MEDS: amLODIPine BESYLATE 10 MG TABLET (FP) PO SCH (10:39)
[2021-10-26] MEDS: QUEtiapine FUMARATE 50 MG TABLET PO SCH (22:32)
[2021-10-26] MEDS: SUVOREXANT 10 MG TABLET PO PRN (22:35)
[2021-10-26] MEDS: THIAMINE HCL 100 MG TABLET (FP) PO SCH (22:36)
[2021-10-27] MEDS ORDERED: LORazepam 0.5 MG TABLET PO ONE (05:00)
[2021-10-27] MEDS: LIPASE/PROTEASE/AMYLASE 6,000 UNIT CAPSULE PO SCH ×2 (07:46→10:42)
[2021-10-27 09:22] VITALS: BP 143/83; PULSE 101; RESP 16; TEMP 98.1
[2021-10-27] MEDS: PRENATAL VITAMINS W/ FOLIC ACID TABLET (FP) PO SCH (10:42)
[2021-10-27] MEDS: amLODIPine BESYLATE 10 MG TABLET (FP) PO SCH (10:42)
[2021-10-27] MEDS: NICOTINE 21 MG/24 HOURS TOPICAL PATCH TD SCH (10:42)
== END 2021-10-27 09:45 | disposition home or self-care (01) | DRG 897 ==
LOC: YASAS 19:42 → Y6N 21:47
PROVIDERS: ADMIT Allergy & Immunology; ATTEND Surgery
PROC: HZ2ZZZZ Detoxification Services for Substance Abuse Treatment (ICD-10-PCS; principal; 2021-10-23)
DX: F10.230 Alcohol dependence with withdrawal, uncomplicated (principal); F14.20 Cocaine dependence, uncomplicated; K86.0 Alcohol-induced chronic pancreatitis; F12.10 Cannabis abuse, uncomplicated; F17.210 Nicotine dependence, cigarettes, uncomplicated; F10.282 Alcohol dependence with alcohol-induced sleep disorder; I10 Essential (primary) hypertension; D72.810 Lymphocytopenia; Z86.11 Personal history of tuberculosis; Z87.19 Personal history of other diseases of the digestive system; Z91.013 Allergy to seafood; Z91.018 Allergy to other foods; Z88.8 Allergy status to other drugs, medicaments and biological substances
CPT/HCPCS: 36415; 71046-TC-FY; 80053; 85027; 86780; 87811; C9803-CS; U0003; U0005

== ENCOUNTER 2021-11-29 11:48 | Inpatient (IN) | payer OTHER ==
[2021-11-29 12:24] VITALS: BMI 28.9
[2021-11-29] MEDS ORDERED: LOPERAMIDE HCL 2 MG CAPSULE PO PRN (13:03)
[2021-11-29] MEDS ORDERED: BENZOCAINE/MENTHOL (CHLORASEPTIC ) LOZENGE MM PRN (13:03)
[2021-11-29] MEDS ORDERED: ONDANSETRON *ODT* 4 MG TABLET SL PRN (13:03)
[2021-11-29] MEDS ORDERED: DICYCLOMINE HCL 10 MG CAPSULE PO PRN (13:03)
[2021-11-29] MEDS ORDERED: ACETAMINOPHEN 325 MG TABLET (FP) PO PRN ×2 (13:03)
[2021-11-29] MEDS ORDERED: NICOTINE 10 MG CARTRIDGE (INHALER) IH PRN (13:03)
[2021-11-29] MEDS ORDERED: MAGNESIUM HYDROX 2400MG/30ML ORAL SUSPENSION 30 ML CUP PO PRN (13:03)
[2021-11-29] MEDS ORDERED: LORazepam 1 MG TABLET PO PRN (13:03)
[2021-11-29] MEDS ORDERED: BISMUTH SUBSALICYLATE 262 MG/15 ML BTL PO PRN (13:03)
[2021-11-29] MEDS ORDERED: NALOXONE HCL (KLOXXADO) 8 MG SPRAY NS PRN (13:03)
[2021-11-29] MEDS ORDERED: IBUPROFEN 400 MG TABLET (FP) PO PRN (13:03)
[2021-11-29] MEDS ORDERED: IBUPROFEN 600 MG TABLET (FP) PO PRN (13:03)
[2021-11-29] MEDS ORDERED: MAGNESIUM CITRATE 300 ML BOTTLE PO PRN (13:03)
[2021-11-29] MEDS ORDERED: hydrOXYzine PAMOATE 25 MG CAPSULE (FP) PO SCH (14:00)
[2021-11-29] MEDS ORDERED: LIPASE/PROTEASE/AMYLASE 6,000 UNIT CAPSULE PO SCH (14:00)
[2021-11-29] MEDS: PRENATAL VITAMINS W/ FOLIC ACID TABLET (FP) PO SCH (14:08)
[2021-11-29] MEDS: NICOTINE 21 MG/24 HOURS TOPICAL PATCH TD SCH (14:08)
[2021-11-29] MEDS: LIPASE/PROTEASE/AMYLASE 6,000 UNIT CAPSULE PO SCH (16:52)
[2021-11-29] MEDS: LORazepam 2 MG TABLET PO SCH ×2 (16:52→22:00)
[2021-11-29] MEDS: QUEtiapine FUMARATE 50 MG TABLET PO SCH (21:58)
[2021-11-29] MEDS: THIAMINE HCL 100 MG TABLET (FP) PO SCH (21:58)
[2021-11-29] MEDS ORDERED: MELATONIN 5 MG TABLETS PO SCH (22:00)
[2021-11-29] MEDS: SUVOREXANT 10 MG TABLET PO PRN (22:00)
[2021-11-30] MEDS: LORazepam 2 MG TABLET PO SCH ×4 (05:22→22:02)
[2021-11-30] MEDS: LIPASE/PROTEASE/AMYLASE 6,000 UNIT CAPSULE PO SCH ×3 (07:57→17:03)
[2021-11-30] MEDS: NICOTINE 21 MG/24 HOURS TOPICAL PATCH TD SCH (10:15)
[2021-11-30] MEDS: PRENATAL VITAMINS W/ FOLIC ACID TABLET (FP) PO SCH (10:15)
[2021-11-30] MEDS: METHOCARBAMOL 500 MG TABLET PO PRN ×2 (10:16→22:05)
[2021-11-30 13:49] LABS: HEMOGLOBIN 11.4 GM/dL (11.7-16.9); MCH 29.6 pg (25.7-33.7); MCHC 31.8 g/dl (32.0-35.9); MEAN PLT VOLUME 8.3 fl (7.5-11.1); PLATELET COUNT 120 10^3/uL (134-434); RBC 3.87 M/mm3 (4.00-5.60); RDW 16.2 % (11.9-15.9); WHITE BLOOD COUNT 2.3 K/mm3 (4.0-10.0)
[2021-11-30 13:54] LABS: CALCIUM 8.4 mg/dL (8.5-10.1)
[2021-11-30 13:56] LABS: ALBUMIN 2.7 g/dl (3.4-5.0)
[2021-11-30 13:58] LABS: CREATININE 1.2 mg/dL (0.55-1.3)
[2021-11-30 14:00] LABS: BILIRUBIN,TOTAL 0.3 mg/dL (0.2-1); TOT PROT 6.8 g/dl (6.4-8.2)
[2021-11-30] MEDS: THIAMINE HCL 100 MG TABLET (FP) PO SCH (22:02)
[2021-11-30] MEDS: QUEtiapine FUMARATE 50 MG TABLET PO SCH (22:02)
[2021-11-30] MEDS: SUVOREXANT 10 MG TABLET PO PRN (22:03)
[2021-12-01] MEDS: LORazepam 1 MG TABLET PO SCH ×4 (05:46→22:01)
[2021-12-01] MEDS: LIPASE/PROTEASE/AMYLASE 6,000 UNIT CAPSULE PO SCH ×3 (07:26→16:57)
[2021-12-01] MEDS: NICOTINE 21 MG/24 HOURS TOPICAL PATCH TD SCH (10:15)
[2021-12-01] MEDS: PRENATAL VITAMINS W/ FOLIC ACID TABLET (FP) PO SCH (10:15)
[2021-12-01] MEDS: METHOCARBAMOL 500 MG TABLET PO PRN (17:34)
[2021-12-01] MEDS: SUVOREXANT 20 MG TABLET PO PRN (22:00)
[2021-12-01] MEDS: THIAMINE HCL 100 MG TABLET (FP) PO SCH (22:01)
[2021-12-01] MEDS: QUEtiapine FUMARATE 50 MG TABLET PO SCH (22:01)
[2021-12-02] MEDS ORDERED: LORazepam 0.5 MG TABLET PO PRN
[2021-12-02] MEDS: LORazepam 0.5 MG TABLET PO SCH ×4 (05:08→21:59)
[2021-12-02] MEDS: LIPASE/PROTEASE/AMYLASE 6,000 UNIT CAPSULE PO SCH ×3 (07:40→17:21)
[2021-12-02] MEDS: NICOTINE 21 MG/24 HOURS TOPICAL PATCH TD SCH (10:13)
[2021-12-02] MEDS: PRENATAL VITAMINS W/ FOLIC ACID TABLET (FP) PO SCH (10:14)
[2021-12-02] MEDS: MAG HYDROX/AL HYDROX/SIMETH 30 ML UNIT-DOSE CUP PO PRN (18:16)
[2021-12-02] MEDS: QUEtiapine FUMARATE 50 MG TABLET PO SCH (21:59)
[2021-12-02] MEDS: THIAMINE HCL 100 MG TABLET (FP) PO SCH (22:00)
[2021-12-02] MEDS: SUVOREXANT 20 MG TABLET PO PRN (22:00)
[2021-12-03] MEDS ORDERED: LORazepam 0.5 MG TABLET PO ONE (05:00)
[2021-12-03] MEDS: LIPASE/PROTEASE/AMYLASE 6,000 UNIT CAPSULE PO SCH ×3 (07:25→17:14)
[2021-12-03] MEDS: PRENATAL VITAMINS W/ FOLIC ACID TABLET (FP) PO SCH (10:00)
[2021-12-03] MEDS: NICOTINE 21 MG/24 HOURS TOPICAL PATCH TD SCH (10:01)
[2021-12-03] MEDS ORDERED: hydrOXYzine PAMOATE 25 MG CAPSULE (FP) PO ONE (18:39)
[2021-12-03] MEDS: SUVOREXANT 20 MG TABLET PO PRN (21:10)
[2021-12-03] MEDS: QUEtiapine FUMARATE 50 MG TABLET PO SCH (21:10)
[2021-12-03] MEDS: THIAMINE HCL 100 MG TABLET (FP) PO SCH (21:11)
[2021-12-04] MEDS: LIPASE/PROTEASE/AMYLASE 6,000 UNIT CAPSULE PO SCH ×3 (07:07→16:34)
[2021-12-04] MEDS: NICOTINE 21 MG/24 HOURS TOPICAL PATCH TD SCH (10:13)
[2021-12-04] MEDS: PRENATAL VITAMINS W/ FOLIC ACID TABLET (FP) PO SCH (10:13)
[2021-12-04] MEDS ORDERED: diphenhydrAMINE HCL 25 MG CAPSULE (FP) PO ONE (13:19)
[2021-12-04] MEDS ORDERED: COLLOIDAL OATMEAL 1 EACH PACKET TP PRN (14:26)
[2021-12-04] MEDS: MINERAL OIL/PETROLAT/WATER TOPICAL CREAM 113 GM JAR TP SCH (15:04)
[2021-12-04] MEDS: THIAMINE HCL 100 MG TABLET (FP) PO SCH (21:20)
[2021-12-04] MEDS: QUEtiapine FUMARATE 50 MG TABLET PO SCH (21:20)
[2021-12-04] MEDS: SUVOREXANT 20 MG TABLET PO PRN (21:21)
[2021-12-04] MEDS ORDERED: SUVOREXANT 10 MG TABLET PO PRN (22:00)
[2021-12-05] MEDS: LIPASE/PROTEASE/AMYLASE 6,000 UNIT CAPSULE PO SCH ×3 (07:42→16:43)
[2021-12-05] MEDS: NICOTINE 21 MG/24 HOURS TOPICAL PATCH TD SCH (09:49)
[2021-12-05] MEDS: PRENATAL VITAMINS W/ FOLIC ACID TABLET (FP) PO SCH (09:49)
[2021-12-05] MEDS: MINERAL OIL/PETROLAT/WATER TOPICAL CREAM 113 GM JAR TP SCH (14:28)
[2021-12-05] MEDS: hydrOXYzine PAMOATE 25 MG CAPSULE (FP) PO SCH (17:16)
[2021-12-05] MEDS: THIAMINE HCL 100 MG TABLET (FP) PO SCH (21:20)
[2021-12-05] MEDS: QUEtiapine FUMARATE 50 MG TABLET PO SCH (21:20)
[2021-12-06] MEDS: hydrOXYzine PAMOATE 25 MG CAPSULE (FP) PO SCH ×5 (00:30→23:56)
[2021-12-06] MEDS: LIPASE/PROTEASE/AMYLASE 6,000 UNIT CAPSULE PO SCH ×3 (07:05→16:35)
[2021-12-06] MEDS: PRENATAL VITAMINS W/ FOLIC ACID TABLET (FP) PO SCH (09:48)
[2021-12-06] MEDS: NICOTINE 21 MG/24 HOURS TOPICAL PATCH TD SCH (09:49)
[2021-12-06] MEDS: MINERAL OIL/PETROLAT/WATER TOPICAL CREAM 113 GM JAR TP SCH (15:34)
[2021-12-06] MEDS: THIAMINE HCL 100 MG TABLET (FP) PO SCH (21:17)
[2021-12-06] MEDS: QUEtiapine FUMARATE 100 MG TABLET (FP) PO SCH (21:17)
[2021-12-06] MEDS ORDERED: SUVOREXANT 20 MG TABLET PO PRN (22:00)
[2021-12-07] MEDS: hydrOXYzine PAMOATE 25 MG CAPSULE (FP) PO SCH ×3 (06:23→17:15)
[2021-12-07] MEDS: LIPASE/PROTEASE/AMYLASE 6,000 UNIT CAPSULE PO SCH ×3 (07:05→17:00)
[2021-12-07] MEDS: PRENATAL VITAMINS W/ FOLIC ACID TABLET (FP) PO SCH (09:23)
[2021-12-07] MEDS: NICOTINE 21 MG/24 HOURS TOPICAL PATCH TD SCH (09:23)
[2021-12-07] MEDS: MINERAL OIL/PETROLAT/WATER TOPICAL CREAM 113 GM JAR TP SCH (14:15)
[2021-12-07] MEDS: MAG HYDROX/AL HYDROX/SIMETH 30 ML UNIT-DOSE CUP PO PRN (15:34)
[2021-12-07] MEDS: QUEtiapine FUMARATE 100 MG TABLET (FP) PO SCH (21:08)
[2021-12-07] MEDS: THIAMINE HCL 100 MG TABLET (FP) PO SCH (21:08)
[2021-12-08] MEDS: hydrOXYzine PAMOATE 25 MG CAPSULE (FP) PO SCH ×5 (00:15→23:08)
[2021-12-08] MEDS: NICOTINE 21 MG/24 HOURS TOPICAL PATCH TD SCH (10:08)
[2021-12-08] MEDS: LIPASE/PROTEASE/AMYLASE 6,000 UNIT CAPSULE PO SCH ×3 (10:08→16:40)
[2021-12-08] MEDS: PRENATAL VITAMINS W/ FOLIC ACID TABLET (FP) PO SCH (10:08)
[2021-12-08] MEDS: MINERAL OIL/PETROLAT/WATER TOPICAL CREAM 113 GM JAR TP SCH (14:22)
[2021-12-08 17:10] LABS: HIV INTERPRETATION NEGATIVE (NEGATIVE)
[2021-12-08] MEDS: THIAMINE HCL 100 MG TABLET (FP) PO SCH (21:11)
[2021-12-08] MEDS: QUEtiapine FUMARATE 100 MG TABLET (FP) PO SCH (21:11)
[2021-12-08] MEDS: SUVOREXANT 20 MG TABLET PO PRN (21:12)
[2021-12-09] MEDS: hydrOXYzine PAMOATE 25 MG CAPSULE (FP) PO SCH ×4 (06:09→23:27)
[2021-12-09] MEDS: LIPASE/PROTEASE/AMYLASE 6,000 UNIT CAPSULE PO SCH ×3 (07:37→16:29)
[2021-12-09] MEDS: NICOTINE 21 MG/24 HOURS TOPICAL PATCH TD SCH (10:08)
[2021-12-09] MEDS: PRENATAL VITAMINS W/ FOLIC ACID TABLET (FP) PO SCH (10:08)
[2021-12-09] MEDS: MINERAL OIL/PETROLAT/WATER TOPICAL CREAM 113 GM JAR TP SCH (15:48)
[2021-12-09] MEDS: THIAMINE HCL 100 MG TABLET (FP) PO SCH (21:26)
[2021-12-09] MEDS: QUEtiapine FUMARATE 100 MG TABLET (FP) PO SCH (21:26)
[2021-12-09] MEDS: SUVOREXANT 20 MG TABLET PO PRN (21:26)
[2021-12-09] MEDS: MAG HYDROX/AL HYDROX/SIMETH 30 ML UNIT-DOSE CUP PO PRN (22:04)
[2021-12-10] MEDS: hydrOXYzine PAMOATE 25 MG CAPSULE (FP) PO SCH ×3 (06:01→17:16)
[2021-12-10] MEDS: LIPASE/PROTEASE/AMYLASE 6,000 UNIT CAPSULE PO SCH ×3 (07:03→17:17)
[2021-12-10] MEDS: MAG HYDROX/AL HYDROX/SIMETH 30 ML UNIT-DOSE CUP PO PRN (10:01)
[2021-12-10] MEDS: NICOTINE 21 MG/24 HOURS TOPICAL PATCH TD SCH (10:01)
[2021-12-10] MEDS: PRENATAL VITAMINS W/ FOLIC ACID TABLET (FP) PO SCH (10:01)
[2021-12-10] MEDS: MINERAL OIL/PETROLAT/WATER TOPICAL CREAM 113 GM JAR TP SCH (14:12)
[2021-12-10] MEDS: THIAMINE HCL 100 MG TABLET (FP) PO SCH (21:15)
[2021-12-10] MEDS: QUEtiapine FUMARATE 100 MG TABLET (FP) PO SCH (21:15)
[2021-12-10] MEDS: SUVOREXANT 20 MG TABLET PO PRN (21:17)
[2021-12-11] MEDS: hydrOXYzine PAMOATE 25 MG CAPSULE (FP) PO SCH ×4 (00:25→16:18)
[2021-12-11] MEDS: LIPASE/PROTEASE/AMYLASE 6,000 UNIT CAPSULE PO SCH ×3 (07:16→16:49)
[2021-12-11] MEDS: PRENATAL VITAMINS W/ FOLIC ACID TABLET (FP) PO SCH (09:40)
[2021-12-11] MEDS: NICOTINE 21 MG/24 HOURS TOPICAL PATCH TD SCH (09:40)
[2021-12-11] MEDS: MAG HYDROX/AL HYDROX/SIMETH 30 ML UNIT-DOSE CUP PO PRN (09:42)
[2021-12-11] MEDS: MINERAL OIL/PETROLAT/WATER TOPICAL CREAM 113 GM JAR TP SCH (14:16)
[2021-12-11] MEDS: QUEtiapine FUMARATE 100 MG TABLET (FP) PO SCH (21:19)
[2021-12-11] MEDS: THIAMINE HCL 100 MG TABLET (FP) PO SCH (21:19)
[2021-12-11] MEDS: SUVOREXANT 20 MG TABLET PO PRN (21:20)
[2021-12-12] MEDS: hydrOXYzine PAMOATE 25 MG CAPSULE (FP) PO SCH ×5 (00:05→23:49)
[2021-12-12] MEDS: LIPASE/PROTEASE/AMYLASE 6,000 UNIT CAPSULE PO SCH ×3 (07:24→17:25)
[2021-12-12] MEDS: PRENATAL VITAMINS W/ FOLIC ACID TABLET (FP) PO SCH (10:03)
[2021-12-12] MEDS: NICOTINE 21 MG/24 HOURS TOPICAL PATCH TD SCH (10:03)
[2021-12-12] MEDS: MINERAL OIL/PETROLAT/WATER TOPICAL CREAM 113 GM JAR TP SCH (14:30)
[2021-12-12] MEDS: MAG HYDROX/AL HYDROX/SIMETH 30 ML UNIT-DOSE CUP PO PRN (19:11)
[2021-12-12] MEDS: QUEtiapine FUMARATE 100 MG TABLET (FP) PO SCH (21:05)
[2021-12-12] MEDS: THIAMINE HCL 100 MG TABLET (FP) PO SCH (21:05)
[2021-12-12] MEDS: SUVOREXANT 20 MG TABLET PO PRN (21:06)
[2021-12-13] MEDS: hydrOXYzine PAMOATE 25 MG CAPSULE (FP) PO SCH ×4 (06:10→23:54)
[2021-12-13] MEDS: LIPASE/PROTEASE/AMYLASE 6,000 UNIT CAPSULE PO SCH ×3 (08:14→16:44)
[2021-12-13] MEDS: PRENATAL VITAMINS W/ FOLIC ACID TABLET (FP) PO SCH (09:41)
[2021-12-13] MEDS: NICOTINE 21 MG/24 HOURS TOPICAL PATCH TD SCH (09:41)
[2021-12-13] MEDS: MINERAL OIL/PETROLAT/WATER TOPICAL CREAM 113 GM JAR TP SCH (14:14)
[2021-12-13] MEDS: THIAMINE HCL 100 MG TABLET (FP) PO SCH (21:02)
[2021-12-13] MEDS: QUEtiapine FUMARATE 50 MG TABLET PO SCH (21:02)
[2021-12-13] MEDS: SUVOREXANT 20 MG TABLET PO PRN (21:03)
[2021-12-14] MEDS: hydrOXYzine PAMOATE 25 MG CAPSULE (FP) PO SCH ×4 (05:56→23:45)
[2021-12-14] MEDS: LIPASE/PROTEASE/AMYLASE 6,000 UNIT CAPSULE PO SCH ×3 (07:15→16:49)
[2021-12-14] MEDS: PRENATAL VITAMINS W/ FOLIC ACID TABLET (FP) PO SCH (10:43)
[2021-12-14] MEDS: NICOTINE 21 MG/24 HOURS TOPICAL PATCH TD SCH (10:43)
[2021-12-14] MEDS: MINERAL OIL/PETROLAT/WATER TOPICAL CREAM 113 GM JAR TP SCH (14:32)
[2021-12-14] MEDS: THIAMINE HCL 100 MG TABLET (FP) PO SCH (21:03)
[2021-12-14] MEDS: SUVOREXANT 20 MG TABLET PO PRN (21:03)
[2021-12-14] MEDS: QUEtiapine FUMARATE 50 MG TABLET PO SCH (21:04)
[2021-12-15] MEDS: hydrOXYzine PAMOATE 25 MG CAPSULE (FP) PO SCH ×4 (06:01→23:31)
[2021-12-15] MEDS: LIPASE/PROTEASE/AMYLASE 6,000 UNIT CAPSULE PO SCH ×3 (07:04→16:38)
[2021-12-15] MEDS: PRENATAL VITAMINS W/ FOLIC ACID TABLET (FP) PO SCH (09:39)
[2021-12-15] MEDS: NICOTINE 21 MG/24 HOURS TOPICAL PATCH TD SCH (09:39)
[2021-12-15] MEDS: MINERAL OIL/PETROLAT/WATER TOPICAL CREAM 113 GM JAR TP SCH (13:52)
[2021-12-15] MEDS: QUEtiapine FUMARATE 50 MG TABLET PO SCH (21:11)
[2021-12-15] MEDS: THIAMINE HCL 100 MG TABLET (FP) PO SCH (21:11)
[2021-12-15] MEDS: SUVOREXANT 20 MG TABLET PO PRN (21:11)
[2021-12-16] MEDS: hydrOXYzine PAMOATE 25 MG CAPSULE (FP) PO SCH ×3 (06:10→18:26)
[2021-12-16] MEDS: LIPASE/PROTEASE/AMYLASE 6,000 UNIT CAPSULE PO SCH ×3 (07:01→17:14)
[2021-12-16] MEDS: PRENATAL VITAMINS W/ FOLIC ACID TABLET (FP) PO SCH (09:34)
[2021-12-16] MEDS: NICOTINE 21 MG/24 HOURS TOPICAL PATCH TD SCH (09:34)
[2021-12-16] MEDS: MINERAL OIL/PETROLAT/WATER TOPICAL CREAM 113 GM JAR TP SCH (14:28)
[2021-12-16] MEDS: QUEtiapine FUMARATE 50 MG TABLET PO SCH (21:04)
[2021-12-16] MEDS: THIAMINE HCL 100 MG TABLET (FP) PO SCH (21:04)
[2021-12-16] MEDS: SUVOREXANT 20 MG TABLET PO PRN (21:05)
[2021-12-17] MEDS: LIPASE/PROTEASE/AMYLASE 6,000 UNIT CAPSULE PO SCH ×3 (07:27→16:43)
[2021-12-17] MEDS: hydrOXYzine PAMOATE 25 MG CAPSULE (FP) PO SCH ×5 (07:27→23:28)
[2021-12-17] MEDS: PRENATAL VITAMINS W/ FOLIC ACID TABLET (FP) PO SCH (09:52)
[2021-12-17] MEDS: NICOTINE 21 MG/24 HOURS TOPICAL PATCH TD SCH (09:53)
[2021-12-17] MEDS: MINERAL OIL/PETROLAT/WATER TOPICAL CREAM 113 GM JAR TP SCH (14:33)
[2021-12-17] MEDS: THIAMINE HCL 100 MG TABLET (FP) PO SCH (21:15)
[2021-12-17] MEDS: QUEtiapine FUMARATE 50 MG TABLET PO SCH (21:15)
[2021-12-17] MEDS: SUVOREXANT 20 MG TABLET PO PRN (21:16)
[2021-12-18] MEDS: hydrOXYzine PAMOATE 25 MG CAPSULE (FP) PO SCH ×4 (05:59→23:21)
[2021-12-18] MEDS: LIPASE/PROTEASE/AMYLASE 6,000 UNIT CAPSULE PO SCH ×3 (07:15→16:47)
[2021-12-18] MEDS: PRENATAL VITAMINS W/ FOLIC ACID TABLET (FP) PO SCH (10:10)
[2021-12-18] MEDS: NICOTINE 21 MG/24 HOURS TOPICAL PATCH TD SCH (10:11)
[2021-12-18] MEDS: MAG HYDROX/AL HYDROX/SIMETH 30 ML UNIT-DOSE CUP PO PRN (15:45)
[2021-12-18] MEDS: MINERAL OIL/PETROLAT/WATER TOPICAL CREAM 113 GM JAR TP SCH ×2 (15:45→15:56)
[2021-12-18] MEDS: QUEtiapine FUMARATE 50 MG TABLET PO SCH (21:00)
[2021-12-18] MEDS: SUVOREXANT 20 MG TABLET PO PRN (21:00)
[2021-12-18] MEDS: THIAMINE HCL 100 MG TABLET (FP) PO SCH (21:00)
[2021-12-19] MEDS: hydrOXYzine PAMOATE 25 MG CAPSULE (FP) PO SCH ×3 (05:54→17:17)
[2021-12-19] MEDS: LIPASE/PROTEASE/AMYLASE 6,000 UNIT CAPSULE PO SCH ×3 (07:05→17:16)
[2021-12-19] MEDS: NICOTINE 21 MG/24 HOURS TOPICAL PATCH TD SCH (09:37)
[2021-12-19] MEDS: PRENATAL VITAMINS W/ FOLIC ACID TABLET (FP) PO SCH (09:37)
[2021-12-19] MEDS: MINERAL OIL/PETROLAT/WATER TOPICAL CREAM 113 GM JAR TP SCH ×2 (13:30→19:53)
[2021-12-19] MEDS: SUVOREXANT 20 MG TABLET PO PRN (21:16)
[2021-12-19] MEDS: THIAMINE HCL 100 MG TABLET (FP) PO SCH (21:17)
[2021-12-19] MEDS: QUEtiapine FUMARATE 50 MG TABLET PO SCH (21:17)
[2021-12-20] MEDS: hydrOXYzine PAMOATE 25 MG CAPSULE (FP) PO SCH ×4 (00:48→17:00)
[2021-12-20] MEDS: LIPASE/PROTEASE/AMYLASE 6,000 UNIT CAPSULE PO SCH ×3 (07:00→16:58)
[2021-12-20] MEDS: NICOTINE 21 MG/24 HOURS TOPICAL PATCH TD SCH (09:32)
[2021-12-20] MEDS: PRENATAL VITAMINS W/ FOLIC ACID TABLET (FP) PO SCH (09:32)
[2021-12-20] MEDS: MINERAL OIL/PETROLAT/WATER TOPICAL CREAM 113 GM JAR TP SCH (14:20)
[2021-12-20] MEDS ORDERED: MELATONIN 5 MG TABLETS PO ONE (19:48)
[2021-12-20] MEDS: THIAMINE HCL 100 MG TABLET (FP) PO SCH (21:00)
[2021-12-20] MEDS: QUEtiapine FUMARATE 50 MG TABLET PO SCH (21:00)
[2021-12-21] MEDS: hydrOXYzine PAMOATE 25 MG CAPSULE (FP) PO SCH ×4 (00:53→17:12)
[2021-12-21 06:40] VITALS: RESP 18
[2021-12-21] MEDS: LIPASE/PROTEASE/AMYLASE 6,000 UNIT CAPSULE PO SCH ×3 (07:10→16:47)
[2021-12-21] MEDS: NICOTINE 21 MG/24 HOURS TOPICAL PATCH TD SCH (10:18)
[2021-12-21] MEDS: PRENATAL VITAMINS W/ FOLIC ACID TABLET (FP) PO SCH (10:18)
[2021-12-21] MEDS: MINERAL OIL/PETROLAT/WATER TOPICAL CREAM 113 GM JAR TP SCH (14:55)
[2021-12-21] MEDS: THIAMINE HCL 100 MG TABLET (FP) PO SCH (21:02)
[2021-12-21] MEDS: QUEtiapine FUMARATE 50 MG TABLET PO SCH (21:02)
[2021-12-21] MEDS: SUVOREXANT 20 MG TABLET PO PRN (21:03)
[2021-12-22] MEDS: hydrOXYzine PAMOATE 25 MG CAPSULE (FP) PO SCH ×5 (00:15→23:30)
[2021-12-22] MEDS: LIPASE/PROTEASE/AMYLASE 6,000 UNIT CAPSULE PO SCH ×3 (07:37→16:54)
[2021-12-22] MEDS: NICOTINE 21 MG/24 HOURS TOPICAL PATCH TD SCH (09:39)
[2021-12-22] MEDS: PRENATAL VITAMINS W/ FOLIC ACID TABLET (FP) PO SCH (09:39)
[2021-12-22] MEDS: MINERAL OIL/PETROLAT/WATER TOPICAL CREAM 113 GM JAR TP SCH (15:30)
[2021-12-22] MEDS: SUVOREXANT 20 MG TABLET PO PRN (21:04)
[2021-12-22] MEDS: QUEtiapine FUMARATE 50 MG TABLET PO SCH (21:04)
[2021-12-22] MEDS: THIAMINE HCL 100 MG TABLET (FP) PO SCH (21:04)
[2021-12-23] MEDS: hydrOXYzine PAMOATE 25 MG CAPSULE (FP) PO SCH ×4 (05:55→23:07)
[2021-12-23] MEDS: LIPASE/PROTEASE/AMYLASE 6,000 UNIT CAPSULE PO SCH ×3 (07:16→16:31)
[2021-12-23] MEDS: PRENATAL VITAMINS W/ FOLIC ACID TABLET (FP) PO SCH (10:17)
[2021-12-23] MEDS: MAG HYDROX/AL HYDROX/SIMETH 30 ML UNIT-DOSE CUP PO PRN (10:18)
[2021-12-23] MEDS: NICOTINE 21 MG/24 HOURS TOPICAL PATCH TD SCH (10:18)
[2021-12-23] MEDS: MINERAL OIL/PETROLAT/WATER TOPICAL CREAM 113 GM JAR TP SCH (13:41)
[2021-12-23] MEDS: QUEtiapine FUMARATE 50 MG TABLET PO SCH (21:02)
[2021-12-23] MEDS: THIAMINE HCL 100 MG TABLET (FP) PO SCH (21:02)
[2021-12-23] MEDS: SUVOREXANT 20 MG TABLET PO PRN (21:02)
[2021-12-24] MEDS: hydrOXYzine PAMOATE 25 MG CAPSULE (FP) PO SCH ×3 (06:04→17:20)
[2021-12-24] MEDS: LIPASE/PROTEASE/AMYLASE 6,000 UNIT CAPSULE PO SCH ×3 (07:43→17:21)
[2021-12-24] MEDS: NICOTINE 21 MG/24 HOURS TOPICAL PATCH TD SCH (09:52)
[2021-12-24] MEDS: PRENATAL VITAMINS W/ FOLIC ACID TABLET (FP) PO SCH (09:52)
[2021-12-24] MEDS: MAG HYDROX/AL HYDROX/SIMETH 30 ML UNIT-DOSE CUP PO PRN (11:52)
[2021-12-24] MEDS: MINERAL OIL/PETROLAT/WATER TOPICAL CREAM 113 GM JAR TP SCH (16:19)
[2021-12-24] MEDS: THIAMINE HCL 100 MG TABLET (FP) PO SCH (21:08)
[2021-12-24] MEDS: QUEtiapine FUMARATE 50 MG TABLET PO SCH (21:08)
[2021-12-24] MEDS: SUVOREXANT 20 MG TABLET PO PRN (21:10)
[2021-12-25] MEDS: hydrOXYzine PAMOATE 25 MG CAPSULE (FP) PO SCH ×4 (00:15→17:36)
[2021-12-25] MEDS: LIPASE/PROTEASE/AMYLASE 6,000 UNIT CAPSULE PO SCH ×3 (07:39→16:31)
[2021-12-25] MEDS: NICOTINE 21 MG/24 HOURS TOPICAL PATCH TD SCH (10:31)
[2021-12-25] MEDS: PRENATAL VITAMINS W/ FOLIC ACID TABLET (FP) PO SCH (10:31)
[2021-12-25] MEDS: MINERAL OIL/PETROLAT/WATER TOPICAL CREAM 113 GM JAR TP SCH (13:32)
[2021-12-25] MEDS: QUEtiapine FUMARATE 50 MG TABLET PO SCH (21:08)
[2021-12-25] MEDS: THIAMINE HCL 100 MG TABLET (FP) PO SCH (21:09)
[2021-12-25] MEDS: SUVOREXANT 20 MG TABLET PO PRN (21:10)
[2021-12-26] MEDS: hydrOXYzine PAMOATE 25 MG CAPSULE (FP) PO SCH ×2 (00:14→06:09)
[2021-12-26] MEDS: LIPASE/PROTEASE/AMYLASE 6,000 UNIT CAPSULE PO SCH (07:08)
[2021-12-26 08:38] VITALS: BP 127/68; PULSE 92; TEMP 98
== END 2021-12-26 08:10 | disposition home or self-care (01) | DRG 895 ==
LOC: YASAS 11:48 → Y3N 12:47 → Y3W 12-03 13:13
PROVIDERS: ADMIT Allergy & Immunology; ATTEND Surgery
PROC: HZ2ZZZZ Detoxification Services for Substance Abuse Treatment (ICD-10-PCS; 2021-11-29)
PROC: HZ42ZZZ Group Counseling for Substance Abuse Treatment, Cognitive-Behavioral (ICD-10-PCS; principal; 2021-12-03)
DX: F10.20 Alcohol dependence, uncomplicated (principal); F12.10 Cannabis abuse, uncomplicated; F17.210 Nicotine dependence, cigarettes, uncomplicated; F32.A Depression, unspecified; D72.810 Lymphocytopenia; I10 Essential (primary) hypertension; K21.9 Gastro-esophageal reflux disease without esophagitis; L29.9 Pruritus, unspecified; R76.11 Nonspecific reaction to tuberculin skin test without active tuberculosis; Z87.19 Personal history of other diseases of the digestive system
CPT/HCPCS: 36415; 80053; 85027; 86780; 87389; C9803-CS; U0003; U0005

== ENCOUNTER 2022-03-31 10:31 | Inpatient (IN) | payer OTHER ==
[2022-03-31 11:30] VITALS: BMI 30.4
[2022-03-31] MEDS ORDERED: IBUPROFEN 600 MG TABLET (FP) PO PRN (12:46)
[2022-03-31] MEDS ORDERED: MAG HYDROX/AL HYDROX/SIMETH 30 ML UNIT-DOSE CUP PO PRN (12:46)
[2022-03-31] MEDS ORDERED: BISMUTH SUBSALICYLATE 524 MG/30 ML PO PRN (12:46)
[2022-03-31] MEDS ORDERED: ONDANSETRON *ODT* 4 MG TABLET SL PRN (12:46)
[2022-03-31] MEDS ORDERED: DICYCLOMINE HCL 10 MG CAPSULE PO PRN (12:46)
[2022-03-31] MEDS ORDERED: LOPERAMIDE HCL 2 MG CAPSULE PO PRN (12:46)
[2022-03-31] MEDS ORDERED: ACETAMINOPHEN 325 MG TABLET (FP) PO PRN ×2 (12:46)
[2022-03-31] MEDS ORDERED: NALOXONE HCL (KLOXXADO) 8 MG SPRAY NS PRN (12:46)
[2022-03-31] MEDS ORDERED: NICOTINE 10 MG CARTRIDGE (INHALER) IH PRN (12:46)
[2022-03-31] MEDS ORDERED: IBUPROFEN 400 MG TABLET (FP) PO PRN (12:46)
[2022-03-31] MEDS ORDERED: POLYETHYLENE GLYCOL (HEALTHYLAX) 3350 17 GM PACKET PO PRN (12:46)
[2022-03-31] MEDS ORDERED: MAGNESIUM HYDROX 2400MG/30ML ORAL SUSPENSION 30 ML CUP PO PRN (12:46)
[2022-03-31] MEDS ORDERED: BENZOCAINE/MENTHOL (CHLORASEPTIC ) LOZENGE MM PRN (12:46)
[2022-03-31] MEDS ORDERED: NALOXONE HCL 0.4 MG/ML VIAL IM PRN (12:46)
[2022-03-31] MEDS: LORazepam 1 MG TABLET PO SCH ×2 (16:41→22:12)
[2022-03-31] MEDS: LIPASE/PROTEASE/AMYLASE 6,000 UNIT CAPSULE PO SCH (17:43)
[2022-03-31 18:59] LABS: HEMATOCRIT 34.9 % (35.4-49); HEMOGLOBIN 11.6 GM/dL (11.7-16.9); MCH 30.7 pg (25.7-33.7); MCHC 33.2 g/dl (32.0-35.9); MEAN CELL VOLUME 92.5 fl (80-96); MEAN PLT VOLUME 8.6 fl (7.5-11.1); PLATELET COUNT 127 10^3/uL (134-434); RBC 3.78 M/mm3 (4.00-5.60); RDW 16.8 % (11.9-15.9); WHITE BLOOD COUNT 5.6 K/mm3 (4.0-10.0)
[2022-03-31 19:29] LABS: BLOOD UREA NITROGEN 31.1 mg/dL (7-18); CALCIUM 9.1 mg/dL (8.5-10.1)
[2022-03-31 19:30] LABS: ALBUMIN 3.3 g/dl (3.4-5.0)
[2022-03-31 19:33] LABS: CREATININE 1.9 mg/dL (0.55-1.3)
[2022-03-31 19:34] LABS: BILIRUBIN,TOTAL 0.9 mg/dL (0.2-1); TOT PROT 7.8 g/dl (6.4-8.2)
[2022-03-31] MEDS ORDERED: MELATONIN 5 MG TABLETS PO SCH (22:00)
[2022-03-31] MEDS: THIAMINE HCL 100 MG TABLET (FP) PO SCH (22:12)
[2022-03-31] MEDS: hydrOXYzine PAMOATE 25 MG CAPSULE (FP) PO PRN (22:13)
[2022-03-31] MEDS: SUVOREXANT 10 MG TABLET PO PRN (22:15)
[2022-04-01] MEDS: LORazepam 1 MG TABLET PO SCH ×4 (05:54→22:48)
[2022-04-01] MEDS: LIPASE/PROTEASE/AMYLASE 6,000 UNIT CAPSULE PO SCH ×3 (06:07→18:01)
[2022-04-01] MEDS: PRENATAL VITAMINS W/ FOLIC ACID TABLET (FP) PO SCH (10:08)
[2022-04-01] MEDS: NICOTINE 21 MG/24 HOURS TOPICAL PATCH TD SCH (10:08)
[2022-04-01] MEDS: THIAMINE HCL 100 MG TABLET (FP) PO SCH (22:48)
[2022-04-02] MEDS: LORazepam 1 MG TABLET PO SCH ×4 (05:49→22:05)
[2022-04-02] MEDS: LIPASE/PROTEASE/AMYLASE 6,000 UNIT CAPSULE PO SCH ×3 (06:29→17:14)
[2022-04-02] MEDS: PRENATAL VITAMINS W/ FOLIC ACID TABLET (FP) PO SCH (10:16)
[2022-04-02] MEDS: NICOTINE 21 MG/24 HOURS TOPICAL PATCH TD SCH (10:16)
[2022-04-02] MEDS: SUVOREXANT 10 MG TABLET PO PRN (22:02)
[2022-04-02] MEDS: THIAMINE HCL 100 MG TABLET (FP) PO SCH (22:03)
[2022-04-03] MEDS: LORazepam 0.5 MG TABLET PO SCH ×4 (05:45→22:02)
[2022-04-03] MEDS: LIPASE/PROTEASE/AMYLASE 6,000 UNIT CAPSULE PO SCH ×3 (06:21→17:02)
[2022-04-03] MEDS: PRENATAL VITAMINS W/ FOLIC ACID TABLET (FP) PO SCH (10:13)
[2022-04-03] MEDS: NICOTINE 21 MG/24 HOURS TOPICAL PATCH TD SCH (10:14)
[2022-04-03 12:44] LABS: BLOOD UREA NITROGEN 15.3 mg/dL (7-18)
[2022-04-03 12:47] LABS: CREATININE 1.2 mg/dL (0.55-1.3)
[2022-04-03 17:23] VITALS: RESP 18
[2022-04-03] MEDS: hydrOXYzine PAMOATE 25 MG CAPSULE (FP) PO PRN ×2 (20:56→22:41)
[2022-04-03] MEDS: THIAMINE HCL 100 MG TABLET (FP) PO SCH (20:59)
[2022-04-04] MEDS ORDERED: LORazepam 0.5 MG TABLET PO ONE (05:00)
[2022-04-04] MEDS: LIPASE/PROTEASE/AMYLASE 6,000 UNIT CAPSULE PO SCH ×2 (06:23→11:01)
[2022-04-04 06:27] VITALS: TEMP 97.3
[2022-04-04 07:22] VITALS: BP 129/73; PULSE 91
[2022-04-04] MEDS: NICOTINE 21 MG/24 HOURS TOPICAL PATCH TD SCH (10:05)
[2022-04-04] MEDS: PRENATAL VITAMINS W/ FOLIC ACID TABLET (FP) PO SCH (10:06)
== END 2022-04-04 11:46 | disposition other institution (70) | DRG 897 ==
LOC: YASAS 10:31 → Y3N 13:38
PROVIDERS: ADMIT Allergy & Immunology; ATTEND Surgery
PROC: HZ2ZZZZ Detoxification Services for Substance Abuse Treatment (ICD-10-PCS; principal; 2022-03-31)
DX: F10.230 Alcohol dependence with withdrawal, uncomplicated (principal); F14.20 Cocaine dependence, uncomplicated; F17.210 Nicotine dependence, cigarettes, uncomplicated; G47.00 Insomnia, unspecified; I10 Essential (primary) hypertension; R79.89 Other specified abnormal findings of blood chemistry; Z87.19 Personal history of other diseases of the digestive system; Z91.013 Allergy to seafood; Z91.018 Allergy to other foods
CPT/HCPCS: 36415; 80053; 82140; 82565; 84520; 85027; 86780; 87811; C9803-CS; U0003; U0005

== ENCOUNTER 2022-05-04 12:31 | Inpatient (IN) | payer OTHER ==
[2022-05-04 14:09] VITALS: BMI 28.3
[2022-05-04] MEDS ORDERED: IBUPROFEN 600 MG TABLET (FP) PO PRN (14:39)
[2022-05-04] MEDS ORDERED: NICOTINE 10 MG CARTRIDGE (INHALER) IH PRN (14:39)
[2022-05-04] MEDS ORDERED: ONDANSETRON *ODT* 4 MG TABLET SL PRN (14:39)
[2022-05-04] MEDS ORDERED: NALOXONE HCL 0.4 MG/ML VIAL IM PRN (14:39)
[2022-05-04] MEDS ORDERED: DICYCLOMINE HCL 10 MG CAPSULE PO PRN (14:39)
[2022-05-04] MEDS ORDERED: LORazepam 1 MG TABLET PO PRN (14:39)
[2022-05-04] MEDS ORDERED: BENZOCAINE/MENTHOL (CHLORASEPTIC ) LOZENGE MM PRN (14:39)
[2022-05-04] MEDS ORDERED: guaiFENesin 600 MG TABLET.ER (FP) PO PRN (14:39)
[2022-05-04] MEDS ORDERED: MAGNESIUM HYDROX 2400MG/30ML ORAL SUSPENSION 30 ML CUP PO PRN (14:39)
[2022-05-04] MEDS ORDERED: IBUPROFEN 400 MG TABLET (FP) PO PRN (14:39)
[2022-05-04] MEDS ORDERED: NALOXONE HCL (KLOXXADO) 8 MG SPRAY NS PRN (14:39)
[2022-05-04] MEDS ORDERED: POLYETHYLENE GLYCOL (HEALTHYLAX) 3350 17 GM PACKET PO PRN (14:39)
[2022-05-04] MEDS ORDERED: BENZONATATE 200 MG CAPSULE PO PRN (14:39)
[2022-05-04] MEDS ORDERED: LOPERAMIDE HCL 2 MG CAPSULE PO PRN (14:39)
[2022-05-04] MEDS ORDERED: BISMUTH SUBSALICYLATE 524 MG/30 ML PO PRN (14:39)
[2022-05-04] MEDS ORDERED: ACETAMINOPHEN 325 MG TABLET (FP) PO PRN (14:39)
[2022-05-04] MEDS: PRENATAL VITAMINS W/ FOLIC ACID TABLET (FP) PO SCH (16:06)
[2022-05-04] MEDS: NICOTINE 21 MG/24 HOURS TOPICAL PATCH TD SCH (16:06)
[2022-05-04] MEDS: LIPASE/PROTEASE/AMYLASE 6,000 UNIT CAPSULE PO SCH (18:17)
[2022-05-04] MEDS: LORazepam 2 MG TABLET PO SCH ×2 (18:17→23:22)
[2022-05-04] MEDS: THIAMINE HCL 100 MG TABLET (FP) PO SCH (23:22)
[2022-05-04] MEDS: MELATONIN 5 MG TABLETS PO SCH (23:22)
[2022-05-05] MEDS: LORazepam 2 MG TABLET PO SCH ×4 (05:36→22:14)
[2022-05-05] MEDS: LIPASE/PROTEASE/AMYLASE 6,000 UNIT CAPSULE PO SCH ×3 (07:16→17:27)
[2022-05-05] MEDS: NICOTINE 21 MG/24 HOURS TOPICAL PATCH TD SCH (10:15)
[2022-05-05] MEDS: PRENATAL VITAMINS W/ FOLIC ACID TABLET (FP) PO SCH (10:16)
[2022-05-05 10:52] LABS: HEMATOCRIT 33.1 % (35.4-49); HEMOGLOBIN 10.8 GM/dL (11.7-16.9); MCH 30.8 pg (25.7-33.7); MCHC 32.7 g/dl (32.0-35.9); MEAN CELL VOLUME 94.2 fl (80-96); MEAN PLT VOLUME 8.6 fl (7.5-11.1); PLATELET COUNT 122 10^3/uL (134-434); RBC 3.51 M/mm3 (4.00-5.60); RDW 16.2 % (11.9-15.9); WHITE BLOOD COUNT 2.8 K/mm3 (4.0-10.0)
[2022-05-05 11:08] LABS: CALCIUM 8.1 mg/dL (8.5-10.1)
[2022-05-05 11:09] LABS: ALBUMIN 2.6 g/dl (3.4-5.0); BLOOD UREA NITROGEN 27.7 mg/dL (7-18)
[2022-05-05 11:12] LABS: CREATININE 1.4 mg/dL (0.55-1.3)
[2022-05-05 11:14] LABS: TOT PROT 6.5 g/dl (6.4-8.2)
[2022-05-05] MEDS: MELATONIN 5 MG TABLETS PO SCH (22:14)
[2022-05-05] MEDS: QUEtiapine FUMARATE 50 MG TABLET PO SCH (22:14)
[2022-05-05] MEDS: THIAMINE HCL 100 MG TABLET (FP) PO SCH (22:14)
[2022-05-06] MEDS: LORazepam 1 MG TABLET PO SCH ×4 (05:02→21:59)
[2022-05-06] MEDS: LIPASE/PROTEASE/AMYLASE 6,000 UNIT CAPSULE PO SCH ×3 (07:19→17:17)
[2022-05-06] MEDS: NICOTINE 21 MG/24 HOURS TOPICAL PATCH TD SCH (10:11)
[2022-05-06] MEDS: PRENATAL VITAMINS W/ FOLIC ACID TABLET (FP) PO SCH (10:11)
[2022-05-06 10:52] LABS: CREATININE 1.2 mg/dL (0.55-1.3)
[2022-05-06] MEDS: QUEtiapine FUMARATE 50 MG TABLET PO SCH (21:58)
[2022-05-06] MEDS: THIAMINE HCL 100 MG TABLET (FP) PO SCH (21:58)
[2022-05-06] MEDS: MELATONIN 5 MG TABLETS PO SCH (21:58)
[2022-05-07] MEDS ORDERED: LORazepam 0.5 MG TABLET PO PRN
[2022-05-07] MEDS: LORazepam 0.5 MG TABLET PO SCH ×4 (05:17→22:02)
[2022-05-07] MEDS: LIPASE/PROTEASE/AMYLASE 6,000 UNIT CAPSULE PO SCH ×3 (07:05→16:39)
[2022-05-07] MEDS: NICOTINE 21 MG/24 HOURS TOPICAL PATCH TD SCH (10:09)
[2022-05-07] MEDS: PRENATAL VITAMINS W/ FOLIC ACID TABLET (FP) PO SCH (10:09)
[2022-05-07] MEDS: THIAMINE HCL 100 MG TABLET (FP) PO SCH (22:02)
[2022-05-07] MEDS: QUEtiapine FUMARATE 50 MG TABLET PO SCH (22:02)
[2022-05-07] MEDS: SUVOREXANT 10 MG TABLET PO PRN (22:03)
[2022-05-08] MEDS ORDERED: LORazepam 0.5 MG TABLET PO ONE (05:00)
[2022-05-08] MEDS: PRENATAL VITAMINS W/ FOLIC ACID TABLET (FP) PO SCH (10:22)
[2022-05-08] MEDS: NICOTINE 21 MG/24 HOURS TOPICAL PATCH TD SCH (10:22)
[2022-05-08] MEDS: LIPASE/PROTEASE/AMYLASE 6,000 UNIT CAPSULE PO SCH ×3 (11:25→21:05)
[2022-05-08] MEDS: THIAMINE HCL 100 MG TABLET (FP) PO SCH (21:06)
[2022-05-08] MEDS: METHOCARBAMOL 500 MG TABLET PO PRN (21:06)
[2022-05-08] MEDS: hydrOXYzine PAMOATE 25 MG CAPSULE (FP) PO PRN (21:07)
[2022-05-08] MEDS: QUEtiapine FUMARATE 50 MG TABLET PO SCH (21:07)
[2022-05-08] MEDS: SUVOREXANT 10 MG TABLET PO PRN (21:08)
[2022-05-09] MEDS ORDERED: LORazepam 0.5 MG TABLET PO ONE (06:00)
[2022-05-09] MEDS: LIPASE/PROTEASE/AMYLASE 6,000 UNIT CAPSULE PO SCH ×3 (07:14→17:23)
[2022-05-09] MEDS: NICOTINE 21 MG/24 HOURS TOPICAL PATCH TD SCH (09:52)
[2022-05-09] MEDS: PRENATAL VITAMINS W/ FOLIC ACID TABLET (FP) PO SCH (09:52)
[2022-05-09] MEDS: QUEtiapine FUMARATE 50 MG TABLET PO SCH (21:18)
[2022-05-09] MEDS: METHOCARBAMOL 500 MG TABLET PO PRN (21:18)
[2022-05-09] MEDS: hydrOXYzine PAMOATE 25 MG CAPSULE (FP) PO PRN (21:18)
[2022-05-09] MEDS: THIAMINE HCL 100 MG TABLET (FP) PO SCH (21:18)
[2022-05-10] MEDS: LIPASE/PROTEASE/AMYLASE 6,000 UNIT CAPSULE PO SCH ×3 (07:14→16:37)
[2022-05-10] MEDS: NICOTINE 21 MG/24 HOURS TOPICAL PATCH TD SCH (10:04)
[2022-05-10] MEDS: PRENATAL VITAMINS W/ FOLIC ACID TABLET (FP) PO SCH (10:05)
[2022-05-10] MEDS: SUVOREXANT 15 MG TABLET PO PRN (21:09)
[2022-05-10] MEDS: THIAMINE HCL 100 MG TABLET (FP) PO SCH (21:09)
[2022-05-10] MEDS: QUEtiapine FUMARATE 50 MG TABLET PO SCH (21:09)
[2022-05-11] MEDS: LIPASE/PROTEASE/AMYLASE 6,000 UNIT CAPSULE PO SCH ×3 (07:10→16:39)
[2022-05-11] MEDS: NICOTINE 21 MG/24 HOURS TOPICAL PATCH TD SCH (09:58)
[2022-05-11] MEDS: PRENATAL VITAMINS W/ FOLIC ACID TABLET (FP) PO SCH (09:58)
[2022-05-11] MEDS: THIAMINE HCL 100 MG TABLET (FP) PO SCH (21:13)
[2022-05-11] MEDS: hydrOXYzine PAMOATE 25 MG CAPSULE (FP) PO PRN (21:13)
[2022-05-11] MEDS: QUEtiapine FUMARATE 50 MG TABLET PO SCH (21:13)
[2022-05-11] MEDS: SUVOREXANT 15 MG TABLET PO PRN (21:14)
[2022-05-12] MEDS: LIPASE/PROTEASE/AMYLASE 6,000 UNIT CAPSULE PO SCH ×3 (07:02→16:37)
[2022-05-12] MEDS: NICOTINE 21 MG/24 HOURS TOPICAL PATCH TD SCH (09:52)
[2022-05-12] MEDS: PRENATAL VITAMINS W/ FOLIC ACID TABLET (FP) PO SCH (09:52)
[2022-05-12] MEDS: THIAMINE HCL 100 MG TABLET (FP) PO SCH (21:02)
[2022-05-12] MEDS: SUVOREXANT 15 MG TABLET PO PRN (21:03)
[2022-05-12] MEDS: QUEtiapine FUMARATE 100 MG TABLET (FP) PO SCH (21:03)
[2022-05-12] MEDS: hydrOXYzine PAMOATE 25 MG CAPSULE (FP) PO PRN (21:03)
[2022-05-13] MEDS: LIPASE/PROTEASE/AMYLASE 6,000 UNIT CAPSULE PO SCH ×3 (07:07→16:53)
[2022-05-13] MEDS: PRENATAL VITAMINS W/ FOLIC ACID TABLET (FP) PO SCH (09:21)
[2022-05-13] MEDS: NICOTINE 21 MG/24 HOURS TOPICAL PATCH TD SCH (09:21)
[2022-05-13] MEDS: QUEtiapine FUMARATE 100 MG TABLET (FP) PO SCH (21:07)
[2022-05-13] MEDS: THIAMINE HCL 100 MG TABLET (FP) PO SCH (21:07)
[2022-05-13] MEDS: hydrOXYzine PAMOATE 25 MG CAPSULE (FP) PO PRN (21:07)
[2022-05-13] MEDS: SUVOREXANT 15 MG TABLET PO PRN (21:09)
[2022-05-14] MEDS: LIPASE/PROTEASE/AMYLASE 6,000 UNIT CAPSULE PO SCH ×3 (07:10→17:10)
[2022-05-14] MEDS: PRENATAL VITAMINS W/ FOLIC ACID TABLET (FP) PO SCH (09:39)
[2022-05-14] MEDS: NICOTINE 21 MG/24 HOURS TOPICAL PATCH TD SCH (09:39)
[2022-05-14] MEDS: QUEtiapine FUMARATE 100 MG TABLET (FP) PO SCH (21:00)
[2022-05-14] MEDS: THIAMINE HCL 100 MG TABLET (FP) PO SCH (21:00)
[2022-05-14] MEDS: hydrOXYzine PAMOATE 25 MG CAPSULE (FP) PO PRN (21:00)
[2022-05-14] MEDS: SUVOREXANT 15 MG TABLET PO PRN (21:02)
[2022-05-15] MEDS: LIPASE/PROTEASE/AMYLASE 6,000 UNIT CAPSULE PO SCH ×3 (07:17→16:38)
[2022-05-15] MEDS: PRENATAL VITAMINS W/ FOLIC ACID TABLET (FP) PO SCH (09:46)
[2022-05-15] MEDS: NICOTINE 21 MG/24 HOURS TOPICAL PATCH TD SCH (09:46)
[2022-05-15] MEDS: MAG HYDROX/AL HYDROX/SIMETH 30 ML UNIT-DOSE CUP PO PRN (18:43)
[2022-05-15] MEDS: THIAMINE HCL 100 MG TABLET (FP) PO SCH (21:03)
[2022-05-15] MEDS: hydrOXYzine PAMOATE 25 MG CAPSULE (FP) PO PRN (21:03)
[2022-05-15] MEDS: QUEtiapine FUMARATE 100 MG TABLET (FP) PO SCH (21:03)
[2022-05-15] MEDS: SUVOREXANT 15 MG TABLET PO PRN (21:03)
[2022-05-16] MEDS: LIPASE/PROTEASE/AMYLASE 6,000 UNIT CAPSULE PO SCH ×3 (07:19→17:14)
[2022-05-16] MEDS: NICOTINE 21 MG/24 HOURS TOPICAL PATCH TD SCH (09:46)
[2022-05-16] MEDS: PRENATAL VITAMINS W/ FOLIC ACID TABLET (FP) PO SCH (09:46)
[2022-05-16] MEDS: THIAMINE HCL 100 MG TABLET (FP) PO SCH (21:06)
[2022-05-16] MEDS: QUEtiapine FUMARATE 100 MG TABLET (FP) PO SCH (21:06)
[2022-05-16] MEDS: hydrOXYzine PAMOATE 25 MG CAPSULE (FP) PO PRN (21:06)
[2022-05-16] MEDS: SUVOREXANT 15 MG TABLET PO PRN (21:07)
[2022-05-17] MEDS: LIPASE/PROTEASE/AMYLASE 6,000 UNIT CAPSULE PO SCH ×3 (07:07→16:33)
[2022-05-17] MEDS: NICOTINE 21 MG/24 HOURS TOPICAL PATCH TD SCH (09:29)
[2022-05-17] MEDS: PRENATAL VITAMINS W/ FOLIC ACID TABLET (FP) PO SCH (09:30)
[2022-05-17] MEDS: QUEtiapine FUMARATE 100 MG TABLET (FP) PO SCH (21:00)
[2022-05-17] MEDS: SUVOREXANT 15 MG TABLET PO PRN (21:01)
[2022-05-17] MEDS: THIAMINE HCL 100 MG TABLET (FP) PO SCH (21:01)
[2022-05-18] MEDS: LIPASE/PROTEASE/AMYLASE 6,000 UNIT CAPSULE PO SCH ×3 (07:09→16:42)
[2022-05-18] MEDS: PRENATAL VITAMINS W/ FOLIC ACID TABLET (FP) PO SCH (09:25)
[2022-05-18] MEDS: NICOTINE 21 MG/24 HOURS TOPICAL PATCH TD SCH (09:25)
[2022-05-18] MEDS: THIAMINE HCL 100 MG TABLET (FP) PO SCH (21:01)
[2022-05-18] MEDS: hydrOXYzine PAMOATE 25 MG CAPSULE (FP) PO PRN (21:01)
[2022-05-18] MEDS: QUEtiapine FUMARATE 200 MG TABLET PO SCH (21:02)
[2022-05-18] MEDS: SUVOREXANT 15 MG TABLET PO PRN (21:02)
[2022-05-19] MEDS: LIPASE/PROTEASE/AMYLASE 6,000 UNIT CAPSULE PO SCH ×3 (07:44→17:01)
[2022-05-19] MEDS: NICOTINE 21 MG/24 HOURS TOPICAL PATCH TD SCH (10:14)
[2022-05-19] MEDS: PRENATAL VITAMINS W/ FOLIC ACID TABLET (FP) PO SCH (10:14)
[2022-05-19] MEDS: MAG HYDROX/AL HYDROX/SIMETH 30 ML UNIT-DOSE CUP PO PRN (13:24)
[2022-05-19] MEDS: QUEtiapine FUMARATE 200 MG TABLET PO SCH (21:09)
[2022-05-19] MEDS: THIAMINE HCL 100 MG TABLET (FP) PO SCH (21:09)
[2022-05-19] MEDS: SUVOREXANT 15 MG TABLET PO PRN (21:09)
[2022-05-19] MEDS: hydrOXYzine PAMOATE 25 MG CAPSULE (FP) PO PRN (21:09)
[2022-05-20] MEDS: LIPASE/PROTEASE/AMYLASE 6,000 UNIT CAPSULE PO SCH ×3 (07:01→16:30)
[2022-05-20] MEDS: NICOTINE 21 MG/24 HOURS TOPICAL PATCH TD SCH (09:33)
[2022-05-20] MEDS: PRENATAL VITAMINS W/ FOLIC ACID TABLET (FP) PO SCH (09:33)
[2022-05-20] MEDS: QUEtiapine FUMARATE 200 MG TABLET PO SCH (21:03)
[2022-05-20] MEDS: THIAMINE HCL 100 MG TABLET (FP) PO SCH (21:03)
[2022-05-20] MEDS: hydrOXYzine PAMOATE 25 MG CAPSULE (FP) PO PRN (21:04)
[2022-05-21] MEDS: LIPASE/PROTEASE/AMYLASE 6,000 UNIT CAPSULE PO SCH ×3 (07:40→16:33)
[2022-05-21] MEDS: NICOTINE 21 MG/24 HOURS TOPICAL PATCH TD SCH (09:23)
[2022-05-21] MEDS: PRENATAL VITAMINS W/ FOLIC ACID TABLET (FP) PO SCH (09:23)
[2022-05-21] MEDS: MAG HYDROX/AL HYDROX/SIMETH 30 ML UNIT-DOSE CUP PO PRN (15:20)
[2022-05-21] MEDS: hydrOXYzine PAMOATE 25 MG CAPSULE (FP) PO PRN (21:02)
[2022-05-21] MEDS: THIAMINE HCL 100 MG TABLET (FP) PO SCH (21:02)
[2022-05-21] MEDS: QUEtiapine FUMARATE 200 MG TABLET PO SCH (21:02)
[2022-05-21] MEDS ORDERED: SUVOREXANT 15 MG TABLET PO PRN (22:00)
[2022-05-22 06:49] VITALS: BP 127/79; PULSE 91; RESP 16; TEMP 97.9
[2022-05-22] MEDS: LIPASE/PROTEASE/AMYLASE 6,000 UNIT CAPSULE PO SCH (07:16)
== END 2022-05-22 09:23 | disposition home or self-care (01) | DRG 895 ==
LOC: YASAS 12:31 → Y3N 15:33 → Y3E 05-08 19:37
PROVIDERS: ADMIT Allergy & Immunology; ATTEND Psychiatry & Neurology Pain Medicine
PROC: HZ42ZZZ Group Counseling for Substance Abuse Treatment, Cognitive-Behavioral (ICD-10-PCS; principal; 2022-05-04)
DX: F10.20 Alcohol dependence, uncomplicated (principal); F14.20 Cocaine dependence, uncomplicated; F12.20 Cannabis dependence, uncomplicated; F17.210 Nicotine dependence, cigarettes, uncomplicated; G47.00 Insomnia, unspecified; I10 Essential (primary) hypertension; K21.9 Gastro-esophageal reflux disease without esophagitis; Z87.19 Personal history of other diseases of the digestive system; Z86.11 Personal history of tuberculosis; Z88.8 Allergy status to other drugs, medicaments and biological substances; Z91.013 Allergy to seafood
CPT/HCPCS: 36415; 80053; 82140; 82310; 82565; 82962; 84520; 85027; 86780; 87811; C9803-CS; U0003; U0005

== ENCOUNTER 2022-07-22 10:07 | Inpatient (IN) | payer OTHER ==
[2022-07-22 11:09] VITALS: BMI 29.5
[2022-07-22] MEDS ORDERED: guaiFENesin 600 MG TABLET.ER (FP) PO PRN (12:40)
[2022-07-22] MEDS ORDERED: MAGNESIUM HYDROX 2400MG/30ML ORAL SUSPENSION 30 ML CUP PO PRN (12:40)
[2022-07-22] MEDS ORDERED: LORazepam 1 MG TABLET PO PRN (12:40)
[2022-07-22] MEDS ORDERED: POLYETHYLENE GLYCOL (HEALTHYLAX) 3350 17 GM PACKET PO PRN (12:40)
[2022-07-22] MEDS ORDERED: LOPERAMIDE HCL 2 MG CAPSULE PO PRN (12:40)
[2022-07-22] MEDS ORDERED: BENZONATATE 200 MG CAPSULE PO PRN (12:40)
[2022-07-22] MEDS ORDERED: NALOXONE HCL (KLOXXADO) 8 MG SPRAY NS PRN (12:40)
[2022-07-22] MEDS ORDERED: BENZOCAINE/MENTHOL (CHLORASEPTIC ) LOZENGE MM PRN (12:40)
[2022-07-22] MEDS ORDERED: ACETAMINOPHEN 325 MG TABLET (FP) PO PRN (12:40)
[2022-07-22] MEDS ORDERED: NALOXONE HCL 0.4 MG/ML VIAL IM PRN (12:40)
[2022-07-22] MEDS ORDERED: MAG HYDROX/AL HYDROX/SIMETH 30 ML UNIT-DOSE CUP PO PRN (12:40)
[2022-07-22] MEDS ORDERED: BISMUTH SUBSALICYLATE 524 MG/30 ML PO PRN (12:40)
[2022-07-22] MEDS ORDERED: NICOTINE 10 MG CARTRIDGE (INHALER) IH PRN (12:40)
[2022-07-22] MEDS ORDERED: IBUPROFEN 600 MG TABLET (FP) PO PRN (12:40)
[2022-07-22] MEDS ORDERED: ONDANSETRON *ODT* 4 MG TABLET SL PRN (12:40)
[2022-07-22] MEDS ORDERED: hydrOXYzine PAMOATE 25 MG CAPSULE (FP) PO PRN (12:40)
[2022-07-22] MEDS ORDERED: IBUPROFEN 400 MG TABLET (FP) PO PRN (12:40)
[2022-07-22] MEDS ORDERED: DICYCLOMINE HCL 10 MG CAPSULE PO PRN (12:40)
[2022-07-22] MEDS ORDERED: METHOCARBAMOL 500 MG TABLET PO PRN (12:40)
[2022-07-22] MEDS: cloNIDine HCL 0.1 MG TABLET PO PRN (15:27)
[2022-07-22] MEDS: LORazepam 2 MG TABLET PO SCH ×2 (17:14→22:24)
[2022-07-22] MEDS: LIPASE/PROTEASE/AMYLASE 6,000 UNIT CAPSULE PO SCH (18:36)
[2022-07-22] MEDS ORDERED: MELATONIN 5 MG TABLETS PO SCH (22:00)
[2022-07-22] MEDS: THIAMINE HCL 100 MG TABLET (FP) PO SCH (22:23)
[2022-07-23] MEDS: LORazepam 2 MG TABLET PO SCH ×4 (05:17→22:03)
[2022-07-23] MEDS: LIPASE/PROTEASE/AMYLASE 6,000 UNIT CAPSULE PO SCH ×3 (07:54→17:13)
[2022-07-23] MEDS: NICOTINE 21 MG/24 HOURS TOPICAL PATCH TD SCH (10:21)
[2022-07-23] MEDS: PRENATAL VITAMINS W/ FOLIC ACID TABLET (FP) PO SCH (10:21)
[2022-07-23] MEDS: THIAMINE HCL 100 MG TABLET (FP) PO SCH (22:05)
[2022-07-24] MEDS: LORazepam 1 MG TABLET PO SCH ×4 (04:36→22:00)
[2022-07-24] MEDS: LIPASE/PROTEASE/AMYLASE 6,000 UNIT CAPSULE PO SCH ×3 (07:55→17:00)
[2022-07-24] MEDS: PRENATAL VITAMINS W/ FOLIC ACID TABLET (FP) PO SCH (10:11)
[2022-07-24] MEDS: NICOTINE 21 MG/24 HOURS TOPICAL PATCH TD SCH (10:11)
[2022-07-24 11:00] LABS: POTASSIUM 4.2 mmol/L (3.5-5.1)
[2022-07-24 11:07] LABS: CALCIUM 8.8 mg/dL (8.5-10.1)
[2022-07-24 11:08] LABS: ALBUMIN 2.9 g/dl (3.4-5.0); BLOOD UREA NITROGEN 14.5 mg/dL (7-18)
[2022-07-24 11:11] LABS: CREATININE 1.1 mg/dL (0.55-1.3)
[2022-07-24 11:13] LABS: BILIRUBIN,TOTAL 0.7 mg/dL (0.2-1); TOT PROT 7.4 g/dl (6.4-8.2)
[2022-07-24 11:24] LABS: HEMATOCRIT 37.4 % (35.4-49); HEMOGLOBIN 12.1 GM/dL (11.7-16.9); MCH 30.4 pg (25.7-33.7); MCHC 32.2 g/dl (32.0-35.9); MEAN CELL VOLUME 94.4 fl (80-96); MEAN PLT VOLUME 8.8 fl (7.5-11.1); PLATELET COUNT 152 10^3/uL (134-434); RBC 3.97 M/mm3 (4.00-5.60); RDW 16.2 % (11.9-15.9); WHITE BLOOD COUNT 3.3 K/mm3 (4.0-10.0)
[2022-07-24] MEDS: cloNIDine HCL 0.1 MG TABLET PO PRN (13:37)
[2022-07-24] MEDS: THIAMINE HCL 100 MG TABLET (FP) PO SCH (21:57)
[2022-07-24] MEDS: SUVOREXANT 15 MG TABLET PO PRN (21:58)
[2022-07-25] MEDS ORDERED: LORazepam 0.5 MG TABLET PO PRN
[2022-07-25] MEDS: LORazepam 0.5 MG TABLET PO SCH ×4 (05:22→21:59)
[2022-07-25] MEDS: LIPASE/PROTEASE/AMYLASE 6,000 UNIT CAPSULE PO SCH ×3 (07:47→17:11)
[2022-07-25] MEDS: PRENATAL VITAMINS W/ FOLIC ACID TABLET (FP) PO SCH (10:04)
[2022-07-25] MEDS: NICOTINE 21 MG/24 HOURS TOPICAL PATCH TD SCH (10:04)
[2022-07-25] MEDS: THIAMINE HCL 100 MG TABLET (FP) PO SCH (21:57)
[2022-07-25] MEDS: SUVOREXANT 15 MG TABLET PO PRN (21:59)
[2022-07-25] MEDS ORDERED: QUEtiapine FUMARATE 50 MG TABLET PO SCH (22:00)
[2022-07-26] MEDS ORDERED: LORazepam 0.5 MG TABLET PO ONE (05:00)
[2022-07-26] MEDS: LIPASE/PROTEASE/AMYLASE 6,000 UNIT CAPSULE PO SCH (08:00)
[2022-07-26 08:58] VITALS: BP 154/89; PULSE 89; RESP 16; TEMP 98.9
[2022-07-26] MEDS: PRENATAL VITAMINS W/ FOLIC ACID TABLET (FP) PO SCH (10:04)
[2022-07-26] MEDS: NICOTINE 21 MG/24 HOURS TOPICAL PATCH TD SCH (10:05)
== END 2022-07-26 10:05 | disposition other institution (70) | DRG 897 ==
LOC: YASAS 10:07 → Y3N 13:19
PROVIDERS: ADMIT Allergy & Immunology; ATTEND Surgery
PROC: HZ2ZZZZ Detoxification Services for Substance Abuse Treatment (ICD-10-PCS; principal; 2022-07-22)
DX: F10.230 Alcohol dependence with withdrawal, uncomplicated (principal); F14.20 Cocaine dependence, uncomplicated; F19.282 Other psychoactive substance dependence with psychoactive substance-induced sleep disorder; F17.210 Nicotine dependence, cigarettes, uncomplicated; K21.9 Gastro-esophageal reflux disease without esophagitis; K08.109 Complete loss of teeth, unspecified cause, unspecified class; R76.11 Nonspecific reaction to tuberculin skin test without active tuberculosis; Z87.19 Personal history of other diseases of the digestive system
CPT/HCPCS: 36415; 80053; 85027; 86780; 87635; 87811

== ENCOUNTER 2022-09-28 10:05 | Inpatient (IN) | payer OTHER ==
[2022-09-28 10:33] VITALS: BMI 29.0
[2022-09-28] MEDS ORDERED: IBUPROFEN 400 MG TABLET (FP) PO PRN (12:03)
[2022-09-28] MEDS ORDERED: LOPERAMIDE HCL 2 MG CAPSULE PO PRN (12:03)
[2022-09-28] MEDS ORDERED: ACETAMINOPHEN 325 MG TABLET (FP) PO PRN (12:03)
[2022-09-28] MEDS ORDERED: METHOCARBAMOL 500 MG TABLET PO PRN (12:03)
[2022-09-28] MEDS ORDERED: NALOXONE HCL (KLOXXADO) 8 MG SPRAY NS PRN (12:03)
[2022-09-28] MEDS ORDERED: ONDANSETRON *ODT* 4 MG TABLET SL PRN (12:03)
[2022-09-28] MEDS ORDERED: MAGNESIUM HYDROX 2400MG/30ML ORAL SUSPENSION 30 ML CUP PO PRN (12:03)
[2022-09-28] MEDS ORDERED: BISMUTH SUBSALICYLATE 262 MG/15 ML BTL PO PRN (12:03)
[2022-09-28] MEDS ORDERED: BENZONATATE 200 MG CAPSULE PO PRN (12:03)
[2022-09-28] MEDS ORDERED: NALOXONE HCL 0.4 MG/ML VIAL IM PRN (12:03)
[2022-09-28] MEDS ORDERED: IBUPROFEN 600 MG TABLET (FP) PO PRN (12:03)
[2022-09-28] MEDS ORDERED: BENZOCAINE/MENTHOL (CHLORASEPTIC ) LOZENGE MM PRN (12:03)
[2022-09-28] MEDS ORDERED: POLYETHYLENE GLYCOL (HEALTHYLAX) 3350 17 GM PACKET PO PRN (12:03)
[2022-09-28] MEDS ORDERED: guaiFENesin 600 MG TABLET.ER (FP) PO PRN (12:03)
[2022-09-28 18:24] LABS: HIV INTERPRETATION NEGATIVE (NEGATIVE)
[2022-09-28] MEDS: LIPASE/PROTEASE/AMYLASE 6,000 UNIT CAPSULE PO SCH (19:16)
[2022-09-28] MEDS: QUEtiapine FUMARATE 50 MG TABLET PO SCH (21:05)
[2022-09-28] MEDS: SUVOREXANT 10 MG TABLET PO PRN (21:05)
[2022-09-28] MEDS: THIAMINE HCL 100 MG TABLET (FP) PO SCH (21:05)
[2022-09-28] MEDS ORDERED: MELATONIN 5 MG TABLETS PO SCH ×2 (22:00)
[2022-09-29] MEDS: LIPASE/PROTEASE/AMYLASE 6,000 UNIT CAPSULE PO SCH ×3 (07:03→17:01)
[2022-09-29] MEDS: PRENATAL VITAMINS W/ FOLIC ACID TABLET (FP) PO SCH (10:01)
[2022-09-29 12:00] LABS: HEMOGLOBIN 11.6 GM/dL (11.7-16.9); MCH 30.9 pg (25.7-33.7); MCHC 32.2 g/dl (32.0-35.9); MEAN CELL VOLUME 96.1 fl (80-96); MEAN PLT VOLUME 9.4 fl (7.5-11.1); PLATELET COUNT 166 10^3/uL (134-434); RBC 3.75 M/mm3 (4.00-5.60); RDW 17.1 % (11.9-15.9); WHITE BLOOD COUNT 4.3 K/mm3 (4.0-10.0)
[2022-09-29 12:15] LABS: POTASSIUM 4.5 mmol/L (3.5-5.1)
[2022-09-29 12:24] LABS: CALCIUM 8.8 mg/dL (8.5-10.1)
[2022-09-29 12:25] LABS: ALBUMIN 3.2 g/dl (3.4-5.0); BLOOD UREA NITROGEN 14.2 mg/dL (7-18)
[2022-09-29 12:28] LABS: CREATININE 1.3 mg/dL (0.55-1.3)
[2022-09-29 12:30] LABS: BILIRUBIN,TOTAL 0.9 mg/dL (0.2-1); TOT PROT 8.6 g/dl (6.4-8.2)
[2022-09-29] MEDS: SUVOREXANT 10 MG TABLET PO PRN (20:59)
[2022-09-29] MEDS: QUEtiapine FUMARATE 50 MG TABLET PO SCH (21:00)
[2022-09-29] MEDS: THIAMINE HCL 100 MG TABLET (FP) PO SCH (21:00)
[2022-09-30] MEDS: LIPASE/PROTEASE/AMYLASE 6,000 UNIT CAPSULE PO SCH ×3 (08:08→16:38)
[2022-09-30] MEDS: PRENATAL VITAMINS W/ FOLIC ACID TABLET (FP) PO SCH (10:08)
[2022-09-30] MEDS ORDERED: PNEUMOC 20-VAL CONJ-DIP CRM/PF 0.5 ML SYRINGE IM ONE (12:00)
[2022-09-30] MEDS: QUEtiapine FUMARATE 50 MG TABLET PO SCH (21:00)
[2022-09-30] MEDS: THIAMINE HCL 100 MG TABLET (FP) PO SCH (21:00)
[2022-09-30] MEDS: SUVOREXANT 10 MG TABLET PO PRN (21:01)
[2022-10-01] MEDS: LIPASE/PROTEASE/AMYLASE 6,000 UNIT CAPSULE PO SCH ×3 (07:48→16:31)
[2022-10-01] MEDS: PRENATAL VITAMINS W/ FOLIC ACID TABLET (FP) PO SCH (10:10)
[2022-10-01] MEDS: SUVOREXANT 20 MG TABLET PO PRN (21:02)
[2022-10-01] MEDS: THIAMINE HCL 100 MG TABLET (FP) PO SCH (21:03)
[2022-10-01] MEDS: QUEtiapine FUMARATE 50 MG TABLET PO SCH (21:03)
[2022-10-02] MEDS: LIPASE/PROTEASE/AMYLASE 6,000 UNIT CAPSULE PO SCH ×3 (07:24→17:13)
[2022-10-02] MEDS: PRENATAL VITAMINS W/ FOLIC ACID TABLET (FP) PO SCH (09:44)
[2022-10-02] MEDS: THIAMINE HCL 100 MG TABLET (FP) PO SCH (21:01)
[2022-10-02] MEDS: QUEtiapine FUMARATE 50 MG TABLET PO SCH (21:01)
[2022-10-02] MEDS: SUVOREXANT 20 MG TABLET PO PRN (21:03)
[2022-10-03] MEDS: LIPASE/PROTEASE/AMYLASE 6,000 UNIT CAPSULE PO SCH ×3 (08:08→16:42)
[2022-10-03] MEDS: PRENATAL VITAMINS W/ FOLIC ACID TABLET (FP) PO SCH (09:49)
[2022-10-03] MEDS: QUEtiapine FUMARATE 100 MG TABLET (FP) PO SCH (21:01)
[2022-10-03] MEDS: THIAMINE HCL 100 MG TABLET (FP) PO SCH (21:02)
[2022-10-03] MEDS: SUVOREXANT 20 MG TABLET PO PRN (21:02)
[2022-10-04] MEDS: LIPASE/PROTEASE/AMYLASE 6,000 UNIT CAPSULE PO SCH ×3 (07:07→16:34)
[2022-10-04] MEDS: PRENATAL VITAMINS W/ FOLIC ACID TABLET (FP) PO SCH (09:52)
[2022-10-04] MEDS: NICOTINE 14 MG/24 HOURS TOPICAL PATCH TD SCH (15:49)
[2022-10-04] MEDS: SUVOREXANT 20 MG TABLET PO PRN (21:07)
[2022-10-04] MEDS: QUEtiapine FUMARATE 100 MG TABLET (FP) PO SCH (21:07)
[2022-10-04] MEDS: THIAMINE HCL 100 MG TABLET (FP) PO SCH (21:07)
[2022-10-05] MEDS: LIPASE/PROTEASE/AMYLASE 6,000 UNIT CAPSULE PO SCH ×3 (07:04→16:45)
[2022-10-05] MEDS: PRENATAL VITAMINS W/ FOLIC ACID TABLET (FP) PO SCH (09:51)
[2022-10-05] MEDS: NICOTINE 14 MG/24 HOURS TOPICAL PATCH TD SCH (09:51)
[2022-10-05] MEDS: SUVOREXANT 20 MG TABLET PO PRN (21:09)
[2022-10-05] MEDS: QUEtiapine FUMARATE 100 MG TABLET (FP) PO SCH (21:09)
[2022-10-05] MEDS: THIAMINE HCL 100 MG TABLET (FP) PO SCH (21:10)
[2022-10-06] MEDS: LIPASE/PROTEASE/AMYLASE 6,000 UNIT CAPSULE PO SCH ×3 (07:12→16:37)
[2022-10-06] MEDS: NICOTINE 14 MG/24 HOURS TOPICAL PATCH TD SCH (09:44)
[2022-10-06] MEDS: PRENATAL VITAMINS W/ FOLIC ACID TABLET (FP) PO SCH (09:44)
[2022-10-06] MEDS: QUEtiapine FUMARATE 100 MG TABLET (FP) PO SCH (21:14)
[2022-10-06] MEDS: THIAMINE HCL 100 MG TABLET (FP) PO SCH (21:14)
[2022-10-06] MEDS ORDERED: SUVOREXANT 20 MG TABLET PO ONE (22:40)
[2022-10-07] MEDS: LIPASE/PROTEASE/AMYLASE 6,000 UNIT CAPSULE PO SCH ×4 (07:07→16:45)
[2022-10-07] MEDS: NICOTINE 14 MG/24 HOURS TOPICAL PATCH TD SCH (09:49)
[2022-10-07] MEDS: PRENATAL VITAMINS W/ FOLIC ACID TABLET (FP) PO SCH (09:49)
[2022-10-07] MEDS: QUEtiapine FUMARATE 100 MG TABLET (FP) PO SCH (21:06)
[2022-10-07] MEDS: SUVOREXANT 20 MG TABLET PO SCH (21:06)
[2022-10-07] MEDS: THIAMINE HCL 100 MG TABLET (FP) PO SCH (21:06)
[2022-10-07] MEDS ORDERED: SUVOREXANT 20 MG TABLET PO ONE (22:00)
[2022-10-08] MEDS: LIPASE/PROTEASE/AMYLASE 6,000 UNIT CAPSULE PO SCH ×3 (07:02→16:47)
[2022-10-08] MEDS: PRENATAL VITAMINS W/ FOLIC ACID TABLET (FP) PO SCH (09:55)
[2022-10-08] MEDS: NICOTINE 14 MG/24 HOURS TOPICAL PATCH TD SCH (09:56)
[2022-10-08] MEDS: THIAMINE HCL 100 MG TABLET (FP) PO SCH (21:01)
[2022-10-08] MEDS: SUVOREXANT 20 MG TABLET PO SCH (21:02)
[2022-10-08] MEDS: QUEtiapine FUMARATE 100 MG TABLET (FP) PO SCH (21:02)
[2022-10-09] MEDS: LIPASE/PROTEASE/AMYLASE 6,000 UNIT CAPSULE PO SCH ×3 (07:13→16:50)
[2022-10-09] MEDS: PRENATAL VITAMINS W/ FOLIC ACID TABLET (FP) PO SCH (09:44)
[2022-10-09] MEDS: NICOTINE 14 MG/24 HOURS TOPICAL PATCH TD SCH (09:45)
[2022-10-09] MEDS: QUEtiapine FUMARATE 100 MG TABLET (FP) PO SCH (21:03)
[2022-10-09] MEDS: THIAMINE HCL 100 MG TABLET (FP) PO SCH (21:03)
[2022-10-09] MEDS: SUVOREXANT 20 MG TABLET PO SCH (21:03)
[2022-10-10] MEDS: LIPASE/PROTEASE/AMYLASE 6,000 UNIT CAPSULE PO SCH ×3 (07:11→16:33)
[2022-10-10] MEDS: NICOTINE 14 MG/24 HOURS TOPICAL PATCH TD SCH (09:38)
[2022-10-10] MEDS: PRENATAL VITAMINS W/ FOLIC ACID TABLET (FP) PO SCH (09:38)
[2022-10-10] MEDS: THIAMINE HCL 100 MG TABLET (FP) PO SCH (21:03)
[2022-10-10] MEDS: QUEtiapine FUMARATE 50 MG TABLET PO SCH (21:04)
[2022-10-10] MEDS: SUVOREXANT 20 MG TABLET PO SCH (21:04)
[2022-10-11] MEDS: LIPASE/PROTEASE/AMYLASE 6,000 UNIT CAPSULE PO SCH ×3 (07:00→16:36)
[2022-10-11] MEDS: PRENATAL VITAMINS W/ FOLIC ACID TABLET (FP) PO SCH (09:32)
[2022-10-11] MEDS: NICOTINE 14 MG/24 HOURS TOPICAL PATCH TD SCH (09:32)
[2022-10-11] MEDS: VITAMINS A AND D TOPICAL OINTMENT 60 GM TUBE TP SCH ×2 (13:36→21:02)
[2022-10-11] MEDS: QUEtiapine FUMARATE 50 MG TABLET PO SCH (21:01)
[2022-10-11] MEDS: SUVOREXANT 20 MG TABLET PO SCH (21:01)
[2022-10-11] MEDS: THIAMINE HCL 100 MG TABLET (FP) PO SCH (21:01)
[2022-10-12] MEDS: VITAMINS A AND D TOPICAL OINTMENT 60 GM TUBE TP SCH ×4 (00:09→17:02)
[2022-10-12] MEDS: LIPASE/PROTEASE/AMYLASE 6,000 UNIT CAPSULE PO SCH ×3 (07:07→16:51)
[2022-10-12] MEDS: PRENATAL VITAMINS W/ FOLIC ACID TABLET (FP) PO SCH (09:43)
[2022-10-12] MEDS: NICOTINE 14 MG/24 HOURS TOPICAL PATCH TD SCH (09:43)
[2022-10-12] MEDS: MAG HYDROX/AL HYDROX/SIMETH 30 ML UNIT-DOSE CUP PO PRN (12:12)
[2022-10-12] MEDS: SUVOREXANT 20 MG TABLET PO SCH (21:01)
[2022-10-12] MEDS: QUEtiapine FUMARATE 200 MG TABLET PO SCH (21:01)
[2022-10-12] MEDS: THIAMINE HCL 100 MG TABLET (FP) PO SCH (21:02)
[2022-10-13] MEDS: VITAMINS A AND D TOPICAL OINTMENT 60 GM TUBE TP SCH ×4 (00:02→17:20)
[2022-10-13 07:02] VITALS: RESP 18
[2022-10-13] MEDS: LIPASE/PROTEASE/AMYLASE 6,000 UNIT CAPSULE PO SCH ×3 (07:09→16:58)
[2022-10-13] MEDS: PRENATAL VITAMINS W/ FOLIC ACID TABLET (FP) PO SCH (09:48)
[2022-10-13] MEDS: NICOTINE 14 MG/24 HOURS TOPICAL PATCH TD SCH (09:48)
[2022-10-13] MEDS: QUEtiapine FUMARATE 200 MG TABLET PO SCH (21:00)
[2022-10-13] MEDS: SUVOREXANT 20 MG TABLET PO SCH (21:00)
[2022-10-13] MEDS: THIAMINE HCL 100 MG TABLET (FP) PO SCH (21:01)
[2022-10-14] MEDS: VITAMINS A AND D TOPICAL OINTMENT 60 GM TUBE TP SCH ×4 (00:20→18:50)
[2022-10-14] MEDS: LIPASE/PROTEASE/AMYLASE 6,000 UNIT CAPSULE PO SCH ×3 (07:00→16:31)
[2022-10-14] MEDS: PRENATAL VITAMINS W/ FOLIC ACID TABLET (FP) PO SCH (09:46)
[2022-10-14] MEDS: NICOTINE 14 MG/24 HOURS TOPICAL PATCH TD SCH (09:46)
[2022-10-14] MEDS: QUEtiapine FUMARATE 200 MG TABLET PO SCH (21:03)
[2022-10-14] MEDS: SUVOREXANT 20 MG TABLET PO SCH (21:03)
[2022-10-14] MEDS: THIAMINE HCL 100 MG TABLET (FP) PO SCH (21:03)
[2022-10-15] MEDS: VITAMINS A AND D TOPICAL OINTMENT 60 GM TUBE TP SCH ×4 (01:26→19:08)
[2022-10-15] MEDS: LIPASE/PROTEASE/AMYLASE 6,000 UNIT CAPSULE PO SCH ×3 (07:07→16:40)
[2022-10-15] MEDS: PRENATAL VITAMINS W/ FOLIC ACID TABLET (FP) PO SCH (09:35)
[2022-10-15] MEDS: NICOTINE 14 MG/24 HOURS TOPICAL PATCH TD SCH (09:35)
[2022-10-15] MEDS: SUVOREXANT 20 MG TABLET PO SCH (21:05)
[2022-10-15] MEDS: QUEtiapine FUMARATE 200 MG TABLET PO SCH (21:05)
[2022-10-15] MEDS: THIAMINE HCL 100 MG TABLET (FP) PO SCH (21:05)
[2022-10-16] MEDS: VITAMINS A AND D TOPICAL OINTMENT 60 GM TUBE TP SCH ×4 (00:02→17:03)
[2022-10-16] MEDS: LIPASE/PROTEASE/AMYLASE 6,000 UNIT CAPSULE PO SCH ×3 (07:10→16:30)
[2022-10-16] MEDS: NICOTINE 14 MG/24 HOURS TOPICAL PATCH TD SCH (09:24)
[2022-10-16] MEDS: PRENATAL VITAMINS W/ FOLIC ACID TABLET (FP) PO SCH (09:24)
[2022-10-16] MEDS: SUVOREXANT 20 MG TABLET PO SCH (21:01)
[2022-10-16] MEDS: THIAMINE HCL 100 MG TABLET (FP) PO SCH (21:01)
[2022-10-16] MEDS: QUEtiapine FUMARATE 200 MG TABLET PO SCH (21:01)
[2022-10-17] MEDS: VITAMINS A AND D TOPICAL OINTMENT 60 GM TUBE TP SCH ×2 (00:51→06:50)
[2022-10-17] MEDS: LIPASE/PROTEASE/AMYLASE 6,000 UNIT CAPSULE PO SCH ×3 (07:19→16:33)
[2022-10-17] MEDS: NICOTINE 14 MG/24 HOURS TOPICAL PATCH TD SCH (09:25)
[2022-10-17] MEDS: PRENATAL VITAMINS W/ FOLIC ACID TABLET (FP) PO SCH (09:25)
[2022-10-17] MEDS: VITAMINS A AND D TOPICAL OINTMENT 60 GM TUBE TP PRN (09:26)
[2022-10-17] MEDS: MAG HYDROX/AL HYDROX/SIMETH 30 ML UNIT-DOSE CUP PO PRN (18:49)
[2022-10-17] MEDS: THIAMINE HCL 100 MG TABLET (FP) PO SCH (21:02)
[2022-10-17] MEDS: QUEtiapine FUMARATE 300 MG TABLET PO SCH (21:02)
[2022-10-17] MEDS: SUVOREXANT 20 MG TABLET PO SCH (21:03)
[2022-10-18] MEDS: LIPASE/PROTEASE/AMYLASE 6,000 UNIT CAPSULE PO SCH ×3 (07:07→17:07)
[2022-10-18] MEDS: PRENATAL VITAMINS W/ FOLIC ACID TABLET (FP) PO SCH (09:27)
[2022-10-18] MEDS: VITAMINS A AND D TOPICAL OINTMENT 60 GM TUBE TP PRN (09:28)
[2022-10-18] MEDS: NICOTINE 14 MG/24 HOURS TOPICAL PATCH TD SCH (09:28)
[2022-10-18] MEDS: THIAMINE HCL 100 MG TABLET (FP) PO SCH (21:01)
[2022-10-18] MEDS: SUVOREXANT 20 MG TABLET PO SCH (21:02)
[2022-10-18] MEDS: QUEtiapine FUMARATE 300 MG TABLET PO SCH (21:02)
[2022-10-19 06:58] VITALS: BP 141/83; PULSE 96; TEMP 97.4
[2022-10-19] MEDS: LIPASE/PROTEASE/AMYLASE 6,000 UNIT CAPSULE PO SCH (07:14)
== END 2022-10-19 09:02 | disposition home or self-care (01) | DRG 895 ==
LOC: YASAS 10:05 → Y5N 12:11
PROVIDERS: ADMIT Allergy & Immunology; ATTEND Psychiatry & Neurology Pain Medicine
PROC: HZ42ZZZ Group Counseling for Substance Abuse Treatment, Cognitive-Behavioral (ICD-10-PCS; principal; 2022-09-28)
DX: F10.20 Alcohol dependence, uncomplicated (principal); F14.20 Cocaine dependence, uncomplicated; F19.282 Other psychoactive substance dependence with psychoactive substance-induced sleep disorder; F17.210 Nicotine dependence, cigarettes, uncomplicated; F32.A Depression, unspecified; D72.810 Lymphocytopenia; I10 Essential (primary) hypertension; K21.9 Gastro-esophageal reflux disease without esophagitis; R60.0 Localized edema; Z86.11 Personal history of tuberculosis; Z87.19 Personal history of other diseases of the digestive system
CPT/HCPCS: 36415; 71046-TC-FY; 80053; 82962; 85027; 86780; 87389; 87635

== ENCOUNTER 2022-11-25 21:51 | Inpatient (IN) | payer OTHER ==
[2022-11-25 23:09] VITALS: BMI 26.6
[2022-11-26] MEDS ORDERED: guaiFENesin 600 MG TABLET.ER (FP) PO PRN (00:24)
[2022-11-26] MEDS ORDERED: ACETAMINOPHEN 325 MG TABLET (FP) PO PRN (00:24)
[2022-11-26] MEDS ORDERED: NALOXONE HCL 0.4 MG/ML VIAL IM PRN (00:24)
[2022-11-26] MEDS ORDERED: BISMUTH SUBSALICYLATE 524 MG/30 ML PO PRN (00:24)
[2022-11-26] MEDS ORDERED: hydrOXYzine PAMOATE 25 MG CAPSULE (FP) PO PRN (00:24)
[2022-11-26] MEDS ORDERED: ONDANSETRON *ODT* 4 MG TABLET SL PRN (00:24)
[2022-11-26] MEDS ORDERED: IBUPROFEN 600 MG TABLET (FP) PO PRN (00:24)
[2022-11-26] MEDS ORDERED: MAG HYDROX/AL HYDROX/SIMETH 30 ML UNIT-DOSE CUP PO PRN (00:24)
[2022-11-26] MEDS ORDERED: chlordiazePOXIDE HCL 25 MG CAPSULE PO ONE (00:24)
[2022-11-26] MEDS ORDERED: NICOTINE POLACRILEX 4 MG GUM BUC PRN (00:24)
[2022-11-26] MEDS ORDERED: METHOCARBAMOL 500 MG TABLET PO PRN (00:24)
[2022-11-26] MEDS ORDERED: BENZOCAINE/MENTHOL (CHLORASEPTIC ) LOZENGE MM PRN (00:24)
[2022-11-26] MEDS ORDERED: LOPERAMIDE HCL 2 MG CAPSULE PO PRN (00:24)
[2022-11-26] MEDS ORDERED: BENZONATATE 200 MG CAPSULE PO PRN (00:24)
[2022-11-26] MEDS ORDERED: POLYETHYLENE GLYCOL (HEALTHYLAX) 3350 17 GM PACKET PO PRN (00:24)
[2022-11-26] MEDS ORDERED: MAGNESIUM HYDROX 2400MG/30ML ORAL SUSPENSION 30 ML CUP PO PRN (00:24)
[2022-11-26] MEDS ORDERED: chlordiazePOXIDE HCL 25 MG CAPSULE PO PRN (00:24)
[2022-11-26] MEDS ORDERED: IBUPROFEN 400 MG TABLET (FP) PO PRN (00:24)
[2022-11-26] MEDS ORDERED: DICYCLOMINE HCL 10 MG CAPSULE PO PRN (00:24)
[2022-11-26] MEDS ORDERED: NALOXONE HCL (KLOXXADO) 8 MG SPRAY NS PRN (00:24)
[2022-11-26] MEDS ORDERED: chlordiazePOXIDE HCL 25 MG CAPSULE ONE (05:01)
[2022-11-26] MEDS: chlordiazePOXIDE HCL 25 MG CAPSULE PO SCH ×4 (05:39→22:41)
[2022-11-26] MEDS: NICOTINE 21 MG/24 HOURS TOPICAL PATCH TD SCH (10:26)
[2022-11-26] MEDS: PRENATAL VITAMINS W/ FOLIC ACID TABLET (FP) PO SCH (10:26)
[2022-11-26] MEDS: LIPASE/PROTEASE/AMYLASE 24,000 UNIT CAPSULE PO SCH ×2 (14:13→17:34)
[2022-11-26] MEDS ORDERED: MELATONIN 5 MG TABLETS PO SCH (22:00)
[2022-11-26] MEDS: THIAMINE HCL 100 MG TABLET (FP) PO SCH (22:41)
[2022-11-26] MEDS: SUVOREXANT 10 MG TABLET PO PRN (22:42)
[2022-11-27] MEDS: chlordiazePOXIDE HCL 25 MG CAPSULE PO SCH ×4 (05:40→22:22)
[2022-11-27] MEDS: LIPASE/PROTEASE/AMYLASE 24,000 UNIT CAPSULE PO SCH ×3 (07:00→17:14)
[2022-11-27] MEDS: PRENATAL VITAMINS W/ FOLIC ACID TABLET (FP) PO SCH (10:12)
[2022-11-27] MEDS: NICOTINE 21 MG/24 HOURS TOPICAL PATCH TD SCH (10:12)
[2022-11-27 10:23] LABS: HEMATOCRIT 36.2 % (35.4-49); HEMOGLOBIN 12.1 GM/dL (11.7-16.9); MCH 31.3 pg (25.7-33.7); MCHC 33.3 g/dl (32.0-35.9); MEAN CELL VOLUME 93.9 fl (80-96); MEAN PLT VOLUME 8.2 fl (7.5-11.1); PLATELET COUNT 121 10^3/uL (134-434); RBC 3.86 M/mm3 (4.00-5.60); RDW 16.2 % (11.9-15.9); WHITE BLOOD COUNT 2.4 K/mm3 (4.0-10.0)
[2022-11-27 10:29] LABS: CALCIUM 8.4 mg/dL (8.5-10.1)
[2022-11-27 10:30] LABS: ALBUMIN 2.7 g/dl (3.4-5.0); BLOOD UREA NITROGEN 15.2 mg/dL (7-18)
[2022-11-27 10:33] LABS: CREATININE 1.3 mg/dL (0.55-1.3)
[2022-11-27 10:35] LABS: BILIRUBIN,TOTAL 0.5 mg/dL (0.2-1); TOT PROT 7.4 g/dl (6.4-8.2)
[2022-11-27] MEDS: THIAMINE HCL 100 MG TABLET (FP) PO SCH (22:22)
[2022-11-27] MEDS: SUVOREXANT 10 MG TABLET PO PRN (22:23)
[2022-11-28] MEDS ORDERED: chlordiazePOXIDE HCL 10 MG CAPSULE PO PRN
[2022-11-28] MEDS: chlordiazePOXIDE HCL 10 MG CAPSULE PO SCH ×4 (05:40→22:01)
[2022-11-28] MEDS: LIPASE/PROTEASE/AMYLASE 24,000 UNIT CAPSULE PO SCH ×3 (07:28→17:20)
[2022-11-28] MEDS: PRENATAL VITAMINS W/ FOLIC ACID TABLET (FP) PO SCH (10:05)
[2022-11-28] MEDS: NICOTINE 21 MG/24 HOURS TOPICAL PATCH TD SCH (10:07)
[2022-11-28] MEDS: THIAMINE HCL 100 MG TABLET (FP) PO SCH (22:00)
[2022-11-28] MEDS: SUVOREXANT 10 MG TABLET PO PRN (22:00)
[2022-11-29] MEDS: chlordiazePOXIDE HCL 10 MG CAPSULE PO SCH ×2 (05:39→17:29)
[2022-11-29] MEDS: LIPASE/PROTEASE/AMYLASE 24,000 UNIT CAPSULE PO SCH ×3 (07:59→17:29)
[2022-11-29] MEDS: PRENATAL VITAMINS W/ FOLIC ACID TABLET (FP) PO SCH (09:51)
[2022-11-29] MEDS: NICOTINE 21 MG/24 HOURS TOPICAL PATCH TD SCH (09:51)
[2022-11-29] MEDS: THIAMINE HCL 100 MG TABLET (FP) PO SCH (21:56)
[2022-11-29] MEDS ORDERED: SUVOREXANT 15 MG TABLET PO PRN (22:00)
[2022-11-30] MEDS ORDERED: chlordiazePOXIDE HCL 10 MG CAPSULE PO ONE (05:00)
[2022-11-30] MEDS: LIPASE/PROTEASE/AMYLASE 24,000 UNIT CAPSULE PO SCH ×2 (07:19→11:01)
[2022-11-30 09:39] VITALS: BP 125/88; PULSE 97; RESP 18; TEMP 98
[2022-11-30] MEDS: PRENATAL VITAMINS W/ FOLIC ACID TABLET (FP) PO SCH (10:19)
[2022-11-30] MEDS: NICOTINE 21 MG/24 HOURS TOPICAL PATCH TD SCH (10:19)
== END 2022-11-30 13:31 | disposition home or self-care (01) | DRG 897 ==
LOC: YASAS 21:51 → Y3N 11-26 08:26
PROVIDERS: ADMIT Allergy & Immunology; ATTEND Surgery
PROC: HZ2ZZZZ Detoxification Services for Substance Abuse Treatment (ICD-10-PCS; principal; 2022-11-26)
DX: F10.230 Alcohol dependence with withdrawal, uncomplicated (principal); F14.20 Cocaine dependence, uncomplicated; F17.210 Nicotine dependence, cigarettes, uncomplicated; G47.00 Insomnia, unspecified; I10 Essential (primary) hypertension; Z86.11 Personal history of tuberculosis; Z87.19 Personal history of other diseases of the digestive system
CPT/HCPCS: 36415; 80053; 85027; 86780; 87635; 87811

== ENCOUNTER 2022-12-08 10:25 | Inpatient (IN) | payer OTHER ==
[2022-12-08 10:55] VITALS: BMI 30.1
[2022-12-08] MEDS ORDERED: NALOXONE HCL (KLOXXADO) 8 MG SPRAY NS PRN (11:39)
[2022-12-08] MEDS ORDERED: BENZONATATE 200 MG CAPSULE PO PRN (11:39)
[2022-12-08] MEDS ORDERED: IBUPROFEN 400 MG TABLET (FP) PO PRN (11:39)
[2022-12-08] MEDS ORDERED: MAG HYDROX/AL HYDROX/SIMETH 30 ML UNIT-DOSE CUP PO PRN (11:39)
[2022-12-08] MEDS ORDERED: POLYETHYLENE GLYCOL (HEALTHYLAX) 3350 17 GM PACKET PO PRN (11:39)
[2022-12-08] MEDS ORDERED: LORazepam 2 MG TABLET PO ONE (11:39)
[2022-12-08] MEDS ORDERED: hydrOXYzine PAMOATE 25 MG CAPSULE (FP) PO PRN (11:39)
[2022-12-08] MEDS ORDERED: NALOXONE HCL 0.4 MG/ML VIAL IM PRN (11:39)
[2022-12-08] MEDS ORDERED: BISMUTH SUBSALICYLATE 262 MG/15 ML BTL PO PRN (11:39)
[2022-12-08] MEDS ORDERED: LOPERAMIDE HCL 2 MG CAPSULE PO PRN (11:39)
[2022-12-08] MEDS ORDERED: LORazepam 1 MG TABLET PO PRN (11:39)
[2022-12-08] MEDS ORDERED: guaiFENesin 600 MG TABLET.ER (FP) PO PRN (11:39)
[2022-12-08] MEDS ORDERED: BENZOCAINE/MENTHOL (CHLORASEPTIC ) LOZENGE MM PRN (11:39)
[2022-12-08] MEDS ORDERED: MAGNESIUM HYDROX 2400MG/30ML ORAL SUSPENSION 30 ML CUP PO PRN (11:39)
[2022-12-08] MEDS ORDERED: IBUPROFEN 600 MG TABLET (FP) PO PRN (11:39)
[2022-12-08] MEDS ORDERED: ONDANSETRON *ODT* 4 MG TABLET SL PRN (11:39)
[2022-12-08] MEDS: PRENATAL VITAMINS W/ FOLIC ACID TABLET (FP) PO SCH (12:42)
[2022-12-08] MEDS ORDERED: METHOCARBAMOL 500 MG TABLET PO PRN (15:23)
[2022-12-08] MEDS ORDERED: DICYCLOMINE HCL 10 MG CAPSULE PO PRN (15:23)
[2022-12-08] MEDS: LIPASE/PROTEASE/AMYLASE 6,000 UNIT CAPSULE PO SCH ×2 (16:25→17:34)
[2022-12-08] MEDS: LORazepam 2 MG TABLET PO SCH ×2 (17:26→22:29)
[2022-12-08] MEDS ORDERED: LIPASE/PROTEASE/AMYLASE 6,000 UNIT CAPSULE PO SCH (17:30)
[2022-12-08] MEDS ORDERED: MELATONIN 5 MG TABLETS PO SCH (22:00)
[2022-12-08] MEDS: THIAMINE HCL 100 MG TABLET (FP) PO SCH (22:29)
[2022-12-08] MEDS: QUEtiapine FUMARATE 400 MG TABLET PO SCH (22:29)
[2022-12-08] MEDS: SUVOREXANT 10 MG TABLET PO PRN (22:35)
[2022-12-09] MEDS: LORazepam 2 MG TABLET PO SCH ×4 (05:25→23:59)
[2022-12-09] MEDS: LIPASE/PROTEASE/AMYLASE 6,000 UNIT CAPSULE PO SCH ×3 (08:00→17:48)
[2022-12-09] MEDS: PRENATAL VITAMINS W/ FOLIC ACID TABLET (FP) PO SCH (10:45)
[2022-12-09] MEDS: NICOTINE 7 MG/24 HOURS TOPICAL PATCH TD SCH (10:47)
[2022-12-09] MEDS: NICOTINE 14 MG/24 HOURS TOPICAL PATCH TD SCH (10:47)
[2022-12-09] MEDS: QUEtiapine FUMARATE 400 MG TABLET PO SCH (22:57)
[2022-12-09] MEDS: THIAMINE HCL 100 MG TABLET (FP) PO SCH (22:57)
[2022-12-10] MEDS: LORazepam 1 MG TABLET PO SCH ×4 (05:31→22:01)
[2022-12-10] MEDS: LIPASE/PROTEASE/AMYLASE 6,000 UNIT CAPSULE PO SCH ×3 (07:34→16:53)
[2022-12-10] MEDS: NICOTINE 14 MG/24 HOURS TOPICAL PATCH TD SCH (10:06)
[2022-12-10] MEDS: PRENATAL VITAMINS W/ FOLIC ACID TABLET (FP) PO SCH (10:06)
[2022-12-10] MEDS: NICOTINE 7 MG/24 HOURS TOPICAL PATCH TD SCH (10:07)
[2022-12-10] MEDS: ACETAMINOPHEN 325 MG TABLET (FP) PO PRN (10:30)
[2022-12-10] MEDS: THIAMINE HCL 100 MG TABLET (FP) PO SCH (22:01)
[2022-12-10] MEDS: QUEtiapine FUMARATE 400 MG TABLET PO SCH (22:01)
[2022-12-10] MEDS: SUVOREXANT 10 MG TABLET PO PRN (22:02)
[2022-12-11] MEDS ORDERED: LORazepam 0.5 MG TABLET PO PRN
[2022-12-11] MEDS: LORazepam 0.5 MG TABLET PO SCH ×4 (05:35→22:00)
[2022-12-11] MEDS: LIPASE/PROTEASE/AMYLASE 6,000 UNIT CAPSULE PO SCH ×3 (07:22→17:47)
[2022-12-11] MEDS: PRENATAL VITAMINS W/ FOLIC ACID TABLET (FP) PO SCH (10:10)
[2022-12-11] MEDS: NICOTINE 14 MG/24 HOURS TOPICAL PATCH TD SCH (10:11)
[2022-12-11] MEDS: LISINOPRIL 5 MG TABLET PO SCH (13:00)
[2022-12-11] MEDS: THIAMINE HCL 100 MG TABLET (FP) PO SCH (21:53)
[2022-12-11] MEDS: QUEtiapine FUMARATE 400 MG TABLET PO SCH (21:54)
[2022-12-11] MEDS: SUVOREXANT 10 MG TABLET PO PRN (21:55)
[2022-12-12] MEDS: ACETAMINOPHEN 325 MG TABLET (FP) PO PRN (01:19)
[2022-12-12] MEDS ORDERED: LORazepam 0.5 MG TABLET PO ONE (05:00)
[2022-12-12] MEDS: LIPASE/PROTEASE/AMYLASE 6,000 UNIT CAPSULE PO SCH (07:24)
[2022-12-12] MEDS: PRENATAL VITAMINS W/ FOLIC ACID TABLET (FP) PO SCH (09:03)
[2022-12-12] MEDS: LISINOPRIL 5 MG TABLET PO SCH (09:04)
[2022-12-12] MEDS: NICOTINE 14 MG/24 HOURS TOPICAL PATCH TD SCH (09:05)
[2022-12-12 09:08] VITALS: BP 110/52; PULSE 115; RESP 16; TEMP 99.3
== END 2022-12-12 10:14 | disposition home or self-care (01) | DRG 897 ==
LOC: YASAS 10:25 → Y3N 11:59 → Y6N 12:37
PROVIDERS: ADMIT Allergy & Immunology; ATTEND Surgery
PROC: HZ2ZZZZ Detoxification Services for Substance Abuse Treatment (ICD-10-PCS; principal; 2022-12-08)
DX: F10.230 Alcohol dependence with withdrawal, uncomplicated (principal); F14.20 Cocaine dependence, uncomplicated; F19.282 Other psychoactive substance dependence with psychoactive substance-induced sleep disorder; F17.210 Nicotine dependence, cigarettes, uncomplicated; F19.24 Other psychoactive substance dependence with psychoactive substance-induced mood disorder; I10 Essential (primary) hypertension; D72.810 Lymphocytopenia; Z86.11 Personal history of tuberculosis; Z86.2 Personal history of diseases of the blood and blood-forming organs and certain disorders involving the immune mechanism; Z87.19 Personal history of other diseases of the digestive system
CPT/HCPCS: 87635

== ENCOUNTER 2023-02-14 10:44 | Inpatient (IN) | payer OTHER ==
[2023-02-14 11:43] VITALS: BMI 29.5
[2023-02-14] MEDS ORDERED: BENZOCAINE/MENTHOL (CHLORASEPTIC ) LOZENGE MM PRN (13:12)
[2023-02-14] MEDS ORDERED: BENZONATATE 200 MG CAPSULE PO PRN (13:12)
[2023-02-14] MEDS ORDERED: IBUPROFEN 400 MG TABLET (FP) PO PRN (13:12)
[2023-02-14] MEDS ORDERED: BISMUTH SUBSALICYLATE 262 MG/15 ML BTL PO PRN (13:12)
[2023-02-14] MEDS ORDERED: guaiFENesin 600 MG TABLET.ER (FP) PO PRN (13:12)
[2023-02-14] MEDS ORDERED: LOPERAMIDE HCL 2 MG CAPSULE PO PRN (13:12)
[2023-02-14] MEDS ORDERED: NALOXONE HCL (KLOXXADO) 8 MG SPRAY NS PRN (13:12)
[2023-02-14] MEDS ORDERED: hydrOXYzine PAMOATE 25 MG CAPSULE (FP) PO PRN (13:12)
[2023-02-14] MEDS ORDERED: DICYCLOMINE HCL 10 MG CAPSULE PO PRN (13:12)
[2023-02-14] MEDS ORDERED: IBUPROFEN 600 MG TABLET (FP) PO PRN (13:12)
[2023-02-14] MEDS ORDERED: METHOCARBAMOL 500 MG TABLET PO PRN (13:12)
[2023-02-14] MEDS ORDERED: ACETAMINOPHEN 325 MG TABLET (FP) PO PRN (13:12)
[2023-02-14] MEDS ORDERED: LORazepam 1 MG TABLET PO PRN (13:12)
[2023-02-14] MEDS ORDERED: ONDANSETRON *ODT* 4 MG TABLET SL PRN (13:12)
[2023-02-14] MEDS ORDERED: MAG HYDROX/AL HYDROX/SIMETH 30 ML UNIT-DOSE CUP PO PRN (13:12)
[2023-02-14] MEDS ORDERED: POLYETHYLENE GLYCOL (HEALTHYLAX) 3350 17 GM PACKET PO PRN (13:12)
[2023-02-14] MEDS ORDERED: MAGNESIUM HYDROX 2400MG/30ML ORAL SUSPENSION 30 ML CUP PO PRN (13:12)
[2023-02-14] MEDS ORDERED: NALOXONE HCL 0.4 MG/ML VIAL IM PRN (13:12)
[2023-02-14] MEDS ORDERED: AMYLASE PO SCH (14:00)
[2023-02-14] MEDS ORDERED: PROTEASE PO SCH (14:00)
[2023-02-14] MEDS ORDERED: [UNRECOGNIZED DRUG - OTHER] PO SCH (14:00)
[2023-02-14] MEDS ORDERED: LIPASE PO SCH (14:00)
[2023-02-14] MEDS: NICOTINE 21 MG/24 HOURS TOPICAL PATCH TD SCH (14:18)
[2023-02-14] MEDS: PRENATAL VITAMINS W/ FOLIC ACID TABLET (FP) PO SCH (14:18)
[2023-02-14] MEDS ORDERED: NICOTINE 21 MG/24 HOURS TOPICAL PATCH ONE (14:19)
[2023-02-14] MEDS ORDERED: PRENATAL VITAMINS W/ FOLIC ACID TABLET (FP) PO ONE (14:20)
[2023-02-14] MEDS ORDERED: LORazepam 2 MG TABLET PO SCH (17:00)
[2023-02-14] MEDS: LORazepam 1 MG TABLET PO SCH ×2 (17:09→22:39)
[2023-02-14] MEDS: [UNRECOGNIZED DRUG - OTHER] PO SCH (17:10)
[2023-02-14] MEDS: LIPASE PO SCH (17:10)
[2023-02-14] MEDS: PROTEASE PO SCH (17:10)
[2023-02-14] MEDS: AMYLASE PO SCH (17:10)
[2023-02-14] MEDS: THIAMINE HCL 100 MG TABLET (FP) PO SCH (22:38)
[2023-02-14] MEDS: MELATONIN 5 MG TABLETS PO SCH (22:53)
[2023-02-14] MEDS: QUEtiapine FUMARATE 400 MG TABLET PO SCH (22:53)
[2023-02-15] MEDS: LORazepam 1 MG TABLET PO SCH ×4 (05:23→22:08)
[2023-02-15] MEDS: AMYLASE PO SCH ×3 (07:58→16:59)
[2023-02-15] MEDS: LIPASE PO SCH ×3 (07:58→16:59)
[2023-02-15] MEDS: PROTEASE PO SCH ×3 (07:58→16:59)
[2023-02-15] MEDS: [UNRECOGNIZED DRUG - OTHER] PO SCH ×3 (07:58→16:59)
[2023-02-15] MEDS: LISINOPRIL 5 MG TABLET PO SCH (10:15)
[2023-02-15] MEDS: NICOTINE 21 MG/24 HOURS TOPICAL PATCH TD SCH (10:15)
[2023-02-15] MEDS: PRENATAL VITAMINS W/ FOLIC ACID TABLET (FP) PO SCH (10:15)
[2023-02-15 15:03] LABS: HEMATOCRIT 37.3 % (35.4-49); MCH 30.2 pg (25.7-33.7); MCHC 32.2 g/dl (32.0-35.9); MEAN CELL VOLUME 93.8 fl (80-96); MEAN PLT VOLUME 8.7 fl (7.5-11.1); PLATELET COUNT 171 10^3/uL (134-434); RBC 3.98 M/mm3 (4.00-5.60); RDW 16.5 % (11.9-15.9); WHITE BLOOD COUNT 4.9 K/mm3 (4.0-10.0)
[2023-02-15 15:24] LABS: POTASSIUM 4.5 mmol/L (3.5-5.1)
[2023-02-15 15:29] LABS: CALCIUM 9.2 mg/dL (8.5-10.1)
[2023-02-15 15:31] LABS: ALBUMIN 3.1 g/dl (3.4-5.0); BLOOD UREA NITROGEN 19.6 mg/dL (7-18)
[2023-02-15 15:32] LABS: CREATININE 1.3 mg/dL (0.55-1.3)
[2023-02-15 15:34] LABS: BILIRUBIN,TOTAL 0.7 mg/dL (0.2-1); TOT PROT 8.4 g/dl (6.4-8.2)
[2023-02-15] MEDS: THIAMINE HCL 100 MG TABLET (FP) PO SCH (22:08)
[2023-02-15] MEDS: QUEtiapine FUMARATE 400 MG TABLET PO SCH (22:09)
[2023-02-15] MEDS: SUVOREXANT 15 MG TABLET PO PRN (22:10)
[2023-02-16] MEDS: LORazepam 1 MG TABLET PO SCH ×4 (05:55→22:47)
[2023-02-16] MEDS: LIPASE PO SCH ×3 (07:20→16:51)
[2023-02-16] MEDS: PROTEASE PO SCH ×3 (07:20→16:51)
[2023-02-16] MEDS: [UNRECOGNIZED DRUG - OTHER] PO SCH ×3 (07:20→16:51)
[2023-02-16] MEDS: AMYLASE PO SCH ×3 (07:20→16:51)
[2023-02-16] MEDS: NICOTINE 21 MG/24 HOURS TOPICAL PATCH TD SCH (10:43)
[2023-02-16] MEDS: LISINOPRIL 5 MG TABLET PO SCH (10:43)
[2023-02-16] MEDS: PRENATAL VITAMINS W/ FOLIC ACID TABLET (FP) PO SCH (10:43)
[2023-02-16] MEDS: QUEtiapine FUMARATE 400 MG TABLET PO SCH (22:47)
[2023-02-16] MEDS: THIAMINE HCL 100 MG TABLET (FP) PO SCH (22:47)
[2023-02-16] MEDS: SUVOREXANT 15 MG TABLET PO PRN (22:48)
[2023-02-16] MEDS: MELATONIN 5 MG TABLETS PO SCH (22:51)
[2023-02-17] MEDS ORDERED: LORazepam 0.5 MG TABLET PO PRN
[2023-02-17] MEDS: LORazepam 0.5 MG TABLET PO SCH ×4 (05:43→22:18)
[2023-02-17] MEDS: PROTEASE PO SCH ×3 (07:07→16:49)
[2023-02-17] MEDS: [UNRECOGNIZED DRUG - OTHER] PO SCH ×3 (07:07→16:49)
[2023-02-17] MEDS: AMYLASE PO SCH ×3 (07:07→16:49)
[2023-02-17] MEDS: LIPASE PO SCH ×3 (07:07→16:49)
[2023-02-17] MEDS: PRENATAL VITAMINS W/ FOLIC ACID TABLET (FP) PO SCH (10:10)
[2023-02-17] MEDS: LISINOPRIL 5 MG TABLET PO SCH (10:10)
[2023-02-17] MEDS: NICOTINE 21 MG/24 HOURS TOPICAL PATCH TD SCH (10:10)
[2023-02-17] MEDS: THIAMINE HCL 100 MG TABLET (FP) PO SCH (22:17)
[2023-02-17] MEDS: QUEtiapine FUMARATE 400 MG TABLET PO SCH (22:18)
[2023-02-17] MEDS: SUVOREXANT 15 MG TABLET PO PRN (22:23)
[2023-02-18] MEDS ORDERED: LORazepam 0.5 MG TABLET PO ONE (05:00)
[2023-02-18 06:40] VITALS: RESP 16
[2023-02-18] MEDS: AMYLASE PO SCH (08:20)
[2023-02-18] MEDS: PROTEASE PO SCH (08:20)
[2023-02-18] MEDS: LIPASE PO SCH (08:20)
[2023-02-18] MEDS: [UNRECOGNIZED DRUG - OTHER] PO SCH (08:20)
[2023-02-18 09:17] VITALS: BP 141/77; PULSE 104; TEMP 97.7
[2023-02-18] MEDS: PRENATAL VITAMINS W/ FOLIC ACID TABLET (FP) PO SCH (09:30)
[2023-02-18] MEDS: LISINOPRIL 5 MG TABLET PO SCH (09:31)
[2023-02-18] MEDS: NICOTINE 21 MG/24 HOURS TOPICAL PATCH TD SCH (09:32)
== END 2023-02-18 10:58 | disposition home or self-care (01) | DRG 897 ==
LOC: YASAS 10:44 → Y6N 13:26
PROVIDERS: ADMIT Allergy & Immunology; ATTEND Surgery
PROC: HZ2ZZZZ Detoxification Services for Substance Abuse Treatment (ICD-10-PCS; principal; 2023-02-14)
DX: F10.230 Alcohol dependence with withdrawal, uncomplicated (principal); F14.20 Cocaine dependence, uncomplicated; F19.282 Other psychoactive substance dependence with psychoactive substance-induced sleep disorder; K86.3 Pseudocyst of pancreas; K86.0 Alcohol-induced chronic pancreatitis; F17.210 Nicotine dependence, cigarettes, uncomplicated; F19.24 Other psychoactive substance dependence with psychoactive substance-induced mood disorder; I10 Essential (primary) hypertension; Z86.11 Personal history of tuberculosis
CPT/HCPCS: 36415; 80053; 85027; 86780; 87635

== ENCOUNTER 2023-03-18 20:27 | Inpatient (IN) | payer OTHER ==
[2023-03-18 21:01] VITALS: BMI 26.6
[2023-03-18] MEDS ORDERED: BISMUTH SUBSALICYLATE 524 MG/30 ML PO PRN (22:29)
[2023-03-18] MEDS ORDERED: BENZOCAINE/MENTHOL (CHLORASEPTIC ) LOZENGE MM PRN (22:29)
[2023-03-18] MEDS ORDERED: LOPERAMIDE HCL 2 MG CAPSULE PO PRN (22:29)
[2023-03-18] MEDS ORDERED: MAGNESIUM HYDROX 2400MG/30ML ORAL SUSPENSION 30 ML CUP PO PRN (22:29)
[2023-03-18] MEDS ORDERED: MAG HYDROX/AL HYDROX/SIMETH 30 ML UNIT-DOSE CUP PO PRN (22:29)
[2023-03-18] MEDS ORDERED: NALOXONE HCL (KLOXXADO) 8 MG SPRAY NS PRN (22:29)
[2023-03-18] MEDS ORDERED: BENZONATATE 200 MG CAPSULE PO PRN (22:29)
[2023-03-18] MEDS ORDERED: IBUPROFEN 600 MG TABLET (FP) PO PRN (22:29)
[2023-03-18] MEDS ORDERED: POLYETHYLENE GLYCOL (HEALTHYLAX) 3350 17 GM PACKET PO PRN (22:29)
[2023-03-18] MEDS ORDERED: ACETAMINOPHEN 325 MG TABLET (FP) PO PRN (22:29)
[2023-03-18] MEDS ORDERED: NALOXONE HCL 0.4 MG/ML VIAL IM PRN (22:29)
[2023-03-18] MEDS ORDERED: IBUPROFEN 400 MG TABLET (FP) PO PRN (22:29)
[2023-03-18] MEDS ORDERED: NICOTINE POLACRILEX 2 MG LOZENGE BC PRN (22:29)
[2023-03-18] MEDS ORDERED: ONDANSETRON *ODT* 4 MG TABLET SL PRN (22:29)
[2023-03-18] MEDS ORDERED: guaiFENesin 600 MG TABLET.ER (FP) PO PRN (22:29)
[2023-03-19 06:23] VITALS: RESP 18
[2023-03-19 09:41] VITALS: BP 133/62; PULSE 93; TEMP 98
[2023-03-19] MEDS ORDERED: PRENATAL VITAMINS W/ FOLIC ACID TABLET (FP) PO SCH (10:00)
[2023-03-19] MEDS ORDERED: LISINOPRIL 5 MG TABLET PO SCH (10:00)
[2023-03-19] MEDS ORDERED: NICOTINE 14 MG/24 HOURS TOPICAL PATCH TD SCH (10:00)
[2023-03-19 10:15] LABS: HEMATOCRIT 36.1 % (35.4-49); HEMOGLOBIN 11.7 GM/dL (11.7-16.9); MCH 30.4 pg (25.7-33.7); MCHC 32.5 g/dl (32.0-35.9); MEAN CELL VOLUME 93.7 fl (80-96); MEAN PLT VOLUME 8.4 fl (7.5-11.1); PLATELET COUNT 142 10^3/uL (134-434); RBC 3.85 M/mm3 (4.00-5.60); RDW 17.2 % (11.9-15.9); WHITE BLOOD COUNT 4.6 K/mm3 (4.0-10.0)
[2023-03-19 10:17] LABS: CHLORIDE 103 mmol/L (98-107); POTASSIUM 4.2 mmol/L (3.5-5.1); SODIUM 136 mmol/L (136-145)
[2023-03-19 10:22] LABS: ANION GAP 6 mmol/L (4-13); BLOOD UREA NITROGEN 26.8 mg/dL (7-18); CALCIUM 8.7 mg/dL (8.5-10.1); CO2 27 mmol/L (21-32); GLUCOSE,RANDOM 108 mg/dL (74-106)
[2023-03-19 10:23] LABS: ALBUMIN 3.1 g/dl (3.4-5.0)
[2023-03-19 10:24] LABS: SGOT/AST 56 U/L (15-37); SGPT/ALT 24 U/L (13-61)
[2023-03-19 10:25] LABS: CREATININE 1.4 mg/dL (0.55-1.3)
[2023-03-19 10:26] LABS: BILIRUBIN,TOTAL 0.9 mg/dL (0.2-1); TOT PROT 8.3 g/dl (6.4-8.2)
[2023-03-19 10:27] LABS: ALK PHOS 65 U/L (45-117)
[2023-03-19] MEDS ORDERED: LIPASE/PROTEASE/AMYLASE 36,000 UNIT CAPSULE PO SCH (11:00)
[2023-03-19] MEDS ORDERED: LIPASE/PROTEASE/AMYLASE 24,000 UNIT CAPSULE PO SCH ×4 (13:00→18:00)
[2023-03-19] MEDS ORDERED: MELATONIN 5 MG TABLETS PO SCH (22:00)
[2023-03-19] MEDS ORDERED: THIAMINE HCL 100 MG TABLET (FP) PO SCH (22:00)
[2023-03-20] MEDS ORDERED: LIPASE/PROTEASE/AMYLASE 24,000 UNIT CAPSULE PO SCH ×2 (07:00→09:00)
== END 2023-03-19 10:33 | disposition home or self-care (01) | DRG 897 ==
LOC: YASAS 20:27 → Y6N 21:46
PROVIDERS: ADMIT Allergy & Immunology; ATTEND Allergy & Immunology
PROC: HZ2ZZZZ Detoxification Services for Substance Abuse Treatment (ICD-10-PCS; principal; 2023-03-18)
DX: F10.20 Alcohol dependence, uncomplicated (principal); F14.20 Cocaine dependence, uncomplicated; F19.282 Other psychoactive substance dependence with psychoactive substance-induced sleep disorder; F17.210 Nicotine dependence, cigarettes, uncomplicated; F19.24 Other psychoactive substance dependence with psychoactive substance-induced mood disorder; I10 Essential (primary) hypertension; K21.9 Gastro-esophageal reflux disease without esophagitis; K86.89 Other specified diseases of pancreas; Z87.19 Personal history of other diseases of the digestive system; Z86.2 Personal history of diseases of the blood and blood-forming organs and certain disorders involving the immune mechanism; Z86.11 Personal history of tuberculosis
CPT/HCPCS: 36415; 80053; 80307; 85027; 86780; 87635; 87811

== ENCOUNTER 2023-09-27 08:43 | Inpatient (IN) | payer OTHER ==
[2023-09-27 09:31] VITALS: BMI 29.2
[2023-09-27] MEDS ORDERED: NALOXONE HCL 0.4 MG/ML VIAL IM PRN (11:04)
[2023-09-27] MEDS ORDERED: POLYETHYLENE GLYCOL (HEALTHYLAX) 3350 17 GM PACKET PO PRN (11:04)
[2023-09-27] MEDS ORDERED: NICOTINE POLACRILEX 2 MG GUM BUC PRN (11:04)
[2023-09-27] MEDS ORDERED: ACETAMINOPHEN 325 MG TABLET (FP) PO PRN (11:04)
[2023-09-27] MEDS ORDERED: guaiFENesin 600 MG TABLET.ER (FP) PO PRN (11:04)
[2023-09-27] MEDS ORDERED: NALOXONE (NARCAN) HCL 4 MG/0.1 ML SPRAY NS PRN (11:04)
[2023-09-27] MEDS ORDERED: MAGNESIUM HYDROX 2400MG/30ML ORAL SUSPENSION 30 ML CUP PO PRN (11:04)
[2023-09-27] MEDS ORDERED: BENZONATATE 200 MG CAPSULE PO PRN (11:04)
[2023-09-27] MEDS ORDERED: BENZOCAINE/MENTHOL (CHLORASEPTIC ) LOZENGE MM PRN (11:04)
[2023-09-27] MEDS ORDERED: hydrOXYzine PAMOATE 25 MG CAPSULE (FP) PO PRN (11:04)
[2023-09-27] MEDS ORDERED: LOPERAMIDE HCL 2 MG CAPSULE PO PRN (11:04)
[2023-09-27] MEDS: THIAMINE 100 MG TABLET PO SCH (21:07)
[2023-09-27] MEDS: MELATONIN 5 MG TABLETS PO SCH (21:07)
[2023-09-28] MEDS: LIPASE/PROTEASE/AMYLASE 6,000 UNIT CAPSULE PO SCH ×2 (07:00→11:50)
[2023-09-28] MEDS: PRENATAL VITAMINS W/ FOLIC ACID TABLET (FP) PO SCH (09:53)
[2023-09-28] MEDS: LISINOPRIL 5 MG TABLET PO SCH (09:53)
[2023-09-28] MEDS: NICOTINE 21 MG/24 HOURS TOPICAL PATCH TD SCH (09:54)
[2023-09-28 11:21] LABS: HEMATOCRIT 36.8 % (35.4-49); HEMOGLOBIN 12.1 GM/dL (11.7-16.9); MCH 31.3 pg (25.7-33.7); MCHC 32.9 g/dl (32.0-35.9); MEAN CELL VOLUME 95.4 fl (80-96); MEAN PLT VOLUME 8.9 fl (7.5-11.1); PLATELET COUNT 163 10^3/uL (134-434); POTASSIUM 4.2 mmol/L (3.5-5.1); RBC 3.86 M/mm3 (4.00-5.60); WHITE BLOOD COUNT 4.3 K/mm3 (4.0-10.0)
[2023-09-28 11:25] LABS: EPI CELLS 4 /uL (0-25.1); HYALINE CASTS 0 /uL (0-3.1); URINE APPEARANCE CLEAR; URINE BACTERIA 6 /uL (0-1359); URINE BILIRUBIN NEGATIVE (NEGATIVE); URINE COLOR YELLOW; URINE GLUCOSE (UA) NEGATIVE (NEGATIVE); URINE KETONE NEGATIVE (NEGATIVE); URINE LEUK ESTERASE NEGATIVE (NEGATIVE); URINE NITRITE NEGATIVE (NEGATIVE); URINE PROTEIN NEGATIVE (NEGATIVE); URINE RBC 40 /uL (0-23.9); URINE WBC 3 /uL (0-25.8)
[2023-09-28 11:33] LABS: ALBUMIN 3.2 g/dl (3.4-5.0); BLOOD UREA NITROGEN 18.4 mg/dL (7-18); CALCIUM 9.1 mg/dL (8.5-10.1)
[2023-09-28 11:35] LABS: CREATININE 1.3 mg/dL (0.55-1.3)
[2023-09-28 11:37] LABS: BILIRUBIN,TOTAL 0.7 mg/dL (0.2-1); TOT PROT 8.1 g/dl (6.4-8.2)
[2023-09-28] MEDS: QUEtiapine FUMARATE 200 MG TABLET PO SCH (21:00)
[2023-10-01] MEDS: QUEtiapine FUMARATE 300 MG TABLET PO SCH (21:01)
[2023-10-04] MEDS: LIPASE/PROTEASE/AMYLASE 24,000 UNIT CAPSULE PO SCH (11:35)
[2023-10-07] MEDS: MAG HYDROX/AL HYDROX/SIMETH 30 ML UNIT-DOSE CUP PO PRN (11:59)
[2023-10-13] MEDS: IBUPROFEN 400 MG TABLET (FP) PO PRN (21:03)
[2023-10-16] MEDS: IBUPROFEN 600 MG TABLET (FP) PO PRN (21:03)
[2023-10-19] MEDS: SUVOREXANT 10 MG TABLET PO PRN (21:06)
[2023-10-21 06:55] VITALS: RESP 18
[2023-10-22] MEDS: SUVOREXANT 10 MG TABLET PO PRN (21:08)
[2023-10-23] MEDS: SUVOREXANT 15 MG TABLET PO PRN (21:06)
[2023-10-25 06:44] VITALS: TEMP 97.5
[2023-10-25 11:36] VITALS: BP 136/74; PULSE 93
== END 2023-10-25 12:45 | disposition home or self-care (01) | DRG 895 ==
LOC: YASAS 08:43 → Y5N 10:49
PROVIDERS: ADMIT Allergy & Immunology; ATTEND Psychiatry & Neurology Pain Medicine
PROC: HZ42ZZZ Group Counseling for Substance Abuse Treatment, Cognitive-Behavioral (ICD-10-PCS; principal; 2023-09-27)
DX: F10.20 Alcohol dependence, uncomplicated (principal); F14.20 Cocaine dependence, uncomplicated; F19.282 Other psychoactive substance dependence with psychoactive substance-induced sleep disorder; K86.0 Alcohol-induced chronic pancreatitis; R45.851 Suicidal ideations; F17.210 Nicotine dependence, cigarettes, uncomplicated; F41.8 Other specified anxiety disorders; I10 Essential (primary) hypertension; K21.9 Gastro-esophageal reflux disease without esophagitis; Z86.11 Personal history of tuberculosis
CPT/HCPCS: 36415; 71046-TC-FY; 80053; 80305; 80307; 81003; 85027; 86780; 87811; 93005; 93010

== ENCOUNTER 2024-01-24 12:28 | Inpatient (IN) | payer OTHER ==
[2024-01-24 13:58] VITALS: BMI 28.5
[2024-01-24] MEDS ORDERED: guaiFENesin 600 MG TABLET.ER (FP) PO PRN (15:25)
[2024-01-24] MEDS ORDERED: MAGNESIUM HYDROX 2400MG/30ML ORAL SUSPENSION 30 ML CUP PO PRN (15:25)
[2024-01-24] MEDS ORDERED: BENZONATATE 200 MG CAPSULE PO PRN (15:25)
[2024-01-24] MEDS ORDERED: LOPERAMIDE HCL 2 MG CAPSULE PO PRN (15:25)
[2024-01-24] MEDS ORDERED: IBUPROFEN 600 MG TABLET (FP) PO PRN (15:25)
[2024-01-24] MEDS ORDERED: IBUPROFEN 400 MG TABLET (FP) PO PRN (15:25)
[2024-01-24] MEDS ORDERED: NICOTINE POLACRILEX 2 MG GUM BUC PRN (15:25)
[2024-01-24] MEDS ORDERED: BENZOCAINE/MENTHOL (CHLORASEPTIC ) LOZENGE MM PRN (15:25)
[2024-01-24] MEDS ORDERED: NALOXONE (NARCAN) HCL 4 MG/0.1 ML SPRAY NS PRN (15:25)
[2024-01-24] MEDS ORDERED: POLYETHYLENE GLYCOL (HEALTHYLAX) 3350 17 GM PACKET PO PRN (15:25)
[2024-01-24 20:47] LABS: URINE APPEARANCE CLEAR
[2024-01-24 20:55] LABS: EPI CELLS 3 /uL (0-25.1); HYALINE CASTS 0 /uL (0-3.1); URINE BACTERIA 3 /uL (0-1359); URINE BILIRUBIN NEGATIVE (NEGATIVE); URINE COLOR YELLOW; URINE GLUCOSE (UA) NEGATIVE (NEGATIVE); URINE KETONE TRACE (NEGATIVE); URINE LEUK ESTERASE NEGATIVE (NEGATIVE); URINE NITRITE NEGATIVE (NEGATIVE); URINE PROTEIN NEGATIVE (NEGATIVE); URINE RBC 101 /uL (0-23.9); URINE WBC 3 /uL (0-25.8)
[2024-01-24] MEDS: THIAMINE 100 MG TABLET PO SCH (21:07)
[2024-01-24] MEDS: MELATONIN 5 MG TABLETS PO SCH (21:07)
[2024-01-25] MEDS: MELATONIN 5 MG TABLETS PO ONE (02:33)
[2024-01-25] MEDS: LISINOPRIL 5 MG TABLET PO SCH (10:13)
[2024-01-25] MEDS: NICOTINE 14 MG/24 HOURS TOPICAL PATCH TD SCH (10:13)
[2024-01-25] MEDS: PRENATAL VITAMINS W/ FOLIC ACID TABLET (FP) PO SCH (10:13)
[2024-01-25 11:29] LABS: HEMATOCRIT 37.7 % (35.4-49); MCH 30.7 pg (25.7-33.7); MCHC 31.8 g/dl (32.0-35.9); MEAN CELL VOLUME 96.6 fl (80-96); MEAN PLT VOLUME 8.8 fl (7.5-11.1); PLATELET COUNT 113 10^3/uL (134-434); RDW 15.9 % (11.9-15.9); WHITE BLOOD COUNT 3.4 K/mm3 (4.0-10.0)
[2024-01-25 11:30] LABS: POTASSIUM 4.2 mmol/L (3.5-5.1)
[2024-01-25 11:33] LABS: ALBUMIN 3.2 g/dl (3.4-5.0)
[2024-01-25 11:34] LABS: CALCIUM 9.4 mg/dL (8.5-10.1)
[2024-01-25 11:38] LABS: BLOOD UREA NITROGEN 14.4 mg/dL (7-18); CREATININE 1.3 mg/dL (0.55-1.3)
[2024-01-25 11:39] LABS: BILIRUBIN,TOTAL 0.9 mg/dL (0.2-1); TOT PROT 7.5 g/dl (6.4-8.2)
[2024-01-25] MEDS: LIPASE/PROTEASE/AMYLASE 36,000 UNIT CAPSULE PO SCH (11:59)
[2024-01-25] MEDS: LIPASE/PROTEASE/AMYLASE 24,000 UNIT CAPSULE PO SCH (19:10)
[2024-01-25] MEDS: QUEtiapine FUMARATE 200 MG TABLET PO SCH (21:19)
[2024-01-25] MEDS: SUVOREXANT 10 MG TABLET PO PRN (21:20)
[2024-01-26] MEDS ORDERED: LIPASE/PROTEASE/AMYLASE 6,000 UNIT CAPSULE PO SCH (07:00)
[2024-01-26] MEDS: MAG HYDROX/AL HYDROX/SIMETH 30 ML UNIT-DOSE CUP PO PRN (17:11)
[2024-01-29] MEDS: LIPASE/PROTEASE/AMYLASE 6,000 UNIT CAPSULE PO SCH (07:12)
[2024-01-30] MEDS: LIPASE/PROTEASE/AMYLASE 6,000 UNIT CAPSULE PO SCH (16:55)
[2024-01-30] MEDS: SUVOREXANT 15 MG TABLET PO PRN (21:13)
[2024-01-30] MEDS: QUEtiapine FUMARATE 100 MG TABLET (FP) PO SCH (21:13)
[2024-02-05] MEDS: SUVOREXANT 15 MG TABLET PO PRN (21:13)
[2024-02-07] MEDS: SUVOREXANT 20 MG TABLET PO PRN (21:07)
[2024-02-08] MEDS: NALTREXONE HCL 50 MG TABLET PO ONE (19:26)
[2024-02-09] MEDS: NALTREXONE HCL 50 MG TABLET PO SCH (10:44)
[2024-02-09] MEDS ORDERED: QUEtiapine FUMARATE 100 MG TABLET (FP) PO SCH (12:52)
[2024-02-09] MEDS: SUVOREXANT 20 MG TABLET PO PRN (21:07)
[2024-02-09] MEDS: QUEtiapine FUMARATE 200 MG TABLET PO SCH (21:08)
[2024-02-13] MEDS: NALTREXONE HCL 50 MG TABLET PO ONE ×2 (11:00→11:33)
[2024-02-13] MEDS: NALTREXONE MICROSPHERES (VIVITROL) 380 MG DISP.SYRIN IM ONE (11:32)
[2024-02-13] MEDS: MIRTAZAPINE 15 MG TABLET (FP) PO SCH (21:01)
[2024-02-14] MEDS ORDERED: NALTREXONE MICROSPHERES (VIVITROL) 380 MG DISP.SYRIN IM ONE (06:00)
[2024-02-14] MEDS: NALTREXONE HCL 50 MG TABLET PO SCH (10:01)
[2024-02-14] MEDS: SUVOREXANT 20 MG TABLET PO PRN (21:01)
[2024-02-17] MEDS: SUVOREXANT 20 MG TABLET PO PRN (21:02)
[2024-02-24 05:38] VITALS: RESP 18
[2024-02-24] MEDS: ACETAMINOPHEN 325 MG TABLET (FP) PO PRN (09:59)
[2024-02-25 06:53] VITALS: BP 144/76; PULSE 91; TEMP 97.1
[2024-02-25] MEDS: NALOXONE (NYS OPIOID OVERDOSE PROGRAM) 4 MG/0.1 ML SPRAY NS ONE (09:29)
== END 2024-02-25 10:14 | disposition home or self-care (01) | DRG 895 ==
LOC: YASAS 12:28 → Y3NR 16:01 → Y5N 01-28 11:44
PROVIDERS: ADMIT Allergy & Immunology; ATTEND Psychiatry & Neurology Pain Medicine
PROC: HZ42ZZZ Group Counseling for Substance Abuse Treatment, Cognitive-Behavioral (ICD-10-PCS; principal; 2024-01-24)
DX: F10.20 Alcohol dependence, uncomplicated (principal); F19.282 Other psychoactive substance dependence with psychoactive substance-induced sleep disorder; K86.1 Other chronic pancreatitis; F17.210 Nicotine dependence, cigarettes, uncomplicated; F31.9 Bipolar disorder, unspecified; F41.8 Other specified anxiety disorders; G47.00 Insomnia, unspecified; I10 Essential (primary) hypertension; K21.9 Gastro-esophageal reflux disease without esophagitis; Z86.11 Personal history of tuberculosis
CPT/HCPCS: 0241U-QW; 36415; 80053; 80305; 80307; 81003; 85027; 87811; 93005; 93010